=== PATIENT | male | born 1950 | race Caucasian/White ===

== ENCOUNTER 2019-10-16 12:30 | Emergency (ER) | payer MEDICARE, SELFPAY ==
[2019-10-16 12:39] VITALS: BP 222/68; PULSE 64; RESP 16; TEMP 37; O2SAT 100
--- NOTE | 2019-10-16 13:07 | ED.GENADULT ---
HPI - General Adult General Chief complaint: Recheck/Abnormal Lab/Rx Stated complaint: needlestick Time Seen by Provider: 10/16/19 12:37 Source: patient Mode of arrival: ambulatory Limitations: no limitations History of Present Illness HPI narrative: Patient is a 68-year-old male who presents with right index finger puncture wound after picking up a bag that he had a needle in it patient was collecting garbage when this happened and patient notes mild aching pain at the distal tip of the right index finger patient on arrival is in the room in no distress patient has not taken anything for his symptoms. Injury occurred just prior to arrival. Patient notes his tetanus is up-to-date Related Data Home Medications Medication Instructions Recorded Confirmed amlodipine 10/16/19 apixaban [Eliquis] mg 10/16/19 atorvastatin 10/16/19 glipizide mg 10/16/19 levothyroxine 10/16/19 losartan 10/16/19 losartan-hydrochlorothiazide tablet 10/16/19 metformin mg PO 10/16/19 simvastatin mg 10/16/19 testosterone cypionate mg 10/16/19 Allergies Allergy/AdvReac Type Severity Reaction Status Date / Time No Known Allergies Allergy Verified 10/16/19 12:44 Review of Systems Review of Systems: All systems reviewed & are unremarkable except as noted in HPI and below PMFSH Past Medical History Medical History Hypertension Social History Social History Gender identity (if verbalized by the patient): Male Exam Narrative: Exam Narrative: GENERAL: Well-appearing, well-nourished, and in no acute distress. HEAD: Normocephalic, atraumatic. EYES: PERRLA and EOMI. ENT: Nares clear, no rhinorrhea or epistaxis. Mucous membranes moist. EXTREMITIES: Normal range of motion. No edema. No wound of the right index finger noted SKIN: Warm, dry, no rash. NEURO: No focal deficits. Alert and oriented x3. Neurovascularly intact PSYCH: Normal mood and affect. Course Course Emergency Course: Patient in the room in no distress resting comfortably Vital Signs Vital signs: Vital Signs Temperature 98.6 F 10/16/19 12:39 Pulse Rate 64 10/16/19 12:39 Respiratory Rate 16 10/16/19 12:39 Blood Pressure 222/68 H 10/16/19 12:39 Pulse Oximetry 100 10/16/19 12:39 Temperature 98.6 F 10/16/19 12:39 Pulse Rate 64 10/16/19 12:39 Respiratory Rate 16 10/16/19 12:39 Blood Pressure 222/68 H 10/16/19 12:39 Pulse Oximetry 100 10/16/19 12:39 Medical Decision Making MDM Narrative Medical decision making narrative: Patient aware of case findings treatment plan and diagnosis agreeing to follow-up as directed or to return if symptoms worsen or concerns Vital Signs Vital Signs: Vital Signs Temperature 98.6 F 10/16/19 12:39 Pulse Rate 64 10/16/19 12:39 Respiratory Rate 16 10/16/19 12:39 Blood Pressure 222/68 H 10/16/19 12:39 Pulse Oximetry 100 10/16/19 12:39 Temperature 98.6 F 10/16/19 12:39 Pulse Rate 64 10/16/19 12:39 Respiratory Rate 16 10/16/19 12:39 Blood Pressure 222/68 H 10/16/19 12:39 Pulse Oximetry 100 10/16/19 12:39 Lab Data Labs: Lab Results 10/16/19 Range/Units 13:00 Hep Bs Antigen Pending Hepatitis C Ab Screen Pending HIV 1&2 Ab/P24 Ag 4thGn Pending Discharge Plan Discharge Clinical Impression: Puncture wound, Accidental hypodermic needlestick injury Patient Disposition: Home, Self-Care Condition: Stable Instructions: Antibiotic Form, Body Substance Exposure (ED) Additional Instructions: Follow-up with primary care tomorrow to set up for reevaluation and retesting in the next 7 days Return if symptoms worsen or concerns or any increase in redness swelling pain or fever over 100.5 or any loss of feeling or function in the extremity Prescriptions: No Action atorvastatin 40 mg tablet RF: 0 amlodipine 2.5 m
[2019-10-16 13:37] VITALS: BP 173/65; PULSE 63; RESP 15; O2SAT 95
[2019-10-16 13:49] LABS: Hepatitis B Surface Antigen Negative (Negative)
[2019-10-16 14:06] LABS: HIV 1/2 Ab P24 Ag Result Negative (Negative); Hepatitis C Virus Antibody Negative (Negative)
== END 2019-10-16 13:39 | disposition home or self-care (01) ==
PROVIDERS: Emergency Medicine Emergency Medical Services; Emergency Provider Emergency Medicine; PCP Family Medicine
DX: S61.230A Puncture wound without foreign body of right index finger without damage to nail, initial encounter (principal); W46.1XXA Contact with contaminated hypodermic needle, initial encounter; I10 Essential (primary) hypertension
CPT/HCPCS: 36415; 86703; 86803; 87340; 99283; G0432

== ENCOUNTER 2020-06-12 12:38 | Observation (INO) | payer MEDICARE, SELFPAY ==
[2020-06-12] VITALS (10 sets, daily range): BP systolic 132–176; BP diastolic 54–81; PULSE 55–70; RESP 15–20; TEMP 36.3–37.1; O2SAT 94–100; BMI 29.4
--- NOTE | ~2020-06-12 | XR_ITS ---
EXAMINATION: XR chest 2V EXAM DATE: 06/12/2020 13:12 INDICATION: stroke symptoms ,HBP,DIABETES 2, FORMER SMOKER . TECHNIQUE: Frontal and lateral projections of the chest obtained and reviewed. Comparison is made to prior examination from 06/11/2018. FINDINGS: The lungs are clear. There are no pleural effusions. The cardiomediastinal silhouette is within normal limits. There is no pneumothorax suspected. The bones and soft tissues are unremarkab le. IMPRESSION: No acute cardiopulmonary findings. Reviewed, dictated and finalized at location B. ULTING PRACTICE DIRECTOR
--- NOTE | ~2020-06-12 | US_ITS ---
EXAMINATION: US carotid duplex BI DATE: 06/12/2020 16:05 INDICATION: Transient ischemic attack. TECHNIQUE: Grayscale, color Doppler, and pulsed Doppler images of the cervical carotid arteries were obtained. The degree of vessel stenosis is placed in one of the following categories: normal, <50%, 5 0-69%, >=70% but less than near-occlusion, near-occlusion, or total occlusion. Note that percent sten osis relative to normal distal artery lumen diameter is indirectly measured from velocity measurement s as described by Mayco, et al. Radiology 2003; 229:340-346. COMPARISON: Ultrasound 02/11/2019 FINDINGS: RIGHT: The right common carotid artery (CCA) peak systolic velocity (PSV) is 114 cm/s. The right internal ca rotid artery (ICA) PSV is 211 cm/s. The right ICA end-diastolic velocity (EDV) is 35 cm/s. The right ICA/CCA PSV ratio is 1.8. Grayscale and color Doppler images yield an estimate of >=50% diameter redu ction from plaque in the ICA. There is antegrade flow in the right vertebral artery. LEFT: The left CCA PSV is 149 cm/s. The left ICA PSV is 148 cm/s. The left ICA EDV is 34 cm/s. The left ICA /CCA PSV ratio is 1.0. Grayscale and color Doppler images yield an estimate of >=50% diameter reducti on from plaque in the ICA. There is antegrade flow in the left vertebral artery. IMPRESSION: 1. 50-69% stenosis in the right internal carotid artery. 2. 50-69% stenosis in the left internal carotid artery. Reviewed, dictated and finalized at location A. ICE CONTROL OPERATOR
--- NOTE | ~2020-06-12 | CT_ITS ---
EXAMINATION: CT brain wo con INDICATION: Expressive aphasia COMPARISON: None TECHNIQUE: Standard unenhanced head CT. The dose-length product (DLP) was 605.33 mGy-cm. The mA was a djusted according to patient size. Iterative reconstruction technique was employed. FINDINGS: There is no acute intraparenchymal hemorrhage. No evidence of mass lesion. No evidence of a cute infarction. There is an old lacunar infarct of the right caudate. There is mild periventricular and subcortical hypodensity probably related to small vessel ischemic disease. There is mild prominen ce of the sulci and ventricles related to cerebral atrophy. Intracranial calcified cerebral atheroscl erosis is noted. There are no extra-axial collections. There is no mass effect or midline shift. The orbits and soft tissues are unremarkable. There is mild mucosal thickening of the paranasal sinuses. IMPRESSION: 1. No acute intracranial abnormality. 2. Age related findings. Reviewed, dictated and finalized at location A. CAL ASSEMBLY
--- NOTE | ~2020-06-12 | MR_ITS ---
EXAMINATION: MR brain/brain stem wo/w con DATE: 06/13/2020 08:36 INDICATION: Transient ischemic attack TECHNIQUE: Magnetic resonance imaging (MRI) of the brain and brainstem was performed without and with 17 mL MultiHance intravenous contrast. Sequences included sagittal and axial T1-weighted FSE, axial diffusion-weighted FS EPI, axial T2*-weighted GRE, axial T2-weighted FLAIR Propeller, and axial T2-we ighted Propeller. Postcontrast sequences included axial and coronal T1-weighted FSE. Apparent diffusi on coefficient (ADC) maps were created. COMPARISON: Brain MRI 02/14/2019, head CT 06/12/2020 FINDINGS: There are scattered areas of nonspecific increased T2-weighted signal intensity in the cere bral white matter and [place]. There is an old lacunar infarct in the right caudate nucleus. There are e nhancing lesions in the bilateral basal ganglia, left worse than right. There is no intracranial hemo rrhage or acute infarct. The ventricles are normal in size. The paranasal sinuses are clear. There ar e likely changes of ocular lens replacement surgeries. The mastoid air cells are normal. IMPRESSION: 1. Enhancing lesions in the bilateral basal ganglia, left worse than right, most likely subacute infa rcts. Metastatic disease cannot be excluded. 2. Old lacunar infarct in the right caudate nucleus. 3. Moderate nonspecific cerebral white matter disease and pontine disease, which likely represents ch ronic small vessel ischemic disease, slightly worsened from 02/14/2019. Reviewed, dictated and finalized at location A. AL ARTS THERAPY TEACHER IMPRESSION: 1. Enhancing lesions in the bilateral basal ganglia, left worse than right, mos t likely subacute infarcts. Metastatic disease cannot be excluded. 2. Old lacunar infarct in the right caudate nucleus. 3. Moderate nonspecific cerebral white matter disease and pontine disease, whic h likely represents chronic small vessel ischemic disease, slightly worsened fr om 02/14/2019.
--- NOTE | ~2020-06-12 | MR_ITS ---
EXAMINATION: MRA neck wo/w con DATE: 06/13/2020 08:36 INDICATION: Right caudate nucleus infarct. TECHNIQUE: Magnetic resonance angiography (MRA) of the neck was performed without intravenous contras t. Sequences included axial 2D-time of flight T1-weighted FSPGR, axial Inhance, and coronal T1-weight ed FSPGR without and with 17 mL MultiHance intravenous contrast. COMPARISON: Ultrasound 06/12/2020 FINDINGS: There is an aberrant right subclavian artery. There is 56% stenosis of the proximal right internal ca rotid artery relative to normal distal artery lumen diameter (NASCET criteria). There is 27% stenosi s of the proximal left internal carotid artery relative to normal distal artery lumen diameter. There is no significant stenosis of the vertebral arteries. IMPRESSION: 1. 56% stenosis of the proximal right internal carotid artery relative to normal distal artery lumen diameter (NASCET criteria). 2. 27% stenosis of the proximal left internal carotid artery relative to normal distal artery lumen d iameter. Reviewed, dictated and finalized at location A. CTOR EDUCATION IMPRESSION: 1. 56% stenosis of the proximal right internal carotid artery relative to harper l distal artery lumen diameter (NASCET criteria). 2. 27% stenosis of the proximal left internal carotid artery relative to normal distal artery lumen diameter.
--- NOTE | 2020-06-12 12:42 | ECG_ITS ---
Measurements Intervals [place] Rate: 69 P: 49 LA: 173 QRS: 14 QRSD: 98 T: 57 QT: 376 QTc: 403 Interpretive Statements SINUS RHYTHM WITH MARKED SINUS ARRHYTHMIA BASELINE ARTIFACT- I, III, AVR, AVL, AVF, V1, V6 BORDERLINE ECG Electronically Signed On 06-12-2020 15:47:54 ACADEMIC GUIDANCE SPECIALIST by Nicko Trivedi D.O.
[2020-06-12 12:46] LABS: Glucose Point of Care 228 (65-105)
[2020-06-12 13:01] LABS: Basophils Absolute Auto 0.1 K/mm3 (0.0-0.1); Basophils Percent Auto 0.7 % (0.2-1.2); Eosinophils Absolute Auto 0.1 K/mm3 (0-0.3); Eosinophils Percent Auto 0.8 % (0-4.4); Hematocrit 47.5 % (42.0-52.0); Immature Granulocyte Absolute 0.05 K/mm3 (0.00-0.031); Immature Granulocyte Percent A 0.3 % (0-0.5); Lymphocytes Absolute Auto 2.66 K/mm3 (0.9-3.2); Lymphocytes Percent Auto 18.4 % (18.3-44.2); Mean Corpuscular HGB Conc 33.7 g/dl (32-36); Mean Corpuscular Volume 86.2 fl (80-100); Mean Platelet Volume 11.3 fl (7.4-10.4); Monocytes Percent Auto 6.9 % (2.6-8.5); Neutrophils Absolute Auto 10.5 K/mm3 (1.3-6.7); Neutrophils Percent Auto 72.9 % (45.5-73.1); Platelet Count Result 233 k/mm3 (150-375); Red Blood Count 5.51 M/mm3 (4.6-6.20); White Blood Count 14.5 K/mm3 (4.5-10.0)
[2020-06-12 13:09] LABS: INR 1.1; Prothrombin Time 14.4 Seconds (11.1-14.7)
[2020-06-12 13:10] LABS: Partial Thromboplastin Time 29.2 SECONDS (22.3-36.8)
[2020-06-12 13:14] LABS: Anion Gap 11 mmol/L (8-16); Blood Urea Nitrogen 21 mg/dL (9-20); Carbon Dioxide 29 mmol/L (22-30); Chloride 97 mmol/L (98-107); Estimated Glomerular Filt Rate > 60; Glucose 205 mg/dL (75-110); Potassium 4.1 mmol/L (3.4-5.0); Sodium 137 mmol/L (137-145)
[2020-06-12 13:29] LABS: Troponin I < 0.012 ng/mL (0.000-0.034)
[2020-06-12 14:04] LABS: Add Urine Microscopic? YES; Appearance Urine Clear (Clear); Bilirubin Urine Negative (Negative); Blood Urine 1+ (Negative); Color Urine Yellow (Yellow); Glucose Urine UA 3+ mg/dL (Negative); Ketones Urine Negative (Negative); Leukocyte Esterase Ur Negative LEU/UL (Negative); Mucus Urine Rare /lpf; Nitrate Urine Negative (Negative); Protein Urine 1+ mg/dL (Negative); RBC Urine 0-2 /hpf (0-2); Specific Grav Ur 1.021 (1.001-1.035); Urobilinogen Urine Negative mg/dL (<2.0); WBC Urine 0-3 /hpf
--- NOTE | 2020-06-12 14:04 | ED.NEUROSD ---
HPI - Neuro Symptoms/Deficit General Chief Complaint: Neuro Symptoms/Deficit Stated Complaint: Neuro symptoms Time Seen by Provider: 06/12/20 12:41 History of Present Illness HPI Narrative: Patient is a 69-year-old male who presents ER with stroke symptoms. Patient was at home when he developed sudden onset weakness of his entire body with inability to stand. He also had slurred unintelligible speech. Symptoms lasted approximately 15 minutes and began to improve on his way here. 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 Patient reports he has history of atrial fibrillation but has not been in for quite some time. He does not take any medication for rate control. He does take Eliquis. Related Data Home Medications Medication Instructions Recorded Confirmed amlodipine 2.5 mg DAILY 10/16/19 06/12/20 apixaban [Eliquis] 5 mg BID 10/16/19 06/12/20 atorvastatin 40 mg HS 10/16/19 06/12/20 glipizide 10 mg BID 10/16/19 06/12/20 levothyroxine 112 mcg DAILY 10/16/19 06/12/20 losartan-hydrochlorothiazide 1 tablet HS 10/16/19 06/12/20 metformin 500 mg PO BID 10/16/19 06/12/20 testosterone cypionate 1 mg DIRECTED 10/16/19 06/12/20 Allergies Allergy/AdvReac Type Severity Reaction Status Date / Time No Known Allergies Allergy Verified 06/12/20 17:06 Review of Systems Review of Systems: All systems reviewed & are unremarkable except as noted in HPI and below Constitutional: Constitutional: Denies chills, Denies fever(s) and Denies weakness Cardiovascular: Cardiovascular: Denies chest pain, Denies rapid heart rate and Denies radiating jaw, neck or arm pain Respiratory: Respiratory: Denies cough and Denies dyspnea Gastrointestinal: Gastrointestinal: Denies abdominal pain, Denies nausea and Denies vomiting Neurologic: Reports focal weakness and Reports numbness (chronic) Comments: dysarthria/dysphasia PMFSH Past Medical History Medical History (Updated 06/12/20 @ 19:06 by Sabas Mac MD) CAD (coronary artery disease) history having nonobstructive blockages he had a stress test in June 2014 but had no intervention performed. He had a EF of 55% at that time. Medically treated. DM2 (diabetes mellitus, type 2) Dyslipidemia History of skin cancer HTN (hypertension) with goal to be determined Hypertension Hyperthyroidism status post radioactive iodine ablation Hypothyroidism Paroxysmal atrial fibrillation Surgical History Surgical History (Updated 06/12/20 @ 17:20 by Jade Alberto NP) H/O arthroscopy of left knee partial medial meniscectomy H/O cardiac catheterization no intervention performed History of removal of pigmented skin lesion Family History Family History Sibling Lung cancer Diabetes mellitus Father Diabetes mellitus Mother Congestive heart failure Acute myocardial infarction Dementia Other Hypertension Social History Social History (Updated 06/12/20 @ 17:21 by Jade Alberto NP) Social History: the patient lives with his Marycarmen in [place]. They have 2 children. He was a pack-a-day smoker and quit in 2007. No alcohol or drug use. 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 His Marycarmen is a durable power senior policy analyst for healthcare. Smoking packs per day: 1 Smoking cigarettes per day: 20.0 Years smoked: 20 Smoking pack-years: 20.00 Smoking status: Former smoker Tobacco type: cigarettes Alcohol intake: never Substance use: never Substance use type: does not use Living arrangements: with family Gender identity (if verbalized by the patient): Male Spiritual care concerns: No Exam Narrative: Exam Narrative: GENERAL: Well-appearing, well-nourished, and in no acute distress. HEAD: Normocephalic, atraumatic. EYES: PERRL and EOMI. ENT: Mucous membranes moist. CH
--- NOTE | 2020-06-12 15:22 | PC.NURSE ---
Patient taken to ultrasound before going to third floor, ultrasound taking patient up to room after ultrasound
--- NOTE | 2020-06-12 15:50 | ADMGEN ---
This patient, Moise Lutz, was admitted to Medical Room 346-01. Patient/family oriented to hospital policies and general routines including ID bracelet, bed and alarms, visiting hours, pain management, procedures, bathroom and other care routines, personal items, smoking policy, room service/diet, and visiting hours. Information on how to activate the Rapid Response Team has been discussed. Patient/Family are encouraged to report perceived risks to care and to ask questions if they do not understand what they are told or what they should do.
--- NOTE | 2020-06-12 17:10 | PM.IMHP ---
H&P: HPI History of Present Illness Date/Time: 06/12/20 17:10 Chief complaint: Stroke like symptoms/TIA Narrative: Moise Lutz is a 69 year old male Who came to the hospital today because he had complaints of numbness and tingling. He had numbness and tingling to bilateral arms and his left side of his body from his had a way down to his toes. The patient is diabetic and he does admit that he has peripheral neuropathy to his lower extremities. He stated that he has been to 2 different neurologist in the cancer to figure out what is wrong with him. The patient did not have any nerve conduction test but had been worked up for CVA in the past. The patient has no focal weakness. His speech is clear is no visual problems he is able to ambulate without difficulty. He is swallowing without difficulty. The patient has not had any TIAs or stroke in the past. He has a history of paroxysmal atrial fibrillation and is on Eliquis which he states he takes faithfully. Patient is currently in sinus rhythm. The patient had carotid Dopplers performed and it is listed as 50-69% right internal and left internal carotid arteries. Patient stated his last time he Had his carotids checked there were noted to be occluded at 50%. head CT was read as no acute intracranial abnormality age-related findings. Chest x-ray was read as no acute cardiopulmonary findings. His white count was noted to be 14.5. Blood sugar was 205 and then 228. Troponin was negative. Patient has 3+ glucose in his urine. Patient was given [place] was ordered for discomfort in the emergency room. Patient is admitted observation date of service 20 Review of Systems Review of Systems: All systems reviewed & are unremarkable except as noted in HPI and below Constitutional: Constitutional: Reports as per HPI and Reports no additional constitutional complaints Eyes: Eyes: Reports as per HPI and Reports no additional eye complaints ENT: Reports system reviewed and no additional complaints, except as documented and Reports Normal hearing present Cardiovascular: Cardiovascular: Reports no additional cardiovascular complaints Respiratory: Respiratory: Reports no additional respiratory complaints and Reports no additional respiratory complaints Gastrointestinal: Gastrointestinal: Reports as per HPI and Reports no additional gastrointestinal complaints Musculoskeletal: Musculoskeletal: Reports no additional musculoskeletal complaints Integumentary/Breasts: Skin/Breast: Reports system reviewed and no additional complaints, except as docu and Reports as per HPI Neurologic: Reports system reviewed and no additional complaints, except as documented, Reports as per HPI and Reports Normal hearing present Psychiatric: Psychiatric: Reports no additional psychiatric complaints and Reports as per HPI Endocrine: Endocrine: Reports no additional endocrine complaints Hematologic/Lymphatic: Hematologic/Lymphatic: Reports no additional hematologic/lymphatic complaints Allergic/Immunologic: Allergic/Immunologic: Reports no additional allergic/immunologic complaints [facility] Past Medical History Medical History (Updated 06/12/20 @ 17:38 by Jade Alberto NP) CAD (coronary artery disease) history having nonobstructive blockages he had a stress test in June 2014 but had no intervention performed. He had a EF of 55% at that time. Medically treated. DM2 (diabetes mellitus, type 2) Dyslipidemia History of skin cancer HTN (hypertension) with goal to be determined Hypertension Hyperthyroidism status post radioactive iodine ablation Hypothyroidism Paroxysmal atrial fibrillation Surgical History Surgical History (Updated 06/12/20 @ 17:20 by Jade Alberto NP) H/O arthroscopy of left knee partial medial meniscectomy H/O cardiac catheterization no intervention performed History of removal of pigmented skin lesion Family History Family History (Reviewed 06/12/20 @ 17:20 by Jade Flores
[2020-06-12] MEDS: glipiZIDE 5 MG TABLET 10 MG BY MOUTH (18:03)
[2020-06-12] MEDS: APIXABAN 5 MG TABLET BY MOUTH (18:04)
[2020-06-12 19:16] LABS: Cortisol Random 3.85 ug/dL
[2020-06-12] MEDS: hydroCHLOROthiazide 12.5 MG CAPSULE PO (20:19)
[2020-06-12] MEDS: ATORVASTATIN 40 MG TABLET BY MOUTH (20:19)
[2020-06-12] MEDS: LOSARTAN POTASSIUM 50 MG TABLET BY MOUTH (20:19)
[2020-06-12 21:58] LABS: Glucose Point of Care 267 (65-105)
[2020-06-13] VITALS (7 sets, daily range): BP systolic 144–151; BP diastolic 55–73; PULSE 52–66; RESP 16; TEMP 36.1–36.3; O2SAT 97–98
--- NOTE | 2020-06-13 | ECHO_ITS ---
Patient Info Name: Moise Lutz Age: 69 years : 1950 Gender: Male Ht: 68 in Wt: 193 lbs BSA: 2.07 m2 HR: 55 bpm BP: 124 / 65 mmHg Heart Rhythm: Sinus Rhythm Technical Quality: Fair Exam Date: 06/13/2020 8:26 AM Exam Location: [facility] Pulmonary Exam Room: [facility] Patient Status: Inpatient Admit Date: 06/12/2020 Staff Ordering Physician: Jade Alberto NP Drafter Assistant: Eladia Sosa RDCS Attending Provider: Zaynab Ayala PA-C Referring Physician: Dolly SEBASTIAN; Exam Type: CA echo dop bubble study w con Study Info Indications - TIA Complete two-dimensional, color flow and Doppler transthoracic echocardiogram is performed with contrast to opacify the left ventricle and to improve the deliniation of the left ventricle endocardial borders. Complete two-dimensional, color flow and Doppler transthoracic echocardiogram is performed with agitated saline. Contrast/Agitated Saline Contrast/Ag. Saline: Agitated Saline Amount: 20.00 ml Existing IV Access: Yes Summary 1. Left ventricular systolic function is normal, estimated at 65-70%. 2. There is mildly increased left ventricular wall thickness. 3. The left ventricular diastolic function is grade II diastolic dysfunction. 4. Left atrial chamber dimension is mildly enlarged. 5. Right atrial chamber dimension is mildly enlarged. 6. No interatrial shunt with injection of agitated saline with or without Valsalva. 7. There is no aortic valve stenosis. 8. There is trace mitral valve regurgitation. 9. There is trace tricuspid valve regurgitation. 10. No pulmonary hypertension, estimated pulmonary arterial systolic pressure is 19 mmHg. Recommendations * Consider transesophageal echocardiogram if clinically indicated. Left Ventricle Left ventricular chamber dimension is normal. Left ventricular systolic function is normal, estimated at 65-70%. There is mildly increased left ventricular wall thickness. The left ventricular diastolic function is grade II diastolic dysfunction. Right Ventricle Right ventricular chamber dimension is normal. Right ventricular systolic function is normal. Left Atria Left atrial chamber dimension is mildly enlarged. Right Atria Right atrial chamber dimension is mildly enlarged. Atrial Septum No interatrial shunt with injection of agitated saline with or without Valsalva. Aortic Valve The aortic valve is probable trileaflet. There is mild aortic valve sclerosis. There is no aortic valve stenosis. There is trace aortic valve regurgitation. Pulmonic Valve The pulmonic valve is not well visualized. There is trace pulmonic regurgitation. Mitral Valve The mitral valve has thickened leaflets. There is trace mitral valve regurgitation. The mitral valve annulus is moderately calcified. Tricuspid Valve The tricuspid valve leaflets are normal. There is trace tricuspid valve regurgitation. No pulmonary hypertension, estimated pulmonary arterial systolic pressure is 19 mmHg. Pericardium/Pleural The pericardium appears normal. There is trivial pericardial effusion. Inferior Vena Cava Normal inferior vena cava with >50% collapse upon inspiration consistent with normal right atrial pressure, 5 mmHg. Aorta The aortic root size at the sinus of Valsalva is normal. There is mild aortic atherosclerosis. Left Ventricular Outflow Tract
[2020-06-13] MEDS: LEVOTHYROXINE SODIUM 112 MCG TABLET BY MOUTH (06:32)
[2020-06-13 07:15] LABS: Hemoglobin A1C 7.2 % (<5.7)
[2020-06-13 07:17] LABS: Magnesium 1.6 mg/dL (1.6-2.3); Phosphorus 3.5 mg/dL (2.5-4.5)
--- NOTE | 2020-06-13 07:52 | PC.NURSE ---
Patient off to MRI per wheelchair.
[2020-06-13 09:04] LABS: Basophils Absolute Auto 0.1 K/mm3 (0.0-0.1); Basophils Percent Auto 0.6 % (0.2-1.2); Eosinophils Absolute Auto 0.1 K/mm3 (0-0.3); Eosinophils Percent Auto 1.2 % (0-4.4); Hematocrit 48.2 % (42.0-52.0); Hemoglobin 16.1 g/dL (14.0-18.0); Immature Granulocyte Absolute 0.02 K/mm3 (0.00-0.031); Immature Granulocyte Percent A 0.2 % (0-0.5); Lymphocytes Absolute Auto 1.76 K/mm3 (0.9-3.2); Lymphocytes Percent Auto 17.3 % (18.3-44.2); Mean Corpuscular HGB Conc 33.4 g/dl (32-36); Mean Corpuscular Volume 86.7 fl (80-100); Mean Platelet Volume 12.2 fl (7.4-10.4); Monocytes Absolute Auto 0.6 K/mm3 (0.1-0.6); Monocytes Percent Auto 6.3 % (2.6-8.5); Neutrophils Absolute Auto 7.6 K/mm3 (1.3-6.7); Neutrophils Percent Auto 74.4 % (45.5-73.1); Platelet Count Result 215 k/mm3 (150-375); Red Blood Count 5.56 M/mm3 (4.6-6.20); Red Cell Distribution Width 14.1 % (11.5-14.5); White Blood Count 10.2 K/mm3 (4.5-10.0)
[2020-06-13 09:09] LABS: CRP < 0.5 mg/dL (<1.0)
[2020-06-13] MEDS: APIXABAN 5 MG TABLET BY MOUTH ×2 (09:20→16:34)
[2020-06-13] MEDS: amLODIPine BESYLATE 2.5 MG TABLET BY MOUTH (09:20)
[2020-06-13] MEDS: glipiZIDE 5 MG TABLET 10 MG BY MOUTH ×2 (09:20→16:34)
[2020-06-13 09:29] LABS: Glucose Point of Care 174 (65-105)
[2020-06-13 09:57] LABS: Free T4 Free Thyroxine Reflex 1.04 ng/dL (0.78-2.19)
[2020-06-13 10:02] LABS: Folic Acid 3.5 ng/mL (2.76->20)
--- NOTE | 2020-06-13 10:03 | PC.NURSE ---
Back to room from MRI at 0812.
[2020-06-13 10:38] LABS: Total Triiodothyronine (T3) 1.08 NG/ML (0.97-1.69)
[2020-06-13 11:56] LABS: Glucose Point of Care 208 (65-105)
--- NOTE | 2020-06-13 13:09 | WPDNEURCNPN ---
Assessment and Plan Assessment and plan (1) TIA (transient ischemic attack): Code(s): G45.9 - Transient cerebral ischemic attack, unspecified Status: Acute (2) Paroxysmal atrial fibrillation: Code(s): I48.0 - Paroxysmal atrial fibrillation Status: Chronic (3) DM2 (diabetes mellitus, type 2): Code(s): E11.9 - Type 2 diabetes mellitus without complications Status: Chronic Additional Plan TIA and small fiber neuropathy on the basis of Diabetes mellitus patient can have EMG nerve conduction study as an outpatient at present can't continue apixaban 5 mg twice a day Consult date: 06/13/20 Time Seen: 13:10 HPI: Moise Lutz is a 69 year old male 69 years old has been admitted to the hospital for the complaints of numbness and tingling to both upper extremities and the left side of the body down to his toes patient is a known diabetic and has ongoing history of peripheral neuropathy involving the lower extremities has not undergone any nerve conduction studies but has been worked up for the cerebrovascular accident in the past on initial evaluation by the initial physician he had no focal weakness and had a normal speech but he does have a history of paroxysmal atrial fibrillation for which he is on Eliquis which she takes faithfully Yue was noted Mirta in sinus rhythm his previous cardiac carotid studies were compatible with 50 to 69% on the right side on initial evaluation this time chest x-ray was with acute cardiopulmonary findings negative CBC was 14.5 WBCs blood sugar 205 and 220 troponins negative 3+ glucose in the urine echocardiogram on this admission slightly enlarged left atrial chamber and right atrial chamber no shunt no aortic valvular disease and no pulmonary hypertension brain MRI is pending Review of Systems Review of Systems: All systems reviewed & are unremarkable except as noted in HPI and below [facility] Past Medical History Medical History CAD (coronary artery disease) history having nonobstructive blockages he had a stress test in June 2014 but had no intervention performed. He had a EF of 55% at that time. Medically treated. DM2 (diabetes mellitus, type 2) Dyslipidemia History of skin cancer HTN (hypertension) with goal to be determined Hypertension Hyperthyroidism status post radioactive iodine ablation Hypothyroidism Paroxysmal atrial fibrillation Surgical History Surgical History H/O arthroscopy of left knee partial medial meniscectomy H/O cardiac catheterization no intervention performed History of removal of pigmented skin lesion Family History Family History Sibling Lung cancer Diabetes mellitus Father Diabetes mellitus Mother Congestive heart failure Acute myocardial infarction Dementia Other Hypertension Social History Social History Social History: the patient lives with his Marycarmen in [place]. They have 2 children. He was a pack-a-day smoker and quit in 2007. No alcohol or drug use. 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 His Marycarmen is a durable power hardwood floor refinisher for healthcare. Smoking packs per day: 1 Smoking cigarettes per day: 20.0 Years smoked: 20 Smoking pack-years: 20.00 Smoking status: Former smoker Tobacco type: cigarettes Alcohol intake: never Substance use: never Substance use type: does not use Living arrangements: with family Gender identity (if verbalized by the patient): Male Spiritual care concerns: No Meds Home Medications and Allergies Home Medications Medication Instructions Recorded Confirmed Type amlodipine 2.5 mg DAILY 10/16/19 06/12/20 History apixaban [Eliquis] 5 mg BID 10/16/19 06/12/20 History
[2020-06-13] MEDS: ASPIRIN 81 MG ENTERIC TABLET PO (16:27)
[2020-06-13 16:53] LABS: Glucose Point of Care 155 (65-105)
--- NOTE | 2020-06-13 17:02 | PM.DS ---
DS: Admitting Diagnosis Admitting Diagnosis Admitting Diagnosis: Stroke like symptoms/TIA DS: Discharge Diagnosis Discharge Diagnosis (1) CVA (cerebral vascular accident): Code(s): I63.9 - Cerebral infarction, unspecified Status: Acute Assessment and Plan: Patient presented with complaints of numbness and tingling of left side of his face all the way down to his toes and endorsed bilateral numbness and tingling in arms. CT at presentation showed no evidence of acute infarction. Doppler showed 50-69% stenosis in the bilateral ICA. Brain MRI showed enhancing lesions in the bilateral basal ganglia most likely representing subacute infarcts, although metastatic disease cannot be excluded. There was also evidence of old lacunar infarcts in the right caudate nucleus. MRA of the head and neck showed 56% stenosis and proximal right ICA and 27% stenosis of proximal left ICA. Echo was negative for valvular disease or interatrial shunt. He was seen in consultation by Neurology and will need to follow-up in 1 week. He was started on daily aspirin therapy. He had some residual numbness and tingling in his left lip and bilateral hands, but otherwise did not appear to have any deficits. He will need to follow-up with neurology regarding enhancing lesions of the basal ganglia and follow-up imaging may be needed to rule out metastatic disease, although this is unlikely and better explained by subacute infarct. (2) Paresthesias: Code(s): R20.2 - Paresthesia of skin Status: Acute Assessment and Plan: Of left side of face, bilateral upper extremities, and left lower extremity. Patient reports that upper extremity paresthesias have been persistent for several years and he has been evaluated by neurology in the past for these findings. Suspect new onset facial paresthesias are related to subacute infarct as above but BUE and LE paresthesia may be related to residual effects from old lacunar infarct or additional etiologies including cervical pathology or peripheral neuropathy secondary to diabetes mellitus. He will follow-up with neurology in 1 week for nerve conduction studies. (3) DM2 (diabetes mellitus, type 2): Code(s): E11.9 - Type 2 diabetes mellitus without complications Status: Chronic Assessment and Plan: A1c was 7.2. Blood sugars were slightly elevated during his hospital stay in the 200s, however patient refused sliding scale insulin during his stay. Continue his glipizide and metformin as an outpatient. (4) Hypothyroidism: Code(s): E03.9 - Hypothyroidism, unspecified Status: Chronic Assessment and Plan: TSH was very mildly elevated and T3 and T4 were within normal limits. Continue his levothyroxine. (5) Dyslipidemia: Code(s): E78.5 - Hyperlipidemia, unspecified Status: Acute Assessment and Plan: Continue with atorvastatin. (6) HTN (hypertension) with goal to be determined: Code(s): I10 - Essential (primary) hypertension Status: Acute Assessment and Plan: Blood pressures were evaluated daily and remained generally well controlled. Continue home regimen of losartan-hydrochlorothiazide and amlodipine. (7) Paroxysmal atrial fibrillation: Code(s): I48.0 - Paroxysmal atrial fibrillation Status: Chronic Assessment and Plan: Rate controlled. He is on Eliquis, which he will continue. We discussed risk of bleeding with this medication in addition to aspirin and patient understands. DS: Summary Hospital Course Reason for hospitalization: Paraesthesias Hospital Course: Date of admission: 06/12/2020 Date of discharge: 06/13/2020 Moise Lutz is a 69-year-old male with a history of CAD, type 2 diabetes mellitus, hypertension, and paroxysmal atrial fibrillation who presented to the emergency department on 06/12/2020 with complaints of sudden onset weakness in which he was unable to stand
== END 2020-06-13 17:40 | disposition home or self-care (01) ==
LOC: ANHED 14:21 → ANH3MED 15:29
PROVIDERS: Nurse Practitioner; Admitting Provider Hospitalist; Emergency Provider Emergency Medicine; PCP Family Medicine; Visit Provider Physician Assistant
DX: I63.9 Cerebral infarction, unspecified (principal); R20.2 Paresthesia of skin; R47.81 Slurred speech; I65.23 Occlusion and stenosis of bilateral carotid arteries; E11.65 Type 2 diabetes mellitus with hyperglycemia; I48.0 Paroxysmal atrial fibrillation; I25.10 Atherosclerotic heart disease of native coronary artery without angina pectoris; I10 Essential (primary) hypertension; E89.0 Postprocedural hypothyroidism; E78.5 Hyperlipidemia, unspecified; Z79.01 Long term (current) use of anticoagulants; Z79.84 Long term (current) use of oral hypoglycemic drugs; Z87.891 Personal history of nicotine dependence
CPT/HCPCS: 36415; 70450; 70549; 70553; 71046; 80048; 81001; 82533; 82607; 82746; 82948; 83036; 83735; 84100; 84439; 84443; 84480; 84484; 85025; 85610; 85730; 86140; 93005; 93880; 96375; 99285; A9270; A9577; C8929; G0378; Q9957

== ENCOUNTER 2020-08-20 08:16 | Outpatient (CLI) | payer MEDICARE, SELFPAY ==
--- NOTE | 2020-08-20 11:30 | NEURO_ITS ---
Impression: # Complains of numbness of hands. # Bilateral Carpal Tunnel Syndrome, left more than right. # No ulnar neuropathy. # Normal nerve conduction study. # Clinical correlation recommended. Nerve Conduction Studies Anti Sensory Summary Table Stim Site NR Peak (ms) P-T Amp (?V) Site1 Site2 Delta-P (ms) Dist (cm) Hector (m/s) Left Median Anti Sensory (2-3nd Digit) Wrist 4.3 26.6 Wrist 2-3nd Digit 4.3 14.0 33 Wrist 4.3 19.3 Wrist 2-3nd Digit 4.3 14.0 33 Right Median Anti Sensory (2-3nd Digit) Wrist 4.1 22.9 Wrist 2-3nd Digit 4.1 14.0 34 Wrist 4.1 29.1 Wrist 2-3nd Digit 4.1 14.0 34 Left Radial Anti Sensory (Base 1st Digit) Wrist 2.4 10.8 Wrist Base 1st Digit 2.4 0.0 Right Radial Anti Sensory (Base 1st Digit) Wrist 2.3 27.1 Wrist Base 1st Digit 2.3 0.0 Left Ulnar Anti Sensory (5th Digit) Wrist 2.8 14.3 Wrist 5th Digit 2.8 14.0 50 Right Ulnar Anti Sensory (5th Digit) Wrist 3.3 33.9 Wrist 5th Digit 3.3 14.0 42 Motor Summary Table Stim Site NR Onset (ms) O-P Amp (mV) Site1 Site2 Delta-0 (ms) Dist (cm) Hector (m/s) Left Median Motor (Abd Poll Brev) Wrist 4.8 3.4 Elbow Wrist 5.3 28.0 53 Elbow 10.1 4.0 Right Median Motor (Abd Poll Brev) Wrist 4.1 2.5 Elbow Wrist 5.6 26.0 46 Elbow 9.7 1.9 Left Ulnar Motor (Abd Dig Minimi) Wrist 3.1 7.5 A Elbow Wrist 5.8 29.0 50 A Elbow 8.9 5.5 Right Ulnar Motor (Abd Dig Minimi) Wrist 3.1 7.8 A Elbow Wrist 5.6 29.0 52 A Elbow 8.7 4.1 F Wave Studies NR F-Lat (ms) L-R F-Lat (ms) Left Median (Mrkrs) (Abd Poll Brev) 30.71 0.70 Right Median (Mrkrs) (Abd Poll Brev) 30.01 0.70 Left Ulnar (Mrkrs) (Abd Dig Min) 30.32 0.95 Right Ulnar (Mrkrs) (Abd Dig Min) 31.27 0.95 EMG Side Muscle Nerve Root Ins Act Fibs Amp Dur Recrt Comment Right 1stDorInt Ulnar C8-T1 Nml Nml Nml Nml Nml Right Ext Indicis Radial (Post Int) C7-8 Nml Nml Nml Nml Nml Right Ext Digitorum Radial (Post Int) C7-8 Nml Nml Nml Nml Nml Right BrachioRad Radial C5-6 Nml Nml Nml Nml Nml Right PronatorTeres Median C6-7 Nml Nml Nml Nml Nml Right Abd Poll Brev Median C8-T1 Nml Nml Nml Nml Nml Left 1stDorInt Ulnar C8-T1 Nml Nml Nml Nml Nml Left Ext Indicis Radial (Post Int) C7-8 Nml Nml Nml Nml Nml Left Ext Digitorum Radial (Post Int) C7-8 Nml Nml Nml Nml Nml Left BrachioRad Radial C5-6 Nml Nml Nml Nml Nml Left PronatorTeres Median C6-7 Nml Nml Nml Nml Nml Left Abd Poll Brev Median C8-T1 Nml Nml Nml Nml Nml MTDD
== END 2020-08-20 08:17 | disposition home or self-care (01) ==
PROVIDERS: Visit Provider Psychiatry & Neurology Neurology
DX: R20.2 Paresthesia of skin (principal); G56.03 Carpal tunnel syndrome, bilateral upper limbs
CPT/HCPCS: 95886; 95911

== ENCOUNTER 2020-12-02 16:06 | Emergency (ER) | payer MEDICARE, SELFPAY ==
[2020-12-02 16:19] VITALS: BP 156/66; PULSE 65; RESP 18; TEMP 36.9; O2SAT 97
--- NOTE | 2020-12-02 16:21 | ED.WOUNDLAC ---
HPI - Wound/Laceration General Stated Complaint: bump on head/right eye swelling Source: patient Mode of arrival: ambulatory Limitations: no limitations History of Present Illness HPI narrative: Patient is a 69 year old male who presents with laceration to right eye. He reports missing step, tripping and falling into door. Laceration to right eye. Dressing in place. Patient is on Eliquis and ASA daily. He denies LOC, denies other injuries. Patient denies all other complaints at this time. Related Data Home Medications Medication Instructions Recorded Confirmed Eliquis 5 mg BID 10/16/19 09/11/20 amlodipine 5 mg PO DAILY 12/02/20 12/02/20 losartan-hydrochlorothiazide 1 tablet PO DAILY 12/02/20 12/02/20 metformin 1,000 mg PO BID 12/02/20 12/02/20 Allergies Allergy/AdvReac Type Severity Reaction Status Date / Time No Known Allergies Allergy Verified 12/02/20 16:22 Review of Systems Review of Systems: Narrative: CONSTITUTIONAL: Denies fever, chills, or sweats. EYES: Denies visual changes, redness, or discharge. ENT: Denies rhinorrhea, congestion, sore throat, or otalgia. CARDIOVASCULAR: Denies chest pain, palpitations, or edema. RESPIRATORY: Denies cough or dyspnea. GASTROINTESTINAL: Denies abdominal pain, nausea, vomiting, or diarrhea. GENITOURINARY: Denies dysuria or hematuria. SKIN: Laceration to right eye MUSCULOSKELETAL: Denies back pain, joint pain, or myalgia. NEUROLOGIC: Denies headache, numbness, dizziness, or weakness. PSYCHIATRIC: Denies anxiety or depression. [facility] Past Medical History Medical History (Updated 12/02/20 @ 16:31 by KELLY Khan) Adhesive capsulitis of right shoulder BMI 28.0-28.9,adult CAD (coronary artery disease) history having nonobstructive blockages he had a stress test in June 2014 but had no intervention performed. He had a EF of 55% at that time. Medically treated. Cardiac arrhythmia DM2 (diabetes mellitus, type 2) Dyslipidemia Hemoglobin A1C between 7% and 9% indicating borderline diabetic control A1c was 7.2 on 06/13/20 History of skin cancer HTN (hypertension) with goal to be determined Hypertension Hyperthyroidism status post radioactive iodine ablation Hypothyroidism Paroxysmal atrial fibrillation Surgical History Surgical History (Updated 09/03/20 @ 06:21 by Hossein Borrego MD) H/O arthroscopy of left knee partial medial meniscectomy, Dr. Mosquera about 2017 H/O cardiac catheterization no intervention performed History of removal of pigmented skin lesion Family History Family History Sibling Lung cancer Diabetes mellitus Father Diabetes mellitus Mother Congestive heart failure Acute myocardial infarction Dementia Other Hypertension Social History Social History Social History: the patient lives with his Marycarmen in [place]. They have 2 children. He was a pack-a-day smoker and quit in 2007. No alcohol or drug use. 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 His Marycarmen is a durable power commercial attorney for healthcare. Smoking packs per day: 1 Smoking cigarettes per day: 20.0 Years smoked: 20 Smoking pack-years: 20.00 Tobacco type: cigarettes Alcohol intake: never Substance use: never Substance use type: does not use Gender identity (if verbalized by the patient): Male Spiritual care concerns: No Comments At the time of signature, I have reviewed and agree with nursing past medical, surgical, social, and family history unless otherwise noted. Please see nursing chart for further information. There is no relevant family history pertinent to the presenting complaint. Exam Narrative: Exam Narrative: GENERAL: Well-appearing, well-nourished, and in no acute distress. HEAD: Normocephalic, atraumatic. EYES: EOMI. No rednes
[2020-12-02 16:22] VITALS: BP 156/66; PULSE 65; RESP 18; TEMP 36.9; O2SAT 97
== END 2020-12-02 16:35 | disposition short-term general hospital (02) ==
PROVIDERS: Emergency Provider Nurse Practitioner; PCP Internal Medicine
DX: S01.81XA Laceration without foreign body of other part of head, initial encounter (principal); W01.198A Fall on same level from slipping, tripping and stumbling with subsequent striking against other object, initial encounter; Z87.891 Personal history of nicotine dependence; I25.10 Atherosclerotic heart disease of native coronary artery without angina pectoris; E11.9 Type 2 diabetes mellitus without complications; E78.5 Hyperlipidemia, unspecified; I10 Essential (primary) hypertension; I48.0 Paroxysmal atrial fibrillation; Z85.828 Personal history of other malignant neoplasm of skin
CPT/HCPCS: 99212; G0463

== ENCOUNTER 2020-12-02 16:46 | Emergency (ER) | payer MEDICARE, SELFPAY ==
--- NOTE | ~2020-12-02 | CT_ITS ---
EXAMINATION: CT brain wo con DATE: 12/02/2020 17:53 INDICATION: Head injury on blood thinners. TECHNIQUE: Computed tomography (CT) of the head was performed without intravenous contrast. Sagittal and coronal reconstructions were performed. The mA was adjusted according to patient size. Iterative reconstruction technique was employed. The dose-length product was 605.33 mGy-cm. COMPARISON: head CT dated 06/12/2020 and brain MR dated 06/23/2020 FINDINGS: No fracture. No acute intracranial hemorrhage, acute infarction or abnormal extra axial fluid collect ion. A small old lacunar infarcts at the heads of the bilateral caudate nuclei. There is mild scatter ed white matter hypoattenuation consistent with chronic small vessel ischemic disease. Symmetric prom inence of the sulci consistent with mild age-appropriate diffuse cerebral volume loss. Ventricles are normal and symmetric. No mass/mass effect. Changes of bilateral intraocular lens replacement. The or bitsand paranasal sinuses are clear. Mastoid air cells are clear with no hypopneumatized left mastoid . IMPRESSION: 1. No fracture or acute intracranial process. 2. Small old lacunar infarcts at the bilateral caudate nuclei. 3. Age-related changes and diffuse on loss and mild scattered white matter hypoattenuation consistent with chronic small vessel ischemic disease. Reviewed, dictated and finalized at location A. IMPRESSION: 1. No fracture or acute intracranial process. 2. Small old lacunar infarcts at the bilateral caudate nuclei. 3. Age-related changes and diffuse on loss and mild scattered white matter hypo attenuation consistent with chronic small vessel ischemic disease.
[2020-12-02 17:26] VITALS: BP 155/72; PULSE 59; RESP 20; TEMP 36.5; O2SAT 97
[2020-12-02] MEDS: TETANUS,DIPHTHERIA,AC PERTUSSIS ADULT (0.5 ML) BOOSTRIX IM (19:15)
--- NOTE | 2020-12-02 20:10 | ED.HEATRA ---
HPI - Head Injury General Chief complaint: Head Injury Stated complaint: Fell off step, hit face on door Time Seen by Provider: 12/02/20 17:59 Source: patient Mode of arrival: ambulatory Limitations: no limitations History of Present Illness HPI Narrative: 69-year-old male This morning around 10:00 patient stumbled and fell into a door frame striking the right side of his head He did not lose consciousness He does not have any neck pain or any new neuro symptoms He does have a stellate laceration above the right in the right eyebrow And he is taking Eliquis and aspirin for stroke prophylaxis due to A. fib He was not thinking of coming to the ED until his checked his wound and was concerned and also made it bleed more Related Data Home Medications Medication Instructions Recorded Confirmed Eliquis 5 mg BID 10/16/19 12/02/20 amlodipine 5 mg PO DAILY 12/02/20 12/02/20 losartan-hydrochlorothiazide 1 tablet PO DAILY 12/02/20 12/02/20 metformin 1,000 mg PO BID 12/02/20 12/02/20 Allergies Allergy/AdvReac Type Severity Reaction Status Date / Time No Known Allergies Allergy Verified 12/02/20 18:27 Review of Systems Review of Systems: All systems reviewed & are unremarkable except as noted in HPI and below Constitutional: Constitutional: Reports no additional constitutional complaints, Denies chills, Denies fever(s) and Denies headache(s) Eyes: Eyes: Reports no additional eye complaints and Denies change in vision ENT: Denies headache(s) and Denies sore throat Cardiovascular: Cardiovascular: Denies chest pain and Denies dyspnea Respiratory: Respiratory: Denies cough and Denies dyspnea Gastrointestinal: Gastrointestinal: Denies nausea and Denies vomiting Musculoskeletal: Musculoskeletal: Denies back pain, Denies deformity and Denies numbness Integumentary/Breasts: Skin/Breast: Denies wounds Neurologic: Denies headache(s), Denies focal weakness and Denies numbness Psychiatric: Psychiatric: Reports no additional psychiatric complaints Endocrine: Endocrine: Reports no additional endocrine complaints Hematologic/Lymphatic: Hematologic/Lymphatic: Reports easy bleeding and Reports easy bruising Allergic/Immunologic: Allergic/Immunologic: Reports no additional allergic/immunologic complaints PMFSH Past Medical History Medical History (Updated 12/02/20 @ 20:10 by Robbin oCbb MD) Adhesive capsulitis of right shoulder BMI 28.0-28.9,adult CAD (coronary artery disease) history having nonobstructive blockages he had a stress test in June 2014 but had no intervention performed. He had a EF of 55% at that time. Medically treated. Cardiac arrhythmia DM2 (diabetes mellitus, type 2) Dyslipidemia Hemoglobin A1C between 7% and 9% indicating borderline diabetic control A1c was 7.2 on 06/13/20 History of skin cancer HTN (hypertension) with goal to be determined Hypertension Hyperthyroidism status post radioactive iodine ablation Hypothyroidism Paroxysmal atrial fibrillation Surgical History Surgical History (Updated 09/03/20 @ 06:21 by Hossein Borrego MD) H/O arthroscopy of left knee partial medial meniscectomy, Dr. Mosquera about 2016 H/O cardiac catheterization no intervention performed History of removal of pigmented skin lesion Family History Family History Sibling Lung cancer Diabetes mellitus Father Diabetes mellitus Mother Congestive heart failure Acute myocardial infarction Dementia Other Hypertension Social History Social History Social History: the patient lives with his Marycarmen in [place]. They have 2 children. He was a pack-a-day smoker and quit in 2007. No alcohol or drug use. 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 His Marycarmen is a durable power criminal attorney for health
[2020-12-02 20:42] VITALS: BP 141/86; PULSE 78; RESP 16; TEMP 36.4; O2SAT 98
== END 2020-12-02 20:43 | disposition home or self-care (01) ==
PROVIDERS: Emergency Provider Emergency Medicine; PCP Internal Medicine
DX: S01.111A Laceration without foreign body of right eyelid and periocular area, initial encounter (principal); I48.91 Unspecified atrial fibrillation; Z23 Encounter for immunization; I25.10 Atherosclerotic heart disease of native coronary artery without angina pectoris; E11.9 Type 2 diabetes mellitus without complications; E78.5 Hyperlipidemia, unspecified; I10 Essential (primary) hypertension; E05.90 Thyrotoxicosis, unspecified without thyrotoxic crisis or storm; F17.210 Nicotine dependence, cigarettes, uncomplicated; Z85.828 Personal history of other malignant neoplasm of skin; Z79.82 Long term (current) use of aspirin; Z79.01 Long term (current) use of anticoagulants; Z79.84 Long term (current) use of oral hypoglycemic drugs
CPT/HCPCS: 12013; 70450; 90471; 90715; 99284

== ENCOUNTER 2021-05-27 00:42 | Day surgery (SDC) | payer MEDICARE, SELFPAY ==
[2021-05-18 12:12] VITALS: BMI 26.8
[2021-05-27 06:42] VITALS: BP 161/66; PULSE 62; RESP 18; TEMP 36.8; O2SAT 100
[2021-05-27] MEDS: LACTATED RINGERS 1,000 ML 150 ML IV CONT (06:46)
[2021-05-27 06:56] LABS: Glucose Point of Care 159 mg/dl (65-105)
--- NOTE | 2021-05-27 07:19 | WPDANESEPPF ---
Anes - Initial Pre Proc Eval Procedure: Operation Date: 05/27/21 08:00 Proposed Procedures p Screening Colonoscopy - Robbin De Leon MD Date/Time: 05/27/21 07:19 Surgeon: Robbin De Leon MD Pre Op Diagnosis: neoplasm screening Patient Data Age: 70 Gender: M Height: 1.73 m Weight: 80.1 kg Last Vital Signs Temp 36.8 C 05/27/21 06:42 Pulse 62 05/27/21 06:42 Resp 18 05/27/21 06:42 BP 161/66 H 05/27/21 06:42 Pulse Ox 100 05/27/21 06:42 Allergies Allergy/AdvReac Type Severity Reaction Status Date / Time No Known Allergies Allergy Verified 05/27/21 06:41 Home Medications Medication Instructions Recorded Confirmed Type Eliquis 5 mg BID 10/16/19 05/27/21 History aspirin 81 mg PO QAM #30 tablet 06/13/20 05/27/21 Rx atorvastatin 40 mg tablet 40 mg PO DAILY #90 tablet 10/30/20 05/27/21 Rx blood sugar diagnostic #100 12/17/20 05/27/21 Rx blood-glucose meter #1 12/17/20 05/27/21 Rx lancets 28 gauge #100 ea 12/17/20 05/27/21 Rx losartan 100 mg tablet 100 mg PO DAILY #90 tablet 12/17/20 05/27/21 Rx semaglutide 7 mg tablet 7 mg PO DAILY 30 Days #30 tablet 03/17/21 05/27/21 Rx amlodipine 5 mg tablet 5 mg PO DAILY #90 tablet 04/05/21 05/27/21 Rx levothyroxine 112 mcg tablet 112 mcg PO DAILY #90 tablet 04/05/21 05/27/21 Rx safety needles 22 gauge x 1 #100 ea 04/23/21 05/27/21 Rx syringe with needle 3 mL 23 x 1 #100 ea 04/23/21 05/27/21 Rx cholecalciferol (vitamin D3) 50 mcg PO DAILY 05/18/21 05/27/21 History [Vitamin D3] ferrous sulfate 325 mg PO DAILY 05/18/21 05/27/21 History metformin 1,000 mg PO BID 05/18/21 05/27/21 History testosterone cypionate 200 mg/mL 200 mg SUBCUT WEEKLY #10 ml 05/21/21 05/27/21 Rx intramuscular oil Laboratory Tests 05/27/21 06:46 POC Capillary Glucose 159 mg/dl H mg/dl (65-105) Patient hx anesthesia problems: none Family hx anesthesia problems: none Results Review: All pre-operative results and documents have been reviewed as part of the pre-operative evaluation. [facility] Past Medical History Medical History Adhesive capsulitis of right shoulder BMI 28.0-28.9,adult CAD (coronary artery disease) history having nonobstructive blockages he had a stress test in June 2014 but had no intervention performed. He had a EF of 55% at that time. Medically treated. Cardiac arrhythmia Carotid artery occlusion DM2 (diabetes mellitus, type 2) Dyslipidemia Hemoglobin A1C between 7% and 9% indicating borderline diabetic control A1c was 7.2 on 06/13/20 History of skin cancer HTN (hypertension) with goal to be determined Hypertension Hyperthyroidism status post radioactive iodine ablation Hypothyroidism Paroxysmal atrial fibrillation Surgical History Surgical History H/O arthroscopy of left knee partial medial meniscectomy, Dr. Mosquera about 2016 H/O cardiac catheterization no intervention performed History of removal of pigmented skin lesion Family History Family History Sibling Lung cancer Diabetes mellitus Father Diabetes mellitus Mother Congestive heart failure Acute myocardial infarction Dementia Other Hypertension Social History Social History Social History: the patient lives with his Marycarmen in [place]. They have 2 children. He was a pack-a-day smoker and quit in 2007. No alcohol or drug use. 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 His Marycarmen is a durable power deputy attorney general for healthcare. Smoking packs per day: 1 Smoking cigarettes per day: 20.0 Years smoked: 20 Smoking pack-years: 20.00 Smoking status: Never smoker Tobacco type: cigarettes Second hand tobacco smoke exposure: Yes Smoking end date:
--- NOTE | 2021-05-27 07:23 | WPDGICN ---
Assessment and Plan Assessment and plan (1) Encounter for screening colonoscopy: Code(s): Z12.11 - Encounter for screening for malignant neoplasm of colon Status: Acute Assessment and Plan: Patient presents for screening colonoscopy. He appears to be at average risk for colon polyps. Further recommendations will be given after colonoscopy. GI Consult Note Consult date/time: 05/27/21 07:23 HPI: Moise Lutz is a 70 year old male presents for neoplasia screening colonoscopy. Patient has never had a prior colonoscopy. He reports his current weight appetite bowel movements are normal. Family history is noncontributory. Patient reports no blood in his stools his bowel habits tend to be regular. Family history noncontributory. Review of Systems Review of Systems: All systems reviewed & are unremarkable except as noted in HPI and below PMFSH Past Medical History Medical History Adhesive capsulitis of right shoulder BMI 28.0-28.9,adult CAD (coronary artery disease) history having nonobstructive blockages he had a stress test in June 2014 but had no intervention performed. He had a EF of 55% at that time. Medically treated. Cardiac arrhythmia Carotid artery occlusion DM2 (diabetes mellitus, type 2) Dyslipidemia Hemoglobin A1C between 7% and 9% indicating borderline diabetic control A1c was 7.2 on 06/13/20 History of skin cancer HTN (hypertension) with goal to be determined Hypertension Hyperthyroidism status post radioactive iodine ablation Hypothyroidism Paroxysmal atrial fibrillation Surgical History Surgical History H/O arthroscopy of left knee partial medial meniscectomy, Dr. Mosquera about 2016 H/O cardiac catheterization no intervention performed History of removal of pigmented skin lesion Family History Family History Sibling Lung cancer Diabetes mellitus Father Diabetes mellitus Mother Congestive heart failure Acute myocardial infarction Dementia Other Hypertension Social History Social History Social History: the patient lives with his Marycarmen in [place]. They have 2 children. He was a pack-a-day smoker and quit in 2007. No alcohol or drug use. 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 His Marycarmen is a durable power program coordinator executive education for healthcare. Smoking packs per day: 1 Smoking cigarettes per day: 20.0 Years smoked: 20 Smoking pack-years: 20.00 Smoking status: Never smoker Tobacco type: cigarettes Second hand tobacco smoke exposure: Yes Smoking end date: 08/07/14 Alcohol intake: never Substance use: never Substance use type: does not use Living arrangements: with family Gender identity (if verbalized by the patient): Male Spiritual care concerns: No Meds Home Medications and Allergies Home Medications Medication Instructions Recorded Confirmed Type Eliquis 5 mg BID 10/16/19 05/27/21 History aspirin 81 mg PO QAM #30 tablet 06/13/20 05/27/21 Rx atorvastatin 40 mg tablet 40 mg PO DAILY #90 tablet 10/30/20 05/27/21 Rx blood sugar diagnostic #100 12/17/20 05/27/21 Rx blood-glucose meter #1 12/17/20 05/27/21 Rx lancets 28 gauge #100 12/17/20 05/27/21 Rx losartan 100 mg tablet 100 mg PO DAILY #90 tablet 12/17/20 05/27/21 Rx semaglutide 7 mg tablet 7 mg PO DAILY 30 Days #30 tablet 03/17/21 05/27/21 Rx amlodipine 5 mg tablet 5 mg PO DAILY #90 tablet 04/05/21 05/27/21 Rx levothyroxine 112 mcg tablet 112 mcg PO DAILY #90 tablet 04/05/21 05/27/21 Rx safety needles 22 gauge x 1 #100 04/23/21 05/27/21 Rx syringe with needle 3 mL 23 x 1 #100 04/23/21 05/27/21 Rx cholecalciferol (vitamin D3) 50 mcg PO DAILY 05/18/21 05/27/21 Hist
[2021-05-27 08:19] VITALS: BP 128/62; PULSE 74; RESP 18; O2SAT 100
[2021-05-27 08:29] VITALS: BP 131/69; PULSE 77; RESP 20; O2SAT 99
--- NOTE | 2021-05-27 08:30 | SUR.PHASEII ---
PER DR CONNOLLY PT IS TO RESUME ELIQUIS TODAY, PT STATES UNDERSTANDING
[2021-05-27 08:39] VITALS: BP 164/65; PULSE 56; RESP 20; O2SAT 99
== END 2021-05-27 08:48 | disposition home or self-care (01) ==
PROVIDERS: PCP Internal Medicine; Visit Provider Internal Medicine Gastroenterology
PROC: 0DJD8ZZ Inspection of Lower Intestinal Tract, Via Natural or Artificial Opening Endoscopic (ICD-10-PCS; CPT 45378; principal; 2021-05-27 08:00)
DX: Z12.11 Encounter for screening for malignant neoplasm of colon (principal); K57.30 Diverticulosis of large intestine without perforation or abscess without bleeding; K62.1 Rectal polyp; I25.10 Atherosclerotic heart disease of native coronary artery without angina pectoris; I48.0 Paroxysmal atrial fibrillation; E11.9 Type 2 diabetes mellitus without complications; E89.0 Postprocedural hypothyroidism; E78.5 Hyperlipidemia, unspecified; I10 Essential (primary) hypertension; Z79.01 Long term (current) use of anticoagulants; Z79.82 Long term (current) use of aspirin; Z79.84 Long term (current) use of oral hypoglycemic drugs; Z79.890 Hormone replacement therapy; Z87.891 Personal history of nicotine dependence
CPT/HCPCS: 45380; 82948; 88305; J2704; J7120

== ENCOUNTER 2021-12-19 07:50 | Inpatient (IN) | payer MEDICARE, SELFPAY ==
[2021-12-19] VITALS (21 sets, daily range): BP systolic 102–163; BP diastolic 63–150; PULSE 60–181; RESP 20–36; TEMP 36.2–37.3; O2SAT 84–99; BMI 27.2
--- NOTE | ~2021-12-19 | XR_ITS ---
EXAMINATION: XR chest 1V portable INDICATION: Acute respiratory failure TECHNIQUE: Portable AP chest at 0520 hours COMPARISON: 12/23/2021 FINDINGS: The endotracheal tube ends approximately 3.1 cm above the wil. The nasogastric tube is f ollowed as far as the stomach. Its tip is beyond the inferior margin of the radiograph. A right inter nal jugular central venous catheter ends with its tip in the proximal right atrium. Diffuse interstit ial and airspace opacities persist without significant change. Cardiomegaly is noted. There is no pne umothorax. There are small pleural effusions. IMPRESSION: 1. Stable diffuse lung disease, consistent with pneumonia and/or pulmonary edema. 2. Cardiomegaly. 3. Small pleural effusions. Reviewed, dictated and finalized at location A. IMPRESSION: 1. Stable diffuse lung disease, consistent with pneumonia and/or pulmonary neva a. 2. Cardiomegaly. 3. Small pleural effusions.
--- NOTE | ~2021-12-19 | XR_ITS ---
EXAMINATION: XR chest 1V portable DATE: 12/23/2021 05:55 INDICATION: Acute respiratory failure. Pulmonary edema. TECHNIQUE: frontal view of the chest was obtained. COMPARISON: Chest radiograph and CT dated 12/22/2021 FINDINGS: Endotracheal tube tip 2.9 cm above the wil. Right internal jugular central venous catheter with di stal tip near the superior cavoatrial junction. Nasogastric tube extends below the left hemidiaphrag m with distal tip collimated off the study. Diffuse interstitial and airspace opacities throughout both lungs. Interval increase in now more dens e retrocardiac consolidation at the left lower lung zone. No pneumothorax or definitive pleural effus ion. Cardiomegaly. IMPRESSION: 1. Diffuse bilateral lung disease with increase in the left lower lung zone. Differential includes pu lmonary edema and pneumonia. 2. Cardiomegaly. Reviewed, dictated and finalized at location A. IMPRESSION: 1. Diffuse bilateral lung disease with increase in the left lower lung zone. Di fferential includes pulmonary edema and pneumonia. 2. Cardiomegaly.
--- NOTE | ~2021-12-19 | XR_ITS ---
EXAMINATION: XR chest 1V portable DATE: 12/20/2021 05:14 INDICATION: Increased oxygen demands TECHNIQUE: frontal view of the chest was obtained. COMPARISON: Chest radiograph dated 12/19/2021 FINDINGS: Interval increase in patchy airspace opacities throughout both lungs relatively sparing the left uppe r lung zone. No pneumothorax. Likely small bilateral pleural effusions with blunting at the costophre sanjeev angles. Cardiomegaly. IMPRESSION: 1. Worsening patchy bilateral airspace opacities which could represent pneumonia or pulmonary edema. 2. Small bilateral pleural effusions. 3. Cardiomegaly. Reviewed, dictated and finalized at location A. IMPRESSION: 1. Worsening patchy bilateral airspace opacities which could represent pneumoni a or pulmonary edema. 2. Small bilateral pleural effusions. 3. Cardiomegaly.
--- NOTE | ~2021-12-19 | XR_ITS ---
EXAMINATION: XR chest 1V portable DATE: 12/26/2021 06:38 INDICATION: Acute respiratory failure. Pulmonary edema. TECHNIQUE: frontal view of the chest was obtained. COMPARISON: Chest radiograph dated 12/25/2021 FINDINGS: Endotracheal tube tip 3.3 cm above the wil. Right internal jugular central venous catheter with di stal tip near the superior cavoatrial junction. Nasogastric tube extends below the left hemidiaphrag m with distal tip collimated off the study. Persistent diffuse bilateral airspace opacities relatively sparing the apices of the lungs. No pneumo thorax or definitive pleural effusion. Cardiomegaly. IMPRESSION: 1. Persistent diffuse bilateral lung disease representing pulmonary edema, pneumonia or combination t hereof. 2. Cardiomegaly. Reviewed, dictated and finalized at location A. IMPRESSION: 1. Persistent diffuse bilateral lung disease representing pulmonary edema, pneu monia or combination thereof. 2. Cardiomegaly.
--- NOTE | ~2021-12-19 | US_ITS ---
EXAMINATION: US renal BI DATE: 12/26/2021 10:11 INDICATION: Acute renal injury TECHNIQUE: Multiple ultrasound grayscale images of the kidneys were obtained. COMPARISON: None. FINDINGS: The right kidney measures 11.0 x 5.6 x 4.8 cm. The left kidney measures 11.1 x 5.0 x 6.1 cm. The kidn eys demonstrate normal echogenicity. There is no hydronephrosis in either kidney. No stones identifi ed. The bladder is decompressed around a Armas catheter which limits evaluation. Instantly noted are a few shadowing gallstones along some hypoechoic sludge within the dependent aspect of the otherwise normal-appearing gallbladder. Small amount of perihepatic ascites. IMPRESSION: 1. Normal kidneys without hydronephrosis. 2. Cholelithiasis. 3. Small amount of perihepatic ascites. Reviewed, dictated and finalized at location A.
--- NOTE | ~2021-12-19 | XR_ITS ---
EXAMINATION: XR chest 1V portable DATE: 12/27/2021 05:50 INDICATION: Acute respiratory failure. Pulmonary edema. TECHNIQUE: A single frontal view of the chest was obtained. COMPARISON: Chest single view 12/26/2021, chest CT 12/22/2021 FINDINGS: There are airspace and interstitial opacities throughout the lungs bilaterally. A calcified right lung nodule is consistent with old granulomatous disease. No pleural effusion or pneumothorax. Cardiomegaly is noted. The endotracheal tube tip is 2.4 cm above the wil. The nasogastric tube ti p is beyond the inferior margin of the radiograph, but at least to the stomach. A right internal jugu lar central venous catheter is seen with tip at the superior cavoatrial junction. IMPRESSION: 1. Stable diffuse lung disease, consistent with pulmonary edema versus pneumonia versus acute respira tory distress syndrome (ARDS). 2. Cardiomegaly. Reviewed, dictated and finalized at location A. IMPRESSION: 1. Stable diffuse lung disease, consistent with pulmonary edema versus pneumoni a versus acute respiratory distress syndrome (ARDS). 2. Cardiomegaly.
--- NOTE | ~2021-12-19 | XR_ITS ---
EXAMINATION: XR abdomen obstructive series DATE: 12/25/2021 10:36 INDICATION: Distended abdomen TECHNIQUE: Frontal supine and upright views of the abdomen were obtained. COMPARISON: Abdomen radiograph dated 12/22/2021 and chest radiograph dated 12/25/2021 5:22 AM FINDINGS: Nasogastric tube tip at the gastric antrum with proximal side-port in the body of the stomach. Endotr acheal tube tip 2.0 cm above the wil. Tip of a right internal jugular central venous catheter at t he superior cavoatrial junction. Moderate amount of stool scattered throughout the proximal colon. No dilated loops of gas-filled charley l to suggest obstruction. No free intraperitoneal gas. Diffuse bilateral lung disease. Cardiomegaly . Old healed fractures of the bilateral superior and inferior pubic rami. IMPRESSION: 1. No free intraperitoneal gas or dilated gas-filled loops of bowel to suggest obstruction.. 2. Diffuse bilateral lung disease which could represent pulmonary edema, pneumonia or combination the reof. Reviewed, dictated and finalized at location A. IMPRESSION: 1. No free intraperitoneal gas or dilated gas-filled loops of bowel to suggest obstruction.. 2. Diffuse bilateral lung disease which could represent pulmonary edema, pneumo joseph or combination thereof.
--- NOTE | ~2021-12-19 | CT_ITS ---
EXAMINATION: CT diagnostic chest wo con DATE: 12/22/2021 19:22 INDICATION: ? Pneumonia, has CHF TECHNIQUE: Computed tomography (CT) of the chest was performed without intravenous contrast. Automate d exposure control and iterative reconstruction technique were employed. The dose-length product was 493.08 mGy-cm. COMPARISON: Multiple chest x-rays performed on the same date. FINDINGS: CHEST: Lines and tubes: Right IJ central venous line, endotracheal tube, and nasogastric tube all in good po sition. Thoracic aorta: No significant dilation. Atherosclerotic calcifications. Lung parenchyma and airways: Bilateral peribronchovascular groundglass and consolidative opacities wi th bibasilar dependent consolidation and volume loss, greater in the left lower lung. Mild interlobul ar septal thickening and fissure fluid. Peripheral reticulations are likely related to chronic senesc ent change. Thoracic inlet, axillae and chest wall: No thyroid or sofft tissue mass. No axillary lymphadenopathy. Mediastinum: Enlarged prevascular and paratracheal lymph nodes. Heart and pericardium: Cardiomegaly. Mitral and aortic valve calcifications. Coronary artery calcifications: Heavy. Pleura: Moderate bilateral pleural effusions. Thoracic bones: No acute osseous finding in the chest. IMPRESSION: Pulmonary findings are possibly most consistent with pulmonary edema, however pneumonia can appear si milar and is not excluded by this examination. Moderate bilateral effusions. Mediastinal lymphadenopa thy. Reviewed, dictated and finalized at location K. IMPRESSION: Pulmonary findings are possibly most consistent with pulmonary edema, however p neumonia can appear similar and is not excluded by this examination. Moderate b ilateral effusions. Mediastinal lymphadenopathy.
--- NOTE | ~2021-12-19 | XR_ITS ---
EXAM: XR abdomen NG/feed tube insert HISTORY: OG Verification . COMPARISON: None available. FINDINGS: NG tube, tip and side port terminating in the distal stomach. Diffuse bilateral airspace di sease. Normal partially visualized bowel gas pattern. No organomegaly. No abnormal abdominal calcific ation. Regional bones and soft tissues normal for age. IMPRESSION: NG tube tip terminates in the distal stomach. Reviewed, dictated and finalized at location K.
--- NOTE | ~2021-12-19 | CT_ITS ---
EXAMINATION: CT chest abdomen pelvis wo con DATE: 12/29/2021 12:42 INDICATION: Sepsis, respiratory failure and constipation. TECHNIQUE: Computed tomography (CT) of the chest, abdomen, and pelvis was performed without intraveno us contrast. Automated exposure control and iterative reconstruction technique were employed. The dos e-length product was 1619.72 mGy-cm. COMPARISON: Chest CT dated 12/22/2021 FINDINGS: CHEST CT: Endotracheal tube tip 2.8 cm above the wil. Right internal jugular central venous catheter with di stal tip at the caudal-most superior vena cava. Small bilateral posterior layering pleural effusions. Diffuse bilateral lung disease with extensive consolidation and surrounding groundglass opacities th roughout the majority of both lungs relatively sparing a portion of the right middle lobe and anterio r basilar right lower lobe. No pneumothorax. Cardiomegaly. Atherosclerotic coronary artery calcificat ions. Aortic valve and mitral annular calcifications. Thoracic aorta is normal in caliber. Calcified right hilar lymph nodes consistent with old granulomatous disease. Mild likely reactive mediastinal l ymphadenopathy. Mild thoracic spondylosis. ABDOMEN/PELVIS CT: Nasogastric tube tip at the pylorus of the stomach. Couple small calcified gallstones and some interm ediate attenuation sludge within the otherwise normal-appearing gallbladder with no pericholecystic i nflammatory stranding to suggest acute cholecystitis. Couple tiny splenic calcifications consistent w ith old granulomatous disease. Liver, pancreas and bilateral adrenal glands are normal. Small amount of atherosclerotic calcific location at the right renal hilum. Kidneys are otherwise unremarkable wit h no urolithiasis or hydronephrosis. Mild scattered colonic diverticulosis without adjacent from 3 ch licha to suggest diverticulitis. Small bowel and appendix are normal. No obstruction. Armas catheter w ithin the partially decompressed bladder. Prostatomegaly. There is moderate diffuse body wall edema a long with mild retroperitoneal edema in the abdomen and pelvis. No free intraperitoneal gas or fluid. Bilateral old healed superior and inferior pubic rami fractures. IMPRESSION: 1. Persistent extensive diffuse bilateral lung disease which could represent pneumonia, severe pulmon christi edema or some combination thereof. 2. Small bilateral pleural effusions. 3. Cardiomegaly. 4. Cholelithiasis. 5. Diverticulosis. 6. Body wall and retroperitoneal edema which could be related either congestive heart failure or seps is. Reviewed, dictated and finalized at location B. IMPRESSION: 1. Persistent extensive diffuse bilateral lung disease which could represent pn eumonia, severe pulmonary edema or some combination thereof. 2. Small bilateral pleural effusions. 3. Cardiomegaly. 4. Cholelithiasis. 5. Diverticulosis. 6. Body wall and retroperitoneal edema which could be related either congestive heart failure or sepsis.
--- NOTE | ~2021-12-19 | XR_ITS ---
XR chest 2V DATE: 12/19/2021 08:38 INDICATION: Cough, shortness of breath. Hypoxia. TECHNIQUE: AP and lateral views COMPARISON: 06/12/2020 PA and lateral chest FINDINGS: There is prominent patchy consolidating infiltrate in the right upper and lower lung zones. There is patchy infiltrate in the left mid and lower lung zones. Mild pleural effusions. Cardiomegaly. Aortic calcification. IMPRESSION: Bilateral infiltrates, right greater than left; diffusion diagnosis includes pneumonia, p ulmonary edema Reviewed, dictated and finalized at location A. IMPRESSION: Bilateral infiltrates, right greater than left; diffusion diagnosis includes pneumonia, pulmonary edema
--- NOTE | ~2021-12-19 | XR_ITS ---
EXAMINATION: XR chest port-a-cath/central DATE: 12/22/2021 16:24 INDICATION: Central line placement. TECHNIQUE: A single frontal view of the chest was obtained. COMPARISON: Chest single view at 3:39 PM FINDINGS: There are airspace and interstitial opacities throughout the lungs bilaterally. No pleural effusion or pneumothorax. Cardiomegaly is noted. The endotracheal tube tip is 2.5 cm above the wil . The nasogastric tube tip is beyond the inferior margin of the radiograph, but at least to the stoma ch. A right internal jugular central venous catheter is seen with tip at the superior cavoatrial junc tion. IMPRESSION: 1. Central line tip at the superior cavoatrial junction. 2. Stable diffuse lung disease, likely moderate pulmonary edema without or with superimposed pneumoni a. 3. Cardiomegaly. Reviewed, dictated and finalized at location B. IMPRESSION: 1. Central line tip at the superior cavoatrial junction. 2. Stable diffuse lung disease, likely moderate pulmonary edema without or with superimposed pneumonia. 3. Cardiomegaly.
--- NOTE | ~2021-12-19 | XR_ITS ---
EXAMINATION: XR chest 1V portable DATE: 12/26/2021 14:04 INDICATION: Increasing oxygen requirements TECHNIQUE: frontal view of the chest was obtained. COMPARISON: Chest radiograph dated 12/26/2021 at 5:52 AM FINDINGS: Endotracheal tube tip 2.6 cm above the wil. Right internal jugular central venous catheter tip at the superior cavoatrial junction. Nasogastric tube extends below the left hemidiaphragm with distal tip collimated off the study. Again seen is bilateral diffuse groundglass opacity and increased indistinct interstitial pattern thr oughout both lungs which appears slightly increased since the prior study. No pneumothorax or definit jael pleural effusion. Cardiomegaly. IMPRESSION: 1. Slight interval increase in diffuse bilateral interstitial and airspace opacities most likely repr esenting moderate pulmonary edema, pneumonia or combination thereof. 2. Cardiomegaly. Reviewed, dictated and finalized at location A. IMPRESSION: 1. Slight interval increase in diffuse bilateral interstitial and airspace opac ities most likely representing moderate pulmonary edema, pneumonia or combinati on thereof. 2. Cardiomegaly.
--- NOTE | ~2021-12-19 | XR_ITS ---
EXAMINATION: XR chest 1V portable DATE: 12/22/2021 05:56 INDICATION: Respiratory failure TECHNIQUE: frontal view of the chest was obtained. COMPARISON: Chest radiograph dated 12/21/2021 FINDINGS: Diffuse airspace opacities throughout both lungs with some interval increase in the left lung. No pne umothorax or definitive pleural effusion. Cardiomegaly. IMPRESSION: 1. Diffuse bilateral lung disease with some increase on the left which could represent pulmonary neva a or pneumonia. 2. Cardiomegaly. Reviewed, dictated and finalized at location A. IMPRESSION: 1. Diffuse bilateral lung disease with some increase on the left which could re present pulmonary edema or pneumonia. 2. Cardiomegaly.
--- NOTE | ~2021-12-19 | XR_ITS ---
EXAMINATION: XR chest 1V portable DATE: 12/21/2021 05:44 INDICATION: Respiratory failure TECHNIQUE: frontal view of the chest was obtained. COMPARISON: Chest radiograph dated 12/20/2021 FINDINGS: There is been some improvement in the diffuse bilateral interstitial and airspace opacities. Decrease d now tiny bilateral pleural effusions. No pneumothorax. Cardiomegaly. Visualized bones and soft tiss ues are unremarkable. IMPRESSION: 1. Slight improvement in diffuse bilateral lung disease which could represent pulmonary edema or pneu monia. 2. Decreasing tiny bilateral pleural effusions. 3. Cardiomegaly. Reviewed, dictated and finalized at location A. IMPRESSION: 1. Slight improvement in diffuse bilateral lung disease which could represent p ulmonary edema or pneumonia. 2. Decreasing tiny bilateral pleural effusions. 3. Cardiomegaly.
--- NOTE | ~2021-12-19 | XR_ITS ---
EXAMINATION: XR chest 1V portable DATE: 12/28/2021 06:14 INDICATION: Pneumonia. TECHNIQUE: A single frontal view of the chest was obtained. COMPARISON: Chest single view 12/27/2021, chest CT 12/22/2021 FINDINGS: There are airspace and interstitial opacities throughout the lungs. No pleural effusion or pneumothorax. Cardiomegaly is noted. The endotracheal tube tip is 2.9 cm above the wil. The nasoga stric tube tip is beyond the inferior margin of the radiograph, but at least to the stomach. A right internal jugular central venous catheter is seen with tip at the superior cavoatrial junction. IMPRESSION: 1. Diffuse lung disease with mild improvement on the left, consistent with pulmonary edema versus pne umonia versus acute respiratory distress syndrome (ARDS). 2. Cardiomegaly. Reviewed, dictated and finalized at location A. IMPRESSION: 1. Diffuse lung disease with mild improvement on the left, consistent with pulm onary edema versus pneumonia versus acute respiratory distress syndrome (ARDS). 2. Cardiomegaly.
--- NOTE | ~2021-12-19 | XR_ITS ---
EXAMINATION: XR chest ET placement Exam Date/Time: 12/22/2021 15:40 CDT CLINICAL HISTORY: ET Tube Verification Comparison: Chest x-ray same date at 5:48 AM. RESULT: Lines, tubes, and devices: Endotracheal tube terminates in the distal trachea 2.2 cm above the rodney a. NG tube terminating in the distal stomach. Lungs and pleura: Slight improvement in the diffuse bilateral airspace disease. Cardiomediastinal silhouette: Stable cardiomediastinal silhouette. Other: No acute osseous or upper abdominal finding. IMPRESSION: Endotracheal tube, 2.2 cm above the wil. Slightly improved pulmonary opacities. Reviewed, dictated and finalized at location K. IMPRESSION: Endotracheal tube, 2.2 cm above the wil. Slightly improved pulmonary opaciti es.
--- NOTE | ~2021-12-19 | XR_ITS ---
EXAMINATION: XR chest 1V portable DATE: 12/25/2021 05:51 INDICATION: Acute respiratory failure. Pulmonary edema. TECHNIQUE: frontal view of the chest was obtained. COMPARISON: Chest radiograph dated FINDINGS: Endotracheal tube tip 1.6 cm above the wil. Nasogastric tube extends below the left hemidiaphrag m with distal tip collimated off the study. Right internal jugular central venous catheter with dista l tip at the superior cavoatrial junction. Persistent diffuse bilateral airspace opacities relatively sparing the apices. No pneumothorax or def initive pleural effusion. Cardiomegaly. IMPRESSION: 1. Persistent diffuse bilateral lung disease which could represent pulmonary edema, pneumonia or comb ination thereof. 2. Cardiomegaly. Reviewed, dictated and finalized at location A. IMPRESSION: 1. Persistent diffuse bilateral lung disease which could represent pulmonary ed becca, pneumonia or combination thereof. 2. Cardiomegaly.
--- NOTE | ~2021-12-19 | US_ITS ---
EXAMINATION:US venous doppler LE BI INDICATION:Leg swelling. Shortness of breath. TECHNIQUE: Multiple grayscale, color flow and Doppler images of the right and left lower extremity de ep venous systems were obtained and reviewed. COMPARISON:No prior studies for comparison. FINDINGS: The common femoral, superficial femoral and popliteal veins demonstrate normal respiratory variation, augmentation and compressibility. Color flow is also seen within the posterior tibial, pe roneal, greater saphenous and profunda veins. IMPRESSION: 1: No lower extremity deep venous thrombosis. Reviewed, dictated and finalized at location A.
--- NOTE | 2021-12-19 07:53 | ECG_ITS ---
Measurements Intervals [place] Rate: 145 P: [place]: 0 QRS: 44 QRSD: 108 T: 212 QT: 276 QTc: 430 Interpretive Statements ATRIAL FIBRILLATION WITH RAPID VENTRICULAR RESPONSE BORDERLINE R WAVE PROGRESSION, ANTERIOR LEADS NONSPECIFIC ST & T-WAVE ABNORMALITY- INF/LAT LEADS BASELINE ARTIFACT- I, II AVL, V1 ABNORMAL ECG Electronically Signed On 12-19-2021 13:30:16 CDT by Nicko Trivedi D.O.
[2021-12-19] MEDS: dilTIAZem HCl INJ 25 MG/5 ML VIAL 10 MG IV PUSH (08:11)
[2021-12-19 08:16] LABS: Basophils Absolute Auto 0.1 K/mm3 (0.0-0.1); Basophils Percent Auto 0.5 % (0.2-1.2); Eosinophils Absolute Auto 0.1 K/mm3 (0-0.3); Eosinophils Percent Auto 0.4 % (0-4.4); Hematocrit 50.7 % (42.0-52.0); Hemoglobin 15.9 g/dL (14.0-18.0); Immature Granulocyte Absolute 0.11 K/mm3 (0.00-0.031); Immature Granulocyte Percent A 0.7 % (0-0.5); Lymphocytes Absolute Auto 1.44 K/mm3 (0.9-3.2); Lymphocytes Percent Auto 9.4 % (18.3-44.2); Mean Corpuscular HGB Conc 31.4 g/dl (32-36); Mean Corpuscular Hemoglobin 27.5 pg (26-34); Mean Corpuscular Volume 87.7 fl (80-100); Mean Platelet Volume 12.2 fl (7.4-10.4); Monocytes Absolute Auto 1.3 K/mm3 (0.1-0.6); Monocytes Percent Auto 8.7 % (2.6-8.5); Neutrophils Absolute Auto 12.4 K/mm3 (1.3-6.7); Neutrophils Percent Auto 80.3 % (45.5-73.1); Platelet Count Result 220 k/mm3 (150-375); Red Blood Count 5.78 M/mm3 (4.6-6.20); Red Cell Distribution Width 16.7 % (11.5-14.5); White Blood Count 15.4 K/mm3 (4.5-10.0)
[2021-12-19 08:26] LABS: INR 1.4; Prothrombin Time 16.3 Seconds (11.1-14.7)
[2021-12-19 08:36] LABS: Alanine Aminotransferase 18 U/L (6-50); Albumin Level 4.5 g/dL (3.5-5.1); Alkaline Phosphatase 72 U/L (38-126); Anion Gap 8 mmol/L (8-16); Aspartate Amino Transferase 30 U/L (17-59); Bilirubin,Total 1.1 mg/dL (0.2-1.3); Blood Urea Nitrogen 19 mg/dL (9-20); Calcium 9.2 mg/dL (8.4-10.2); Carbon Dioxide 27 mmol/L (22-30); Chloride 97 mmol/L (98-107); Estimated CRCL calculation 63 ml/min; Estimated Glomerular Filt Rate > 60; Glucose 250 mg/dL (65-110); Lipase 71 U/L (23-300); Potassium 4.6 mmol/L (3.4-5.0); Sodium 132 mmol/L (137-145)
[2021-12-19 08:39] LABS: NT Pro B Type Natriuretic Pept 2230 pg/mL (5-100)
[2021-12-19 08:40] LABS: Troponin I 0.079 ng/mL (0.000-0.034)
[2021-12-19] MEDS: FUROSEMIDE INJ 40 MG/4 ML VIAL IV PUSH ×2 (09:41→20:26)
[2021-12-19] MEDS: dilTIAZem 100 MG/100 ML 100 MG/100 ML BAG IV CONT (09:42)
--- NOTE | 2021-12-19 09:52 | ED.SOB ---
HPI - SOB/Dyspnea General Chief Complaint: Shortness of Breath/Dyspnea Stated Complaint: trouble breathing Time Seen by Provider: 12/19/21 08:08 History of Present Illness HPI Narrative: Patient is a 71-year-old male who presents ER with shortness of breath. Worsening over the last 2 days. Associated with palpitations. No chest pain or chest pressure. Denies fevers or chills or sweats. No productive cough. Mild orthopnea. No alleviating factors. Related Data Home Medications Medication Instructions Recorded Confirmed Eliquis 5 mg BID 10/16/19 12/19/21 cholecalciferol (vitamin D3) 50 mcg PO DAILY 05/18/21 12/19/21 [Vitamin D3] Allergies Allergy/AdvReac Type Severity Reaction Status Date / Time No Known Allergies Allergy Verified 10/28/21 08:20 Review of Systems Review of Systems: All systems reviewed & are unremarkable except as noted in HPI and below Constitutional: Constitutional: Denies chills, Denies fever(s) and Denies weakness ENT: Denies nasal congestion and Denies sore throat Cardiovascular: Cardiovascular: Denies chest pain and Denies radiating jaw, neck or arm pain Respiratory: Respiratory: Denies cough, Reports dyspnea and Denies wheezing Comments: Orthopnea Gastrointestinal: Gastrointestinal: Denies abdominal pain, Denies nausea and Denies vomiting Musculoskeletal: Musculoskeletal: Denies back pain and Denies muscle cramps PMFSH Past Medical History Medical History Adhesive capsulitis of right shoulder BMI 28.0-28.9,adult CAD (coronary artery disease) history having nonobstructive blockages he had a stress test in June 2014 but had no intervention performed. He had a EF of 55% at that time. Medically treated. Cardiac arrhythmia Carotid artery occlusion COVID-19 vaccine series completed DM2 (diabetes mellitus, type 2) Dyslipidemia Hemoglobin A1C between 7% and 9% indicating borderline diabetic control A1c was 7.2 on 06/13/20 History of skin cancer HTN (hypertension) with goal to be determined Hypertension Hyperthyroidism status post radioactive iodine ablation Hypothyroidism Paroxysmal atrial fibrillation Surgical History Surgical History H/O arthroscopy of left knee partial medial meniscectomy, Dr. Mosquera about 2017 H/O cardiac catheterization no intervention performed History of removal of pigmented skin lesion Family History Family History Sibling Lung cancer Diabetes mellitus Father Diabetes mellitus Mother Congestive heart failure Acute myocardial infarction Dementia Other Hypertension Social History Social History (Updated 12/19/21 @ 14:46 by Mario Henson MD) Social History: He lives with his Marycarmen in [place]. They have 2 children. He was a pack-a-day smoker and quit in 2007. No alcohol or drug use. Code status: full. His Marycarmen is a durable power poke in for healthcare. Smoking packs per day: 1 Smoking cigarettes per day: 20.0 Years smoked: 20 Smoking pack-years: 20.00 Smoking status: Former smoker Tobacco type: cigarettes Second hand tobacco smoke exposure: No Alcohol intake: former Substance use: never Substance use type: does not use Living arrangements: with family Occupation/Education: retired Gender identity (if verbalized by the patient): Male Spiritual care concerns: No Exam Narrative: GENERAL: Uncomfortable-appearing, well-nourished, and in no acute distress. HEAD: Normocephalic, atraumatic. EYES: PERRL and EOMI. ENT: Mucous membranes moist. CHEST: Clear to auscultation. No respiratory distress. HEART: Irregular regular rate and rhythm that is tachycardic. Normal peripheral pulses. ABDOMEN: Soft, nontender, nondistended. EXTREMITIES: Normal range of motion. No edema. SKIN: Warm, dry, no rash. NEURO: Alert and tyesha
[2021-12-19 10:48] LABS: SARS-CoV-2 RNA PCR Negative
[2021-12-19 12:23] LABS: Troponin I 0.088 ng/mL (0.000-0.034)
--- NOTE | 2021-12-19 14:12 | PM.IMHP ---
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 That evening he felt fatigued and short of breath. It was difficult to ambulate across the room without panting. He thought he was overly tired and overheated. He awakened several times short of breath that night. The next day he was even more short of breath with exertion. On the evening of December 18 he slept poorly awakening often having to sit up to breathe. When he awakened on the morning of December 19 he decided that he needed to come to the emergency department. He denied any chest pain or palpitations. He denied syncope or presyncope. He denied any recent edema or weight gain. Blood sugar control has not changed significantly. He denied medication noncompliance. He has been taking his Eliquis regularly. He takes amlodipine and losartan for hypertension control but takes no rate control medication. On December 19 he took only his levothyroxine in the early childhood education coordinator but no other medication. He denied GI or issues and abnormal bleeding. No weakness or numbness other than the chronic left hemianesthesia. Has a mild right lower facial droop due to complications of her prior surgery. Review of Systems Review of Systems: All systems reviewed & are unremarkable except as noted in HPI and below PMFSH Past Medical History Medical History Adhesive capsulitis of right shoulder BMI 28.0-28.9,adult CAD (coronary artery disease) history having nonobstructive blockages he had a stress test in June 2014 but had no intervention performed. He had a EF of 55% at that time. Medically treated. Cardiac arrhythmia Carotid artery occlusion COVID-19 vaccine series completed DM2 (diabetes mellitus, type 2) Dyslipidemia Hemoglobin A1C between 7% and 9% indicating borderline diabetic control A1c was 7.2 on 06/13/20 History of skin cancer HTN (hypertension) with goal to be determined Hypertension Hyperthyroidism status post radioactive iodine ablation Hypothyroidism Paroxysmal atrial fibrillation Surgical History Surgical History H/O arthroscopy of left knee partial medial meniscectomy, Dr. Mosquera about 2017 H/O cardiac catheterization no intervention performed History of removal of pigmented skin lesion Family History Family History Sibling Lung cancer Diabetes mellitus Father Diabetes mellitus Mother Congestive heart failure Acute myocardial infarction Dementia Other Hypertension Social History Social History (Updated 12/19/21 @ 14:46 by Mario Henson MD) Social History: He lives with his Marycarmen in [place]. They have 2 children. He was a pack-a-day smoker and quit in 2007. No alcohol or drug use. Code status: full. His Marycarmen is a durable power health care attorney for healthcare. Smoking packs per day: 1 Smoking cigarettes per day: 20.0 Years smoked: 20 Smoking pack-years: 20.00 Smoking status: Former smoker Tobacco type: cigarettes Second hand tobacco smoke exposure: No Alcohol intake: former Substance use: never Substance use type: does not use Living arrangements: with family Occupation/Education: retired Gender identity (if verbalized by the patient): Male Spiritual care concerns: No Meds Home Medications and Allergies Home Medications Medication Instructions Recorded Confirmed Type Eliquis 5 mg BID 10/16/19 12/19/21 History aspirin 81 mg PO QAM #30 tablet 06/13/20 12/19/21 Rx atorvastatin 40 mg tablet 40 mg PO DAILY #90 tablet 10/30/20 12/19/21 Rx cholecalciferol (vitamin
--- NOTE | 2021-12-19 14:38 | ADMGEN ---
This patient, Moise Lutz, was admitted to IMU Room 210-72 [id number]. Patient/family oriented to hospital policies and general routines including ID bracelet, bed and alarms, visiting hours, pain management, procedures, bathroom and other care routines, personal items, smoking policy, room service/diet, and visiting hours. Information on how to activate the Rapid Response Team has been discussed. Patient/Family are encouraged to report perceived risks to care and to ask questions if they do not understand what they are told or what they should do.
[2021-12-19 14:45] LABS: Troponin I 0.091 ng/mL (0.000-0.034)
[2021-12-19 15:16] LABS: Glucose Point of Care 250 mg/dl (65-105)
--- NOTE | 2021-12-19 16:42 | ADMIMU ---
This patient, Moise Lutz, was admitted to IMU status, and placed in IMU Room 210-01. Patient/family oriented to hospital policies and general routines including ID bracelet, bed and alarms, visiting hours, pain management, procedures, bathroom and other care routines, personal items, smoking policy, room service/diet, and visiting hours. Valuables list has been completed. Information on how to activate the Rapid Response Team has been discussed. Patient/Family are encouraged to report perceived risks to care and to ask questions if they do not understand what they are told or what they should do.
[2021-12-19] MEDS: INSULIN ASPART (*BKC) 100 UNITS/ML SUB-Q (17:02)
[2021-12-19] MEDS: APIXABAN 5 MG TABLET BY MOUTH (17:02)
[2021-12-19] MEDS: metFORMIN HCL 500 MG TABLET 1000 MG PO (17:02)
[2021-12-19] MEDS: METOPROLOL TARTRATE 25 MG TABLET PO ×2 (17:02→23:45)
--- NOTE | 2021-12-19 20:44 | PC.NURSE ---
Patient complaining of shortness of breath. Patient RR 30 and O2 sat of 92%. Patient to get lasix tonight. On cardizem drip. Linda MARSHALL notified, she will put in order for breathing treatments.
[2021-12-19] MEDS: IPRATROPIUM BR 0.02% INH SOLN 0.5 MG/2.5 ML VIAL INHALATION (20:58)
[2021-12-20] VITALS (38 sets, daily range): BP systolic 94–131; BP diastolic 60–83; PULSE 74–127; RESP 16–37; TEMP 36.1–37.4; O2SAT 88–101
--- NOTE | 2021-12-20 | ECHO_ITS ---
Patient Info Name: Moise Lutz Age: 71 years : 1950 Gender: Male Ht: 68 in Wt: 183 lbs BSA: 2.01 m2 HR: 93 bpm BP: 103 / 56 mmHg Heart Rhythm: Atrial Fibrillation Exam Date: 12/20/2021 10:01 AM Exam Location: [facility] Patient Status: Outpatient Admit Date: 12/19/2021 Staff Ordering Physician: Kalpana Ann DO [employer] Program Coordinator: Miky King RDCS, RT Attending Provider: Karen Calderón DO Referring Physician: Marissa RAMIREZ; Exam Type: CA echo doppler color flow Study Info Indications J96.90 - Respiratory failure, unspecified, unspecified whether with hypoxia or hypercapnia Complete two-dimensional, color flow and Doppler transthoracic echocardiogram is performed. Strain analysis performed. Summary 1. Complete two-dimensional, color flow and Doppler transthoracic echocardiogram is performed. 2. Left ventricular chamber dimension is mildly enlarged. 3. Left ventricular systolic function is moderately reduced, estimated at 30-35%. 4. Left atrial chamber dimension is moderately enlarged. 5. There is mild aortic valve sclerosis. 6. The mitral valve annulus is mildly calcified. 7. Compared with June 2020 ejection fraction was normal at that time. Left Ventricle Left ventricular chamber dimension is mildly enlarged. Left ventricular systolic function is moderately reduced, estimated at 30-35%. The left ventricular diastolic function is indeterminate. Right Ventricle Right ventricular chamber dimension is normal. Left Atria Left atrial chamber dimension is moderately enlarged. Right Atria Right atrial chamber dimension is normal. Aortic Valve The aortic valve is trileaflet. There is mild aortic valve sclerosis. Pulmonic Valve The pulmonic valve is not well visualized. Mitral Valve The mitral valve has normal leaflets. The mitral valve annulus is mildly calcified. Tricuspid Valve The tricuspid valve leaflets are normal. Pericardium/Pleural The pericardium appears normal. Aorta The aortic root size at the sinus of Valsalva is normal. Left Ventricular Outflow Tract Name Value Normal LVOT 2D LVOT Diameter 2.1 cm LVOT Doppler LVOT Peak Gradient 2 mmHg LVOT Mean Gradient 1 mmHg LVOT VTI 17 cm LVOT VTI/AV VTI Ratio 0.5 LVOT Stroke Volume 56 ml LVOT CO 3.0 l/min LVOT CI 1.5 l/min/m2 Mitral Valve Name Value Normal MV Doppler MV Peak Gradient 1 mmHg MV Mean Gradient 0 mmHg MV Decel [place] 781 cm/s2 MV PHT 49 ms MV Area (PHT) 4.5 cm2 4.0
[2021-12-20] MEDS: LEVALBUTEROL NEB 1.25 MG/3 ML INHALATION ×5 (01:53→20:27)
[2021-12-20] MEDS: dilTIAZem 100 MG/100 ML 100 MG/100 ML BAG 7.5 MG IV CONT (03:44)
--- NOTE | 2021-12-20 04:12 | PC.NURSE ---
Patient placed on continuous pulse ox monitoring as patient was found 84-85% on 4LNC. Patient placed on 10L HFNC. HR currently 99 afib. Continue to monitor.
--- NOTE | 2021-12-20 04:43 | PC.NURSE ---
Updated Dr. Ann with increased O2 requirements. Get stat ABG and Stat chest xray.
[2021-12-20 04:52] LABS: Hematocrit 44.1 % (42.0-52.0); Hemoglobin 13.8 g/dL (14.0-18.0); Mean Corpuscular HGB Conc 31.3 g/dl (32-36); Mean Corpuscular Volume 86.1 fl (80-100); Mean Platelet Volume 12.1 fl (7.4-10.4); Platelet Count Result 215 k/mm3 (150-375); Red Blood Count 5.12 M/mm3 (4.6-6.20); Red Cell Distribution Width 15.8 % (11.5-14.5); White Blood Count 14.6 K/mm3 (4.5-10.0)
[2021-12-20 04:57] LABS: Base Excess ABG 1.6 mEq/l (+/-2.0); Carboxyhemoglobin 0.3 % THb (0-2.0); Fractional Inspired Oxygen 60 %; Methemoglobin ABG 0.2 %THb (0-1.5); Oxygen Content ABG 18.5 %vol (16.0-22.0); Oxygen Saturation ABG 92.7 % (95.0-100.0); Oxyhemoglobin 90.1 % THb (90.0-100.0); PO2 ABG 62.8 mmHg (80.0-100.0); PO2 FiO2 Ratio Arterial Blood 1.05 %; Reduced Hemoglobin 9.4 %THb (0-5.0); Total Hemoglobin 14.6 g/dL (12.0-18.0)
[2021-12-20 04:58] LABS: Site Drawn RIGHT RADIAL
[2021-12-20 04:59] LABS: Device HIGH FLOW NASAL CANN; Modified Allen's Test Pass
[2021-12-20 05:00] LABS: Hemoglobin A1C 7.4 % (<5.7)
[2021-12-20 05:03] LABS: Anion Gap 7 mmol/L (8-16); Blood Urea Nitrogen 22 mg/dL (9-20); Calcium 8.8 mg/dL (8.4-10.2); Carbon Dioxide 29 mmol/L (22-30); Chloride 95 mmol/L (98-107); Estimated CRCL calculation 47 ml/min; Estimated Glomerular Filt Rate 59; Glucose 188 mg/dL (65-110); Potassium 3.9 mmol/L (3.4-5.0); Sodium 131 mmol/L (137-145)
[2021-12-20 05:18] LABS: Troponin I 0.091 ng/mL (0.000-0.034)
--- NOTE | 2021-12-20 05:24 | PM.CCN ---
Critical Care Event Note Summary Code activated: No Narrative: Nursing staff called to notify me the patient had rapid increase in oxygen requirements from 4 L nasal cannula to 12 L high-flow nasal cannula in 30 minutes. Despite being on 12 L high-flow nasal cannula the patient's PO2 on ABG was in the low 60s. With oxygen saturations around 90%. Stat chest x-ray demonstrated markedly increased infiltrates bilaterally. The patient had only had 1 L of urine output after 40 Lasix given in the ER and another 500 mL of urine output after 40 of Lasix last evening. The patient's respiratory rate was 20-24 and he had wheezing bilaterally. His wheezing did improve with Xopenex nebs q.2 hours p.r.n. in q.6 hours scheduled. Despite nebs patient's oxygen saturations were not improving. Subsequently patient has been placed on CPAP of 10 with 65% FiO2. Patient is satting 92%. Stat blood cultures have been ordered and the patient has been started on empiric antibiotic therapy with Rocephin and azithromycin given his leukocytosis and elevated temperature of 99.1?. Patient's COVID PCR was negative. The patient's troponin profile has remained flat. The patient remains in AFib but rate is improved control. Blood pressures have remained in the low 100s with Cardizem and p.o. Lopressor q.6 hours. GENERAL: Acutely ill-appearing, well-developed well-nourished HEENT: Mucous membranes are tacky, BiPAP in place CARDIOVASCULAR: Tachycardic, irregular on 2+ bilateral radial pedal pulses, no JVD RESPIRATORY: End-expiratory wheezing bilaterally, crackles bilateral bases ABDOMEN: Soft, nontender INTEGUMENT: Warm to touch, slightly diaphoretic NEUROLOGIC: Alert and oriented, speech is clear, no facial asymmetry, no localizing neurologic deficits on limited exam PSYCHIATRIC: Mildly anxious, cooperative, pleasant EXTREMITIES: No lower extremity edema 1. acutely worsening hypoxic respiratory failure--the patient's fluid balance is negative with only oral intake and proximally 250 mL of fluid in the form of Cardizem drip. The patient has had 1.5 L of urine output. Patient's bladder was empty on bladder scan. I have ordered the nurses to give the patient 80 mg of IV Lasix x1. The patient's BUN had bumped minimally compared to yesterday and his creatinine had bumped minimally as well. Will monitor electrolytes closely given diuretic therapy. Given the rapidly progressing changes on x-ray and the leukocytosis will cover empirically for possible pneumonia. Blood cultures are ordered and will be drawn prior to initiation of antibiotic therapy. I will hold off on steroid therapy at this time given the appearance of the patient's x-ray and elevated temperature I would not want to precipitate any possible worsening bacterial process. The patient reports that his breathing feels much better on CPAP. 2. Type 2 insulin-dependent diabetes with hyperglycemia--will hold the patient's metformin and will increase the patient's sliding scale insulin moderate dose sliding scale insulin. 55 minute spent in critical care activities. This case had a high probability of a clinically significant, sudden, or life threatening deterioration of this patient's condition which required my full and direct attention, intervention and personal management. Critical care time: 30 - 74 mins
--- NOTE | 2021-12-20 05:35 | PC.NURSE ---
New orders put in per Dr. Ann. Give morning dose of Lasix now as well as an additional 40mg IV for a total of 80mg IV push x1 now. No 9am dose to be given.
[2021-12-20] MEDS: LEVOTHYROXINE SODIUM 112 MCG TABLET PO (05:52)
[2021-12-20] MEDS: FUROSEMIDE INJ 40 MG/4 ML VIAL IV PUSH ×3 (05:52→20:54)
[2021-12-20] MEDS: METOPROLOL TARTRATE 25 MG TABLET PO ×2 (05:52→12:54)
[2021-12-20 08:09] LABS: Glucose Point of Care 214 mg/dl (65-105)
[2021-12-20] MEDS: INSULIN ASPART (*BKC) 100 UNITS/ML SUB-Q ×3 (08:45→17:22)
[2021-12-20] MEDS: APIXABAN 5 MG TABLET BY MOUTH ×2 (08:51→17:24)
[2021-12-20] MEDS: ATORVASTATIN 40 MG TABLET PO (08:51)
[2021-12-20] MEDS: ASPIRIN 81 MG ENTERIC TABLET PO (08:51)
--- NOTE | 2021-12-20 09:36 | PM.IMPN ---
Progress Note: A&P Assessment and Plan (1) Acute hypoxemic respiratory failure: Code(s): J96.01 - Acute respiratory failure with hypoxia Status: Acute Assessment and Plan: Patient developed acute hypoxic respiratory failure overnight. ABG shows 7.43/40/63 on high-flow nasal cannula. Chest x-ray was reviewed personally and shows worsening patchy bilateral airspace disease. Currently on IV Lasix with negative fluid balance since admission. IV antibiotics started for concern for possible pneumonia. Able to be weaned off CPAP and currently back on high-flow nasal cannula. Wean oxygen as tolerated. Continue current treatment plan. Check sputum and urine antigens. COVID was negative. (2) Atrial fibrillation with RVR: Code(s): I48.91 - Unspecified atrial fibrillation Status: Acute Assessment and Plan: Patient states he has paroxysmal atrial fibrillation and can feel when he is heart rate is elevated. Suspect shortness of breath and chest heaviness related to the AFib with RVR. Heart rate better controlled. TSH normal. Echo has been completed but is pending. Cardiology consult. Start to decrease diltiazem drip as heart rate tolerates. May need to advance metoprolol as blood pressure allows. Continue Eliquis. (3) Congestive heart failure: Qualifiers: Heart failure chronicity: acute Heart failure type: unspecified Qualified Code(s): I50.9 - Heart failure, unspecified Code(s): I50.9 - Heart failure, unspecified Status: Acute Assessment and Plan: Echocardiogram in 2020 shows EF of 65-70% with grade 2 diastolic dysfunction and trace valvular disease and no pulmonary hypertension. Chest x-ray as mentioned above. BNP was 2230. Was felt his CHF is likely related AFib with RVR. Follow up on echo results. Continue Lasix. Monitor urine output and renal function. (4) Elevated troponin I level: Code(s): R77.8 - Other specified abnormalities of plasma proteins Status: Acute Assessment and Plan: Troponin elevated to 0.091 but flat. EKG showing AFib/RVR with poor R wave progression and nonspecific ST-T wave changes in inf/lat leads. Likely due to AF/RVR and CHF exacerbation. Not felt to have acute coronary syndrome (5) Diabetes: Qualifiers: Diabetes mellitus complication status: with hyperglycemia Diabetes mellitus watermelon inspector insulin use: without watermelon inspector use Diabetes mellitus type: type 2 Qualified Code(s): E11.65 - Type 2 diabetes mellitus with hyperglycemia Code(s): E11.9 - Type 2 diabetes mellitus without complications Status: Acute Assessment and Plan: A1c 7.4. The patient's blood glucose was reviewed on 12/20 Glucose remains well controlled. Continue AccuCheks covering with sliding scale. Hypoglycemia protocol available as needed. Continue to monitor. (6) Hypertension: Qualifiers: Hypertension type: primary hypertension Qualified Code(s): I10 - Essential (primary) hypertension Code(s): I10 - Essential (primary) hypertension Status: Acute Assessment and Plan: Patient's blood pressure was reviewed on 12/20 Blood pressure remains soft. Currently on metoprolol, diltiazem IV and Lasix IV. Will continue current medications and adjust as tolerated. (7) Testosterone deficiency: Code(s): E34.9 - Endocrine disorder, unspecified Status: Acute Assessment and Plan: Hold weekly injections until discharge (8) DVT prophylaxis: Code(s): Z29.9 - Encounter for prophylactic measures, unspecified Status: Acute Assessment and Plan: Angel Oviedo Date/time seen: 12/20/21 09:36 Interval history: 71yo male with hx of HTN, CAD, pAFib, DM, and CVA here for SOB. Assuming care. Chart reviewed. Events overnight noted. He was on CPAP but able to be weaned to high flow nasal cannula. Remains on Diltiazem IV. Was having SOB and
[2021-12-20 12:26] LABS: Glucose Point of Care 278 mg/dl (65-105)
--- NOTE | 2021-12-20 13:53 | PM.CNCAR ---
Assessment and Plan Additional Plan 71-year-old man with coronary artery disease and history of paroxysmal atrial fibrillation presenting for shortness of breath has significant pulmonary congestion on chest x-ray and some wheezing on physical exam. Sounds like symptomatic Flora he probably went back in atrial fibrillation last week. He has been compliant with his anticoagulation regimen. He was previously maintained in sinus rhythm with sotalol but became problematically bradycardic on that medication. I am going to start him on IV amiodarone at this time an attempt at restoring sinus rhythm. We will stop the IV diltiazem and hopefully he will medically convert if he does not we will perform a electrical cardioversion before the end of the week Edison Vila MD [facility] History of Present Illness History of Present Illness Consult date/time: 12/20/21 13:53 Consult reason: atrial fibrillation Reason For Visit: afib rvr, chf exacerbation Narrative: This is a 71-year-old man that I am seeing at the request of the hospitalist this afternoon for assistance with the evaluation and management of atrial fibrillation. He is known to our practice with a history of coronary disease and atrial fib he was in his usual state of relatively good health when last weekend or late last week he started to notice symptoms of shortness of breath and a sense of tachycardia and palpitations. He thinks this began on Monday of last week or possibly a day or 2 before that. Over the course of the weekend he began to have more problematic shortness of breath with orthopnea occurring and he finally decided yesterday morning on Monday to come into the hospital. He was found to be in AFib with RVR. He also had some congestion on his chest x-ray on on his exam. He was treated with intravenous diltiazem and furosemide. His heart rate control did improve he became much more short of breath last night and received a nebulizer breathing treatment and some CPAP. His chest x-ray shows relatively severe congestion of the lungs and in this setting I am seeing him in consultation. At this time he has a low IV diltiazem running at a low dose of 2.5 and he is still taking apixaban for heart rate control. This gentleman has a history of coronary artery disease in atrial fib I believe dating back to 2013. He underwent a cardiac catheterization at that time that demonstrated a distal occlusion of his circumflex but no other coronary disease. For his atrial fibrillation he was treated with sotalol. He did maintain sinus rhythm on that medication and had done relatively well. His follow-up in the office has generally been inconsistent. The last couple of years I believe he has seen our nurse practitioner a couple of times to reduced and ultimately stop the sotalol altogether because of symptomatic sinus bradycardia. I saw the patient last in the office in February of last summer in 2020 he was in sinus rhythm and had no complaints at that time. He was still taking of course the apixaban but was a no specific antiarrhythmic medication at that time. He is not having any symptoms of chest pain not having any accumulating lower extremity edema. Review of Systems Constitutional: Constitutional: Reports no additional constitutional complaints Eyes: Eyes: Reports no additional eye complaints ENT: Reports system reviewed and no additional complaints, except as documented Cardiovascular: Cardiovascular: Reports as per HPI and Reports palpitations Respiratory: Respiratory: Reports dyspnea Gastrointestinal: Gastrointestinal: Reports no additional gastrointestinal complaints Musculoskeletal: Musculoskeletal: Reports no additional musculoskeletal complaints Integumentary/Breasts: Skin/Breast: Reports system reviewed and no additional complaints, except as docu Neurologic: Reports system reviewed and no additional complaints, except as documented Endocrine: Endocrine: Reports no additional endocr
[2021-12-20] MEDS: AMIODARONE 360 MG/D5W 200 ML 360 MG/200 ML BAG 33.33 MG IV CONT (15:20)
[2021-12-20 16:08] LABS: Glucose Point of Care 223 mg/dl (65-105)
[2021-12-20] MEDS: METOPROLOL TARTRATE TAB 25 MG, METOPROLOL TARTRATE TAB 12.5 MG 37.5 MG PO (17:24)
--- NOTE | 2021-12-20 18:52 | PC.NURSE ---
Patient was 86% on High-Flow Nasal Canula. He was breathing at 36 bpm and using accessory muscles. Heart rate 106, still Afib. Patient was put back on C-pap and recovered to 91%. Dr. Diaz was notified and ordered 20 mg IV Lasix one time.
[2021-12-20] MEDS: FUROSEMIDE INJ 40 MG/4 ML VIAL 20 MG IV PUSH (19:25)
[2021-12-20 20:03] LABS: Glucose Point of Care 213 mg/dl (65-105)
[2021-12-20] MEDS: AMIODARONE 360 MG/D5W 200 ML 360 MG/200 ML BAG 16.67 MG IV CONT (20:42)
[2021-12-21] VITALS (34 sets, daily range): BP systolic 105–140; BP diastolic 77–93; PULSE 86–132; RESP 16–34; TEMP 36.5–37.2; O2SAT 89–98
[2021-12-21] MEDS: METOPROLOL TARTRATE TAB 25 MG, METOPROLOL TARTRATE TAB 12.5 MG 37.5 MG PO ×4 (00:59→17:46)
[2021-12-21] MEDS: LEVALBUTEROL NEB 1.25 MG/3 ML INHALATION ×4 (02:20→20:07)
[2021-12-21 04:40] LABS: Hematocrit 46.4 % (42.0-52.0); Hemoglobin 14.6 g/dL (14.0-18.0); Mean Corpuscular HGB Conc 31.5 g/dl (32-36); Mean Corpuscular Hemoglobin 27.1 pg (26-34); Mean Corpuscular Volume 86.2 fl (80-100); Mean Platelet Volume 12.1 fl (7.4-10.4); Platelet Count Result 226 k/mm3 (150-375); Red Blood Count 5.38 M/mm3 (4.6-6.20); Red Cell Distribution Width 15.8 % (11.5-14.5)
[2021-12-21 04:48] LABS: Anion Gap 9 mmol/L (8-16); Blood Urea Nitrogen 22 mg/dL (9-20); Calcium 8.3 mg/dL (8.4-10.2); Carbon Dioxide 30 mmol/L (22-30); Chloride 94 mmol/L (98-107); Estimated CRCL calculation 56 ml/min; Estimated Glomerular Filt Rate > 60; Glucose 187 mg/dL (65-110); Magnesium 1.3 mg/dL (1.6-2.3); Potassium 3.8 mmol/L (3.4-5.0); Sodium 133 mmol/L (137-145)
[2021-12-21] MEDS: LEVOTHYROXINE SODIUM 112 MCG TABLET PO (05:53)
--- NOTE | 2021-12-21 07:16 | PC.NURSE ---
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 that were ranging between 85% and 92%. Orders to try BIPAP settings 10/ R 16, place back on CPAP settings if tidal volume too high. RT changed settings, pt's tidal volume increased to 600-800's and did not increase O2 sats. Pt placed back on CPAP settings and FIO2 increased. FIO2 was increased throughout the night from 50% to 80%. Discussion of potential intubation with Dr Ann. CXR ordered for morning. Armas placed due to pt desating while sitting up to use urinal. Discussed potential of intubation with patient, patient in agreement if it comes to that. O2 sat stayed between 88-95% the rest of the morning.
[2021-12-21 08:02] LABS: Glucose Point of Care 217 mg/dl (65-105)
[2021-12-21] MEDS: AMIODARONE 360 MG/D5W 200 ML 360 MG/200 ML BAG 16.67 MG IV CONT ×2 (08:12→20:22)
[2021-12-21] MEDS: MAGNESIUM SULF 2 GM/WATER 50ML 2 GM/50 ML BAG IVPB (08:12)
[2021-12-21] MEDS: ATORVASTATIN 40 MG TABLET PO (08:14)
[2021-12-21] MEDS: ASPIRIN 81 MG ENTERIC TABLET PO (08:14)
[2021-12-21] MEDS: FUROSEMIDE INJ 100 MG/10 ML VIAL 60 MG IV PUSH ×2 (08:14→20:19)
[2021-12-21] MEDS: APIXABAN 5 MG TABLET BY MOUTH ×2 (08:14→17:45)
[2021-12-21] MEDS: INSULIN ASPART (*BKC) 100 UNITS/ML SUB-Q ×3 (08:15→17:45)
--- NOTE | 2021-12-21 09:38 | PM.CNPUL ---
Assessment and Plan Assessment and plan (1) Acute hypoxemic respiratory failure: Code(s): J96.01 - Acute respiratory failure with hypoxia Status: Acute Assessment and Plan: 71-year-old man with no previous history of lung disease presented with a progressively increasing shortness of breath orthopnea of several days duration. Diagnostic studies suggested pulmonary edema and patient has been on treatment for congestive heart failure and atrial fibrillation with rapid ventricular response. Initial blood gases showed no evidence of hypercapnic respiratory failure. Regarding hypoxemic respiratory failure I would continue with BiPAP support 07/14 with supplemental oxygen titration to maintain O2 saturation greater than 92%. Will repeat chest x-ray in couple of days to document clearing of bilateral infiltrates. The patient has been tested for possible COVID 19 infection. The 1st test was negative; repeat test for COVID 19 infection was ordered. (2) Atrial fibrillation with RVR: Code(s): I48.91 - Unspecified atrial fibrillation Status: Acute (3) Congestive heart failure: Qualifiers: Heart failure type: unspecified Heart failure chronicity: acute Qualified Code(s): I50.9 - Heart failure, unspecified Code(s): I50.9 - Heart failure, unspecified Status: Acute History of Present Illness History of Present Illness Consult date: 12/21/21 Chief complaint: afib rvr, chf exacerbation Narrative: This 71-year-old man presented with progressively increasing shortness of breath of several days duration. The patient has history of hypertension, diabetes type 2, history of coronary artery disease and atrial fibrillation. Patient was in his usual state of health until approximately 3 4 days prior to this admission when he started having shortness of breath and some palpitations. Patient was working out in his yd when he started having shortness of breath. Over the ensuing days, he had progressively increasing shortness of breath as well as orthopnea. He denied having hemoptysis chest pain cough fever or chills. When evaluated in the emergency room he was found to be in atrial fibrillation with a rapid ventricular response. His chest x-ray showed bilateral infiltrates consistent with pulmonary edema. The BNP was also elevated. echocardiogram done yesterday showed EF in the range of 30-35%. The patient has been treated by Cardiology Services and has received IV diltiazem as well as IV Lasix. I was asked to see the patient regarding management of hypoxemic respiratory failure. Patient was initially placed on BiPAP support and then was switched to just CPAP of 10 cm of water. Currently he is on high-flow nasal cannula while having breakfast. Upon questioning he admitted having less shortness of breath today than yesterday. He never had history of lung disease. He used to smoke but quit many years ago. He has had history of occupational exposure to dust. He is not on any medications for underlying respiratory disease. Patient has been tested for possible COVID 19 infection. Review of Systems Review of Systems: All systems reviewed & are unremarkable except as noted in HPI and below PMFSH Past Medical History Medical History Adhesive capsulitis of right shoulder BMI 28.0-28.9,adult CAD (coronary artery disease) history having nonobstructive blockages he had a stress test in June 2014 but had no intervention performed. He had a EF of 55% at that time. Medically treated. Cardiac arrhythmia Carotid artery occlusion COVID-19 vaccine series completed DM2 (diabetes mellitus, type 2) Dyslipidemia Hemoglobin A1C between 7% and 9% indicating borderline diabetic control A1c was 7.2 on 06/13/20 History of skin cancer HTN (hypertension) with goal to be determined Hypertension Hyperthyroidism status post radioactive iodine ablation Hypothyroidism P
--- NOTE | 2021-12-21 09:57 | PM.PNCARD ---
Progress Note: A&P Assessment and Plan (1) Atrial fibrillation with RVR: Code(s): I48.91 - Unspecified atrial fibrillation Status: Acute Assessment and Plan: Heart rate improved with IV amiodarone and the addition of p.o. metoprolol. Anticoagulated with Eliquis. Probable cardioversion prior to discharge if the patient does not convert. History of bradycardia when on sotalol. (2) Congestive heart failure: Qualifiers: Heart failure type: unspecified Heart failure chronicity: acute Qualified Code(s): I50.9 - Heart failure, unspecified Code(s): I50.9 - Heart failure, unspecified Status: Acute Assessment and Plan: Acute CHF, probably diastolic, diuresing. Will check an echo. (3) Acute hypoxemic respiratory failure: Code(s): J96.01 - Acute respiratory failure with hypoxia Status: Acute Assessment and Plan: Due to pneumonia and CHF, slight improvement overnight but still has high O2 needs. Subjective Date/time seen: 12/21/21 09:57 Interval history: FU for a fib RVR, acute CHF. H/O CAD. 12/20/2021: 71-year-old man with coronary artery disease and history of paroxysmal atrial fibrillation presenting for shortness of breath has significant pulmonary congestion on chest x-ray and some wheezing on physical exam. Sounds like symptomatic Flora he probably went back in atrial fibrillation last week. He has been compliant with his anticoagulation regimen. He was previously maintained in sinus rhythm with sotalol but became problematically bradycardic on that medication. I am going to start him on IV amiodarone at this time an attempt at restoring sinus rhythm. We will stop the IV diltiazem and hopefully he will medically convert if he does not we will perform a electrical cardioversion before the end of the week Date of Service 12/21/2021: STill very weak and dyspnec w/ minor activity. Scant hemoptysis. Droplet precautions. On CPAP, FI O2 70%. Diuresed some. Telemetry shows atrial fibrillation, heart rate 90-110. P.o. metoprolol added to IV amiodarone. Review of Systems Constitutional: Constitutional: Reports fatigue, Reports lethargy and Reports weakness Eyes: Eyes: Reports no additional eye complaints ENT: Denies nasal discharge Cardiovascular: Cardiovascular: Denies chest pain Respiratory: Respiratory: Reports cough, Reports hemoptysis, Reports dyspnea and Reports dyspnea on exertion Gastrointestinal: Gastrointestinal: Denies abdominal pain Genitourinary: Genitourinary: Denies dysuria Musculoskeletal: Musculoskeletal: Reports no additional musculoskeletal complaints Integumentary/Breasts: Skin/Breast: Denies rash Neurologic: Denies confusion Psychiatric: Psychiatric: Reports no additional psychiatric complaints Exam Const: General: no acute distress and uncomfortable (BIPAP etc) HENMT: General nose exam: no epistaxis Eyes: EOM: EOMs intact bilaterally Neck: Neck: supple Resp: Auscultation: clear to auscultation bilaterally Cardio: Rate: tachycardic Rhythm: abnormal rhythm irregularly irregular GI: GI Palp: Yes Soft to palpation and No Tenderness to palpation present (GI) Skin: General skin exam: normal color and no rashes or lesions noted Neuro: Cognition (Neuro): normal cognition Speech: normal speech Extrem: General: no edema and no pedal edema Psych: Mental Status: mental status grossly normal Affect: normal affect Objective Data Vital Signs Vital Signs: Vital Signs - 24 hr 12/20/21 10:00 12/20/21 12:00 12/20/21 12:54 Temperature 98.0 F Pulse Rate 89 82 95 Respiratory Rate 16 Blood Pressure 119/79 Pulse Oximetry 93 12/20/21 13:50 12/20/21 13:59 12/20/21 14:00 Temperature Pulse Rate 79 77 95 Respiratory Rate 20 20 Blood Pressure Pulse Oximetry 12/20/21 15:20 12/20/21 16:00 12/20/21 17:24 Temperature 98.2 F Pulse Rate 96 98 115 H Respiratory Rate 36 H Blood Pressure
[2021-12-21 10:19] LABS: SARS-CoV-2 RNA PCR Negative
[2021-12-21 11:04] LABS: Glucose Point of Care 302 mg/dl (65-105)
--- NOTE | 2021-12-21 11:40 | PM.IMPN ---
Progress Note: A&P Assessment and Plan (1) Acute hypoxemic respiratory failure: Code(s): J96.01 - Acute respiratory failure with hypoxia Status: Acute Assessment and Plan: Patient developed acute hypoxic respiratory failure. ABG shows 7.43/40/63 on high-flow nasal cannula. Chest x-ray on admission showed bilateral infiltrates R>L. Started on IV Lasix with cumulative I/O about even. IV antibiotics started for concern for possible pneumonia. CXR today showing diffuse airspace disease c/w pulmonary edema. BCx NGTD. Wean oxygen as tolerated. Advance Lasix IV. Repeat COVID swab. Follow up sputum and urine antigens. (2) Atrial fibrillation with RVR: Code(s): I48.91 - Unspecified atrial fibrillation Status: Acute Assessment and Plan: Patient states he has paroxysmal atrial fibrillation and can feel when he is heart rate is elevated. Suspect shortness of breath and chest heaviness related to the AFib with RVR and respiratory failure. Remains on Metoprolol. Diltiazem was able to be stopped. Cards consulted and Amio started. Heart rate better controlled. TSH normal. Echo showing EF 30-35% with indeterminate diastolic function. Continue Eliquis. Appreciate Cards input. (3) Congestive heart failure: Qualifiers: Heart failure chronicity: acute Heart failure type: unspecified Qualified Code(s): I50.9 - Heart failure, unspecified Code(s): I50.9 - Heart failure, unspecified Status: Acute Assessment and Plan: Echocardiogram in 2020 shows EF of 65-70% with grade 2 diastolic dysfunction and trace valvular disease and no pulmonary hypertension. Chest x-ray as mentioned above. BNP was 2230. Was felt his CHF is likely related AFib with RVR. Echo this admisison showing EF 30-35% with indeterminate diastolic function. Advance Lasix. Monitor urine output and renal function. (4) Elevated troponin I level: Code(s): R77.8 - Other specified abnormalities of plasma proteins Status: Acute Assessment and Plan: Troponin elevated to 0.091 but flat. EKG showing AFib/RVR with poor R wave progression and nonspecific ST-T wave changes in inf/lat leads. Likely due to AF/RVR and CHF exacerbation. Not felt to have acute coronary syndrome (5) Diabetes: Qualifiers: Diabetes mellitus complication status: with hyperglycemia Diabetes mellitus extermination inspector insulin use: without alf use Diabetes mellitus type: type 2 Qualified Code(s): E11.65 - Type 2 diabetes mellitus with hyperglycemia Code(s): E11.9 - Type 2 diabetes mellitus without complications Status: Acute Assessment and Plan: A1c 7.4. The patient's blood glucose was reviewed on 12/21 Glucose was 187this morning but as high as 302 now. Continue AccuCheks covering with sliding scale. Hypoglycemia protocol available as needed. Continue to monitor. Add Lantus (6) Hypertension: Qualifiers: Hypertension type: primary hypertension Qualified Code(s): I10 - Essential (primary) hypertension Code(s): I10 - Essential (primary) hypertension Status: Acute Assessment and Plan: Patient's blood pressure was reviewed on 12/21 Blood pressure remains well controlled. Currently on metoprolol and Lasix IV. Will continue current medications and adjust as tolerated. (7) Testosterone deficiency: Code(s): E34.9 - Endocrine disorder, unspecified Status: Acute Assessment and Plan: Hold weekly injections until discharge (8) DVT prophylaxis: Code(s): Z29.9 - Encounter for prophylactic measures, unspecified Status: Acute Assessment and Plan: Angel Oviedo Date/time seen: 12/21/21 11:40 Interval history: 71yo male with hx of HTN, CAD, pAFib, DM, and CVA here for SOB. Patient did well for most of the day yesterday on HFNC. Patient's condition worsened last night and CPAP resumed. Nuclear Medicine Medical Director tried him on BiPAP b
[2021-12-21] MEDS: INSULIN GLARGINE (*BKC) 100 UNITS/ML 7 UNITS SUB-Q (12:39)
[2021-12-21 16:48] LABS: Glucose Point of Care 203 mg/dl (65-105)
--- NOTE | 2021-12-21 18:29 | PC.NURSE ---
Pt off bipap today for meals only. Was placed on 15L HF NC. Pt desats to high 70%'s or low 80%'s during meals. PT HR also increased to 130's. Still on amiodarone drip and PO metoprolol. Dr. Diaz advised.
[2021-12-21] MEDS: DOCUSATE SODIUM 100 MG CAPSULE PO (20:20)
[2021-12-21 20:42] LABS: Glucose Point of Care 212 mg/dl (65-105)
[2021-12-22] VITALS (44 sets, daily range): BP systolic 59–147; BP diastolic 46–128; PULSE 64–155; RESP 18–30; TEMP 36.5–37.3; O2SAT 90–100
[2021-12-22] MEDS: METOPROLOL TARTRATE TAB 25 MG, METOPROLOL TARTRATE TAB 12.5 MG 37.5 MG PO ×3 (00:49→12:11)
[2021-12-22] MEDS: LEVALBUTEROL NEB 1.25 MG/3 ML INHALATION ×3 (02:03→14:12)
[2021-12-22 04:55] LABS: Basophils Absolute Auto 0.1 K/mm3 (0.0-0.1); Basophils Percent Auto 0.4 % (0.2-1.2); Eosinophils Absolute Auto 0.1 K/mm3 (0-0.3); Eosinophils Percent Auto 0.6 % (0-4.4); Hematocrit 45.1 % (42.0-52.0); Hemoglobin 14.4 g/dL (14.0-18.0); Immature Granulocyte Absolute 0.07 K/mm3 (0.00-0.031); Immature Granulocyte Percent A 0.4 % (0-0.5); Lymphocytes Absolute Auto 1.32 K/mm3 (0.9-3.2); Lymphocytes Percent Auto 8.3 % (18.3-44.2); Mean Corpuscular HGB Conc 31.9 g/dl (32-36); Mean Corpuscular Hemoglobin 27.2 pg (26-34); Mean Corpuscular Volume 85.1 fl (80-100); Mean Platelet Volume 12.1 fl (7.4-10.4); Monocytes Absolute Auto 1.4 K/mm3 (0.1-0.6); Monocytes Percent Auto 8.6 % (2.6-8.5); Neutrophils Absolute Auto 13.1 K/mm3 (1.3-6.7); Neutrophils Percent Auto 81.7 % (45.5-73.1); Platelet Count Result 229 k/mm3 (150-375); Red Cell Distribution Width 15.7 % (11.5-14.5)
[2021-12-22 05:08] LABS: Albumin Level 3.6 g/dL (3.5-5.1); Anion Gap 5 mmol/L (8-16); Blood Urea Nitrogen 25 mg/dL (9-20); Calcium 7.8 mg/dL (8.4-10.2); Carbon Dioxide 34 mmol/L (22-30); Chloride 92 mmol/L (98-107); Estimated CRCL calculation 47 ml/min; Estimated Glomerular Filt Rate 59; Glucose 175 mg/dL (65-110); Magnesium 1.6 mg/dL (1.6-2.3); Phosphorus 3.4 mg/dL (2.5-4.5); Potassium 3.4 mmol/L (3.4-5.0); Sodium 131 mmol/L (137-145)
[2021-12-22] MEDS: LEVOTHYROXINE SODIUM 112 MCG TABLET PO (05:45)
[2021-12-22 08:13] LABS: Glucose Point of Care 213 mg/dl (65-105)
[2021-12-22] MEDS: AMIODARONE 360 MG/D5W 200 ML 360 MG/200 ML BAG 16.67 MG IV CONT (08:47)
[2021-12-22] MEDS: INSULIN ASPART (*BKC) 100 UNITS/ML SUB-Q ×2 (08:48→12:16)
[2021-12-22] MEDS: FUROSEMIDE INJ 100 MG/10 ML VIAL 60 MG IV PUSH (08:51)
[2021-12-22] MEDS: ASPIRIN 81 MG ENTERIC TABLET PO (08:52)
[2021-12-22] MEDS: metOLazone 2.5 MG TABLET PO (08:52)
[2021-12-22] MEDS: DOCUSATE SODIUM 100 MG CAPSULE PO (08:52)
[2021-12-22] MEDS: APIXABAN 5 MG TABLET BY MOUTH ×2 (08:52→19:57)
[2021-12-22] MEDS: ATORVASTATIN 40 MG TABLET PO (08:52)
[2021-12-22] MEDS: INSULIN GLARGINE (*BKC) 100 UNITS/ML 7 UNITS SUB-Q (08:52)
--- NOTE | 2021-12-22 10:07 | PM.PNPUL ---
Progress Note: A&P Additional Plan 71-year-old man with no previous history of lung disease presented with progressively increasing shortness of breath orthopnea of several days duration. Diagnostic studies suggested pulmonary edema and patient has been on treatment for congestive heart failure and atrial fibrillation with rapid ventricular response. Initial blood gases showed no evidence of hypercapnic respiratory failure. there has been no significant improvement of respiratory status despite treatment for congestive heart failure and atrial fibrillation. Chest x-ray done earlier today showed possibly worsening infiltrates more on left compared to previous film. On physical exam he continues to have crackles at bases bilaterally, no wheezing. Will proceed with a chest CT. Continue with current BiPAP support. (2) Atrial fibrillation with RVR: Code(s): I48.91 - Unspecified atrial fibrillation Status: Acute (3) Congestive heart failure: Qualifiers: Heart failure type: unspecified Heart failure chronicity: acute Qualified Code(s): I50.9 - Heart failure, unspecified Code(s): I50.9 - Heart failure, unspecified Status: Acute Subjective Date/time seen: 12/22/21 10:07 no significant change in patient's respiratory status. He continues to be on BiPAP support with FiO2 at 80% this a.m.. He has no sputum production wheezing fever or chills. shortness of breath unchanged. He is receiving treatment for congestive heart failure and also on antibiotics for possible lower respiratory tract infection Review of Systems Review of Systems: All systems reviewed & are unremarkable except as noted in HPI and below Exam Narrative: GENERAL APPEARANCE: Well developed, well nourished, alert and cooperative, and appears to be in In mild respiratory distress while on supplemental oxygen via high-flow nasal cannula. SKIN: Inspection of the skin reveals no rashes, ulcerations or petechiae. HEENT: Sclerae anicteric and conjunctivae pink and moist. Extraocular movements were intact and pupils were equal. NECK: Supple. There was no thyroid enlargement, and no tenderness, or masses were felt. JVD present. CHEST: Normal AP diameter and normal contour without any kyphoscoliosis. LUNGS: Auscultation of the lungs revealed crackles at bases posteriorly more on right CARDIAC: There was a irregular rate and rhythm without any murmurs. ABDOMEN: Soft and nontender with normal bowel sounds. There was no organomegaly. LYMPH NODES: No lymphadenopathy was appreciated in the neck. EXTREMITIES: No cyanosis, clubbing or edema. NEUROLOGIC: Alert and oriented x 3. Normal affect. Objective Data Vital Signs Vital Signs: Vital Signs - 24 hr 12/21/21 10:12 12/21/21 11:13 12/21/21 12:00 Temperature 36.5 C Pulse Rate 115 H 88 115 H Respiratory Rate 26 H 20 20 Blood Pressure 105/83 Pulse Oximetry 98 96 96 12/21/21 12:46 12/21/21 14:00 12/21/21 15:25 Temperature Pulse Rate 132 H 113 H 112 H Respiratory Rate 30 H Blood Pressure Pulse Oximetry 12/21/21 15:30 12/21/21 15:35 12/21/21 15:57 Temperature 36.5 C Pulse Rate 116 H 118 H 99 Respiratory Rate 34 H 28 H 20 Blood Pressure 119/93 H Pulse Oximetry 95 96 12/21/21 16:00 12/21/21 17:46 12/21/21 18:00 Temperature Pulse Rate 99 128 H 130 H Respiratory Rate 20 Blood Pressure Pulse Oximetry 96 12/21/21 19:52 12/21/21 20:00 12/21/21 20:07 Temperature 36.6 C Pulse Rate 115 H 112 H 109 H Respiratory Rate 24 H 31 H Blood Pressure 140/77 Pulse Oximetry 91 95 12/21/21 20:12 12/21/21 20:17 12/21/21 20:22 Temperature Pulse Rate 116 H 111 H 116 H Respiratory Rate 28 H Blood Pressure Pulse Oximetry 12/21/21 22:00 12/21/21 22:59 12/22/21 00:00 Temperature 36.8 C Pulse Rate 118 H 110 H 110 H Respiratory Rate 26 H 26 H Blood Pressure 96/65 L Pulse Oximetry 95 96 12/22/21 02:00 12/22/21 02:06 12/22/21
--- NOTE | 2021-12-22 10:43 | PM.PNCARD ---
Progress Note: A&P Additional Plan This 71-year-old man with coronary disease previously known to have a distal occlusion of the circumflex and also paroxysmal AFib admitted with congestive heart failure and recurrent AFib. By echocardiogram left ventricular systolic function is worsened as detailed in the report. Likelihood this is related to the development of AF with RVR. I am going to give him 1 dose of oral digoxin this morning to try to provide some better rate control while we are continuing to load with IV amiodarone. I will keep him NPO tonight for the possibility of DC cardioversion tomorrow. Because of his tenuous respiratory status will arrange this to be done with the assistance of Anesthesia. Edison Vila MD [facility] Subjective Date/time seen: 12/22/21 10:43 Interval history: FU for a fib RVR, acute CHF. H/O CAD. 12/20/2021: 71-year-old man with coronary artery disease and history of paroxysmal atrial fibrillation presenting for shortness of breath has significant pulmonary congestion on chest x-ray and some wheezing on physical exam. Sounds like symptomatic Flora he probably went back in atrial fibrillation last week. He has been compliant with his anticoagulation regimen. He was previously maintained in sinus rhythm with sotalol but became problematically bradycardic on that medication. I am going to start him on IV amiodarone at this time an attempt at restoring sinus rhythm. We will stop the IV diltiazem and hopefully he will medically convert if he does not we will perform a electrical cardioversion before the end of the week Date of Service 12/21/2021: STill very weak and dyspnec w/ minor activity. Scant hemoptysis. Droplet precautions. On CPAP, FI O2 70%. Diuresed some. Telemetry shows atrial fibrillation, heart rate 90-110. P.o. metoprolol added to IV amiodarone. Date of service 12/22/2021: Patient's respiratory status remains unimproved despite attempts to treat CHF in control atrial fibrillation maintains on IV amiodarone for the last 48 hours. Heart rate at rest this morning 115-125. Exam Const: General: comfortable, no acute distress and uncomfortable (BIPAP etc); No confusion Orientation/consciousness: No confusion HENMT: General nose exam: no epistaxis Mouth: Yes moist mucous membranes Eyes: Sclera: sclerae normal Pupils: Equal, round and reactive pupils present EOM: EOMs intact bilaterally Neck: Neck: supple and no JVD Resp: Auscultation: clear to auscultation bilaterally Cardio: Rate: tachycardic Rhythm: abnormal rhythm irregularly irregular GI: Auscultation: normal bowel sounds Skin: General skin exam: normal color and no rashes or lesions noted Neuro: General: No confusion Cranial nerves: Yes Equal, round and reactive pupils present Cognition (Neuro): normal cognition Speech: normal speech Extrem: General: no edema and no pedal edema Psych: Mental Status: mental status grossly normal Affect: normal affect Objective Data Vital Signs Vital Signs: Vital Signs - 24 hr 12/21/21 11:13 12/21/21 12:00 12/21/21 12:46 Temperature 36.5 C Pulse Rate 88 115 H 132 H Respiratory Rate 20 20 Blood Pressure 105/83 Pulse Oximetry 96 96 12/21/21 14:00 12/21/21 15:25 12/21/21 15:30 Temperature Pulse Rate 113 H 112 H 116 H Respiratory Rate 30 H 34 H Blood Pressure Pulse Oximetry 95 12/21/21 15:35 12/21/21 15:57 12/21/21 16:00 Temperature 36.5 C Pulse Rate 118 H 99 99 Respiratory Rate 28 H 20 20 Blood Pressure 119/93 H Pulse Oximetry 96 96 12/21/21 17:46 12/21/21 18:00 12/21/21 19:52 Temperature 36.6 C Pulse Rate 128 H 130 H 115 H Respiratory Rate 24 H Blood Pressure 140/77 Pulse Oximetry 91 12/21/21 20:00 12/21/21 20:07 12/21/21 20:12 Temperature Pulse Rate 112 H 109 H 116 H Respiratory Rate 31 H Blood Pressure Pulse Oximetry 95 12/21/21 20:17 12/21/21 20:22 12/21/21 22:00 Temperature Pulse Rate 111 H 11
--- NOTE | 2021-12-22 11:09 | PM.IMPN ---
Progress Note: A&P Assessment and Plan (1) Acute hypoxemic respiratory failure: Code(s): J96.01 - Acute respiratory failure with hypoxia Status: Acute Assessment and Plan: Patient developed acute hypoxic respiratory failure. ABG shows 7.43/40/63 on high-flow nasal cannula. Chest x-ray on admission showed bilateral infiltrates R>L. COVID swab negative. Started on IV Lasix with cumulative I/O -1.6L. IV antibiotics started for concern for possible pneumonia. Repeat COVID negative. CXR today reviewed showing diffuse bilateral lung disease with some increase on the left. BCx NGTD. Wean oxygen as tolerated. Advance Lasix IV again. Metolazone once. Check for influenza. Follow up on CT chest and LE doppler results. (2) Atrial fibrillation with RVR: Code(s): I48.91 - Unspecified atrial fibrillation Status: Acute Assessment and Plan: Patient states he has paroxysmal atrial fibrillation and can feel when he is heart rate is elevated. Suspect shortness of breath and chest heaviness related to the AFib with RVR and respiratory failure. Diltiazem was able to be stopped. Remains on Metoprolol. Cards consulted and Amio started. Heart rate better controlled but still elevated. TSH normal. Echo showing EF 30-35% with indeterminate diastolic function. Continue Eliquis. Appreciate Cards input. Cardioversion being considered. (3) Congestive heart failure: Qualifiers: Heart failure type: unspecified Heart failure chronicity: acute Qualified Code(s): I50.9 - Heart failure, unspecified Code(s): I50.9 - Heart failure, unspecified Status: Acute Assessment and Plan: Echo in 2020 shows EF of 65-70% with grade 2 diastolic dysfunction and trace valvular disease and no pulmonary hypertension. Chest x-ray as mentioned above. BNP 2230. Echo this admission showing EF 30-35% with indeterminate diastolic function. Patient with acute systolic and diastolic CHF is likely related AFib with RVR. Advance Lasix again. Monitor urine output, blood pressure and renal function. (4) Elevated troponin I level: Code(s): R77.8 - Other specified abnormalities of plasma proteins Status: Acute Assessment and Plan: Troponin elevated to 0.091 but flat. EKG showing AFib/RVR with poor R wave progression and nonspecific ST-T wave changes in inf/lat leads. Likely due to AF/RVR and CHF exacerbation. Not felt to have acute coronary syndrome. (5) Diabetes: Qualifiers: Diabetes mellitus type: type 2 Diabetes mellitus ferry terminal agent insulin use: without ferry terminal agent use Diabetes mellitus complication status: with hyperglycemia Qualified Code(s): E11.65 - Type 2 diabetes mellitus with hyperglycemia Code(s): E11.9 - Type 2 diabetes mellitus without complications Status: Acute Assessment and Plan: A1c 7.4. The patient's blood glucose was reviewed on 12/22 Glucose was 175 this morning. Continue AccuCheks covering with sliding scale. Hypoglycemia protocol available as needed. Continue to monitor. Continue Lantus (6) Hypertension: Qualifiers: Hypertension type: primary hypertension Qualified Code(s): I10 - Essential (primary) hypertension Code(s): I10 - Essential (primary) hypertension Status: Acute Assessment and Plan: Patient's blood pressure was reviewed on 12/22 Blood pressure soft at times. Currently on metoprolol and Lasix IV. Will continue current medications and adjust as tolerated. (7) Testosterone deficiency: Code(s): E34.9 - Endocrine disorder, unspecified Status: Acute Assessment and Plan: Hold weekly injections until discharge (8) DVT prophylaxis: Code(s): Z29.9 - Encounter for prophylactic measures, unspecified Status: Acute Assessment and Plan: Angel O[place] Date/time seen: 12/22/21 11:09 Interval history: 71yo male with hx of HTN, CAD, pAFib, DM, and CVA he
[2021-12-22] MEDS: MAGNESIUM SULF 2 GM/WATER 50ML 2 GM/50 ML BAG IVPB (12:10)
[2021-12-22] MEDS: POTASSIUM CHLORIDE 20 MEQ TABLET 40 MEQ PO (12:10)
[2021-12-22] MEDS: DIGOXIN 250 MCG TABLET 500 MCG PO (12:10)
[2021-12-22 12:21] LABS: Glucose Point of Care 243 mg/dl (65-105)
[2021-12-22 15:32] LABS: Influenza Control Positive
--- NOTE | 2021-12-22 15:32 | PC.NURSE ---
This patient, Moise Lutz, was transferred to ICU 8 on 12/22/21 at 1532. Personal belongings sent with patient. Report given to Ayanna Tate RN. Appropriate documentation sent with patient.
[2021-12-22] MEDS: FENTANYL 2,500MCG/NS250ML(*CRX 2,500 MCG/250 ML BAG 12.5 MCG IV CONT (15:40)
[2021-12-22] MEDS: MIDAZOLAM 100MG/NS 100ML(*CRX) 100 MG/100 ML BAG IV CONT (15:41)
[2021-12-22] MEDS: METOPROLOL TARTRATE INJ 5 MG/5 ML VIAL 2.5 MG IV PUSH (15:43)
[2021-12-22] MEDS: AMIODARONE 150 MG/D5W 100 ML 150 MG/100 ML BAG 600 MG (15:45)
--- NOTE | 2021-12-22 16:08 | WPDPROCEDUR ---
Procedures Intubation Intubation Date: 12/22/21 Intubation Time: 15:08 A pre-procedural Time-Out was completed immediately before starting the procedure and confirmed: Patient Identification, Site, Procedure, Patient Position and the Availability of Requisite Equipment: Yes Sedative: etomidate Paralytic: rocuronium Laryngoscope: fiber optic video scope Assist device used: fiber optic device ET tube size: 8 Tube secured depth (cm): 24 Tube secured location: lips Tube placement confirmation: visualized tube passing through cords, equal breath sounds bilaterally, no breath sounds over epigastrium and confirmation by capnometry Patient tolerated procedure: well Intubation complications: none
--- NOTE | 2021-12-22 16:09 | WPDPROCEDUR ---
Procedures Central Line Placement Right IJ: Central Line Date: 12/22/21 Central Line Time: 16:04 Discussed w/ the patient/family/POA,the placement of a central venous catheter, including its clinical necessity/indication & associated potential risks, benifits and alternatives.: Yes The patient/family/POA understand(s) and acknowledge(s) the need to proceed with central venous catheter insertion as an important element of the patient's clinical management.: Yes Time Out Performed: Yes Patient Position: supine Patient placed on monitor/pulse ox: Yes Provider Prep: mask, sterile gown, sterile gloves, Max. sterile barrier precautions, cap and hand hygiene with conventional soap/water or alcohol based hand rub Local anesthesia used: lidocaine 2% Amount of anesthesia used (ml): 3 Sterile US Technique with sterile gel/sterile probe covers: Yes Central line lumen inserted: triple [place]: 12 Length (cm): 16 Depth of Insertion (cm): 16 Post Procedure: sutured in place, good blood return, all ports aspirated, flushed, capped, transparent dressing, hemostatic product, antimicrobial product, securement product and aseptic technique maintained throughout procedure Post procedure x-ray: tip of catheter in good position Patient tolerated procedure: well Complications: none
--- NOTE | 2021-12-22 16:15 | WPDCNINT ---
Assessment and Plan Assessment and plan (1) Acute hypoxemic respiratory failure: Code(s): J96.01 - Acute respiratory failure with hypoxia Status: Acute Assessment and Plan: Patient presented on 12/19 is shortness of breath, fatigue, was found to be in AFib RVR with CHF exacerbation and bilateral diffuse infiltrates on the chest x-ray. Do the course of his stay in the hospital chest x-ray has worsened, oxygen requirements have increased, patient was on BiPAP at 100% FiO2 with impending respiratory failure on 12/22/2021 -patient intubated on 12/22/2021 -ARDS physiology: Will maintain low tidal volume strategy, peep of 8, 100% FiO2, will obtain ABGs post intubation -patient currently on diuretics -CT scan of the chest has been ordered without contrast -will broaden antibiotic coverage to cefepime and vancomycin -sedated with fentanyl and Versed infusion, daily sedation vacation, maintain RASS of 0--2 -will place patient on bronchodilators -SARS-CoV-2 PCR has been negative x2 -obtain sputum culture -urine strep antigen and urine Legionella have been obtained and pending -influenza A & B have been ordered (2) Atrial fibrillation with RVR: Code(s): I48.91 - Unspecified atrial fibrillation Status: Acute Assessment and Plan: Patient has a history of paroxysmal atrial fibrillation, on Eliquis at home -currently in AFib RVR on admission requiring beta-blockers and amiodarone infusion -continue amiodarone infusion at 1 mg/min -appreciate cardiology evaluation recommendation -12/20/2021 echocardiogram: LV is systolic function is 30-35%, LV mildly enlarged, LA moderately enlarged, mild aortic valve sclerosis -continue Eliquis (3) Congestive heart failure: Qualifiers: Heart failure type: unspecified Heart failure chronicity: acute Qualified Code(s): I50.9 - Heart failure, unspecified Code(s): I50.9 - Heart failure, unspecified Status: Acute Assessment and Plan: Continue diuretics, chest x-ray shows worsening bilateral infiltrates/opacities -patient urine for CHF exacerbation, continue diuretics, monitor urine output and renal function -BNP was 2230 -CHF likely secondary to AFib RVR -recent echocardiogram as above Echocardiogram in 2020 shows EF of 65-70% with grade 2 diastolic dysfunction and trace valvular disease and no pulmonary hypertension. (4) Elevated troponin I level: Code(s): R77.8 - Other specified abnormalities of plasma proteins Status: Acute Assessment and Plan: Troponin elevated to 0.091 but flat. EKG showing AFib/RVR with poor R wave progression and nonspecific ST-T wave changes in inf/lat leads. Likely due to AF/RVR and CHF exacerbation. Not felt to have acute coronary syndrome (5) Diabetes: Qualifiers: Diabetes mellitus type: type 2 Diabetes mellitus snf insulin use: without computer terminal operator use Diabetes mellitus complication status: with hyperglycemia Qualified Code(s): E11.65 - Type 2 diabetes mellitus with hyperglycemia Code(s): E11.9 - Type 2 diabetes mellitus without complications Status: Acute Assessment and Plan: Hemoglobin A1c 7.4 this admission. -continue Accu-Cheks and sliding scale insulin -continue Lantus -hypoglycemia protocol in place (6) Hypertension: Qualifiers: Hypertension type: primary hypertension Qualified Code(s): I10 - Essential (primary) hypertension Code(s): I10 - Essential (primary) hypertension Status: Acute Assessment and Plan: Blood pressures have been stable Continue p.o. metoprolol and IV Lasix -monitor blood pressures closely (7) Testosterone deficiency: Code(s): E34.9 - Endocrine disorder, unspecified Status: Acute Assessment and Plan: Hold weekly injections until discharge (8) DVT prophylaxis: Code(s): Z29.9 - Encounter for prophylactic measures, unspecified Status: Ac
[2021-12-22] MEDS: MIDAZOLAM HCL (*CRX) 2 MG/2 ML VIAL IV PUSH (16:17)
[2021-12-22] MEDS: fentaNYL CITRATE INJ (*CRX) 100 MCG/2 ML VIAL 50 MCG IV PUSH (16:18)
[2021-12-22 16:37] LABS: Glucose Point of Care 193 mg/dl (65-105)
[2021-12-22 16:43] LABS: Alveolar/Arterial O2 Gradient 590.4 mmHg; Base Excess ABG 6.2 mEq/l (+/-2.0); Carboxyhemoglobin 0.1 % THb (0-2.0); Fractional Inspired Oxygen 100 %; HCO3 ABG 29.3 mEq/l (22.0-26.0); Methemoglobin ABG 0.2 %THb (0-1.5); Oxygen Content ABG 19.8 %vol (16.0-22.0); Oxygen Saturation ABG 97.3 % (95.0-100.0); Oxyhemoglobin 95.8 % THb (90.0-100.0); PCO2 ABG 37.2 mmHg (35.0-45.0); PO2 ABG 85.4 mmHg (80.0-100.0); PO2 FiO2 Ratio Arterial Blood 0.85 %; Reduced Hemoglobin 3.9 %THb (0-5.0); Total Hemoglobin 14.7 g/dL (12.0-18.0)
[2021-12-22 16:44] LABS: HIV 1/2 Ab P24 Ag Result Negative (Negative)
[2021-12-22 16:44] LABS: Device VENTILATOR; Site Drawn RIGHT BRACHIAL; pH ABG 7.514 (7.350-7.450)
[2021-12-22 16:45] LABS: Arterial Blood Gas PEEP 8 cmH2O; Arterial Blood Gas Tidal Volume 410 ml; Arterial Blood Gas Vent Mode CMV; Arterial Blood Gas Ventilator rate 24 /MIN
[2021-12-22] MEDS: AMIODARONE 360 MG/D5W 200 ML 360 MG/200 ML BAG 33.33 MG IV CONT (18:32)
[2021-12-22] MEDS: CENTRAL LINE FLUSH 10 ML IV PUSH ×2 (18:34→20:59)
[2021-12-22 18:42] LABS: Glucose Point of Care 240 mg/dl (65-105)
[2021-12-22] MEDS: NOREPINEPHRINE BITARTRATE 16 MG in DEXTROSE 5% IN WATER 234 ML IVPB (19:54)
[2021-12-22] MEDS: IPRATROPIUM BR 0.02% INH SOLN 0.5 MG/2.5 ML VIAL INHALATION (20:37)
[2021-12-22] MEDS: LEVALBUTEROL NEB 1.25 MG/3 ML 0.63 MG INHALATION (20:37)
[2021-12-22] MEDS: FUROSEMIDE INJ 100 MG/10 ML VIAL 80 MG IV PUSH (20:56)
[2021-12-22] MEDS: DOCUSATE SODIUM LIQ 100 MG/10 ML UDC PO (20:56)
[2021-12-22] MEDS: MINERAL OIL/WHITE PETROLATUM OINTMENT 1 APPLIC EACH EYE (20:58)
[2021-12-23] VITALS (60 sets, daily range): BP systolic 73–137; BP diastolic 50–113; PULSE 80–113; RESP 11–30; TEMP 36.3–37.7; O2SAT 90–99; BMI 28.0
[2021-12-23 00:41] LABS: Glucose Point of Care 248 mg/dl (65-105)
[2021-12-23] MEDS: INSULIN ASPART (*BKC) 100 UNITS/ML SUB-Q ×4 (00:41→23:05)
[2021-12-23] MEDS: METOPROLOL TARTRATE 25 MG TABLET PO ×2 (00:44→05:45)
[2021-12-23] MEDS: AMIODARONE 360 MG/D5W 200 ML 360 MG/200 ML BAG 33.33 MG IV CONT ×5 (00:53→23:09)
[2021-12-23] MEDS: IPRATROPIUM BR 0.02% INH SOLN 0.5 MG/2.5 ML VIAL INHALATION ×4 (02:04→19:57)
[2021-12-23] MEDS: LEVALBUTEROL NEB 1.25 MG/3 ML 0.63 MG INHALATION ×4 (02:04→19:57)
[2021-12-23 04:37] LABS: Alveolar/Arterial O2 Gradient 158.6 mmHg; Carboxyhemoglobin 0.7 % THb (0-2.0); Fractional Inspired Oxygen 40 %; Methemoglobin ABG 0.2 %THb (0-1.5); Oxygen Content ABG 19.3 %vol (16.0-22.0); Oxygen Saturation ABG 96.5 % (95.0-100.0); Oxyhemoglobin 94.1 % THb (90.0-100.0); PO2 ABG 78.3 mmHg (80.0-100.0); PO2 FiO2 Ratio Arterial Blood 1.96 %; Total Hemoglobin 14.6 g/dL (12.0-18.0)
[2021-12-23 04:38] LABS: Device VENTILATOR; Modified Allen's Test Pass; Site Drawn LEFT RADIAL
[2021-12-23 04:39] LABS: Arterial Blood Gas PEEP 8 cmH2O; Arterial Blood Gas Tidal Volume 410 ml; Arterial Blood Gas Vent Mode CMV; Arterial Blood Gas Ventilator rate 22 /MIN
[2021-12-23 05:33] LABS: Basophils Absolute Auto 0.1 K/mm3 (0.0-0.1); Basophils Percent Auto 0.4 % (0.2-1.2); Eosinophils Absolute Auto 0.2 K/mm3 (0-0.3); Eosinophils Percent Auto 1.2 % (0-4.4); Hematocrit 42.6 % (42.0-52.0); Hemoglobin 13.5 g/dL (14.0-18.0); Immature Granulocyte Absolute 0.06 K/mm3 (0.00-0.031); Immature Granulocyte Percent A 0.4 % (0-0.5); Lymphocytes Absolute Auto 1.21 K/mm3 (0.9-3.2); Lymphocytes Percent Auto 8.2 % (18.3-44.2); Mean Corpuscular HGB Conc 31.7 g/dl (32-36); Mean Corpuscular Hemoglobin 26.9 pg (26-34); Mean Corpuscular Volume 84.9 fl (80-100); Mean Platelet Volume 11.7 fl (7.4-10.4); Monocytes Absolute Auto 1.1 K/mm3 (0.1-0.6); Monocytes Percent Auto 7.8 % (2.6-8.5); Neutrophils Absolute Auto 12.1 K/mm3 (1.3-6.7); Platelet Count Result 265 k/mm3 (150-375); Red Blood Count 5.02 M/mm3 (4.6-6.20); Red Cell Distribution Width 15.9 % (11.5-14.5); White Blood Count 14.7 K/mm3 (4.5-10.0)
[2021-12-23] MEDS: CENTRAL LINE FLUSH 10 ML IV PUSH ×3 (05:45→20:42)
[2021-12-23] MEDS: LEVOTHYROXINE SODIUM 112 MCG TABLET PO (05:46)
[2021-12-23 05:50] LABS: Glucose Point of Care 213 mg/dl (65-105)
[2021-12-23 05:56] LABS: Alanine Aminotransferase 20 U/L (6-50); Albumin Level 3.3 g/dL (3.5-5.1); Alkaline Phosphatase 60 U/L (38-126); Anion Gap 8 mmol/L (8-16); Aspartate Amino Transferase 28 U/L (17-59); Bilirubin,Total 0.9 mg/dL (0.2-1.3); Blood Urea Nitrogen 33 mg/dL (9-20); Calcium 7.5 mg/dL (8.4-10.2); Carbon Dioxide 34 mmol/L (22-30); Chloride 87 mmol/L (98-107); Estimated CRCL calculation 44 ml/min; Estimated Glomerular Filt Rate 54; Glucose 191 mg/dL (65-110); Phosphorus 3.2 mg/dL (2.5-4.5); Potassium 2.9 mmol/L (3.4-5.0); Sodium 129 mmol/L (137-145)
[2021-12-23 06:12] LABS: CRP 31.2 mg/dL (<1.0)
[2021-12-23] MEDS: FENTANYL 2,500MCG/NS250ML(*CRX 2,500 MCG/250 ML BAG 17.5 MCG IV CONT (06:23)
[2021-12-23 09:04] LABS: Lactic Acid Reflex 1.1 mmol/L (0.7-2.0)
[2021-12-23] MEDS: KCL 40 MEQ/WATER 100 ML 100 ML 25 ML IVPB (09:12)
[2021-12-23] MEDS: DOCUSATE SODIUM LIQ 100 MG/10 ML UDC PO ×2 (09:12→20:42)
[2021-12-23] MEDS: ATORVASTATIN 40 MG TABLET PO (09:12)
[2021-12-23] MEDS: APIXABAN 5 MG TABLET BY MOUTH ×2 (09:12→17:09)
[2021-12-23] MEDS: ASPIRIN 81 MG ENTERIC TABLET PO (09:12)
[2021-12-23] MEDS: PANTOPRAZOLE SODIUM IV 40 MG VIAL IV PUSH (09:13)
[2021-12-23] MEDS: MINERAL OIL/WHITE PETROLATUM OINTMENT 1 APPLIC EACH EYE ×2 (09:13→20:42)
[2021-12-23] MEDS: POTASSIUM CHLORIDE 20 MEQ PACKET (FOR LIQUID) 40 MEQ FEED TUBE (09:13)
[2021-12-23] MEDS: INSULIN GLARGINE (*BKC) 100 UNITS/ML 7 UNITS SUB-Q (09:13)
--- NOTE | 2021-12-23 09:29 | PM.PNPUL ---
Progress Note: A&P Assessment and Plan (1) Acute hypoxemic respiratory failure: Code(s): J96.01 - Acute respiratory failure with hypoxia Status: Acute Assessment and Plan: this 71-year-old man presented with progressively increasing shortness of breath of few days duration. Initial workup showed atrial fibrillation with rapid ventricular response, bilateral pulmonary infiltrate with acute hypoxemic respiratory failure, diminished EF in the range of 30-35% on echocardiogram compared to a normal EF approximately 2 years ago, elevated BNP, and bilateral alveolar infiltrates along with small symmetrical pleural effusions on chest radiographic studies. Overnight there has been evidence of partial clearing of bilateral infiltrates, especially in left lung. Patient is also receiving treatment with broad-spectrum antibiotics for community-acquired pneumonia. The patient's clinical history and diagnostic studies fit with congestive heart failure more than with anything else. patient has been screened for COVID 19 pneumonia. Doubt this is a viral infection or hypersensitivity pneumonitis. I would continue with current treatment for now and reassess the patient over the next 24 hours. sputum culture pending. We may consider bronchoscopy with lavage if there is no further improvement. (2) Acute exacerbation of CHF (congestive heart failure): Code(s): I50.9 - Heart failure, unspecified Status: Acute (3) Atrial fibrillation with RVR: Code(s): I48.91 - Unspecified atrial fibrillation Status: Acute (4) Pleural effusion, bilateral: Code(s): J90 - Pleural effusion, not elsewhere classified Status: Acute Subjective Date/time seen: 12/23/21 09:29 Patient's respiratory status worsened and was transferred to the intensive care unit where he was intubated last p.m. He remains sedated on mechanical ventilation while receiving treatment for congestive heart failure and also for possible community-acquired pneumonia. His FiO2 has improved overnight. Current FiO2 40%. Remains hemodynamically stable. Review of Systems Review of Systems: All systems reviewed & are unremarkable except as noted in HPI and below Exam Narrative: GENERAL APPEARANCE: Well developed, well nourished, sedated on mechanical ventilation in ICU SKIN: Inspection of the skin reveals no rashes, ulcerations or petechiae. HEENT: Sclerae anicteric and conjunctivae pink and moist. NECK: Supple. There was no thyroid enlargement CHEST: Normal AP diameter and normal contour without any kyphoscoliosis. LUNGS: Auscultation of the lungs revealed normal breath sounds anteriorly no wheezing CARDIAC: There was a irregular rate and rhythm without any murmurs ABDOMEN: Soft with normal bowel sounds. There was no organomegaly. LYMPH NODES: No lymphadenopathy was appreciated in the neck EXTREMITIES: No cyanosis, clubbing or edema. NEUROLOGIC: sedated on mechanical ventilation Objective Data Vital Signs Vital Signs: Vital Signs - 24 hr 12/22/21 10:00 12/22/21 12:00 12/22/21 12:10 Temperature 37.3 C Pulse Rate 118 H 115 H 119 H Respiratory Rate 18 Blood Pressure 147/128 H Pulse Oximetry 92 12/22/21 12:11 12/22/21 14:12 12/22/21 14:22 Temperature Pulse Rate 112 H 99 112 H Respiratory Rate 27 H 30 H Blood Pressure Pulse Oximetry 93 12/22/21 15:18 12/22/21 15:30 12/22/21 15:40 Temperature Pulse Rate 125 H 155 H 147 H Respiratory Rate 24 H Blood Pressure Pulse Oximetry 96 12/22/21 15:41 12/22/21 15:43 12/22/21 15:45 Temperature Pulse Rate 147 H 147 H 147 H Respiratory Rate 24 H Blood Pressure 112/86 Pulse Oximetry 12/22/21 15:56 12/22/21 16:00 12/22/21 16:28 Temperature 36.8 C Pulse Rate 116 H 129 H 131 H Respiratory Rate 19 28 H Blood Pressure 100/74 100/74 Pulse Oximetry 100 12/22/21 17:00 12/22/21 17:41 12/22/21 18:00 Temperature Pulse Rate 107 H
--- NOTE | 2021-12-23 11:33 | PM.IMPN ---
Progress Note: A&P Assessment and Plan (1) Septic shock: Code(s): A41.9 - Sepsis, unspecified organism; R65.21 - Severe sepsis with septic shock Status: Acute Assessment and Plan: [place] at this time patient has septic shock most likely present on admission. Now on levophed. Consider also from over-diuresis. Abx now broadened. blood cultures no growth to date. Sputum culture growing normal oropharyngeal judy. Repeat sputum has been ordered. Wean Levophed as blood pressure tolerates. Continue IV antibiotics. Appreciate rag baler input. (2) Acute hypoxemic respiratory failure: Code(s): J96.01 - Acute respiratory failure with hypoxia Status: Acute Assessment and Plan: Patient developed acute hypoxic respiratory failure. ABG shows 7.43/40/63 on high-flow nasal cannula. Chest x-ray on admission showed bilateral infiltrates R>L. COVID swab negative. Started on IV Lasix with cumulative I/O -1.6L. IV antibiotics started for concern for possible pneumonia. Repeat COVID negative. Patient's condition worsened and he required intubation on 12/22/21. CT Chest also showing pulmonary edema vs pneumonia. CXR today reviewed showing diffuse bilateral lung disease with increase on the left lower lobe. BCx NGTD. Influenza negative. HIV negative (checked due to needle stick 2 years ago). Wean vent as tolerated. (3) Atrial fibrillation with RVR: Code(s): I48.91 - Unspecified atrial fibrillation Status: Acute Assessment and Plan: Patient states he has paroxysmal atrial fibrillation and can feel when he is heart rate is elevated. Suspect shortness of breath and chest heaviness related to the AFib with RVR and respiratory failure. Diltiazem was able to be changed to oral Metoprolol but this has been stopped as well due to the HoTN. Cards consulted and Amio started. Heart rate better controlledoverall. TSH normal. Echo showing EF 30-35% with indeterminate diastolic function. Continue Eliquis. Appreciate Cards input. Cardioversion being considered. (4) Congestive heart failure: Qualifiers: Heart failure type: unspecified Heart failure chronicity: acute Qualified Code(s): I50.9 - Heart failure, unspecified Code(s): I50.9 - Heart failure, unspecified Status: Acute Assessment and Plan: Echo in 2020 shows EF of 65-70% with grade 2 diastolic dysfunction and trace valvular disease and no pulmonary hypertension. Chest x-ray as mentioned above. BNP 2230. Echo this admission showing EF 30-35% with indeterminate diastolic function. Patient with acute systolic and diastolic CHF is likely related AFib with RVR. Lasix stopped due to HoTN. Continue to monitor (5) Elevated troponin I level: Code(s): R77.8 - Other specified abnormalities of plasma proteins Status: Acute Assessment and Plan: Troponin elevated to 0.091 but flat. EKG showing AFib/RVR with poor R wave progression and nonspecific ST-T wave changes in inf/lat leads. Likely due to AF/RVR and CHF exacerbation. Not felt to have acute coronary syndrome. (6) Diabetes: Qualifiers: Diabetes mellitus type: type 2 Diabetes mellitus care home insulin use: without care home use Diabetes mellitus complication status: with hyperglycemia Qualified Code(s): E11.65 - Type 2 diabetes mellitus with hyperglycemia Code(s): E11.9 - Type 2 diabetes mellitus without complications Status: Acute Assessment and Plan: A1c 7.4. The patient's blood glucose was reviewed on 12/23 Glucose was 191 this morning. Continue AccuCheks covering with sliding scale. Hypoglycemia protocol available as needed. Continue to monitor. Continue Lantus (7) Hypertension: Qualifiers: Hypertension type: primary hypertension Qualified Code(s): I10 - Essential (primary) hypertension Code(s): I10 - Essential (primary) hypertension Status: Acute Assessment and Plan: [place]
[2021-12-23] MEDS: MIDAZOLAM 100MG/NS 100ML(*CRX) 100 MG/100 ML BAG IV CONT (11:55)
[2021-12-23 12:09] LABS: Glucose Point of Care 181 mg/dl (65-105)
--- NOTE | 2021-12-23 13:09 | WPDINTPN ---
Progress Note: A&P Assessment and Plan (1) Septic shock: Code(s): A41.9 - Sepsis, unspecified organism; R65.21 - Severe sepsis with septic shock Status: Acute Assessment and Plan: Patient was hypotensive post intubation which could be related to positive pressure ventilation, decreased adrenergic surge, sedation medications, infection/sepsis -patient placed on Levophed, will maintain mean arterial pressures greater than 65 mmHg -continue cefepime and vancomycin which to started on 12/22 -12/20 blood cultures negative x2 -12/22: Sputum cultures pending -to IV fluid since patient's chest x-ray and chest CT reflective of pulmonary edema and/or pneumonia (2) Acute hypoxemic respiratory failure: Code(s): J96.01 - Acute respiratory failure with hypoxia Status: Acute Assessment and Plan: Patient presented on 12/19 is shortness of breath, fatigue, was found to be in AFib RVR with CHF exacerbation and bilateral diffuse infiltrates on the chest x-ray. During the course of his stay in the hospital chest x-ray has worsened, oxygen requirements have increased, patient was on BiPAP at 100% FiO2 with impending respiratory failure on 12/22/2021 -patient intubated on 12/22/2021 -ARDS physiology: Continue low tidal volume strategy, peep of 8, now 140% FiO2, -chest x-ray and ABGs reviewed, ventilator adjusted -continue cefepime and vancomycin (12/22) -sedated with fentanyl and Versed infusion, daily sedation vacation, maintain RASS of 0--2 Continue bronchodilators -SARS-CoV-2 PCR has been negative x2, influenza A and B are negative -urine strep antigen and urine Legionella have been obtained and pending - 12/22: sputum cultures pending 12/22: CT scan of the chest Pulmonary findings are possibly most consistent with pulmonary edema, however pneumonia can appear similar and is not excluded by this examination. Moderate bilateral effusions. Mediastinal lymphadenopathy (3) Atrial fibrillation with RVR: Code(s): I48.91 - Unspecified atrial fibrillation Status: Acute Assessment and Plan: Patient has a history of paroxysmal atrial fibrillation, on Eliquis at home -currently in AFib RVR on admission requiring beta-blockers and amiodarone infusion -continue amiodarone infusion at 1 mg/min -appreciate cardiology evaluation recommendation -12/20/2021 echocardiogram: LV is systolic function is 30-35%, LV mildly enlarged, LA moderately enlarged, mild aortic valve sclerosis -continue Eliquis (4) Congestive heart failure: Qualifiers: Heart failure type: unspecified Heart failure chronicity: acute Qualified Code(s): I50.9 - Heart failure, unspecified Code(s): I50.9 - Heart failure, unspecified Status: Acute Assessment and Plan: Continue diuretics, chest x-ray shows worsening bilateral infiltrates/opacities -patient urine for CHF exacerbation, continue diuretics, monitor urine output and renal function -patient remains in negative fluid balance -BNP was 2230 -CHF likely secondary to AFib RVR -recent echocardiogram as above Echocardiogram in 2020 shows EF of 65-70% with grade 2 diastolic dysfunction and trace valvular disease and no pulmonary hypertension. (5) Elevated troponin I level: Code(s): R77.8 - Other specified abnormalities of plasma proteins Status: Acute Assessment and Plan: Troponin elevated to 0.091 but flat. EKG showing AFib/RVR with poor R wave progression and nonspecific ST-T wave changes in inf/lat leads. Likely due to AF/RVR and CHF exacerbation. Not felt to have acute coronary syndrome (6) Diabetes: Qualifiers: Diabetes mellitus type: type 2 Diabetes mellitus prison insulin use: without prison use Diabetes mellitus complication status: with hyperglycemia Qualified Code(s): E11.65 - Type 2 diabetes mellitus with hyperglycemia Code(s): E11.9 - Type [address]
[2021-12-23 17:24] LABS: Glucose Point of Care 260 mg/dl (65-105)
[2021-12-23] MEDS: NOREPINEPHRINE BITARTRATE 16 MG in DEXTROSE 5% IN WATER 234 ML 8.44 ML IVPB (20:56)
[2021-12-23 22:18] LABS: Legionella pneumophila Ag Ur Not Detected (Not Detected)
[2021-12-23] MEDS: FENTANYL 2,500MCG/NS250ML(*CRX 2,500 MCG/250 ML BAG 15 MCG IV CONT (23:04)
[2021-12-23 23:20] LABS: Glucose Point of Care 256 mg/dl (65-105)
[2021-12-24] VITALS (69 sets, daily range): BP systolic 82–147; BP diastolic 48–131; PULSE 70–122; RESP 14–25; TEMP 36.3–37.2; O2SAT 84–99
[2021-12-24 00:25] LABS: Pneumococcal Antigen Urine Not Detected (Not Detected)
[2021-12-24] MEDS: LEVALBUTEROL NEB 1.25 MG/3 ML 0.63 MG INHALATION ×4 (01:54→20:04)
[2021-12-24] MEDS: IPRATROPIUM BR 0.02% INH SOLN 0.5 MG/2.5 ML VIAL INHALATION ×4 (01:54→20:04)
[2021-12-24 05:02] LABS: Basophils Absolute Auto 0.1 K/mm3 (0.0-0.1); Basophils Percent Auto 0.4 % (0.2-1.2); Eosinophils Absolute Auto 0.2 K/mm3 (0-0.3); Eosinophils Percent Auto 1.3 % (0-4.4); Hemoglobin 12.8 g/dL (14.0-18.0); Immature Granulocyte Absolute 0.07 K/mm3 (0.00-0.031); Immature Granulocyte Percent A 0.6 % (0-0.5); Lymphocytes Percent Auto 7.1 % (18.3-44.2); Mean Corpuscular HGB Conc 31.2 g/dl (32-36); Mean Corpuscular Hemoglobin 26.6 pg (26-34); Mean Corpuscular Volume 85.1 fl (80-100); Mean Platelet Volume 11.4 fl (7.4-10.4); Monocytes Absolute Auto 0.8 K/mm3 (0.1-0.6); Monocytes Percent Auto 6.5 % (2.6-8.5); Neutrophils Absolute Auto 10.6 K/mm3 (1.3-6.7); Neutrophils Percent Auto 84.1 % (45.5-73.1); Platelet Count Result 243 k/mm3 (150-375); Red Blood Count 4.82 M/mm3 (4.6-6.20); White Blood Count 12.6 K/mm3 (4.5-10.0)
[2021-12-24] MEDS: AMIODARONE 360 MG/D5W 200 ML 360 MG/200 ML BAG 33.33 MG IV CONT ×4 (05:09→22:52)
[2021-12-24] MEDS: INSULIN ASPART (*BKC) 100 UNITS/ML SUB-Q (05:12)
[2021-12-24] MEDS: CENTRAL LINE FLUSH 10 ML IV PUSH ×3 (05:14→20:12)
[2021-12-24] MEDS: LEVOTHYROXINE SODIUM 112 MCG TABLET PO (05:14)
[2021-12-24 05:16] LABS: Glucose Point of Care 244 mg/dl (65-105)
[2021-12-24 05:20] LABS: Alanine Aminotransferase 27 U/L (6-50); Alkaline Phosphatase 70 U/L (38-126); Anion Gap 7 mmol/L (8-16); Aspartate Amino Transferase 56 U/L (17-59); Bilirubin,Total 0.6 mg/dL (0.2-1.3); Blood Urea Nitrogen 43 mg/dL (9-20); Calcium 7.3 mg/dL (8.4-10.2); Carbon Dioxide 33 mmol/L (22-30); Chloride 90 mmol/L (98-107); Estimated CRCL calculation 38 ml/min; Estimated Glomerular Filt Rate 46; Glucose 233 mg/dL (65-110); Magnesium 2.1 mg/dL (1.6-2.3); Phosphorus 3.8 mg/dL (2.5-4.5); Potassium 3.6 mmol/L (3.4-5.0); Sodium 130 mmol/L (137-145)
[2021-12-24 05:25] LABS: Base Excess ABG 6.8 mEq/l (+/-2.0); Carboxyhemoglobin 0.7 % THb (0-2.0); Fractional Inspired Oxygen 45 %; HCO3 ABG 33.4 mEq/l (22.0-26.0); Methemoglobin ABG 0.2 %THb (0-1.5); Oxygen Content ABG 17.1 %vol (16.0-22.0); Oxyhemoglobin 88.4 % THb (90.0-100.0); PO2 ABG 59.2 mmHg (80.0-100.0); PO2 FiO2 Ratio Arterial Blood 1.32 %; Reduced Hemoglobin 10.7 %THb (0-5.0); Total Hemoglobin 13.8 g/dL (12.0-18.0); pH ABG 7.393 (7.350-7.450)
[2021-12-24 05:28] LABS: Arterial Blood Gas PEEP 8 cmH2O; Arterial Blood Gas Tidal Volume 410 ml; Arterial Blood Gas Vent Mode CMV; Arterial Blood Gas Ventilator rate 22 /MIN; Device VENTILATOR; Site Drawn LEFT BRACHIAL
[2021-12-24 05:52] LABS: CRP 32.8 mg/dL (<1.0)
[2021-12-24] MEDS: APIXABAN 5 MG TABLET BY MOUTH ×2 (08:24→20:11)
[2021-12-24] MEDS: MINERAL OIL/WHITE PETROLATUM OINTMENT 1 APPLIC EACH EYE ×2 (08:24→20:12)
[2021-12-24] MEDS: ATORVASTATIN 40 MG TABLET PO (08:24)
[2021-12-24] MEDS: ASPIRIN 81 MG ENTERIC TABLET PO (08:24)
[2021-12-24] MEDS: PANTOPRAZOLE SODIUM IV 40 MG VIAL IV PUSH (08:24)
[2021-12-24] MEDS: hetaSTARCH 6%/NACL 500 ML 250 ML IV CONT (08:25)
[2021-12-24] MEDS: DOCUSATE SODIUM LIQ 100 MG/10 ML UDC PO ×2 (08:25→20:11)
[2021-12-24] MEDS: INSULIN GLARGINE (*BKC) 100 UNITS/ML 7 UNITS SUB-Q (08:32)
[2021-12-24] MEDS: MIDAZOLAM 100MG/NS 100ML(*CRX) 100 MG/100 ML BAG IV CONT (08:42)
--- NOTE | 2021-12-24 09:41 | WPDINTPN ---
Progress Note: A&P Assessment and Plan (1) Septic shock: Code(s): A41.9 - Sepsis, unspecified organism; R65.21 - Severe sepsis with septic shock Status: Acute Assessment and Plan: Patient was hypotensive post intubation which could be related to positive pressure ventilation, decreased adrenergic surge, sedation medications, infection/sepsis -Levophed being weaned, will maintain mean arterial pressures greater than 65 mmHg -continue cefepime and vancomycin which to started on 12/22 -12/20 blood cultures negative x2 -12/22: Sputum cultures pending -hold IV fluids since patient's chest x-ray and chest CT reflective of pulmonary edema and/or pneumonia (2) Acute hypoxemic respiratory failure: Code(s): J96.01 - Acute respiratory failure with hypoxia Status: Acute Assessment and Plan: Patient presented on 12/19 is shortness of breath, fatigue, was found to be in AFib RVR with CHF exacerbation and bilateral diffuse infiltrates on the chest x-ray. During the course of his stay in the hospital chest x-ray has worsened, oxygen requirements have increased, patient was on BiPAP at 100% FiO2 with impending respiratory failure on 12/22/2021 -patient intubated on 12/22/2021 -ARDS physiology: Continue low tidal volume strategy, peep of 8, now 45% FiO2, -chest x-ray and ABGs reviewed, ventilator adjusted -continue cefepime and vancomycin (12/22) -sedated with fentanyl and Versed infusion, daily sedation vacation, maintain RASS of 0--2 Continue bronchodilators -SARS-CoV-2 PCR has been negative x2, influenza A and B are negative -urine strep antigen and urine Legionella have been obtained and pending - 12/22: sputum cultures pending Discussed with pulmonology, have requested for bronchoscopy and BAL which will be done this afternoon 12/24. 12/22: CT scan of the chest Pulmonary findings are possibly most consistent with pulmonary edema, however pneumonia can appear similar and is not excluded by this examination. Moderate bilateral effusions. Mediastinal lymphadenopathy (3) Atrial fibrillation with RVR: Code(s): I48.91 - Unspecified atrial fibrillation Status: Acute Assessment and Plan: Patient has a history of paroxysmal atrial fibrillation, on Eliquis at home -currently in AFib RVR on admission requiring beta-blockers and amiodarone infusion -continue amiodarone infusion at 1 mg/min -appreciate cardiology evaluation recommendation -12/20/2021 echocardiogram: LV is systolic function is 30-35%, LV mildly enlarged, LA moderately enlarged, mild aortic valve sclerosis -continue Eliquis (4) Congestive heart failure: Qualifiers: Heart failure type: unspecified Heart failure chronicity: acute Qualified Code(s): I50.9 - Heart failure, unspecified Code(s): I50.9 - Heart failure, unspecified Status: Acute Assessment and Plan: Continue diuretics, chest x-ray shows worsening bilateral infiltrates/opacities -patient urine for CHF exacerbation, continue diuretics, monitor urine output and renal function -patient not in positive fluid balance -BNP was 2230 -CHF likely secondary to AFib RVR -recent echocardiogram as above Echocardiogram in 2020 shows EF of 65-70% with grade 2 diastolic dysfunction and trace valvular disease and no pulmonary hypertension. (5) Elevated troponin I level: Code(s): R77.8 - Other specified abnormalities of plasma proteins Status: Acute Assessment and Plan: Troponin elevated to 0.091 but flat. EKG showing AFib/RVR with poor R wave progression and nonspecific ST-T wave changes in inf/lat leads. Likely due to AF/RVR and CHF exacerbation. Not felt to have acute coronary syndrome (6) Diabetes: Qualifiers: Diabetes mellitus type: type 2 Diabetes mellitus fci insulin use: without fci use Diabetes mellitus complication status: with hyperglycemia Qualified Code(s): E11.65 - Type 2 diabetes chan
--- NOTE | 2021-12-24 09:53 | PM.PNPUL ---
Progress Note: A&P Assessment and Plan (1) Acute hypoxemic respiratory failure: Code(s): J96.01 - Acute respiratory failure with hypoxia Status: Acute Assessment and Plan: this 71-year-old man presented with progressively increasing shortness of breath of few days duration. Initial workup showed atrial fibrillation with rapid ventricular response, bilateral pulmonary infiltrate with acute hypoxemic respiratory failure, diminished EF in the range of 30-35% on echocardiogram compared to a normal EF approximately 2 years ago, elevated BNP, and bilateral alveolar infiltrates along with small symmetrical pleural effusions on chest radiographic studies. There was improvement of FiO2 and also partial clearing for chest x-ray during the 1st day in the ICU. Since yesterday there has been no significant improvement of his gas exchange. Chest x-ray also unchanged, CRP remains elevated, negative workup for infections so far, remained hemodynamically stable on lower dose Levophed on antibiotics with no sputum production. Plan will proceed with a bronchoscopy and BAL today. In view of luck of further improvement of gas exchange despite treatment with diuretics and other medications for heart failure the differential diagnosis may include in addition to lung infections other inflammatory conditions like cryptogenic organized pneumonia. The chest CT pattern is not compatible with acute hypersensitivity pneumonitis. In addition the patient has no known exposure to organic agents at home. Will screen patient for underlying connective tissue disease. Case was discussed with glue wheel operator. (2) Acute exacerbation of CHF (congestive heart failure): Code(s): I50.9 - Heart failure, unspecified Status: Acute (3) Atrial fibrillation with RVR: Code(s): I48.91 - Unspecified atrial fibrillation Status: Acute (4) Pleural effusion, bilateral: Code(s): J90 - Pleural effusion, not elsewhere classified Status: Acute Subjective Date/time seen: 12/24/21 09:53 Patient remaining sedated on mechanical ventilation in the ICU. Respiratory status essentially unchanged over the last 24 hours. Hemodynamically stable now on lower dose IV Levophed. Diagnostic workup for possible respiratory infection negative so far. Review of Systems Review of Systems: All systems reviewed & are unremarkable except as noted in HPI and below Exam Narrative: GENERAL APPEARANCE: Well developed, well nourished, sedated on mechanical ventilation in ICU SKIN: Inspection of the skin reveals no rashes, ulcerations or petechiae. HEENT: Sclerae anicteric and conjunctivae pink and moist. NECK: Supple. There was no thyroid enlargement CHEST: Normal AP diameter and normal contour without any kyphoscoliosis. LUNGS: Auscultation of the lungs revealed normal breath sounds anteriorly no wheezing CARDIAC: There was a irregular rate and rhythm without any murmurs ABDOMEN: Soft with normal bowel sounds. There was no organomegaly. LYMPH NODES: No lymphadenopathy was appreciated in the neck EXTREMITIES: No cyanosis, clubbing or edema. NEUROLOGIC: sedated on mechanical ventilation Objective Data Vital Signs Vital Signs: Vital Signs - 24 hr 12/23/21 10:00 12/23/21 10:01 12/23/21 10:50 Temperature 37.7 C H 37.7 C H Pulse Rate 80 88 103 H Respiratory Rate 20 22 H 30 H Blood Pressure 109/69 73/50 L Pulse Oximetry 93 99 12/23/21 11:53 12/23/21 11:55 12/23/21 12:00 Temperature 36.3 C L Pulse Rate 103 H 105 H 105 H Respiratory Rate 20 20 Blood Pressure 90/73 L 95/65 L Pulse Oximetry 99 12/23/21 13:00 12/23/21 13:51 12/23/21 13:54 Temperature Pulse Rate 104 H 102 H 104 H Respiratory Rate 20 20 Blood Pressure 93/65 L Pulse Oximetry 98 12/23/21 13:57 12/23/21 14:00 12/23/21 14:04 Temperature Pulse Rate 99 96 111 H Respiratory Rate 20 21 H 20 Blood Pressure 85/68 L Pulse Oximetry 98
[2021-12-24 11:14] LABS: Rheumatoid Factor 18.6 IU/ML (<12)
--- NOTE | 2021-12-24 11:47 | PM.IMPN ---
Progress Note: A&P Assessment and Plan (1) Septic shock: Code(s): A41.9 - Sepsis, unspecified organism; R65.21 - Severe sepsis with septic shock Status: Acute Assessment and Plan: [place] at this time patient has septic shock most likely present on admission. Now on levophed. Consider also from over-diuresis. Abx now broadened. blood cultures no growth to date. Sputum culture growing normal oropharyngeal judy. Repeat sputum has been ordered. Wean Levophed as blood pressure tolerates. Continue IV antibiotics. Appreciate sheeter waxer operator input. (2) Acute hypoxemic respiratory failure: Code(s): J96.01 - Acute respiratory failure with hypoxia Status: Acute Assessment and Plan: Patient developed acute hypoxic respiratory failure. ABG shows 7.43/40/63 on high-flow nasal cannula. Chest x-ray on admission showed bilateral infiltrates R>L. COVID swab negative. Started on IV Lasix. IV antibiotics started for concern for possible pneumonia. Repeat COVID negative. Patient's condition worsened and he required intubation on 12/22/21. CT Chest also showing pulmonary edema vs pneumonia. CXR today reviewed showing no change. BCx NGTD. Influenza negative. HIV negative (checked due to needle stick 2 years ago). Wean vent as tolerated. Appreciate sheeter waxer operator input. (3) Atrial fibrillation with RVR: Code(s): I48.91 - Unspecified atrial fibrillation Status: Acute Assessment and Plan: Patient states he has paroxysmal atrial fibrillation and can feel when he is heart rate is elevated. Suspect shortness of breath and chest heaviness on admission related to the AFib with RVR and respiratory failure. Diltiazem was able to be changed to oral Metoprolol but this has been stopped as well due to the HoTN. Cards consulted and Amio started. Heart rate better controlled overall. TSH normal. Echo showing EF 30-35% with indeterminate diastolic function. Continue Eliquis. Appreciate Cards input. Cardioversion being considered. (4) Congestive heart failure: Qualifiers: Heart failure type: unspecified Heart failure chronicity: acute Qualified Code(s): I50.9 - Heart failure, unspecified Code(s): I50.9 - Heart failure, unspecified Status: Acute Assessment and Plan: Echo in 2020 shows EF of 65-70% with grade 2 diastolic dysfunction and trace valvular disease and no pulmonary hypertension. Chest x-ray as mentioned above. BNP 2230. Echo this admission showing EF 30-35% with indeterminate diastolic function. Patient with acute systolic and diastolic CHF is likely related to AFib with RVR. Lasix stopped due to HoTN. Continue to monitor (5) Elevated troponin I level: Code(s): R77.8 - Other specified abnormalities of plasma proteins Status: Acute Assessment and Plan: Troponin elevated to 0.091 but flat. EKG showing AFib/RVR with poor R wave progression and nonspecific ST-T wave changes in inf/lat leads. Likely due to AF/RVR and CHF exacerbation. Not felt to have acute coronary syndrome. (6) Diabetes: Qualifiers: Diabetes mellitus type: type 2 Diabetes mellitus intermediate accountant insulin use: without intermediate accountant use Diabetes mellitus complication status: with hyperglycemia Qualified Code(s): E11.65 - Type 2 diabetes mellitus with hyperglycemia Code(s): E11.9 - Type 2 diabetes mellitus without complications Status: Acute Assessment and Plan: A1c 7.4. The patient's blood glucose was reviewed on 12/24 Glucose was 233 this morning. Tube feeding held now. Continue AccuCheks covering with sliding scale. Hypoglycemia protocol available as needed. Continue to monitor. Continue Lantus at current dose (7) Hypertension: Qualifiers: Hypertension type: primary hypertension Qualified Code(s): I10 - Essential (primary) hypertension Code(s): I10 - Essential (primary) hypertension Status: Acute Assessment and Plan: Patient
--- NOTE | 2021-12-24 11:56 | PCNFU ---
Nutrition Follow-Up Complete: Inadequate Oral Intake as related mechanical ventilation as evidenced by tube feedings. Goal: Meet estimated nutritional needs Patient is progressing towards goal. We will continue current goal. Pt current nutrition is Vital AF 1.2 at 70 ml/hr over 22 hours. Last recorded weight is 83.9 kg, up from 83.6 kg on admit. Bowel Motility:No BM reported Labs Reviewed:Glu 233, BUN 43, GFR 46, Alb 3.0,Hgb 12.8,Hct 41.1 Meds Noted: Maxipime, Lipitor, Fentanyl, Versed, Atrovent, Synthroid, NovoLog, Colace, Eliquis Skin: WNL Additional Notes: Patient remains on mechanical vent and tube feedings of Vital AF 1.2 at 70 ml/hr and tolerating per nursing. Current tube feeding is providing 1848 kcals/116 gm protein/1249 ml water. Free water flush 30 ml q 4 hours. Tube feedings are currently on hold for Bronchoscopy today. Agree with diet orders. Monitoring: Will monitor in ICU rounds and reassess every Monday and Monday.
[2021-12-24 12:19] LABS: Glucose Point of Care 193 mg/dl (65-105)
[2021-12-24] MEDS: FENTANYL 2,500MCG/NS250ML(*CRX 2,500 MCG/250 ML BAG 20 MCG IV CONT ×2 (14:33→19:39)
[2021-12-24] MEDS: MIDAZOLAM HCL (*CRX) 2 MG/2 ML VIAL IV PUSH ×2 (14:56→15:07)
--- NOTE | 2021-12-24 15:27 | SUR.OPER ---
BAL 80 ML IN 25 ML OUT, 4 ML OF 1% LIDO
--- NOTE | 2021-12-24 15:57 | P.OP_ITS ---
Procedure Note - Detailed Date of Procedure 12/24/21 Pre-op Diagnosis bilateral lung infiltrates Post-op Diagnosis Other Procedure Performed diffuse tracheobronchitis Surgeon Vishnu Collazo MD POSTOPERATIVE DIAGNOSIS: Diffuse tracheobronchitis. PROCEDURE PERFORMED: Flexible fiberoptic bronchoscopy diagnostic with BAL COMPLICATIONS: None. PROCEDURE: the procedure was done in the ICU where the patient was intubated sedated on mechanical ventilation. Prior to procedure and informed consent was obtained from the patient's next of kin The patient had appropriate oxygen bl ood pressure heart rate respiratory rate all of which were monitor throughout the procedure. The patient was already sedated and intubated with a sized 8 endotracheal tube. Aliquots of 4 mL of 2% xylocaine instilled through the ET for local anesthesia of the bronchial tree were given once. The bronchoscope was then advanced through the ET into the lower trachea. Findings: Trachea: Lower trachea appeared very erythematous with small amount of clear thick secretions. There was no evidence of intraluminal masses. R Bronchial Tree: The right bronchial tree was inspected to the subsegmental level with the following order: right upper lobe, then right middle lobe and then right lower lobe. All segments appear patent. The right lung bronchi appear very erythematous with small amount of clear thick secretions especially in the right upper lobe and right middle lobe. L Bronchial Tree: Left bronchial tree was inspected to the subsegmental bronchi with the following order: Lingula, remainder of the left upper lobe, superior segment of the right the left lower lobe and then remainder of the left lower lobe. All segments appear patent; Bronchi appeared very erythematous with small amount of clear thick secretions in the left upper lobe. BAL: The bronchoscope was then wedged in the right middle lobe and bronchoalveolar samples were obtained X2, using 40 mL of normal saline each time. The bronchoscope was then withdrawn. The patient tolerated the procedure well without evidence of desaturation or complications. Description of Procedure Bronchoscopy with BAL
[2021-12-24 16:13] LABS: NT Pro B Type Natriuretic Pept 2030 pg/mL (5-100)
[2021-12-24 16:25] LABS: Add Urine Microscopic? YES; Appearance Urine Clear (Clear); Bilirubin Urine Negative (Negative); Blood Urine 2+ (Negative); Color Urine Yellow (Yellow); Glucose Urine UA Trace mg/dL (Negative); Ketones Urine Negative (Negative); Leukocyte Esterase Ur Negative LEU/UL (NEGATIVE); Nitrate Urine Negative (Negative); Protein Urine 1+ mg/dL (Negative); Specific Grav Ur >= 1.030 (1.001-1.035); Urobilinogen Urine 0.2 mg/dL (<2.0); pH Urine 5.5 (5.0-9.0)
[2021-12-24] MEDS: ALBUMIN HUMAN 25% 25 GM/100 ML 100 ML IVPB (16:44)
[2021-12-24 16:47] LABS: Mucus Urine Rare /lpf; RBC Urine 21-50 /hpf (0-2); Squamous Epithelial Cell Urine Occasional /hpf (Few); WBC Urine 16-20 /hpf (0-3)
[2021-12-24 16:54] LABS: Vancomycin Trough 7.5 ug/mL (10.0-20.0)
[2021-12-24 17:07] LABS: Procalcitonin 0.7 ng/mL
[2021-12-24 17:17] LABS: Glucose Point of Care 200 mg/dl (65-105)
--- NOTE | 2021-12-24 17:46 | PC.NURSE ---
Patient's , Isa, updated on patient's status and tolerance of bronchoscopy. informed to call at any time with questions or for further updates.
--- NOTE | 2021-12-24 18:31 | PC.NURSE ---
This RN received phone call from patient's , Isa, that-several days prior to admission-patient was cutting weeds with his son. One of the weeds they were cutting was identified as [place]. Dr. Oscar made aware of findings and orders received. Will continue to monitor.
[2021-12-24] MEDS: methylPREDNISolone SOD SUCC 125 MG VIAL 60 MG IV PUSH (18:46)
[2021-12-24 21:48] LABS: Appearance Bronchial Fluid Hazy; Color Bronchial Fluid Colorless; Neutrophils Bronchial Fluid 75 %; Source Bronchial Fluid Bronchial Lavage
[2021-12-24 21:49] LABS: Eosinophils Bronchial Fluid 5 %; Lymphocytes Bronchial Fluid 4 %; Macrophages Bronchial Fluid 9; Monocytes Bronchial Fluid 4 %
[2021-12-24 21:50] LABS: Other Cells Bronchial Fluid 3 %
[2021-12-25] VITALS (58 sets, daily range): BP systolic 86–120; BP diastolic 51–81; PULSE 49–103; RESP 0–23; TEMP 36.2–37.2; O2SAT 86–97
[2021-12-25 00:16] LABS: Glucose Point of Care 335 mg/dl (65-105)
[2021-12-25] MEDS: INSULIN ASPART (*BKC) 100 UNITS/ML SUB-Q ×7 (00:17→23:50)
[2021-12-25] MEDS: ALBUMIN HUMAN 25% 25 GM/100 ML 100 ML IVPB ×3 (00:19→12:13)
[2021-12-25] MEDS: IPRATROPIUM BR 0.02% INH SOLN 0.5 MG/2.5 ML VIAL INHALATION ×4 (02:32→20:00)
[2021-12-25] MEDS: LEVALBUTEROL NEB 1.25 MG/3 ML 0.63 MG INHALATION ×4 (02:32→20:00)
[2021-12-25] MEDS: MIDAZOLAM 100MG/NS 100ML(*CRX) 100 MG/100 ML BAG IV CONT (03:10)
[2021-12-25] MEDS: FENTANYL 2,500MCG/NS250ML(*CRX 2,500 MCG/250 ML BAG 17.5 MCG IV CONT (04:24)
[2021-12-25] MEDS: AMIODARONE 360 MG/D5W 200 ML 360 MG/200 ML BAG 33.33 MG IV CONT ×2 (04:26→10:29)
[2021-12-25 05:12] LABS: Alveolar/Arterial O2 Gradient 389.8 mmHg; Base Excess ABG 3.2 mEq/l (+/-2.0); Fractional Inspired Oxygen 70 %; HCO3 ABG 28.6 mEq/l (22.0-26.0); Methemoglobin ABG 0.1 %THb (0-1.5); Oxygen Content ABG 15.7 %vol (16.0-22.0); Oxygen Saturation ABG 90.5 % (95.0-100.0); Oxyhemoglobin 90.3 % THb (90.0-100.0); PCO2 ABG 46.8 mmHg (35.0-45.0); PO2 FiO2 Ratio Arterial Blood 0.84 %; Reduced Hemoglobin 9.6 %THb (0-5.0); Total Hemoglobin 12.4 g/dL (12.0-18.0); pH ABG 7.404 (7.350-7.450)
[2021-12-25 05:20] LABS: Arterial Blood Gas Vent Mode CMV; Arterial Blood Gas Ventilator rate 22 /MIN; Device VENTILATOR; Site Drawn RIGHT BRACHIAL
[2021-12-25 05:21] LABS: Arterial Blood Gas PEEP 8 cmH2O; Arterial Blood Gas Tidal Volume 410 ml
[2021-12-25 05:27] LABS: Alanine Aminotransferase 26 U/L (6-50); Albumin Level 3.2 g/dL (3.5-5.1); Alkaline Phosphatase 68 U/L (38-126); Anion Gap 8 mmol/L (8-16); Aspartate Amino Transferase 48 U/L (17-59); Bilirubin,Total 0.5 mg/dL (0.2-1.3); Blood Urea Nitrogen 53 mg/dL (9-20); Calcium 7.2 mg/dL (8.4-10.2); Carbon Dioxide 32 mmol/L (22-30); Chloride 89 mmol/L (98-107); Estimated CRCL calculation 43 ml/min; Estimated Glomerular Filt Rate 46; Glucose 340 mg/dL (65-110); Magnesium 2.4 mg/dL (1.6-2.3); Phosphorus 3.4 mg/dL (2.5-4.5); Potassium 3.8 mmol/L (3.4-5.0); Sodium 129 mmol/L (137-145)
[2021-12-25] MEDS: LEVOTHYROXINE SODIUM 112 MCG TABLET PO (05:30)
[2021-12-25] MEDS: CENTRAL LINE FLUSH 10 ML IV PUSH ×4 (05:30→20:12)
[2021-12-25 05:47] LABS: Glucose Point of Care 329 mg/dl (65-105)
[2021-12-25 05:49] LABS: Basophils Percent Auto 0.1 % (0.2-1.2); Eosinophils Percent Auto 0.1 % (0-4.4); Hematocrit 36.4 % (42.0-52.0); Hemoglobin 11.4 g/dL (14.0-18.0); Immature Granulocyte Absolute 0.06 K/mm3 (0.00-0.031); Immature Granulocyte Percent A 0.6 % (0-0.5); Lymphocytes Absolute Auto 0.15 K/mm3 (0.9-3.2); Lymphocytes Percent Auto 1.6 % (18.3-44.2); Mean Corpuscular HGB Conc 31.3 g/dl (32-36); Mean Corpuscular Hemoglobin 26.8 pg (26-34); Mean Corpuscular Volume 85.6 fl (80-100); Mean Platelet Volume 12.1 fl (7.4-10.4); Monocytes Absolute Auto 0.2 K/mm3 (0.1-0.6); Monocytes Percent Auto 2.4 % (2.6-8.5); Neutrophils Absolute Auto 9.1 K/mm3 (1.3-6.7); Neutrophils Percent Auto 95.2 % (45.5-73.1); Platelet Count Result 216 k/mm3 (150-375); Red Blood Count 4.25 M/mm3 (4.6-6.20); Red Cell Distribution Width 16.1 % (11.5-14.5); White Blood Count 9.5 K/mm3 (4.5-10.0)
[2021-12-25 05:55] LABS: CRP 22.9 mg/dL (<1.0)
[2021-12-25 06:59] LABS: Platelet Estimate Adequate (Adequate)
[2021-12-25 07:00] LABS: Acanthocytes 1+ (NORMAL)
--- NOTE | 2021-12-25 09:01 | PM.PNCARD ---
Progress Note: A&P Additional Plan 71-year-old man with: Respiratory failure and left ventricular systolic dysfunction as well as persistent atrial fibrillation. Clinical picture is complex since there is now evidence of an infectious etiology as well as likelihood of congestive heart failure contributing to this respiratory difficulty. Heart rate is now well controlled with atrial fibrillation he would probably hemodynamically benefit from bahai of sinus rhythm. While he is intubated on the ventilator in the ICU it might be reasonable to attempt DC cardioversion. I do not see any reason not to attempt this. he remains on amiodarone and is anticoagulated with apixaban. Edison Vila MD [facility] Subjective Date/time seen: date of service:12/25/21 09:01 Interval history: FU for a fib RVR, acute CHF. H/O CAD. 12/20/2021: 71-year-old man with coronary artery disease and history of paroxysmal atrial fibrillation presenting for shortness of breath has significant pulmonary congestion on chest x-ray and some wheezing on physical exam. Sounds like symptomatic Flora he probably went back in atrial fibrillation last week. He has been compliant with his anticoagulation regimen. He was previously maintained in sinus rhythm with sotalol but became problematically bradycardic on that medication. I am going to start him on IV amiodarone at this time an attempt at restoring sinus rhythm. We will stop the IV diltiazem and hopefully he will medically convert if he does not we will perform a electrical cardioversion before the end of the week Date of Service 12/21/2021: STill very weak and dyspnec w/ minor activity. Scant hemoptysis. Droplet precautions. On CPAP, FI O2 70%. Diuresed some. Telemetry shows atrial fibrillation, heart rate 90-110. P.o. metoprolol added to IV amiodarone. Date of service 12/22/2021: Patient's respiratory status remains unimproved despite attempts to treat CHF in control atrial fibrillation maintains on IV amiodarone for the last 48 hours. Heart rate at rest this morning 115-125. Date of service 12/25/2021: Patient decompensated with respiratory failure had to be transferred to the ICU intubated placed on mechanical ventilator support. Bronchoscopy lupe day suggest C has an infection with tracheobronchitis. he remains in atrial fibrillation IV amiodarone is running heart rate is well controlled in the 80-90 range. Exam Const: General: comfortable, no acute distress and uncomfortable (BIPAP etc); No confusion Orientation/consciousness: No confusion Other: Intubated sedated elderly man HENMT: General nose exam: no epistaxis Mouth: Yes moist mucous membranes Eyes: Sclera: sclerae normal Pupils: Equal, round and reactive pupils present EOM: EOMs intact bilaterally Neck: Neck: supple and no JVD Resp: Auscultation: clear to auscultation bilaterally Cardio: Rate: tachycardic Rhythm: abnormal rhythm irregularly irregular GI: Auscultation: normal bowel sounds Skin: General skin exam: normal color and no rashes or lesions noted Neuro: General: No confusion Cranial nerves: Yes Equal, round and reactive pupils present Cognition (Neuro): normal cognition Speech: normal speech Extrem: General: no edema and no pedal edema Psych: Mental Status: mental status grossly normal Affect: normal affect Objective Data Vital Signs Vital Signs: Vital Signs - 24 hr 12/24/21 10:00 12/24/21 10:45 12/24/21 10:56 Temperature Pulse Rate 91 122 H 114 H Respiratory Rate 22 H 20 Blood Pressure 91/64 L Pulse Oximetry 95 95 12/24/21 11:05 12/24/21 11:08 12/24/21 11:10 Temperature Pulse Rate 115 H 104 H 109 H Respiratory Rate 20 20 Blood Pressure 100/48 L Pulse Oximetry 12/24/21 11:16 12/24/21 12:00 12/24/21 12:14 Temperature 36.6 C Pulse Rate 109 H 102 H 100 Respiratory Rate 18 Blood Pressure 100/48 L 98/79 L 98/79 L Pulse Oximetry 96 12/24/21 12:15 12/24/21 13:
[2021-12-25 09:31] LABS: Glucose Point of Care 350 mg/dl (65-105)
[2021-12-25] MEDS: PANTOPRAZOLE SODIUM IV 40 MG VIAL IV PUSH (09:33)
[2021-12-25] MEDS: MINERAL OIL/WHITE PETROLATUM OINTMENT 1 APPLIC EACH EYE ×2 (09:33→20:10)
[2021-12-25] MEDS: INSULIN GLARGINE (*BKC) 100 UNITS/ML 20 UNITS SUB-Q (09:33)
[2021-12-25] MEDS: APIXABAN 5 MG TABLET BY MOUTH ×2 (09:34→17:37)
[2021-12-25] MEDS: ATORVASTATIN 40 MG TABLET PO (09:34)
[2021-12-25] MEDS: DOCUSATE SODIUM LIQ 100 MG/10 ML UDC PO ×2 (09:34→20:10)
[2021-12-25] MEDS: ASPIRIN 81 MG ENTERIC TABLET PO (09:34)
[2021-12-25] MEDS: methylPREDNISolone SOD SUCC 125 MG VIAL IV PUSH (09:41)
--- NOTE | 2021-12-25 11:26 | WPDINTPN ---
Progress Note: A&P Assessment and Plan (1) Septic shock: Code(s): A41.9 - Sepsis, unspecified organism; R65.21 - Severe sepsis with septic shock Status: Acute Assessment and Plan: Patient was hypotensive post intubation which could be related to positive pressure ventilation, decreased adrenergic surge, sedation medications, infection/sepsis -OFF LEVOPHED, will maintain mean arterial pressures greater than 65 mmHg -continue cefepime and vancomycin which to started on 12/22 -12/20 blood cultures negative x2 -12/22: Sputum cultures: PRELIMINARY RESULTS ARE NEGATIVE -hold IV fluids since patient's chest x-ray and chest CT reflective of pulmonary edema and/or pneumonia (2) Acute hypoxemic respiratory failure: Code(s): J96.01 - Acute respiratory failure with hypoxia Status: Acute Assessment and Plan: Patient presented on 12/19 is shortness of breath, fatigue, was found to be in AFib RVR with CHF exacerbation and bilateral diffuse infiltrates on the chest x-ray. During the course of his stay in the hospital chest x-ray has worsened, oxygen requirements have increased, patient was on BiPAP at 100% FiO2 with impending respiratory failure on 12/22/2021 -patient intubated on 12/22/2021 -ARDS physiology: Continue low tidal volume strategy, peep of 8, now 45% FiO2, -chest x-ray and ABGs reviewed, ventilator adjusted -continue cefepime and vancomycin (12/22) -sedated with fentanyl and Versed infusion, daily sedation vacation, maintain RASS of 0--2 Continue bronchodilators -SARS-CoV-2 PCR has been negative x2, influenza A and B are negative -urine strep antigen and urine Legionella have been obtained and pending -12/22 Sputum cultures - preliminary results are negative -12/24/2021 BRONCHOSCOPY WITH BAL, cultures pending 12/22: CT scan of the chest Pulmonary findings are possibly most consistent with pulmonary edema, however pneumonia can appear similar and is not excluded by this examination. Moderate bilateral effusions. Mediastinal lymphadenopathy -patient stated that a few days ago the patient and his son were removing weeds and were exposed to star of [place] which is a kind of weed. -bronchoscopy showed significant erythema and small amounts of thick secretion -discussed with pulmonology, will start patient on steroids for 24-48 hours (3) Atrial fibrillation with RVR: Code(s): I48.91 - Unspecified atrial fibrillation Status: Acute Assessment and Plan: Patient has a history of paroxysmal atrial fibrillation, on Eliquis at home -currently in AFib RVR on admission requiring beta-blockers and amiodarone infusion -continue amiodarone infusion at 1 mg/min -appreciate cardiology evaluation recommendation -12/20/2021 echocardiogram: LV is systolic function is 30-35%, LV mildly enlarged, LA moderately enlarged, mild aortic valve sclerosis -continue Eliquis -discussed with Cardiology, plan to cardiovert today (4) Congestive heart failure: Qualifiers: Heart failure type: unspecified Heart failure chronicity: acute Qualified Code(s): I50.9 - Heart failure, unspecified Code(s): I50.9 - Heart failure, unspecified Status: Acute Assessment and Plan: Continue diuretics, chest x-ray shows worsening bilateral infiltrates/opacities -patient urine for CHF exacerbation, continue diuretics, monitor urine output and renal function -patient not in positive fluid balance -BNP was 2230 -CHF likely secondary to AFib RVR -recent echocardiogram as above 2019 Echocardiogram shows EF of 65-70% with grade 2 diastolic dysfunction and trace valvular disease and no pulmonary hypertension. (5) Elevated troponin I level: Code(s): R77.8 - Other specified abnormalities of plasma proteins Status: Acute Assessment and Plan: Troponin elevated to 0.091 but flat. EKG showing AFib/RVR with poor R wave progression and nonspecific ST-T wave changes in i
--- NOTE | 2021-12-25 11:50 | PC.NURSE ---
At 1150 on 12-25-21. Patient was cardioverted at 200J with Dr. Vila, Charge Nurse, and metal patternmaker at bedside. After cardioversion patient is in normal sinus rhythm. Print out of procedure in patient chart. Will continue to monitor patient per ICU protocol.
--- NOTE | 2021-12-25 11:53 | P.PCNCC_ITS ---
Cardiac Cath Procedure Note Date of procedure:: 12/25/21 Performing physician:: Edison Vila MD Indication:: Persistent atrial fibrillation with congestive heart failure Brief clinical history:: this is a 71-year-old man with a history of coronary disease also history of recent onset of atrial fibrillation he is developed significant congestive heart failure also has tracheobronchitis requiring intubation and mechanical ventilation. He has been systemically anticoagulated and is receiving intravenous amiodarone. An attempt at restoring sinus level electrically has been recommended. He is in the ICU on a ventilator and is sedated. Procedure Procedure performed:: DC cardioversion Sedation/Medication given:: sedation already administered as above Estimated blood loss:: none Procedure note:: as stated above patient is already on a ventilator sedated in the ICU defibrillator patches were placed in the AP position defibrillator was connected to the patches with good telemetry signal and placed in synchronized mode at 200 joules. One shock was delivered restoring sinus rhythm. Findings:: As above Conclusion:: successful uncomplicated DC cardioversion terminating atrial fibrillation restoring normal sinus rhythm using 200 joules x1 shock. Edison Vila MD [facility]
[2021-12-25 12:11] LABS: Glucose Point of Care 349 mg/dl (65-105)
[2021-12-25] MEDS: methylPREDNISolone SOD SUCC 40 MG VIAL IV PUSH ×3 (12:13→23:52)
--- NOTE | 2021-12-25 12:24 | PM.PNPUL ---
Progress Note: A&P Assessment and Plan (1) Acute hypoxemic respiratory failure: Code(s): J96.01 - Acute respiratory failure with hypoxia Status: Acute Assessment and Plan: this 71-year-old man presented with progressively increasing shortness of breath of few days duration following gardening at his son's house. Initial workup showed atrial fibrillation with rapid ventricular response, bilateral pulmonary infiltrate with acute hypoxemic respiratory failure, diminished EF in the range of 30-35% on echocardiogram compared to a normal EF approximately 2 years ago, elevated BNP, and bilateral alveolar infiltrates along with small symmetrical pleural effusions on chest radiographic studies. There was improvement of FiO2 and also partial clearing for chest x-ray during the 1st day in the ICU. over the last 48 hours there has been no significant improvement of his gas exchange. Chest x-ray also unchanged. patient underwent bronchoscopy with lavage yesterday. Bronchoscopy showed severe diffuse tracheobronchitis bilaterally especially in upper lobes with small amount of clear thick secretions. BAL analysis showed neutrophilic cell count, with no evidence of eosinophilia or lymphocytosis. In summary this patient present with history with acute onset of respiratory failure, bilateral lung infiltrates, with concurrent congestive heart failure with EF in the range of 30-35% elevated BNP, acute onset of atrial fibrillation, and bilateral symmetrical pleural effusions all following gardening work on a hot day. The patient has been treated for congestive heart failure atrial fibrillation and broad-spectrum antibiotics with no significant improvement. Following intubation and mechanical ventilation there was a transient improvement of the right upper lobe infiltrates on chest x-ray which probably represents partial clearing of infiltrates related to congestive heart failure. Over the last 24 H, the chest x-ray and gas exchange have been essentially unchanged. The patient's acute illness in conjunction with the radiological findings and most importantly the findings of diffuse tracheobronchitis with a neutrophilic cell analysis on BAL suggests fulminant pneumonia of unclear etiology. On chest CT, the infiltrates are mostly located in the upper lobes sparing lung bases. The neutrophilic lavage favors fulminant lung infection. Hypersensitivity pneumonitis is highly unlikely given the non lymphocytic BAL. Acute eosinophilic pneumonia is also unlikely in the absence of increased eosinophils in the BAL. The diffuse tracheobronchitis is also against other inflammatory states like LYMPHEDEMA THERAPIST, acute interstitial pneumonia. Atypical pneumonias related to Legionella species and, extremely rarely, invasive aspergillosis have been described in immunocompetent patients post-gardening work. The case was discussed extensively with Dr. Oscar, the auger supervisor and also with Dr. Vila, the dry box tender. Plan: pending remaining BAL results, we will proceed with Zosyn and levofloxacin and discontinue vancomycin. 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 He will remain on current IV steroid dose for the next 24 hours. Have called patient's and notified her of critical clinical condition of this patient. (2) Acute exacerbation of CHF (congestive heart failure): Code(s): I50.9 - Heart failure, unspecified Status: Acute (3) Atrial fibrillation with RVR: Code(s): I48.91 - Unspecified atrial fibrillation Status: Acute (4) Pleural effusion, bilateral: Code(s): J90 - Pleural effusion, not elsewhere classified Status: Acute Subjective Date/time seen: 12/25/21 12:24 clinical condition essentially unchanged. Patient is hemodynamically stable on IV sedation low-dose Levophed. back in normal sinus rhythm following cardioversion earlier today. He is afebrile with no bronchial secreti
[2021-12-25 17:23] LABS: Glucose Point of Care 335 mg/dl (65-105)
[2021-12-25] MEDS: BISACODYL 10 MG SUPPOSITORY RECTAL (17:34)
[2021-12-25] MEDS: polyethylene glycoL 3350 17 GM POWD.PACK PO (17:38)
[2021-12-25] MEDS: FENTANYL 2,500MCG/NS250ML(*CRX 2,500 MCG/250 ML BAG 20 MCG IV CONT (17:38)
--- NOTE | 2021-12-25 18:08 | PM.IMPN ---
Progress Note: A&P Assessment and Plan (1) Septic shock: Code(s): A41.9 - Sepsis, unspecified organism; R65.21 - Severe sepsis with septic shock Status: Acute Assessment and Plan: Patient was hypotensive post intubation which could be related to positive pressure ventilation, decreased adrenergic surge, sedation medications, infection/sepsis -OFF LEVOPHED, will maintain mean arterial pressures greater than 65 mmHg -continue cefepime and vancomycin which to started on 12/22 -12/20 blood cultures negative x2 -12/22: Sputum cultures: PRELIMINARY RESULTS ARE NEGATIVE -hold IV fluids since patient's chest x-ray and chest CT reflective of pulmonary edema and/or pneumonia 12/25/2021 interval history: patient is 71-year-old male was brought to the emergency depart with with generalized weakness and shortness of breath upon arrival to emergency depart patient was in atrial fibrillation with RVR and diltiazem drip was started, and anticoagulated with Eliquis, patient symptom worsen he was hypoxic and was placed on CPAP, his symptoms continue to worsen and on 12/22 patient was hypoxic and was seen by electric bath attendant and intubated, currently patient on vent secondary to multifactorial exacerbation of acute on chronic systolic congestive Heart failure with ejection fraction of 30%, there is also concern the patient may have had an inhalation while working in garden on a hot summer day prior to coming to emergency depart however patient had a bronchoscopy in does not suggest any inhalation injury rather professor of business suspect fulminant pneumonia as well as congestive heart failure due to moderately severe systolic function with ejection fraction 30%, patient is being treated Cefepime and Levaquin vancomycin was stopped however so far blood culture, sputum culture and bronchoscopy BAL no growth, patient had a cardioversion on 12/25 he is hemodynamically stable and sinus rhythm, patient remains on ventilator, is off Levophed and on norepinephrine maintaining MAP of 65, seen by electric bath attendant and appreciate. (2) Acute hypoxemic respiratory failure: Code(s): J96.01 - Acute respiratory failure with hypoxia Status: Acute Assessment and Plan: Patient presented on 12/19 is shortness of breath, fatigue, was found to be in AFib RVR with CHF exacerbation and bilateral diffuse infiltrates on the chest x-ray. During the course of his stay in the hospital chest x-ray has worsened, oxygen requirements have increased, patient was on BiPAP at 100% FiO2 with impending respiratory failure on 12/22/2021 -patient intubated on 12/22/2021 -ARDS physiology: Continue low tidal volume strategy, peep of 8, now 45% FiO2, -chest x-ray and ABGs reviewed, ventilator adjusted -continue cefepime and vancomycin (12/22) -sedated with fentanyl and Versed infusion, daily sedation vacation, maintain RASS of 0--2 Continue bronchodilators -SARS-CoV-2 PCR has been negative x2, influenza A and B are negative -urine strep antigen and urine Legionella have been obtained and pending -12/22 Sputum cultures - preliminary results are negative -12/24/2021 BRONCHOSCOPY WITH BAL, cultures pending 12/22: CT scan of the chest Pulmonary findings are possibly most consistent with pulmonary edema, however pneumonia can appear similar and is not excluded by this examination. Moderate bilateral effusions. Mediastinal lymphadenopathy -patient stated that a few days ago the patient and his son were removing weeds and were exposed to star of [place] which is a kind of weed. -bronchoscopy showed significant erythema and small amounts of thick secretion -discussed with pulmonology, will start patient on steroids for 24-48 hours (3) Atrial fibrillation with RVR: Code(s): I48.91 - Unspecified atrial fibrillation Status: Acute Assessment and Plan: Patient has a history of paroxysmal atrial fibrillation, on Eliquis at home -currently in AFib RVR on admission requiring b
[2021-12-25] MEDS: MIDAZOLAM 100MG/NS 100ML(*CRX) 100 MG/100 ML BAG 6 MG IV CONT (19:40)
[2021-12-25 20:16] LABS: Glucose Point of Care 363 mg/dl (65-105)
[2021-12-26] VITALS (38 sets, daily range): BP systolic 91–143; BP diastolic 48–74; PULSE 46–84; RESP 20–97; TEMP 36.4–36.6; O2SAT 90–99
[2021-12-26 00:24] LABS: Glucose Point of Care 324 mg/dl (65-105)
[2021-12-26] MEDS: LEVALBUTEROL NEB 1.25 MG/3 ML 0.63 MG INHALATION ×4 (02:32→20:49)
[2021-12-26] MEDS: IPRATROPIUM BR 0.02% INH SOLN 0.5 MG/2.5 ML VIAL INHALATION ×4 (02:32→20:49)
[2021-12-26 04:05] LABS: Glucose Point of Care 305 mg/dl (65-105)
[2021-12-26] MEDS: INSULIN ASPART (*BKC) 100 UNITS/ML SUB-Q ×5 (04:08→20:56)
[2021-12-26 04:39] LABS: Basophils Percent Auto 0.2 % (0.2-1.2); Hematocrit 35.8 % (42.0-52.0); Hemoglobin 11.3 g/dL (14.0-18.0); Immature Granulocyte Absolute 0.05 K/mm3 (0.00-0.031); Immature Granulocyte Percent A 0.4 % (0-0.5); Lymphocytes Absolute Auto 0.31 K/mm3 (0.9-3.2); Lymphocytes Percent Auto 2.6 % (18.3-44.2); Mean Corpuscular HGB Conc 31.6 g/dl (32-36); Mean Corpuscular Hemoglobin 26.7 pg (26-34); Mean Corpuscular Volume 84.4 fl (80-100); Mean Platelet Volume 12.5 fl (7.4-10.4); Monocytes Absolute Auto 0.4 K/mm3 (0.1-0.6); Monocytes Percent Auto 3.1 % (2.6-8.5); Neutrophils Percent Auto 93.7 % (45.5-73.1); Platelet Count Result 209 k/mm3 (150-375); Red Blood Count 4.24 M/mm3 (4.6-6.20); White Blood Count 11.8 K/mm3 (4.5-10.0)
[2021-12-26 04:49] LABS: Alanine Aminotransferase 22 U/L (6-50); Albumin Level 3.5 g/dL (3.5-5.1); Alkaline Phosphatase 65 U/L (38-126); Anion Gap 8 mmol/L (8-16); Aspartate Amino Transferase 33 U/L (17-59); Bilirubin,Total 0.6 mg/dL (0.2-1.3); Blood Urea Nitrogen 67 mg/dL (9-20); Calcium 7.4 mg/dL (8.4-10.2); Carbon Dioxide 30 mmol/L (22-30); Chloride 90 mmol/L (98-107); Estimated CRCL calculation 36 ml/min; Estimated Glomerular Filt Rate 37; Glucose 317 mg/dL (65-110); Potassium 3.7 mmol/L (3.4-5.0); Sodium 128 mmol/L (137-145)
[2021-12-26 04:51] LABS: Magnesium 2.8 mg/dL (1.6-2.3); Phosphorus 3.6 mg/dL (2.5-4.5)
[2021-12-26 04:57] LABS: Alveolar/Arterial O2 Gradient 420.9 mmHg; Base Excess ABG 2.1 mEq/l (+/-2.0); Carboxyhemoglobin 0.3 % THb (0-2.0); Fractional Inspired Oxygen 75 %; HCO3 ABG 26.9 mEq/l (22.0-26.0); Oxygen Saturation ABG 94.1 % (95.0-100.0); Oxyhemoglobin 92.1 % THb (90.0-100.0); PCO2 ABG 42.4 mmHg (35.0-45.0); PO2 ABG 68.8 mmHg (80.0-100.0); PO2 FiO2 Ratio Arterial Blood 0.92 %; Reduced Hemoglobin 7.6 %THb (0-5.0); Total Hemoglobin 12.3 g/dL (12.0-18.0)
[2021-12-26 05:06] LABS: Site Drawn LEFT BRACHIAL
[2021-12-26 05:07] LABS: Arterial Blood Gas PEEP 8 cmH2O; Arterial Blood Gas Tidal Volume 410 ml; Arterial Blood Gas Vent Mode CMV; Arterial Blood Gas Ventilator rate 22 /MIN; Device VENTILATOR
[2021-12-26] MEDS: methylPREDNISolone SOD SUCC 40 MG VIAL IV PUSH ×3 (05:21→17:17)
[2021-12-26] MEDS: CENTRAL LINE FLUSH 10 ML IV PUSH ×4 (05:21→20:57)
[2021-12-26] MEDS: LEVOTHYROXINE SODIUM 112 MCG TABLET PO (05:24)
[2021-12-26] MEDS: FENTANYL 2,500MCG/NS250ML(*CRX 2,500 MCG/250 ML BAG 20 MCG IV CONT ×2 (06:02→19:30)
[2021-12-26 07:35] LABS: Glucose Point of Care 351 mg/dl (65-105)
[2021-12-26] MEDS: ROCURONIUM BROMIDE 50 MG/5 ML VIAL IV PUSH ×2 (08:30→13:43)
[2021-12-26] MEDS: INSULIN GLARGINE (*BKC) 100 UNITS/ML 45 UNITS SUB-Q (08:33)
[2021-12-26] MEDS: polyethylene glycoL 3350 17 GM POWD.PACK PO (08:35)
[2021-12-26] MEDS: ASPIRIN 81 MG ENTERIC TABLET PO (08:36)
[2021-12-26] MEDS: PANTOPRAZOLE SODIUM IV 40 MG VIAL IV PUSH (08:36)
[2021-12-26] MEDS: MINERAL OIL/WHITE PETROLATUM OINTMENT 1 APPLIC EACH EYE ×2 (08:36→20:57)
[2021-12-26 08:37] LABS: Creatine Kinase 231 U/L (55-170)
[2021-12-26] MEDS: APIXABAN 5 MG TABLET BY MOUTH ×2 (08:37→17:17)
[2021-12-26] MEDS: ATORVASTATIN 40 MG TABLET PO (08:37)
[2021-12-26] MEDS: DOCUSATE SODIUM LIQ 100 MG/10 ML UDC PO ×2 (08:37→20:57)
--- NOTE | 2021-12-26 10:22 | PM.PNCARD ---
Progress Note: A&P Additional Plan continue aggressive supportive care at this time. Patient is hemodynamically stable and in sinus rhythm following cardioversion yesterday. Will of course defer to pulmonology consultants regarding the family's concept of the above-described inhalational injury. Told the family I have no direct expertise in this matter Edison Vila MD [facility] Subjective Date/time seen: Date of service:12/26/21 10:22 Interval history: FU for a fib RVR, acute CHF. H/O CAD. 12/20/2021: 71-year-old man with coronary artery disease and history of paroxysmal atrial fibrillation presenting for shortness of breath has significant pulmonary congestion on chest x-ray and some wheezing on physical exam. Sounds like symptomatic Flora he probably went back in atrial fibrillation last week. He has been compliant with his anticoagulation regimen. He was previously maintained in sinus rhythm with sotalol but became problematically bradycardic on that medication. I am going to start him on IV amiodarone at this time an attempt at restoring sinus rhythm. We will stop the IV diltiazem and hopefully he will medically convert if he does not we will perform a electrical cardioversion before the end of the week Date of Service 12/21/2021: STill very weak and dyspnec w/ minor activity. Scant hemoptysis. Droplet precautions. On CPAP, FI O2 70%. Diuresed some. Telemetry shows atrial fibrillation, heart rate 90-110. P.o. metoprolol added to IV amiodarone. Date of service 12/22/2021: Patient's respiratory status remains unimproved despite attempts to treat CHF in control atrial fibrillation maintains on IV amiodarone for the last 48 hours. Heart rate at rest this morning 115-125. Date of service 12/25/2021: Patient decompensated with respiratory failure had to be transferred to the ICU intubated placed on mechanical ventilator support. Bronchoscopy lupe day suggest C has an infection with tracheobronchitis. he remains in atrial fibrillation IV amiodarone is running heart rate is well controlled in the 80-90 range. Date of service 12/26/2021: Clinically unchanged maintaining sinus rhythm/ sinus bradycardia following DC cardioversion yesterday. Amiodarone stopped at the request of the pulmonology and ICU staff. Patient appears to have a infectious and/or inhalational lung injury. 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 Exam Const: General: comfortable, no acute distress and uncomfortable (BIPAP etc); No confusion Orientation/consciousness: No confusion Other: Intubated sedated elderly man HENMT: General nose exam: no epistaxis Mouth: Yes moist mucous membranes Eyes: Sclera: sclerae normal Pupils: Equal, round and reactive pupils present EOM: EOMs intact bilaterally Neck: Neck: supple and no JVD Resp: Auscultation: clear to auscultation bilaterally Cardio: Rate: tachycardic Rhythm: abnormal rhythm irregularly irregular GI: Auscultation: normal bowel sounds Skin: General skin exam: normal color and no rashes or lesions noted Neuro: General: No confusion Cranial nerves: Yes Equal, round and reactive pupils present Cognition (Neuro): normal cognition Speech: normal speech Extrem: General: no edema and no pedal edema Psych: Mental Status: mental status grossly normal Affect: normal affect Objective Data Vital Signs Vital Signs: Vital Signs - 24 hr 12/25/21 10:29 12/25/21 11:15 12/25/21 11:17 Temperature Pulse Rate 84 88 83 Respiratory Rate 23 H Blood Pressure 105/67 Pulse Oximetry 92 12/25/21 12:00 12/25/21 12:19 12/25/21 13:01 Temperature 36.6 C Pulse Rate 51 L 53 L 53 L Respiratory Rate 22 H 0 L Blood Pressure 88/57 L 86/56 L 114/65 Pulse Oximetry 92 92 12/25/21 13:47 12/25/21 13:53 12/25/21
--- NOTE | 2021-12-26 10:24 | PM.PNPUL ---
Progress Note: A&P Assessment and Plan (1) Acute hypoxemic respiratory failure: Code(s): J96.01 - Acute respiratory failure with hypoxia Status: Acute Assessment and Plan: this 71-year-old man presented with progressively increasing shortness of breath of few days duration following gardening at his son's house. Initial workup showed atrial fibrillation with rapid ventricular response, bilateral pulmonary infiltrate with acute hypoxemic respiratory failure, diminished EF in the range of 30-35% on echocardiogram compared to a normal EF approximately 2 years ago, elevated BNP, and bilateral alveolar infiltrates along with small symmetrical pleural effusions on chest radiographic studies. There was improvement of FiO2 and also partial clearing for chest x-ray during the 1st day in the ICU. over the last 48 hours there has been no significant improvement of his gas exchange. Chest x-ray also unchanged. patient underwent bronchoscopy with lavage yesterday. Bronchoscopy showed severe diffuse tracheobronchitis bilaterally especially in upper lobes with small amount of clear thick secretions. BAL analysis showed neutrophilic cell count, with no evidence of eosinophilia or lymphocytosis. In summary this patient presented with acute onset of respiratory failure related to bilateral lung infiltrates, with concurrent congestive heart failure with EF in the range of 30-35% elevated BNP, acute onset of atrial fibrillation, and bilateral symmetrical pleural effusions all following gardening work on a hot day. The patient has been treated for congestive heart failure and atrial fibrillation and has been on broad-spectrum antibiotics with no significant improvement. Following intubation and mechanical ventilation there was a transient improvement of the right upper lobe infiltrates on chest x-ray which probably represents partial clearing of infiltrates related to congestive heart failure. Over the last 48 H, the chest x-ray and gas exchange have been essentially unchanged. The patient's acute illness in conjunction with the radiological findings and most importantly the findings of diffuse tracheobronchitis with a neutrophilic cell analysis on BAL suggests fulminant pneumonia of unclear etiology. On chest CT, the infiltrates are mostly located in the upper lobes sparing lung bases. The neutrophilic lavage favors fulminant lung infection. Hypersensitivity pneumonitis is highly unlikely given the non lymphocytic BAL. Acute eosinophilic pneumonia is also unlikely in the absence of increased eosinophils in the BAL. The diffuse tracheobronchitis is also against other inflammatory states like COMM[employer]ICATION [employer]LS INTELLIGENCE, acute interstitial pneumonia. Atypical pneumonias related to Legionella species and, extremely rarely, invasive aspergillosis have been described in immunocompetent patients post-gardening work. Alveolar hemorrhage with respiratory failure has been described after inhalation of [place] plants found in gardens. However, the lavage was not hemorrhagic which makes that possibility highly unlikely. The case was discussed extensively with Dr. Oscar, the die designer apprentice. Plan: Microbiological analysis of the BAL so far negative for infections. pending remaining test results, we will continue with Zosyn and levofloxacin, antifungal medication and steroids. Mycoplasma titers ordered. (2) Acute exacerbation of CHF (congestive heart failure): Code(s): I50.9 - Heart failure, unspecified Status: Acute (3) Atrial fibrillation with RVR: Code(s): I48.91 - Unspecified atrial fibrillation Status: Acute (4) Pleural effusion, bilateral: Code(s): J90 - Pleural effusion, not elsewhere classified Status: Acute Subjective Date/time seen: 12/26/21 10:24 There has been no change in patient's clinical condition. Remains fully sedated on mechanical ventilation. no increased bronchial secretions, afebrile. Creatinine increasin
--- NOTE | 2021-12-26 10:32 | PM.CNNEP ---
Assessment and Plan Additional Plan 1. The patient has acute kidney injury. This is on top of normal kidney function. He is non oliguric. His urine shows protein glucose and blood. He has got a few red cells and a few white cells. Will culture the urine. The red cells might be from his [place]. Most likely this is acute kidney injury due to his low blood pressure and toxic syndrome. I do not see that started [place] causes renal failure directly. His CK is normal so this is not rhabdomyolysis. Pre renal azotemia is a possibility as he could be 3rd spacing. Has no swelling his LV EF is only 30% and he did have AFib with rapid ventricular rate, both of which could also be contributing to a prerenal picture. Unfortunately his very high oxygen requirements make me reluctant to give more than just obligate IV fluids. He is getting significant amounts of that. Glomerulonephritis is possible in this clinical scenario as I suppose that if he has an immune reaction to the we would then there might be a secondary GN. He is already on steroids. Vascular an infiltrative diseases are less likely. Will check urine electrolytes. Will also check some immune studies. 2. Respiratory failure. The patient is on 90% oxygen. He is intubated. 3. He has a history of hypertension. Blood pressure meds are on hold. 4. AFib with rapid ventricular rate. He is back in sinus rhythm now. 5. Possible infection. He is getting broad-spectrum antibiotics and antifungals. Cultures are all pending 6. The patient has anemia. It is not low enough to need ROBIN. 7. Sodium level is a bit low. Probably due to the renal failure plus I will get fluids. Keep an eye on this. History of Present Illness Reason for Consult Consult date: 12/26/21 Chief Complaint Chief complaint: afib rvr, chf exacerbation History of Present Illness Narrative: Moise is a very pleasant 71-year-old gentleman who has multiple medical problems including hypertension, diabetes, paroxysmal atrial fibrillation, arthritis, coronary disease, hypothyroidism, hyperlipidemia, and skin cancer. The patient came into the hospital on 12/19 because of shortness of breath. This had been going on for about a day. All night long before he came to the ER he was short of breath and having to sit up to get relief. He had no chest pain. No palpitations. He went to the emergency room. There he was evaluated and found to have AFib with rapid ventricular rate. His chest x-ray in the ER showed bilateral infiltrates right greater than left. He was admitted to the floor. Echocardiogram was done which showed decreased ejection fraction compared to the 1 done in June of 2020. It did drop from about 55% to about 30%. The patient deteriorated respiratory samson and on the he was transferred to the ICU and had to be admitted. He is now on 90% oxygen. He was on pressors as well because of low blood pressure but his norepinephrine was able to be weaned. Yesterday he was cardioverted and has been in sinus rhythm since. Pulmonary seeing the patient and feels that this may be a reaction to some plant that was in his garden which he was weed eating. There is some suggestive of the possible presence of star of [place]. The patient's creatinine was normal on admission but in last couple of days since his respiratory arrest his creatinine has risen and today is up to 1.8 so renal consultation was made. There is no history in the chart about grossly bloody urine, foamy urine, kidney stones, or bladder infections. No history of kidney failure in the past. He has not received contrast or nephrotoxic medications. His blood pressure has been low at times and he was on norepinephrine for a while. Review of Systems Review of Systems: ROS unobtainable: Yes unobtainable due to endotracheal tube and unobtainable due to medical condition [facility] Past Medical History Medical History (Reviewed 12/26/21 @ 10:38 by
[2021-12-26 10:35] LABS: Creatinine Urine 88.2 mg/dL
[2021-12-26 10:36] LABS: Potassium Urine Random 31.5 meq/L
[2021-12-26 10:46] LABS: Sodium Urine Random < 5 meq/L
[2021-12-26 10:46] LABS: Eosinophil Urine None Seen % (None Seen)
--- NOTE | 2021-12-26 11:09 | WPDINTPN ---
Progress Note: A&P Assessment and Plan (1) Septic shock: Code(s): A41.9 - Sepsis, unspecified organism; R65.21 - Severe sepsis with septic shock Status: Acute Assessment and Plan: Patient was hypotensive post intubation which could be related to positive pressure ventilation, decreased adrenergic surge, sedation medications, infection/sepsis -OFF LEVOPHED, will maintain mean arterial pressures greater than 65 mmHg -12/20 blood cultures negative x2 -12/22: Sputum cultures: PRELIMINARY RESULTS ARE NEGATIVE 12/25/2021 BAL: Culture is Negative, fungal culture negative, AFB is pending --continue cefepime and Levaquin 12/22. -vancomycin discontinued on 12/25 (2) Acute hypoxemic respiratory failure: Code(s): J96.01 - Acute respiratory failure with hypoxia Status: Acute Assessment and Plan: Patient presented on 12/19 is shortness of breath, fatigue, was found to be in AFib RVR with CHF exacerbation and bilateral diffuse infiltrates on the chest x-ray. During the course of his stay in the hospital chest x-ray has worsened, oxygen requirements have increased, patient was on BiPAP at 100% FiO2 with impending respiratory failure on 12/22/2021 -patient intubated on 12/22/2021 -ARDS physiology: Continue low tidal volume strategy, peep of 8, now 80% FiO2,, will increase PEEP to 10 -chest x-ray and ABGs reviewed, ventilator adjusted -sedated with fentanyl and Versed infusion, daily sedation vacation, maintain RASS of 0--2 Continue bronchodilators -SARS-CoV-2 PCR has been negative x2, influenza A and B are negative -urine strep antigen and urine Legionella have been obtained and pending -12/22 Sputum cultures - preliminary results are negative -12/24/2021 BRONCHOSCOPY WITH BAL, cultures negative focal cultures negative, AFB cultures pending 12/22: CT scan of the chest Pulmonary findings are possibly most consistent with pulmonary edema, however pneumonia can appear similar and is not excluded by this examination. Moderate bilateral effusions. Mediastinal lymphadenopathy -patient stated that a few days ago the patient and his son were removing weeds and were exposed to star of [place] which is a kind of weed. -bronchoscopy showed significant erythema and small amounts of thick secretion -discussed with pulmonology,Continue antibiotics and antifungals as above, continue Solu-Medrol possible allergic pneumonitis (3) Atrial fibrillation with RVR: Code(s): I48.91 - Unspecified atrial fibrillation Status: Acute Assessment and Plan: Patient has a history of paroxysmal atrial fibrillation, on Eliquis at home -currently in AFib RVR on admission requiring beta-blockers and amiodarone infusion -continue amiodarone infusion at 1 mg/min -appreciate cardiology evaluation recommendation -12/20/2021 echocardiogram: LV is systolic function is 30-35%, LV mildly enlarged, LA moderately enlarged, mild aortic valve sclerosis -continue Eliquis -discussed with Cardiology, patient was cardioverted on 12/25: Successfully cardioverted to sinus rhythm, patient remains in sinus rhythm and bradycardic (4) Congestive heart failure: Qualifiers: Heart failure type: unspecified Heart failure chronicity: acute Qualified Code(s): I50.9 - Heart failure, unspecified Code(s): I50.9 - Heart failure, unspecified Status: Acute Assessment and Plan: Patient initially admitted with bilateral infiltrates thought to be pulmonary edema, received significant diuretics without improvement in chest x-ray -patient not in positive fluid balance -BNP was 2230 -CHF likely secondary to AFib RVR -recent echocardiogram as above -hold diuresis 2019 Echocardiogram shows EF of 65-70% with grade 2 diastolic dysfunction and trace valvular disease and no pulmonary hypertension. (5) Elevated troponin I level: Code(s): R77.8 - Other specified abnormalities of plasma proteins Status
[2021-12-26 12:35] LABS: Total Protein Urine Random 23 mg/dL
[2021-12-26 12:47] LABS: Glucose Point of Care 383 mg/dl (65-105)
[2021-12-26] MEDS: MIDAZOLAM 100MG/NS 100ML(*CRX) 100 MG/100 ML BAG 8 MG IV CONT (13:04)
[2021-12-26] MEDS: CISATRACURIUM BESYLATE 200 MG in DEXTROSE 5% 80 ML 8.03 ML IV CONT (14:01)
[2021-12-26 14:56] LABS: Appearance Urine Clear (Clear); Bilirubin Urine Negative (Negative); Blood Urine Negative (Negative); Color Urine Yellow (Yellow); Glucose Urine UA 2+ mg/dL (Negative); Ketones Urine Trace mg/dL (Negative); Leukocyte Esterase Ur Negative LEU/UL (NEGATIVE); Nitrate Urine Negative (Negative); Protein Urine Negative (Negative); Specific Grav Ur 1.025 (1.001-1.035); Urobilinogen Urine 0.2 mg/dL (<2.0); pH Urine 5.5 (5.0-9.0)
[2021-12-26 15:01] LABS: Add Urine Microscopic? YES; Amorphous Sediment Urine Few; Bacteria Urine Trace /hpf; Hyaline Casts Urine 20-29 /lpf; Mucus Urine Moderate /lpf; Squamous Epithelial Cell Urine Occasional /hpf (Few)
[2021-12-26 15:32] LABS: Sodium Urine Random < 5 meq/L
[2021-12-26 15:57] LABS: Glucose Point of Care 364 mg/dl (65-105)
--- NOTE | 2021-12-26 16:03 | PM.IMPN ---
Progress Note: A&P Assessment and Plan (1) Septic shock: Code(s): A41.9 - Sepsis, unspecified organism; R65.21 - Severe sepsis with septic shock Status: Acute Assessment and Plan: Patient was hypotensive post intubation which could be related to positive pressure ventilation, decreased adrenergic surge, sedation medications, infection/sepsis -OFF LEVOPHED, will maintain mean arterial pressures greater than 65 mmHg -continue cefepime and vancomycin which to started on 12/22 -12/20 blood cultures negative x2 -12/22: Sputum cultures: PRELIMINARY RESULTS ARE NEGATIVE -hold IV fluids since patient's chest x-ray and chest CT reflective of pulmonary edema and/or pneumonia 12/25/2021 interval history: patient is 71-year-old male was brought to the emergency depart with with generalized weakness and shortness of breath upon arrival to emergency depart patient was in atrial fibrillation with RVR and diltiazem drip was started, and anticoagulated with Eliquis, patient symptom worsen he was hypoxic and was placed on CPAP, his symptoms continue to worsen and on 12/22 patient was hypoxic and was seen by business services representative and intubated, currently patient on vent secondary to multifactorial exacerbation of acute on chronic systolic congestive Heart failure with ejection fraction of 30%, there is also concern the patient may have had an inhalation while working in garden on a hot summer day prior to coming to emergency depart however patient had a bronchoscopy in does not suggest any inhalation injury rather cisco unified communications engineer suspect fulminant pneumonia as well as congestive heart failure due to moderately severe systolic function with ejection fraction 30%, patient is being treated Cefepime and Levaquin vancomycin was stopped however so far blood culture, sputum culture and bronchoscopy BAL no growth, patient had a cardioversion on 12/25 he is hemodynamically stable and sinus rhythm, patient remains on ventilator, is off Levophed and on norepinephrine maintaining MAP of 65, seen by business services representative and appreciate. 12/26/2021 interval history: patient is 71-year-old male was brought to the emergency depart with with generalized weakness and shortness of breath upon arrival to emergency depart patient was in atrial fibrillation with RVR and diltiazem drip was started, and anticoagulated with Eliquis, patient symptom worsen he was hypoxic and was placed on CPAP, his symptoms continue to worsen and on 12/22 patient was hypoxic and was seen by business services representative and intubated, currently patient on vent secondary to multifactorial exacerbation of acute on chronic systolic congestive Heart failure with ejection fraction of 30%, there is also concern the patient may have had an inhalation while working in garden on a hot summer day prior to coming to emergency depart however patient had a bronchoscopy in does not suggest any inhalation injury rather cisco unified communications engineer suspect fulminant pneumonia as well as congestive heart failure due to moderately severe systolic function with ejection fraction 30%, patient is being treated Cefepime and Levaquin vancomycin was stopped however so far blood culture, sputum culture and bronchoscopy BAL no growth, patient had a cardioversion on 12/25 he is hemodynamically stable and sinus rhythm, patient remains on ventilator, is off Levophed and on norepinephrine maintaining MAP of 65, seen by business services representative and appreciate. there are no significant changes and patient remains clinically stable on ventilator patient is seen cardiology, router tender and business services representative and appreciate. (2) Acute hypoxemic respiratory failure: Code(s): J96.01 - Acute respiratory failure with hypoxia Status: Acute Assessment and Plan: Patient presented on 12/19 is shortness of breath, fatigue, was found to be in AFib RVR with CHF exacerbation and bilateral diffuse infiltrates on the chest x-ray. During the course of his stay in the hospital chest x-ray has worsened, oxygen
[2021-12-26 21:07] LABS: Glucose Point of Care 336 mg/dl (65-105)
[2021-12-27] VITALS (47 sets, daily range): BP systolic 110–134; BP diastolic 43–58; PULSE 45–64; RESP 20–22; TEMP 36.1–36.6; O2SAT 91–98
[2021-12-27] MEDS: INSULIN ASPART (*BKC) 100 UNITS/ML SUB-Q ×7 (00:41→23:55)
[2021-12-27] MEDS: methylPREDNISolone SOD SUCC 40 MG VIAL IV PUSH ×2 (00:42→05:59)
[2021-12-27] MEDS: MIDAZOLAM 100MG/NS 100ML(*CRX) 100 MG/100 ML BAG 8 MG IV CONT ×2 (00:55→14:03)
[2021-12-27] MEDS: CISATRACURIUM BESYLATE 200 MG in DEXTROSE 5% 80 ML 5.35 ML IV CONT (01:12)
[2021-12-27 01:13] LABS: Glucose Point of Care 398 mg/dl (65-105)
[2021-12-27] MEDS: IPRATROPIUM BR 0.02% INH SOLN 0.5 MG/2.5 ML VIAL INHALATION ×4 (02:43→20:26)
[2021-12-27] MEDS: LEVALBUTEROL NEB 1.25 MG/3 ML 0.63 MG INHALATION ×4 (02:44→20:26)
[2021-12-27 05:22] LABS: Glucose Point of Care 418 mg/dl (65-105)
[2021-12-27 05:25] LABS: Alveolar/Arterial O2 Gradient 302.7 mmHg; Base Excess ABG 3.2 mEq/l (+/-2.0); Carboxyhemoglobin 0.1 % THb (0-2.0); Fractional Inspired Oxygen 60 %; HCO3 ABG 28.4 mEq/l (22.0-26.0); Methemoglobin ABG 0.1 %THb (0-1.5); Oxygen Saturation ABG 95.2 % (95.0-100.0); PCO2 ABG 45.4 mmHg (35.0-45.0); PO2 ABG 75.2 mmHg (80.0-100.0); PO2 FiO2 Ratio Arterial Blood 1.25 %; Reduced Hemoglobin 5.8 %THb (0-5.0); Total Hemoglobin 12.8 g/dL (12.0-18.0); pH ABG 7.414 (7.350-7.450)
[2021-12-27 05:26] LABS: Device VENTILATOR; Modified Allen's Test Pass; Site Drawn RIGHT BRACHIAL
[2021-12-27 05:27] LABS: Arterial Blood Gas PEEP 8 cmH2O; Arterial Blood Gas Tidal Volume 410 ml; Arterial Blood Gas Vent Mode CMV; Arterial Blood Gas Ventilator rate 22 /MIN
[2021-12-27 05:47] LABS: Basophils Percent Auto 0.1 % (0.2-1.2); Hematocrit 37.5 % (42.0-52.0); Hemoglobin 11.9 g/dL (14.0-18.0); Immature Granulocyte Percent A 0.8 % (0-0.5); Lymphocytes Absolute Auto 0.26 K/mm3 (0.9-3.2); Lymphocytes Percent Auto 2.1 % (18.3-44.2); Mean Corpuscular HGB Conc 31.7 g/dl (32-36); Mean Corpuscular Hemoglobin 26.7 pg (26-34); Mean Corpuscular Volume 84.3 fl (80-100); Mean Platelet Volume 12.8 fl (7.4-10.4); Monocytes Absolute Auto 0.6 K/mm3 (0.1-0.6); Monocytes Percent Auto 4.8 % (2.6-8.5); Neutrophils Absolute Auto 11.7 K/mm3 (1.3-6.7); Neutrophils Percent Auto 92.2 % (45.5-73.1); Platelet Count Result 230 k/mm3 (150-375); Red Blood Count 4.45 M/mm3 (4.6-6.20); Red Cell Distribution Width 16.4 % (11.5-14.5); White Blood Count 12.6 K/mm3 (4.5-10.0)
[2021-12-27] MEDS: LEVOTHYROXINE SODIUM 112 MCG TABLET PO (05:55)
[2021-12-27] MEDS: CENTRAL LINE FLUSH 10 ML IV PUSH ×4 (05:55→22:55)
[2021-12-27 06:08] LABS: Alanine Aminotransferase 20 U/L (6-50); Alkaline Phosphatase 84 U/L (38-126); Anion Gap 10 mmol/L (8-16); Aspartate Amino Transferase 30 U/L (17-59); Bilirubin,Total 0.6 mg/dL (0.2-1.3); Blood Urea Nitrogen 87 mg/dL (9-20); Calcium 7.6 mg/dL (8.4-10.2); Carbon Dioxide 29 mmol/L (22-30); Chloride 92 mmol/L (98-107); Estimated CRCL calculation 35 ml/min; Estimated Glomerular Filt Rate 35; Glucose 414 mg/dL (65-110); Phosphorus 3.7 mg/dL (2.5-4.5); Potassium 4.1 mmol/L (3.4-5.0); Sodium 131 mmol/L (137-145)
[2021-12-27] MEDS: INSULIN ASPART (*BKC) 100 UNITS/ML 8 UNITS SUB-Q (06:34)
[2021-12-27] MEDS: FENTANYL 2,500MCG/NS250ML(*CRX 2,500 MCG/250 ML BAG 20 MCG IV CONT (07:38)
[2021-12-27 08:11] LABS: Glucose Point of Care 375 mg/dl (65-105)
--- NOTE | 2021-12-27 08:46 | PM.IMPN ---
Progress Note: A&P Assessment and Plan (1) Septic shock: Code(s): A41.9 - Sepsis, unspecified organism; R65.21 - Severe sepsis with septic shock Status: Acute Assessment and Plan: [place] at this time patient has septic shock most likely present on admission related to PNA. Was on levophed but able to be weaned off on 12/25/21. Was on Steroids without much benefit so these were stopped as well. Bronch concerning with airway erythema. Abx were broadened. Bronch Fungal Cx NGTD (Gram stain negative). Bronch Cx negative. BCx negative. Sputum culture negative. Serologies are either negative or pending. Continue IV antibiotics. Micafungin added. Appreciate parts chaser input. (2) Acute hypoxemic respiratory failure: Code(s): J96.01 - Acute respiratory failure with hypoxia Status: Acute Assessment and Plan: Patient developed acute hypoxic respiratory failure. ABG showed 7.43/40/63 on high-flow nasal cannula. Chest x-ray on admission showed bilateral infiltrates R>L. COVID swab was negative. Started on IV Lasix but no significant improvement. IV antibiotics started for concern for possible pneumonia. Repeat COVID negative. Patient's condition worsened and he required intubation on 12/22/21. CT Chest also showing pulmonary edema vs pneumonia. CXR reviewed today showing stable diffuse lung disease. Influenza negative. HIV negative (checked due to needle stick 2 years ago). Concern now that he may have ARDS. Wean vent as tolerated. Continue Xopenex/Atrovent. Appreciate Document Scanner and Pulmonary input. (3) Atrial fibrillation with RVR: Code(s): I48.91 - Unspecified atrial fibrillation Status: Acute Assessment and Plan: Patient states he has paroxysmal atrial fibrillation and can feel when he is heart rate is elevated. Suspect shortness of breath and chest heaviness on admission related to the AFib with RVR and respiratory failure. Diltiazem was able to be changed to oral Metoprolol but this has been stopped as well due to the HoTN. TSH normal. Echo showing EF 30-35% with indeterminate diastolic function. Cards consulted and Amio drip was started. Heart rate became better controlled. Cardioverted on 12/25 successfully. Amio had to be stopped due to bradycardia. Continue Eliquis. Appreciate Cards input. (4) Congestive heart failure: Qualifiers: Heart failure type: unspecified Heart failure chronicity: acute Qualified Code(s): I50.9 - Heart failure, unspecified Code(s): I50.9 - Heart failure, unspecified Status: Acute Assessment and Plan: Echo in 2020 shows EF of 65-70% with grade 2 diastolic dysfunction and trace valvular disease and no pulmonary hypertension. Chest x-ray as mentioned above. BNP 2230. Echo this admission showing EF 30-35% with indeterminate diastolic function. Patient had a component of acute systolic and diastolic CHF related to AFib with RVR felt contributing to the respiratory failure. Lasix stopped due to HoTN. Continue to monitor (5) Elevated troponin I level: Code(s): R77.8 - Other specified abnormalities of plasma proteins Status: Acute Assessment and Plan: Troponin elevated to 0.091 but flat. EKG showing AFib/RVR with poor R wave progression and nonspecific ST-T wave changes in inf/lat leads. Likely due to AF/RVR and CHF exacerbation. Not felt to have acute coronary syndrome. Repeat EKG since cardioverted. 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 The patient's blood glucose was reviewed on 12/27 Glucose was 414 this morning. Tolerating tube feeding. Higher glucose related t
[2021-12-27] MEDS: PANTOPRAZOLE SODIUM IV 40 MG VIAL IV PUSH (09:02)
[2021-12-27] MEDS: APIXABAN 5 MG TABLET BY MOUTH ×2 (09:03→17:04)
[2021-12-27] MEDS: ATORVASTATIN 40 MG TABLET PO (09:03)
[2021-12-27] MEDS: ASPIRIN 81 MG ENTERIC TABLET PO (09:03)
[2021-12-27] MEDS: polyethylene glycoL 3350 17 GM POWD.PACK PO (09:04)
[2021-12-27] MEDS: DOCUSATE SODIUM LIQ 100 MG/10 ML UDC PO ×2 (09:04→20:01)
[2021-12-27] MEDS: INSULIN GLARGINE (*BKC) 100 UNITS/ML 40 UNITS SUB-Q ×2 (09:12→20:01)
[2021-12-27] MEDS: MINERAL OIL/WHITE PETROLATUM OINTMENT 1 APPLIC EACH EYE ×2 (09:17→20:01)
--- NOTE | 2021-12-27 09:21 | ECG_ITS ---
Measurements Intervals [place] Rate: 48 P: 62 MT: 194 QRS: 50 QRSD: 136 T: 241 QT: 571 QTc: 510 Interpretive Statements SINUS BRADYCARDIA INTRAVENTRICULAR CONDUCTION DELAY DELAYED PRECORDIAL R/S TRANSITION T WAVE ABNORMALITY IN ANTEROLATERAL LEADS- CONSIDER ISCHEMIA ABNORMAL ECG Electronically Signed On 12-27-2021 11:57:06 CDT by Nicko Trivedi D.O.
--- NOTE | 2021-12-27 10:42 | PM.PNCARD ---
Progress Note: A&P Assessment and Plan (1) Atrial fibrillation with RVR: Code(s): I48.91 - Unspecified atrial fibrillation Status: Acute Assessment and Plan: S/p DC cardioversion on 12/25. Maintaining sinus rhythm. Continue anticoagulation with Eliquis. (2) Congestive heart failure: Qualifiers: Heart failure chronicity: acute Heart failure type: unspecified Qualified Code(s): I50.9 - Heart failure, unspecified Code(s): I50.9 - Heart failure, unspecified Status: Acute Assessment and Plan: Currently not in decompensated HF. (3) Acute hypoxemic respiratory failure: Code(s): J96.01 - Acute respiratory failure with hypoxia Status: Acute Assessment and Plan: Now requiring mechanical ventilatory support. ? inhalation injury from [place]. Pulmonology following. Subjective Date/time seen: 12/27/21 10:42 Interval history: FU for a fib RVR, acute CHF. H/O CAD. 12/20/2021: 71-year-old man with coronary artery disease and history of paroxysmal atrial fibrillation presenting for shortness of breath has significant pulmonary congestion on chest x-ray and some wheezing on physical exam. Sounds like symptomatic Flora he probably went back in atrial fibrillation last week. He has been compliant with his anticoagulation regimen. He was previously maintained in sinus rhythm with sotalol but became problematically bradycardic on that medication. I am going to start him on IV amiodarone at this time an attempt at restoring sinus rhythm. We will stop the IV diltiazem and hopefully he will medically convert if he does not we will perform a electrical cardioversion before the end of the week Date of Service 12/21/2021: STill very weak and dyspnec w/ minor activity. Scant hemoptysis. Droplet precautions. On CPAP, FI O2 70%. Diuresed some. Telemetry shows atrial fibrillation, heart rate 90-110. P.o. metoprolol added to IV amiodarone. Date of service 12/22/2021: Patient's respiratory status remains unimproved despite attempts to treat CHF in control atrial fibrillation maintains on IV amiodarone for the last 48 hours. Heart rate at rest this morning 115-125. Date of service 12/25/2021: Patient decompensated with respiratory failure had to be transferred to the ICU intubated placed on mechanical ventilator support. Bronchoscopy lupe day suggest C has an infection with tracheobronchitis. he remains in atrial fibrillation IV amiodarone is running heart rate is well controlled in the 80-90 range. Date of service 12/26/2021: Clinically unchanged maintaining sinus rhythm/ sinus bradycardia following DC cardioversion yesterday. Amiodarone stopped at the request of the pulmonology and ICU staff. Patient appears to have a infectious and/or inhalational lung injury. Family indicate that he was doing yd work / weed whacking without a mask on and are concerned that he was clearing a weed that is called star of [place] which apparently can cause an inhalational/toxic injury. Date of service 12/27/2021: No significant changes. Remains in sinus rhythm, slightly bradycardic but hemodynamically stable. Family at bedside. Answered their questions to their satisfaction. Review of Systems Constitutional: Constitutional: Reports no additional constitutional complaints, Reports fatigue, Reports lethargy and Reports weakness Eyes: Eyes: Reports no additional eye complaints ENT: Reports system reviewed and no additional complaints, except as documented and Denies nasal discharge Cardiovascular: Cardiovascular: Reports as per HPI, Denies chest pain, Reports palpitations, Reports dyspnea and Reports dyspnea on exertion Respiratory: Respiratory: Reports cough, Reports hemoptysis, Reports dyspnea and Reports dyspnea on exertion Gastrointestinal: Gastrointestinal: Reports no additional gastrointestinal complaints and Denies abdominal pain Genitourinary: Genito
--- NOTE | 2021-12-27 11:36 | PCFNICU ---
ICU Rounding Note: Pt current nutrition is Vital AF 1.2 at 70 ml/hr Last recorded weight is 92.8 kg, up from 83.6 kg on admit. Bowel Motility: No BM, Colace, Miralax, suppository and giving enema today. Labs Reviewed:BUN 87,Cr 1.9, Na 131, Hct 37.5,Hgb 11.9,Glu 414 Meds Noted:Nimbex, Versed, Fentanyl, Eliquis, Protonix,NovoLog,Lantus, Synthroid, Xopenex Skin: WNL Additional Notes: Patient remains on mechanical vent and tube feedings of Vital AF 1.2 at 70 ml/hr over 22 hours and tolerating per nursing. No BM-meds noted. Agree with diet orders. Following daily in ICU rounds. Will reassess every Monday and Monday.
--- NOTE | 2021-12-27 12:28 | PM.PNNEP ---
Progress Note: A&P Assessment and Plan (1) REGINALD (acute kidney injury): Code(s): N17.9 - Acute kidney failure, unspecified Status: Acute Assessment and Plan: non-oliguric at this time rate of rise in creatinine appears to be slowing down... likely secondary to ATN from hemodynamic instability and shock/infection CPK normal renal ultrasound okay prerenal factors likely playing a role as well - low EF + Afib with RVR and possibly 3rd spacing urine electrolytes prerenal serologies pending follow repeat labs and UOP (2) Septic shock: Code(s): A41.9 - Sepsis, unspecified organism; R65.21 - Severe sepsis with septic shock Status: Acute Assessment and Plan: source not clear follow culture data on IV antibiotics (3) Acute hypoxemic respiratory failure: Code(s): J96.01 - Acute respiratory failure with hypoxia Status: Acute Assessment and Plan: appears to be ARDS ventilator support Pulmonary following as well contine current therapy (4) Atrial fibrillation with RVR: Code(s): I48.91 - Unspecified atrial fibrillation Status: Acute Assessment and Plan: continue rate control strategy Will continue to follow. Subjective Date/time seen: 12/27/21 12:28 Chart reviewed - assuming care from Dr. Husain; remains on ventilator support at this time; however, stable hemodynamics off vasopressor therapy; still requiring paralytics at this time; better/reasonable urine output noted. Exam Narrative: General: Elderly male intubated/sedated/paralyzed Heart: normal S1 and S2; no rub Lungs: coarse breath sounds Abdomen: soft, nontender, nondistended, positive bowel sounds Extremities: no cyanosis or clubbing; no edema Skin: warm and dry Objective Data Vital Signs Vital Signs: Vital Signs Temp Pulse Resp BP Pulse Ox 12/27/21 11:01 46 L 95 12/27/21 10:00 46 L 22 H 118/52 L 93 12/27/21 09:20 47 L 22 H 117/49 L 12/27/21 08:44 49 L 20 12/27/21 08:43 48 L 94 12/27/21 08:37 46 L 22 H 12/27/21 08:00 36.4 C L 46 L 22 H 114/51 L 94 12/27/21 07:38 46 L 22 H 12/27/21 06:02 49 L 22 H 128/58 L 12/27/21 06:00 49 L 22 H 128/58 L 96 12/27/21 05:17 51 L 95 12/27/21 04:50 46 L 22 H 120/55 L 12/27/21 04:00 36.4 C 47 L 22 H 115/53 L 96 12/27/21 02:52 47 L 22 H 12/27/21 02:46 46 L 94 12/27/21 02:44 46 L 22 H 12/27/21 02:08 47 L 22 H 124/54 L 12/27/21 02:00 47 L 22 H 124/54 L 94 12/27/21 01:12 47 L 22 H 127/58 L 12/27/21 00:55 53 L 22 H 12/27/21 00:30 48 L 22 H 114/51 L 12/27/21 00:00 36.5 C 48 L 22 H 119/54 L 94 12/26/21 23:45 48 L 96 12/26/21 22:00 48 L 22 H 112/54 L 97 12/26/21 21:06 52 L 22 H 12/26/21 20:50 53 L 97 12/26/21 20:49 51 L 22 H 12/26/21 20:00 36.4 C 58 L 22 H 143/62 H 97 12/26/21 19:30 52 L 22 H 12/26/21 18:32 52 L 22 H 12/26/21 18:00 51 L 22 H 112/49 L 96 12/26/21 16:47 53 L 96 12/26/21 16:12 55 L 22 H 114/48 L 12/26/21 16:00 36.5 C 54 L 22 H 114/48 L 97 12/26/21 14:01 60 22 H 124/51 L 12/26/21 14:00 57 L 22 H 124/51 L 99 12/26/21 13:46 58 L 22 H 96 12/26/21 13:21 50 L 22 H 12/26/21 13:04 50 L 20 Intake/Output Intake/Output: Intake & Output 12/24/21 12/25/21 12/26/21 12/27/21 23:59 23:59 23:59 23:59 Intake Total 3262.6 3038.4 2181 1224 Output Total 850 1750 800 950 Balance 2412.6 1288.4 1381 274 Meds/Results Medications: Active Medications Generic Name Dose Route Start Last Admin Trade Name Freq PRN Reason Stop Dose Admin Acetaminophen 650 mg 12/19/21 09:48 Acetaminophen 325 Mg Tablet PO Q4H PRN Mild Pain (1-3) or Fever Apixaban 5 mg 12/19/21 17:00 12/27/21 09:03 Apixaban 5 Mg Tablet BY MOUTH 5 mg BID DEEPIKA Administration Aspirin 81 mg 05
[2021-12-27 12:40] LABS: Anti Cyclic Citrullinated Pept <16 Units (<20)
[2021-12-27 13:02] LABS: Glucose Point of Care 349 mg/dl (65-105)
--- NOTE | 2021-12-27 13:14 | PM.PNPUL ---
Progress Note: A&P Assessment and Plan (1) Acute hypoxemic respiratory failure: Code(s): J96.01 - Acute respiratory failure with hypoxia Status: Acute Assessment and Plan: Patient with progressive hypoxemic respiratory failure now requiring intubation, paralysis and is currently on 60% FiO2 with a peep of 8. CT scan with diffuse interstitial and alveolar infiltrates. Patient underwent a bronchoscopy on 12/24/2021 which showed diffuse tracheobronchitis BAL with neutrophils and no evidence of eosinophilia or lymphocytosis. Etiology unclear at this time. Includes infection (bacterial, fungal, viral), inhalational injury, acute idiopathic pneumonia, ARDS. Patient is currently on broad-spectrum antibiotics for presumed bacterial infection with cefepime started on 12/22 and levofloxacin started on 12/26. Patient was given micofungin on 12/25 but fungal smears have been negative and this will be discontinued today. He was given Solu-Medrol 40 mg IV Q 6 hours times 48 hours, last dose 12/27 at 06:00. I agree with discontinuation of steroids at this point. Patient is HIV negative, COVID RT PCR negative x2, urine Legionella antigen negative, urine pneumococcal antigen negative, influenza swab negative, rheumatoid factor elevated at 18.6, anti CCP antibody negative, ANCA, Chlamydia, urine Histoplasma, mycoplasma, PCP studies are all pending. I will order hypersensitivity pneumonitis, blastomycosis Ab, SAL cascade for 11 different auto antibodies and extended viral multiplex assay. Discussed with Dr. Oscar and at bedside. will follow with you. Subjective Date/time seen: 12/27/21 13:14 Interval history: Patient presented to the hospital on 12/19 after working in his son's Garden on 12/16. Per the he was using a weed whacker and pulling out Star of [employer]. Patient was normal the evening of 12/16. The patient was normal on 12/17 and worked in his garden shoveling his home compos pile. The evening of the patient developed sneezing and mild shortness of breath but went to slept sleep and slept normally that night. On 12/18 the patient had shortness of breath and heavy chest feeling. On 12/19 the patient presented to the emergency room. the patient has no exposures to pats such as chickens, pigeons or parakeets. The patient has no new hobbies such as spray painting or Nam all or any other aerosolized solvent work. The patient did start [facility] 2 weeks ago and received 1 dose at home and has received 1 dose in the hospital. Patient had shortness of breath, hypoxia and diffuse interstitial and alveolar infiltrates. Patient was treated for with antibiotics and diuretics but be got progressively worse requiring BiPAP and ultimately being intubated on 12/22/2021. patient underwent bronchoscopy on 12/24/2112/26: 12/26/21 10:24 There has been no change in patient's clinical condition. Remains fully sedated on mechanical ventilation. no increased bronchial secretions, afebrile. Creatinine increasing has good urinary output. Cardioverted yesterday currently in normal sinus rhythm hemodynamically stable. Patient was on 75% FiO2 and peep of 8 with a blood gas of 7.42/42/69. 12/27: patient had ventilator asynchrony requiring Nimbex drip last night. Currently patient is on 60% FiO2 and 8 of peep with a blood gas of 7.41/45/75. Patient remains intubated, paralyzed, sedated. DATA: EXAMINATION: CT diagnostic chest wo con DATE: 12/22/2021 19:22 INDICATION: ? Pneumonia, has CHF TECHNIQUE: Computed tomography (CT) of the chest was performed without intravenous contrast. Automated exposure control and iterative reconstruction technique were employed. The dose-length product was 493.08 mGy-cm. COMPARISON: Multiple chest x-rays performed on the same date. FINDINGS: CHEST: Lines and tubes: Right IJ central venous line, endotracheal tube, and nasogastric tube all
--- NOTE | 2021-12-27 14:02 | WPDINTPN ---
Progress Note: A&P Assessment and Plan (1) Septic shock: Code(s): A41.9 - Sepsis, unspecified organism; R65.21 - Severe sepsis with septic shock Status: Acute Assessment and Plan: Patient was hypotensive post intubation which could be related to positive pressure ventilation, decreased adrenergic surge, sedation medications, infection/sepsis -OFF LEVOPHED, will maintain mean arterial pressures greater than 65 mmHg -12/20 blood cultures negative x2 -12/22: Sputum cultures: PRELIMINARY RESULTS ARE NEGATIVE 12/25/2021 BAL: Culture is Negative, fungal culture negative, AFB is pending --continue cefepime and Levaquin 12/22. -vancomycin discontinued on 12/25 -discontinue micafungin 12/27 (2) Acute hypoxemic respiratory failure: Code(s): J96.01 - Acute respiratory failure with hypoxia Status: Acute Assessment and Plan: Patient presented on 12/19 is shortness of breath, fatigue, was found to be in AFib RVR with CHF exacerbation and bilateral diffuse infiltrates on the chest x-ray. During the course of his stay in the hospital chest x-ray has worsened, oxygen requirements have increased, patient was on BiPAP at 100% FiO2 with impending respiratory failure on 12/22/2021 -patient intubated on 12/22/2021 -ARDS physiology: Continue low tidal volume strategy, peep of 8, now 80% FiO2,, will increase PEEP to 10 -chest x-ray and ABGs reviewed, ventilator adjusted -sedated with fentanyl and Versed infusion, daily sedation vacation, maintain RASS of 0--2 Continue bronchodilators -SARS-CoV-2 PCR has been negative x2, influenza A and B are negative -urine strep antigen and urine Legionella have been obtained and pending -12/22 Sputum cultures - preliminary results are negative -12/24/2021 BRONCHOSCOPY WITH BAL, cultures negative focal cultures negative, AFB cultures pending 12/22: CT scan of the chest Pulmonary findings are possibly most consistent with pulmonary edema, however pneumonia can appear similar and is not excluded by this examination. Moderate bilateral effusions. Mediastinal lymphadenopathy -patient stated that a few days ago the patient and his son were removing weeds and were exposed to star of [place] which is a kind of weed. -bronchoscopy showed significant erythema and small amounts of thick secretion -discussed with pulmonology,Continue antibiotics -discontinue micafungin and steroids (3) Atrial fibrillation with RVR: Code(s): I48.91 - Unspecified atrial fibrillation Status: Acute Assessment and Plan: Patient has a history of paroxysmal atrial fibrillation, on Eliquis at home -currently in AFib RVR on admission requiring beta-blockers and amiodarone infusion -continue amiodarone infusion at 1 mg/min -appreciate cardiology evaluation recommendation -12/20/2021 echocardiogram: LV is systolic function is 30-35%, LV mildly enlarged, LA moderately enlarged, mild aortic valve sclerosis -continue Eliquis -discussed with Cardiology, patient was cardioverted on 12/25: Successfully cardioverted to sinus rhythm, patient remains in sinus rhythm and bradycardic (4) Congestive heart failure: Qualifiers: Heart failure type: unspecified Heart failure chronicity: acute Qualified Code(s): I50.9 - Heart failure, unspecified Code(s): I50.9 - Heart failure, unspecified Status: Acute Assessment and Plan: Patient initially admitted with bilateral infiltrates thought to be pulmonary edema, received significant diuretics without improvement in chest x-ray -patient not in positive fluid balance -BNP was 2230 -CHF likely secondary to AFib RVR -recent echocardiogram as above -hold diuresis -12/20/2021 echocardiogram: LV is systolic function is 30-35%, LV mildly enlarged, LA moderately enlarged, mild aortic valve sclerosis 06/13/2020 echocardiogram: shows EF of 65-70% with grade 2 diastolic dysfunction and trace valvular disease and no pulmonary hyper
[2021-12-27 15:23] LABS: Glucose Point of Care 291 mg/dl (65-105)
[2021-12-27] MEDS: CISATRACURIUM BESYLATE 200 MG in DEXTROSE 5% 80 ML IV CONT (18:08)
[2021-12-27] MEDS: FENTANYL 2,500MCG/NS250ML(*CRX 2,500 MCG/250 ML BAG 15 MCG IV CONT (19:59)
[2021-12-27 20:22] LABS: Glucose Point of Care 368 mg/dl (65-105)
[2021-12-27 23:51] LABS: Glucose Point of Care 341 mg/dl (65-105)
[2021-12-28] VITALS (28 sets, daily range): BP systolic 104–140; BP diastolic 44–50; PULSE 48–62; RESP 16–22; TEMP 36.3–36.8; O2SAT 89–97
[2021-12-28] MEDS: LEVALBUTEROL NEB 1.25 MG/3 ML 0.63 MG INHALATION (01:49)
[2021-12-28] MEDS: IPRATROPIUM BR 0.02% INH SOLN 0.5 MG/2.5 ML VIAL INHALATION (01:49)
[2021-12-28] MEDS: INSULIN ASPART (*BKC) 100 UNITS/ML SUB-Q ×3 (04:25→12:18)
[2021-12-28 05:03] LABS: Glucose Point of Care 335 mg/dl (65-105)
[2021-12-28] MEDS: CENTRAL LINE FLUSH 10 ML IV PUSH ×3 (06:05→22:42)
[2021-12-28] MEDS: LEVOTHYROXINE SODIUM 112 MCG TABLET PO (06:05)
[2021-12-28 06:27] LABS: Alanine Aminotransferase 17 U/L (6-50); Alkaline Phosphatase 93 U/L (38-126); Anion Gap 6 mmol/L (8-16); Aspartate Amino Transferase 23 U/L (17-59); Bilirubin,Total 0.6 mg/dL (0.2-1.3); Blood Urea Nitrogen 106 mg/dL (9-20); Calcium 7.8 mg/dL (8.4-10.2); Carbon Dioxide 32 mmol/L (22-30); Chloride 93 mmol/L (98-107); Estimated CRCL calculation 29 ml/min; Estimated Glomerular Filt Rate 33; Glucose 300 mg/dL (65-110); Magnesium 3.4 mg/dL (1.6-2.3); Potassium 4.1 mmol/L (3.4-5.0); Sodium 131 mmol/L (137-145)
[2021-12-28 06:37] LABS: Base Excess ABG 3.9 mEq/l (+/-2.0); HCO3 ABG 29.5 mEq/l (22.0-26.0); Oxygen Saturation ABG 97.1 % (95.0-100.0); PCO2 ABG 48.6 mmHg (35.0-45.0); PO2 ABG 93.7 mmHg (80.0-100.0); Total Hemoglobin 12.4 g/dL (12.0-18.0); pH ABG 7.401 (7.350-7.450)
[2021-12-28 06:38] LABS: Alveolar/Arterial O2 Gradient 171.9 mmHg; Device VENTILATOR; Fractional Inspired Oxygen 45 %; Methemoglobin ABG 0.2 %THb (0-1.5); Modified Allen's Test Unable to perform; Oxygen Content ABG 16.9 %vol (16.0-22.0); Oxyhemoglobin 96.1 % THb (90.0-100.0); PO2 FiO2 Ratio Arterial Blood 2.08 %; Reduced Hemoglobin 3.7 %THb (0-5.0); Site Drawn RIGHT RADIAL
[2021-12-28 06:39] LABS: Arterial Blood Gas PEEP 8 cmH2O; Arterial Blood Gas Tidal Volume 410 ml; Arterial Blood Gas Vent Mode CMV; Arterial Blood Gas Ventilator rate 22 /MIN
[2021-12-28 06:45] LABS: Basophils Percent Auto 0.2 % (0.2-1.2); Eosinophils Absolute Auto 0.1 K/mm3 (0-0.3); Eosinophils Percent Auto 0.5 % (0-4.4); Hematocrit 38.8 % (42.0-52.0); Hemoglobin 12.2 g/dL (14.0-18.0); Immature Granulocyte Absolute 0.14 K/mm3 (0.00-0.031); Immature Granulocyte Percent A 1.1 % (0-0.5); Immature Platelet Fraction Pct 13.4 % (0.9-11.2); Lymphocytes Absolute Auto 0.81 K/mm3 (0.9-3.2); Lymphocytes Percent Auto 6.1 % (18.3-44.2); Mean Corpuscular HGB Conc 31.4 g/dl (32-36); Mean Corpuscular Hemoglobin 26.8 pg (26-34); Mean Corpuscular Volume 85.1 fl (80-100); Monocytes Absolute Auto 0.9 K/mm3 (0.1-0.6); Monocytes Percent Auto 6.8 % (2.6-8.5); Neutrophils Absolute Auto 11.4 K/mm3 (1.3-6.7); Neutrophils Percent Auto 85.3 % (45.5-73.1); Platelet Count Result 241 k/mm3 (150-375); Red Blood Count 4.56 M/mm3 (4.6-6.20); Red Cell Distribution Width 16.6 % (11.5-14.5); White Blood Count 13.3 K/mm3 (4.5-10.0)
--- NOTE | 2021-12-28 08:12 | PM.PNPUL ---
Progress Note: A&P Assessment and Plan (1) Acute hypoxemic respiratory failure: Code(s): J96.01 - Acute respiratory failure with hypoxia Status: Acute Assessment and Plan: 12/27 Patient with progressive hypoxemic respiratory failure now requiring intubation, paralysis and is currently on 60% FiO2 with a peep of 8. CT scan with diffuse interstitial and alveolar infiltrates. Patient underwent a bronchoscopy on 12/24/2021 which showed diffuse tracheobronchitis BAL with neutrophils and no evidence of eosinophilia or lymphocytosis. Etiology unclear at this time. Includes infection (bacterial, fungal, viral) with ARDS, inhalational injury, acute idiopathic pneumonia. Doubt alveolar hemmorhage, eosiniphilc pneumonia, hypersensitivity pneumonitis, organizing pneumonia or vasculitits. Patient is currently on broad-spectrum antibiotics for presumed bacterial infection with cefepime started on 12/22 and levofloxacin started on 12/26. Patient was given micofungin on 12/25 but fungal smears have been negative and this will be discontinued today. He was given Solu-Medrol 40 mg IV Q 6 hours times 48 hours, last dose 12/27 at 06:00. I agree with discontinuation of steroids at this point. Patient is HIV negative, COVID RT PCR negative x2, urine Legionella antigen negative, urine pneumococcal antigen negative, influenza swab negative, rheumatoid factor elevated at 18.6, anti CCP antibody negative, ANCA, Chlamydia, urine Histoplasma, mycoplasma, PCP studies are all pending. I will order hypersensitivity pneumonitis, blastomycosis Ab, SAL cascade for 11 different auto antibodies and extended viral multiplex assay. BAL cytology negative. 12/28 Patient remains intubated, sedated and paralyzed. Currently is on 45% FiO2 with a peep of 8 and a blood gas of 7.40/49/94. afebrile with white blood cell count 13.3 on cefepime and Levaquin. Will DC his ipratropium and change his levalbuterol from q.6 standing to p.r.n.. Will try to discontinue paralytic today. Vent management per core maker team. Above-mentioned studies all pending. Discussed with Dr. Shirley at bedside. will follow with you. Subjective Date/time seen: 12/28/21 08:12 Interval history: Patient presented to the hospital on 12/19 after working in his son's Garden on 12/16.? ? Per the he was using a weed whacker and pulling out Star of [employer]? Patient was normal the evening of 12/16.? The patient was normal on 12/17 and worked in his garden shoveling his home compos pile.? The evening of the patient developed sneezing and mild shortness of breath but went to slept sleep and slept normally that night.? On 12/18 the patient had shortness of breath and heavy chest feeling.? On 12/19 the patient presented to the emergency room.? the patient has no exposures to pats such as chickens, pigeons or parakeets.? The patient has no new hobbies such as spray painting or [employer] or any other aerosolized solvent work.? The patient did start [employer] 2 weeks ago and received 1 dose at home and has received 1 dose in the hospital. Patient had shortness of breath, hypoxia and diffuse interstitial and alveolar infiltrates.? Patient was treated for with antibiotics and diuretics but be got progressively worse requiring BiPAP and ultimately being intubated on 12/22/2021.? patient underwent bronchoscopy on 12/24/2112/26: 12/26/21? 10:24 There has been no change in patient's clinical condition.? Remains fully sedated on mechanical ventilation. ? no increased bronchial secretions, afebrile.? Creatinine increasing has good urinary output.? Cardioverted yesterday currently in normal sinus rhythm hemodynamically stable. ? Patient was on 75% FiO2 and peep of 8 with a blood gas of 7.42/42/69. 12/27:? patient had ventilator asynchrony requiring Nimbex drip last night.? Currently patient is on 60% FiO2 and 8 of peep with a blood gas of 7.41/45/75. ? Patient remains intubated, paralyzed, se
--- NOTE | 2021-12-28 08:14 | PM.IMPN ---
Progress Note: A&P Assessment and Plan (1) Septic shock: Code(s): A41.9 - Sepsis, unspecified organism; R65.21 - Severe sepsis with septic shock Status: Acute Assessment and Plan: [place] at this time patient has septic shock most likely related to PNA present on admission. Was on Levophed but able to be weaned off on 12/25/21. Was on Steroids without much benefit so these were stopped as well. Bronch concerning with airway erythema. Abx were broadened. Bronch Fungal Cx NGTD (Gram stain negative). Bronch AFB pending (smear was negative). Bronch Cx negative. BCx negative. Sputum culture negative. Serologies are either negative or pending. Continue IV antibiotics. Micafungin now stopped. Appreciate pulp drier firer input. (2) Acute hypoxemic respiratory failure: Code(s): J96.01 - Acute respiratory failure with hypoxia Status: Acute Assessment and Plan: Patient developed acute hypoxic respiratory failure. ABG showed 7.43/40/63 on high-flow nasal cannula. Chest x-ray on admission showed bilateral infiltrates R>L. COVID swab was negative. Started on IV Lasix but no significant improvement. IV antibiotics started for concern for possible pneumonia. Repeat COVID negative. Patient's condition worsened and he required intubation on 12/22/21. CT Chest 12/22 showing pulmonary edema vs pneumonia. CXR reviewed today showing diffuse lung disease with improvement on the left. Influenza negative. HIV negative (checked due to needle stick 2 years ago). Concern now that he may have ARDS. Wean vent as tolerated. Continue Xopenex/Atrovent. Appreciate Correctional Probation Officer and Pulmonary input. (3) REGINALD (acute kidney injury): Code(s): N17.9 - Acute kidney failure, unspecified Status: Acute Assessment and Plan: Cr up over the weekend and now at 2.0. BUN 106. Dehydrated? ATN? Related to AIN since on abx? Discussed with pulp drier firer. Plan for IV fluids for 1Liter. Follow. Appreciate Nephrology input. (4) Atrial fibrillation with RVR: Code(s): I48.91 - Unspecified atrial fibrillation Status: Acute Assessment and Plan: Patient states he has paroxysmal atrial fibrillation and can feel when he is heart rate is elevated. Suspect shortness of breath and chest heaviness on admission related to the AFib with RVR and respiratory failure. Diltiazem was able to be changed to oral Metoprolol. TSH normal. Echo showing EF 30-35% with indeterminate diastolic function. Cards consulted and Amio drip was started. Heart rate became better controlled. Cardioverted on 12/25 successfully but became bradycardic. Amio and Metoprolol had to be stopped due to bradycardia. Continue Eliquis. Appreciate Cards input. (5) Congestive heart failure: Qualifiers: Heart failure chronicity: acute Heart failure type: unspecified Qualified Code(s): I50.9 - Heart failure, unspecified Code(s): I50.9 - Heart failure, unspecified Status: Acute Assessment and Plan: Echo in 2020 shows EF of 65-70% with grade 2 diastolic dysfunction and trace valvular disease and no pulmonary hypertension. Chest x-ray as mentioned above. BNP 2230. Echo this admission showing EF 30-35% with indeterminate diastolic function. Patient had a component of acute systolic and diastolic CHF related to AFib with RVR felt contributing to the respiratory failure. Lasix stopped due to HoTN. Continue to monitor (6) Elevated troponin I level: Code(s): R77.8 - Other specified abnormalities of plasma proteins Status: Acute Assessment and Plan: Troponin elevated to 0.091 but flat. EKG showing AFib/RVR with poor R wave progression and nonspecific ST-T wave changes in inf/lat leads. Likely due to AF/RVR and CHF exacerbation. Not felt to have acute coronary syndrome. Repeat EKG after cardioversion showing sinus bradycardia, IVCD, delayed transition and T wave abnormalities in anterolateral leads. Consider underlying ischemia. Cards fol
[2021-12-28 08:23] LABS: Creatine Kinase 31 U/L (55-170)
[2021-12-28] MEDS: polyethylene glycoL 3350 17 GM POWD.PACK PO (08:45)
[2021-12-28] MEDS: SODIUM CHLORIDE 0.9% IV 500 ML IV CONT (08:45)
[2021-12-28] MEDS: PANTOPRAZOLE SODIUM IV 40 MG VIAL IV PUSH (08:45)
[2021-12-28] MEDS: DOCUSATE SODIUM LIQ 100 MG/10 ML UDC PO ×2 (08:45→20:25)
[2021-12-28] MEDS: ASPIRIN 81 MG ENTERIC TABLET PO (08:46)
[2021-12-28] MEDS: MINERAL OIL/WHITE PETROLATUM OINTMENT 1 APPLIC EACH EYE ×2 (08:47→20:25)
[2021-12-28] MEDS: SODIUM CHLORIDE 0.9% IV 1,000 ML 100 ML IV CONT (08:47)
[2021-12-28] MEDS: APIXABAN 5 MG TABLET BY MOUTH (08:52)
[2021-12-28] MEDS: ATORVASTATIN 40 MG TABLET PO (08:52)
[2021-12-28] MEDS: INSULIN GLARGINE (*BKC) 100 UNITS/ML 50 UNITS SUB-Q ×2 (08:58→20:25)
[2021-12-28] MEDS: MIDAZOLAM 100MG/NS 100ML(*CRX) 100 MG/100 ML BAG IV CONT (09:00)
--- NOTE | 2021-12-28 09:22 | WPDINTPN ---
Progress Note: A&P Assessment and Plan (1) Septic shock: Code(s): A41.9 - Sepsis, unspecified organism; R65.21 - Severe sepsis with septic shock Status: Acute Assessment and Plan: Patient was hypotensive post intubation which could be related to positive pressure ventilation, decreased adrenergic surge, sedation medications, infection/sepsis -patient was OFF LEVOPHED but I will resume to maintain a map of 70 due to worsening renal function -12/20 blood cultures negative x2 -12/22: Sputum cultures: PRELIMINARY RESULTS ARE NEGATIVE 12/25/2021 BAL: Culture is Negative, fungal culture negative, AFB is pending --continue cefepime and Levaquin 12/22. -vancomycin discontinued on 12/25 -discontinue micafungin 12/27 (2) Acute hypoxemic respiratory failure: Code(s): J96.01 - Acute respiratory failure with hypoxia Status: Acute Assessment and Plan: Patient presented on 12/19 is shortness of breath, fatigue, was found to be in AFib RVR with CHF exacerbation and bilateral diffuse infiltrates on the chest x-ray. During the course of his stay in the hospital chest x-ray has worsened, oxygen requirements have increased, patient was on BiPAP at 100% FiO2 with impending respiratory failure on 12/22/2021 -patient intubated on 12/22/2021 -ARDS physiology: Continue low tidal volume strategy, peep of 8, now 45% FiO2 -chest x-ray and ABGs reviewed, ventilator adjusted -sedated with fentanyl and Versed infusion -chemically paralyzed with Nimbex infusion. I will from a holiday from neuromuscular ankit and see if patient tolerates - Continue bronchodilators will change to p.r.n. -SARS-CoV-2 PCR has been negative x2, influenza A and B are negative -urine strep antigen and urine Legionella have been obtained and pending -12/22 Sputum cultures - preliminary results are negative -12/24/2021 BRONCHOSCOPY WITH BAL, cultures negative focal cultures negative, AFB cultures pending 12/22: CT scan of the chest Pulmonary findings are possibly most consistent with pulmonary edema, however pneumonia can appear similar and is not excluded by this examination. Moderate bilateral effusions. Mediastinal lymphadenopathy -patient stated that a few days ago the patient and his son were removing weeds and were exposed to star of [place] which is a kind of weed. -bronchoscopy showed significant erythema and small amounts of thick secretion -discussed with pulmonology, - Continue antibiotics -Off micafungin and steroids (3) Atrial fibrillation with RVR: Code(s): I48.91 - Unspecified atrial fibrillation Status: Acute Assessment and Plan: Patient has a history of paroxysmal atrial fibrillation, on Eliquis at home He presented in AFib RVR and was treated with amiodarone infusion -12/20/2021 echocardiogram: LV is systolic function is 30-35%, LV mildly enlarged, LA moderately enlarged, mild aortic valve sclerosis -continue Eliquis -discussed with Cardiology, patient was cardioverted on 12/25: Successfully cardioverted to sinus rhythm, patient remains in sinus rhythm and bradycardic -continue Eliquis (4) Congestive heart failure: Qualifiers: Heart failure type: unspecified Heart failure chronicity: acute Qualified Code(s): I50.9 - Heart failure, unspecified Code(s): I50.9 - Heart failure, unspecified Status: Acute Assessment and Plan: Patient initially admitted with bilateral infiltrates thought to be pulmonary edema, received significant diuretics without improvement in chest x-ray -patient not in positive fluid balance -BNP was 2230 -CHF likely secondary to AFib RVR -recent echocardiogram as below -hold diuresis due to worsening renal function -12/20/2021 echocardiogram: LV is systolic function is 30-35%, LV mildly enlarged, LA moderately enlarged, mild aortic valve sclerosis - 06/13/2020 echocardiogram: shows EF of 65-70% with grade 2 diastolic dysfunction and trace valvular
[2021-12-28 09:47] LABS: Glucose Point of Care 324 mg/dl (65-105)
--- NOTE | 2021-12-28 11:44 | PCNFU ---
Nutrition Follow-Up Complete: Inadequate Oral Intake as related mechanical ventilation as evidenced by tube feedings. Goal: Meet estimated nutritional needs Patient is progressing towards goal. We will continue current goal. Pt current nutrition is Vital AF 1.2 at 70 ml/hr over 22 hours. Last recorded weight is 87.9 kg, up from 83.6 kg on admit. Bowel Motility: No BM reported. Labs Reviewed:Glu 300, BUN 106, Cr 2.0, GFR 33, Na 131, HCt 38.8, Hgb 12.2 Meds Noted:Nimbex, Versed, Fentanyl, Eliquis, Protonix,NovoLog,Lantus, Synthroid, Xopenex Skin: WNL Additional Notes: Patient remains on mechanical vent. Spoke with Contract Specialist today regarding elevated renal labs and blood sugars. Recommending tube feeding change to Nepro goal rate at 50 ml/hr over 22 hours. Tube feeding will providing 1980 kcals/89 gms protein/800 ml water. Free water flush 30 ml q 4 hours. Agree with diet orders. Will monitor daily in ICU rounds and reassess every Monday and Monday.
[2021-12-28] MEDS: ALBUMIN HUMAN 25% 25 GM/100 ML 100 ML IVPB ×2 (12:15→23:55)
[2021-12-28 12:18] LABS: Glucose Point of Care 225 mg/dl (65-105)
--- NOTE | 2021-12-28 13:22 | PM.PNNEP ---
Progress Note: A&P Assessment and Plan (1) REGINALD (acute kidney injury): Code(s): N17.9 - Acute kidney failure, unspecified Status: Acute Assessment and Plan: REGINALD urine electrolytes pre renal. CK is okay. Renal ultrasound okay.non-oliguric at this time Off pressors. This is most likely ATN from hypotension and shock syndrome, and prerenal factors likely playing a role as well - low EF + Afib with RVR and possibly 3rd spacing urine electrolytes prerenal serologies pending creatinine seems to be relatively stable but the BUN is climbing. The BUN is higher than the creatinine because of his catabolic state plus steroids. follow repeat labs and UOP (2) Septic shock: Code(s): A41.9 - Sepsis, unspecified organism; R65.21 - Severe sepsis with septic shock Status: Acute Assessment and Plan: source not clear Cultures negative so far on IV antibiotics (3) Acute hypoxemic respiratory failure: Code(s): J96.01 - Acute respiratory failure with hypoxia Status: Acute Assessment and Plan: appears to be ARDS ventilator support Pulmonary following as well contine current therapy (4) Atrial fibrillation with RVR: Code(s): I48.91 - Unspecified atrial fibrillation Status: Acute Assessment and Plan: continue rate control strategy Additional Plan Subjective Date/time seen: 12/28/21 13:22 Interval history: Patient is on the ventilator. FiO2 is down to 40%. Exam Narrative: General: Elderly male intubated/sedated/paralyzed Heart: normal S1 and S2; no rub or gallop Lungs: coarse breath sounds Abdomen: soft, nontender, nondistended, positive bowel sounds Extremities: no cyanosis or clubbing; no edema Skin: No rash Objective Data Vital Signs Vital Signs: Vital Signs - 24 hr 12/27/21 13:26 12/27/21 14:03 12/27/21 14:07 Temperature Pulse Rate 47 L 47 L 47 L Respiratory Rate 22 H 22 H Blood Pressure 118/48 L Pulse Oximetry Oxygen Delivery Fraction of Inspired Oxygen 12/27/21 14:00 12/27/21 14:00 12/27/21 14:31 Temperature 36.6 C Pulse Rate 47 L 47 L 47 L Respiratory Rate 22 H 22 H Blood Pressure 118/48 L Pulse Oximetry 98 Oxygen Delivery Fraction of Inspired Oxygen 12/27/21 14:33 12/27/21 14:38 12/27/21 15:17 Temperature Pulse Rate 49 L 49 L 46 L Respiratory Rate 22 H 22 H Blood Pressure Pulse Oximetry 98 Oxygen Delivery Mechanical Ventilation Fraction of Inspired Oxygen 60 12/27/21 15:18 12/27/21 15:24 12/27/21 16:00 Temperature Pulse Rate 46 L 45 L 45 L Respiratory Rate 22 H 22 H Blood Pressure Pulse Oximetry Oxygen Delivery Fraction of Inspired Oxygen 12/27/21 16:00 12/27/21 16:00 12/27/21 16:00 Temperature 36.1 C L Pulse Rate 45 L 45 L Respiratory Rate 22 H 22 H Blood Pressure 114/48 L Pulse Oximetry 97 97 Oxygen Delivery Mechanical Ventilation Fraction of Inspired Oxygen 60 60 12/27/21 17:09 12/27/21 17:37 12/27/21 18:08 Temperature Pulse Rate 49 L 46 L 48 L Respiratory Rate 22 H 22 H Blood Pressure 115/49 L 121/48 L Pulse Oximetry 97 Oxygen Delivery Mechanical Ventilation Fraction of Inspired Oxygen 60 12/27/21 18:00 12/27/21 18:00 12/27/21 18:00 Temperature 36.2 C L Pulse Rate 49 L 49 L 49 L Respiratory Rate 22 H 22 H Blood Pressure 121/48 L Pulse Oximetry 98 Oxygen Delivery Fraction of Inspired Oxygen 12/27/21 18:00 12/27/21 18:01 12/27/21 19:59 Temperature Pulse Rate 49 L 52 L 52 L Respiratory Rate 22 H 22 H 22 H Blood Pressure Pulse Oximetry Oxygen Delivery Fraction of Inspired Oxygen 12/27/21 20:16 12/27/21 20:16 12/27/21 20:16 Temperature Pulse Rate 64 64 64 Respiratory Rate 22 H 22 H 22 H Blood Pressure 134/46 L Pulse Oximetry Oxygen Delivery Fraction of Inspired Oxygen 12/27/21 20:27 05
[2021-12-28] MEDS: FENTANYL 2,500MCG/NS250ML(*CRX 2,500 MCG/250 ML BAG 15 MCG IV CONT (14:04)
[2021-12-28 16:24] LABS: Glucose Point of Care 154 mg/dl (65-105)
[2021-12-28] MEDS: BISACODYL 10 MG SUPPOSITORY RECTAL (17:03)
[2021-12-28 20:39] LABS: Glucose Point of Care 135 mg/dl (65-105)
[2021-12-29] VITALS (30 sets, daily range): BP systolic 114–146; BP diastolic 46–105; PULSE 53–73; RESP 10–22; TEMP 36.4–37.2; O2SAT 62–98
[2021-12-29 00:07] LABS: Glucose Point of Care 116 mg/dl (65-105)
[2021-12-29] MEDS: MIDAZOLAM 100MG/NS 100ML(*CRX) 100 MG/100 ML BAG 7 MG IV CONT (01:34)
[2021-12-29] MEDS: FENTANYL 2,500MCG/NS250ML(*CRX 2,500 MCG/250 ML BAG 20 MCG IV CONT ×2 (03:00→15:23)
[2021-12-29 04:01] LABS: Glucose Point of Care 72 mg/dl (65-105)
[2021-12-29 04:47] LABS: Basophils Absolute Auto 0.1 K/mm3 (0.0-0.1); Basophils Percent Auto 0.4 % (0.2-1.2); Eosinophils Absolute Auto 0.3 K/mm3 (0-0.3); Eosinophils Percent Auto 2.5 % (0-4.4); Hematocrit 36.3 % (42.0-52.0); Hemoglobin 11.3 g/dL (14.0-18.0); Immature Granulocyte Absolute 0.21 K/mm3 (0.00-0.031); Immature Granulocyte Percent A 1.5 % (0-0.5); Lymphocytes Absolute Auto 0.72 K/mm3 (0.9-3.2); Lymphocytes Percent Auto 5.3 % (18.3-44.2); Mean Corpuscular HGB Conc 31.1 g/dl (32-36); Mean Corpuscular Volume 86.8 fl (80-100); Mean Platelet Volume 12.1 fl (7.4-10.4); Monocytes Absolute Auto 0.9 K/mm3 (0.1-0.6); Monocytes Percent Auto 6.2 % (2.6-8.5); Neutrophils Absolute Auto 11.5 K/mm3 (1.3-6.7); Neutrophils Percent Auto 84.1 % (45.5-73.1); Platelet Count Result 248 k/mm3 (150-375); Red Blood Count 4.18 M/mm3 (4.6-6.20); White Blood Count 13.7 K/mm3 (4.5-10.0)
[2021-12-29 05:00] LABS: Alveolar/Arterial O2 Gradient 386.8 mmHg; Base Excess ABG 3.1 mEq/l (+/-2.0); Carboxyhemoglobin 0.3 % THb (0-2.0); Fractional Inspired Oxygen 70 %; HCO3 ABG 29.4 mEq/l (22.0-26.0); Methemoglobin ABG 0.3 %THb (0-1.5); Oxygen Content ABG 15.7 %vol (16.0-22.0); Oxyhemoglobin 88.1 % THb (90.0-100.0); PCO2 ABG 52.3 mmHg (35.0-45.0); PO2 ABG 56.1 mmHg (80.0-100.0); Reduced Hemoglobin 11.3 %THb (0-5.0); Total Hemoglobin 12.7 g/dL (12.0-18.0); pH ABG 7.368 (7.350-7.450)
[2021-12-29 05:01] LABS: Alanine Aminotransferase 13 U/L (6-50); Albumin Level 3.3 g/dL (3.5-5.1); Alkaline Phosphatase 55 U/L (38-126); Anion Gap 3 mmol/L (8-16); Aspartate Amino Transferase 22 U/L (17-59); Bilirubin,Total 0.8 mg/dL (0.2-1.3); Blood Urea Nitrogen 106 mg/dL (9-20); Calcium 8.2 mg/dL (8.4-10.2); Carbon Dioxide 35 mmol/L (22-30); Chloride 98 mmol/L (98-107); Estimated CRCL calculation 29 ml/min; Estimated Glomerular Filt Rate 33; Glucose 73 mg/dL (65-110); Magnesium 3.5 mg/dL (1.6-2.3); Phosphorus 3.8 mg/dL (2.5-4.5); Potassium 4.4 mmol/L (3.4-5.0); Sodium 136 mmol/L (137-145)
[2021-12-29 05:03] LABS: Device VENTILATOR; Site Drawn LEFT BRACHIAL
[2021-12-29 05:04] LABS: Arterial Blood Gas PEEP 8 cmH2O; Arterial Blood Gas Tidal Volume 410 ml; Arterial Blood Gas Vent Mode CMV; Arterial Blood Gas Ventilator rate 22 /MIN
[2021-12-29] MEDS: ALBUMIN HUMAN 25% 25 GM/100 ML 100 ML IVPB ×4 (05:17→23:45)
[2021-12-29] MEDS: CENTRAL LINE FLUSH 10 ML IV PUSH ×4 (05:17→20:08)
[2021-12-29] MEDS: LEVOTHYROXINE SODIUM 112 MCG TABLET PO (05:18)
--- NOTE | 2021-12-29 05:51 | PCRCNOTE ---
Pt's pO2 was low (56.1) on his morning ABG with an associated sat of 87.9 on the ABG and 87-89% on the monitor. After suctioning, the pt's sats on the monitor increased to 95% so the FiO2 on the ventilator was not increased.
[2021-12-29 07:29] LABS: Glucose Point of Care 61 mg/dl (65-105)
[2021-12-29] MEDS: DEXTROSE 50% 25 GM/50 ML SYRINGE IV PUSH ×2 (07:30→16:50)
[2021-12-29] MEDS: polyethylene glycoL 3350 17 GM POWD.PACK PO (08:08)
[2021-12-29] MEDS: MINERAL OIL/WHITE PETROLATUM OINTMENT 1 APPLIC EACH EYE ×2 (08:08→20:08)
[2021-12-29] MEDS: PANTOPRAZOLE SODIUM IV 40 MG VIAL IV PUSH (08:08)
[2021-12-29] MEDS: DOCUSATE SODIUM LIQ 100 MG/10 ML UDC PO ×2 (08:08→20:08)
[2021-12-29] MEDS: ATORVASTATIN 40 MG TABLET PO (08:09)
[2021-12-29] MEDS: ASPIRIN 81 MG ENTERIC TABLET PO (08:09)
[2021-12-29 08:20] LABS: Glucose Point of Care 136 mg/dl (65-105)
[2021-12-29 08:20] LABS: Glucose Point of Care 103 mg/dl (65-105)
[2021-12-29 08:20] LABS: Glucose Point of Care 97 mg/dl (65-105)
[2021-12-29 08:47] LABS: INR 1.7; Prothrombin Time 19.5 Seconds (11.1-14.7)
[2021-12-29 08:48] LABS: Partial Thromboplastin Time 33.8 SECONDS (22.3-36.8)
--- NOTE | 2021-12-29 08:52 | WPDINTPN ---
Progress Note: A&P Assessment and Plan (1) Septic shock: Code(s): A41.9 - Sepsis, unspecified organism; R65.21 - Severe sepsis with septic shock Status: Acute Assessment and Plan: Patient was hypotensive post intubation which could be related to positive pressure ventilation, decreased adrenergic surge, sedation medications, infection/sepsis -patient was OFF LEVOPHED but I resumed 12/28 to maintain a map of 70 due to worsening renal function. Continue -12/20 blood cultures negative x2 -12/22: Sputum cultures: PRELIMINARY RESULTS ARE NEGATIVE 12/25/2021 BAL: Culture is Negative, fungal culture negative, AFB is pending --continue cefepime and Levaquin 12/22. -vancomycin discontinued on 12/25 -discontinue micafungin 12/27 (2) Acute hypoxemic respiratory failure: Code(s): J96.01 - Acute respiratory failure with hypoxia Status: Acute Assessment and Plan: Patient presented on 12/19 is shortness of breath, fatigue, was found to be in AFib RVR with CHF exacerbation and bilateral diffuse infiltrates on the chest x-ray. During the course of his stay in the hospital chest x-ray has worsened, oxygen requirements have increased, patient was on BiPAP at 100% FiO2 with impending respiratory failure on 12/22/2021 -patient intubated on 12/22/2021 -ARDS physiology: Continue low tidal volume strategy, peep of 8, now 70% FiO2 -chest x-ray and ABGs reviewed -sedated with fentanyl and Versed infusion -chemically paralyzed with Nimbex infusion. Nimbex was discontinued 12/28 and FiO2 need has increased overnight to 70%. I will increase PEEP to 10. will try to avoid continuous Nimbex infusion in use Paralytic on p.r.n. basis. - Continue bronchodilators will change to p.r.n. -SARS-CoV-2 PCR has been negative x2, influenza A and B are negative -urine strep antigen and urine Legionella have been obtained and pending -12/22 Sputum cultures - preliminary results are negative -12/24/2021 BRONCHOSCOPY WITH BAL, cultures negative focal cultures negative, AFB cultures pending 12/22: CT scan of the chest Pulmonary findings are possibly most consistent with pulmonary edema, however pneumonia can appear similar and is not excluded by this examination. Moderate bilateral effusions. Mediastinal lymphadenopathy -patient stated that a few days ago the patient and his son were removing weeds and were exposed to star of [place] which is a kind of weed. -bronchoscopy showed significant erythema and small amounts of thick secretion -discussed with pulmonology, - Continue antibiotics -Off micafungin and steroids (3) Atrial fibrillation with RVR: Code(s): I48.91 - Unspecified atrial fibrillation Status: Acute Assessment and Plan: Patient has a history of paroxysmal atrial fibrillation, on Eliquis at home He presented in AFib RVR and was treated with amiodarone infusion -12/20/2021 echocardiogram: LV is systolic function is 30-35%, LV mildly enlarged, LA moderately enlarged, mild aortic valve sclerosis -discussed with Cardiology, patient was cardioverted on 12/25: Successfully cardioverted to sinus rhythm, patient remains in sinus rhythm and bradycardic -continue anticoagulation. Eliquis will be transition to heparin as patient may need hemodialysis catheter insertion (4) Congestive heart failure: Qualifiers: Heart failure type: unspecified Heart failure chronicity: acute Qualified Code(s): I50.9 - Heart failure, unspecified Code(s): I50.9 - Heart failure, unspecified Status: Acute Assessment and Plan: Patient initially admitted with bilateral infiltrates thought to be pulmonary edema, received significant diuretics without improvement in chest x-ray -patient not in positive fluid balance -BNP was 2230 -CHF likely secondary to AFib RVR -recent echocardiogram as below -hold diuresis due to worsening renal function -12/20/2021 echocardiogram: LV is systolic function is 30
--- NOTE | 2021-12-29 08:59 | PM.PNPUL ---
Progress Note: A&P Assessment and Plan (1) Acute hypoxemic respiratory failure: Code(s): J96.01 - Acute respiratory failure with hypoxia Status: Acute Assessment and Plan: 12/27 Patient with progressive hypoxemic respiratory failure now requiring intubation, paralysis and is currently on 60% FiO2 with a peep of 8. CT scan with diffuse interstitial and alveolar infiltrates. Patient underwent a bronchoscopy on 12/24/2021 which showed diffuse tracheobronchitis BAL with neutrophils and no evidence of eosinophilia or lymphocytosis. Etiology unclear at this time. Includes infection (bacterial, fungal, viral) with ARDS, inhalational injury, acute idiopathic pneumonia. Doubt alveolar hemorrhage, eosiniphilc pneumonia, hypersensitivity pneumonitis, organizing pneumonia or vasculitits. Patient is currently on broad-spectrum antibiotics for presumed bacterial infection with cefepime started on 12/22 and levofloxacin started on 12/26. Was on azithoro on 12/20 and ceftriaxone 12/20 through 12/22. Was on vanco 12/22 through 12/25. Patient was given micofungin on 12/25 but fungal smears have been negative and discontinued 12/27. He was given Solu-Medrol 40 mg IV Q 6 hours times 48 hours, started 12/25 and last dose 12/27 at 06:00. I agree with discontinuation of steroids at this point. Patient is HIV negative, COVID RT PCR negative x2, urine Legionella antigen negative, urine pneumococcal antigen negative, influenza swab negative, rheumatoid factor elevated at 18.6, anti CCP antibody negative, ANCA, Chlamydia, urine Histoplasma, mycoplasma, PCP studies are all pending. I will order hypersensitivity pneumonitis, blastomycosis Ab, SAL cascade for 11 different auto antibodies and extended viral multiplex assay. BAL cytology negative. 12/28 Patient remains intubated, sedated and paralyzed. Currently is on 45% FiO2 with a peep of 8 and a blood gas of 7.40/49/94. afebrile with white blood cell count 13.3 on cefepime (started 12/22) and Levaquin (started 12/24). Will DC his ipratropium and change his levalbuterol from q.6 standing to p.r.n.. Will try to discontinue paralytic today. Vent management per pacs administrator team. Above-mentioned studies all pending. Paralytics discontinued approximately 1500. FiO2 requirements began to increase at 2300. 5/25 patient remains intubated and sedated. On levophed. Paralysis remains off. Oxygenation requirements increased off of paralytics and were up to 70% and peep of 8 at 4:00 a.m. patient remains on 70% peep of 8. Cr 2.0. Treating patient for ARDS injury likely due to an infection. He may also have an inhalational injury. Cultures negative or pending. Etiology of ARDS remains unclear. Connective tissue disorder workup pending. he still remains on 70% and 8 of peep and appears to have stabilized. His chest x-ray infiltrates are stable or mildly improved. If clinically stable, I would repeat a CT scan of the chest today to reassess his infiltrates. For worsening infiltrates will consider transferring to higher level of care facility for thoracic surgery consultation for open lung biopsy Discussed with Dr. Shirley. Will follow with you. Subjective Date/time seen: 12/29/21 08:59 Interval history: Patient presented to the hospital on 12/19 after working in his son's Garden on 12/16.? ? Per the he was using a weed whacker and pulling out Star of [employer].? Patient was normal the evening of 12/16.? The patient was normal on 12/17 and worked in his garden shoveling his home compos pile.? The evening of 12/17 the patient developed sneezing and mild shortness of breath but went to slept sleep and slept normally that night.? On 12/18 the patient had shortness of breath and heavy chest feeling.? On 12/19 the patient presented to the emergency room.? the patient has no exposures to pats such as chickens, pigeons or parakeets.? The patient has no new hobbies such as spray painting or Nam all or any ot
[2021-12-29] MEDS: HEPARIN SOD/D5W 100 UNITS/ML 25,000 UNITS/250 ML BAG 14 UNITS IV CONT (09:07)
--- NOTE | 2021-12-29 09:14 | PM.IMPN ---
Progress Note: A&P Assessment and Plan (1) Septic shock: Code(s): A41.9 - Sepsis, unspecified organism; R65.21 - Severe sepsis with septic shock Status: Acute Assessment and Plan: Tofte at this time patient has septic shock most likely related to PNA present on admission. Levophed resumed this morning. Was on Steroids without much benefit so these were stopped. Bronch performed 12/24 concerning with airway erythema. Abx were broadened. All cultures thus far negative; Bronch Fungal Cx and AFB still preliminary. Serologies are either negative or pending. Continue IV antibiotics with Cefepime and Levaquin. Micafungin now stopped. Appreciate reporter input. (2) Acute hypoxemic respiratory failure: Code(s): J96.01 - Acute respiratory failure with hypoxia Status: Acute Assessment and Plan: Patient developed acute hypoxic respiratory failure. ABG showed 7.43/40/63 on high-flow nasal cannula. Chest x-ray on admission showed bilateral infiltrates R>L. COVID swab was negative. Started on IV Lasix but no significant improvement. IV antibiotics started for concern for possible pneumonia. Repeat COVID negative. Patient's condition worsened and he required intubation on 12/22/21. CT Chest 12/22 showing pulmonary edema vs pneumonia with moderate bilateral pleural effusions. CXR reviewed from yesterday showing diffuse lung disease with mild improvement on the left c/w edema v PNA v ARDS. No significant pleural effusions noted. Influenza negative. HIV negative (checked due to needle stick 2 years ago). Wean vent as tolerated. Continue Xopenex/Atrovent. Appreciate Paper Testing Supervisor and Pulmonary input. (3) REGINALD (acute kidney injury): Code(s): N17.9 - Acute kidney failure, unspecified Status: Acute Assessment and Plan: Cr up over the weekend to 2.0 and BUN 106. Dehydrated? ATN? Related to AIN since on abx? Urine eos negative. Renal US normal. Juancarlos<5. He received 1Liter NS. BUN/CR unchanged today with UOP 1300. Follow. Appreciate Nephrology input. (4) Atrial fibrillation with RVR: Code(s): I48.91 - Unspecified atrial fibrillation Status: Acute Assessment and Plan: Patient has pAFib and can feel when he is heart rate is elevated. Shortness of breath and chest heaviness on admission related to the AFib with RVR and respiratory failure. Started on Diltiazem which was changed to oral Metoprolol. TSH normal. Echo showing EF 30-35% with indeterminate diastolic function. Cards consulted and Amio drip was started. Heart rate became better controlled but persistent AFib so Cardioverted on 12/25 successfully. He did become bradycardic so Amio and Metoprolol stopped. Maintaining NSR. Continue anticoagulation. Appreciate Cards input. (5) Congestive heart failure: Qualifiers: Heart failure chronicity: acute Heart failure type: unspecified Qualified Code(s): I50.9 - Heart failure, unspecified Code(s): I50.9 - Heart failure, unspecified Status: Acute Assessment and Plan: Echo in 2020 shows EF of 65-70% with grade 2 diastolic dysfunction and trace valvular disease and no pulmonary hypertension. Chest x-ray as mentioned above. BNP 2230. Echo this admission showing EF 30-35% with indeterminate diastolic function. Patient had a component of acute on chronic systolic and diastolic CHF related to AFib with RVR felt contributing to the respiratory failure. Lasix stopped due to HoTN and now with REGINALD. Continue to monitor (6) Elevated troponin I level: Code(s): R77.8 - Other specified abnormalities of plasma proteins Status: Acute Assessment and Plan: Troponin elevated to 0.091 but flat. EKG showing AFib/RVR with poor R wave progression and nonspecific ST-T wave changes in inf/lat leads. Likely due to AF/RVR and CHF exacerbation. Not felt to have acute coronary syndrome. Repeat EKG after cardioversion showing sinus bradycardia, IVCD, delayed transition and T wav
--- NOTE | 2021-12-29 11:10 | PM.PNCARD ---
Progress Note: A&P Assessment and Plan (1) Atrial fibrillation with RVR: Code(s): I48.91 - Unspecified atrial fibrillation Status: Acute Assessment and Plan: S/p DC cardioversion on 12/25. Maintaining sinus rhythm. Continue anticoagulation (2) Congestive heart failure: Qualifiers: Heart failure type: unspecified Heart failure chronicity: acute Qualified Code(s): I50.9 - Heart failure, unspecified Code(s): I50.9 - Heart failure, unspecified Status: Acute Assessment and Plan: Currently not in decompensated HF. (3) Acute hypoxemic respiratory failure: Code(s): J96.01 - Acute respiratory failure with hypoxia Status: Acute Assessment and Plan: Now requiring mechanical ventilatory support. ? inhalation injury from [employer]. Pulmonology following. Subjective Date/time seen: 12/29/21 11:10 Interval history: FU for a fib RVR, acute CHF. H/O CAD. 12/20/2021: 71-year-old man with coronary artery disease and history of paroxysmal atrial fibrillation presenting for shortness of breath has significant pulmonary congestion on chest x-ray and some wheezing on physical exam. Sounds like symptomatic Flora he probably went back in atrial fibrillation last week. He has been compliant with his anticoagulation regimen. He was previously maintained in sinus rhythm with sotalol but became problematically bradycardic on that medication. I am going to start him on IV amiodarone at this time an attempt at restoring sinus rhythm. We will stop the IV diltiazem and hopefully he will medically convert if he does not we will perform a electrical cardioversion before the end of the week Date of Service 12/21/2021: STill very weak and dyspnec w/ minor activity. Scant hemoptysis. Droplet precautions. On CPAP, FI O2 70%. Diuresed some. Telemetry shows atrial fibrillation, heart rate 90-110. P.o. metoprolol added to IV amiodarone. Date of service 12/22/2021: Patient's respiratory status remains unimproved despite attempts to treat CHF in control atrial fibrillation maintains on IV amiodarone for the last 48 hours. Heart rate at rest this morning 115-125. Date of service 12/25/2021: Patient decompensated with respiratory failure had to be transferred to the ICU intubated placed on mechanical ventilator support. Bronchoscopy lupe day suggest C has an infection with tracheobronchitis. he remains in atrial fibrillation IV amiodarone is running heart rate is well controlled in the 80-90 range. Date of service 12/26/2021: Clinically unchanged maintaining sinus rhythm/ sinus bradycardia following DC cardioversion yesterday. Amiodarone stopped at the request of the pulmonology and ICU staff. Patient appears to have a infectious and/or inhalational lung injury. Family indicate that he was doing yd work / weed whacking without a mask on and are concerned that he was clearing a weed that is called star of [place] which apparently can cause an inhalational/toxic injury. Date of service 12/27/2021: No significant changes. Remains in sinus rhythm, slightly bradycardic but hemodynamically stable. Family at bedside. Answered their questions to their satisfaction. Date of service 12/29 22: Still intubated sedated. Still in sinus rhythm. Family at bedside Review of Systems Constitutional: Constitutional: Reports no additional constitutional complaints, Reports fatigue, Reports lethargy and Reports weakness Eyes: Eyes: Reports no additional eye complaints ENT: Reports system reviewed and no additional complaints, except as documented and Denies nasal discharge Cardiovascular: Cardiovascular: Reports as per HPI, Denies chest pain, Reports palpitations, Reports dyspnea and Reports dyspnea on exertion Respiratory: Respiratory: Reports cough, Reports hemoptysis, Reports dyspnea and Reports dyspnea on exertion Gastrointestinal: Gastrointestinal: Reports no add
[2021-12-29] MEDS: SODIUM CHLORIDE 0.9% IV 1,000 ML 100 ML IV CONT (11:49)
--- NOTE | 2021-12-29 11:53 | PCFNICU ---
ICU Rounding Note: Pt current nutrition is Nepro at 50 ml/hr over 22 hours. Last recorded weight is 89 kg, up from 83.6 kg on admit Bowel Motility: No BM reported-orders for enema today. Labs Reviewed:Mg 3.5, Alb 3.3,GFR 33, Cr 2.0, Hgb 11.3 Meds Noted:Versed, Fentanyl, Eliquis, Protonix,NovoLog,Lantus, Synthroid, Xopenex, Miralax, NS, Colace, Suppository, Heparin. Skin: WNL Additional Notes: Patient remains on mechanical vent and tube feedings of Nepro at 50 ml/hr over 22 hours. Patient is tolerating tube feedings. No BM yet. CT scan today. Agree with diet orders. Following daily in ICU rounds. Will reassess every Monday and Monday..
[2021-12-29 12:02] LABS: Glucose Point of Care 82 mg/dl (65-105)
[2021-12-29 13:46] LABS: Partial Thromboplastin Time 107.8 SECONDS (22.3-36.8)
[2021-12-29] MEDS: MIDAZOLAM 100MG/NS 100ML(*CRX) 100 MG/100 ML BAG 8 MG IV CONT (13:49)
--- NOTE | 2021-12-29 14:29 | PM.PNNEP ---
Progress Note: A&P Assessment and Plan (1) REGINALD (acute kidney injury): Code(s): N17.9 - Acute kidney failure, unspecified Status: Acute Assessment and Plan: due to multifactorial ATN: hypotension/hemodynamic instability shock prerenal factors depressed EF Afib with RVR third spacing evaluation to date: prerenal urine electrolytes CPK karla renal ultrasound without acute issues serologies pending creatinine relatively stable; BUN elevated due to catabolic state and steroids follow repeat labs and UOP (2) Septic shock: Code(s): A41.9 - Sepsis, unspecified organism; R65.21 - Severe sepsis with septic shock Status: Acute Assessment and Plan: source not clear cultures negative so far on IV antibiotics (3) Acute hypoxemic respiratory failure: Code(s): J96.01 - Acute respiratory failure with hypoxia Status: Acute Assessment and Plan: appears to be ARDS ventilator support Pulmonary following as well contine current therapy (4) Atrial fibrillation with RVR: Code(s): I48.91 - Unspecified atrial fibrillation Status: Acute Assessment and Plan: continue rate control strategy Will continue to follow. Subjective Date/time seen: 12/29/21 14:29 Chart reviewed - assuming care from Dr. Husain; remains intubated and on mechanical ventilation; he remains on low dose levophed to maintain his MAP/blood pressure; reasonable urine output noted at this time. Exam Narrative: General: Elderly male intubated/sedated/paralyzed Heart: normal S1 and S2; no rub or gallop Lungs: coarse breath sounds Abdomen: soft, nontender, nondistended, positive bowel sounds Extremities: no cyanosis or clubbing; no edema Skin: no rash Objective Data Vital Signs Vital Signs: Vital Signs Temp Pulse Resp BP Pulse Ox O2 Del Method FiO2 12/29/21 13:49 57 L 13 12/29/21 13:41 60 97 Mechanical Ventilation 70 12/29/21 12:00 62 17 93 Mechanical Ventilation 70 12/29/21 11:06 66 91 Mechanical Ventilation 70 12/29/21 10:00 62 13 136/50 L 91 12/29/21 10:00 62 12/29/21 08:00 62 12/29/21 08:00 37.2 C 62 17 123/50 L 62 L 12/29/21 08:00 70 12/29/21 08:00 62 17 93 Mechanical Ventilation 70 12/29/21 08:25 73 90 Mechanical Ventilation 70 12/29/21 07:48 37.2 C 12/29/21 06:00 60 15 116/47 L 95 12/29/21 06:00 60 12/29/21 04:00 36.8 C 59 L 16 114/48 L 92 12/29/21 04:00 70 12/29/21 04:00 59 L 16 92 Mechanical Ventilation 70 12/29/21 04:00 59 L 12/29/21 04:35 70 89 L Mechanical Ventilation 70 12/29/21 03:00 58 L 16 12/29/21 02:55 58 L 16 12/29/21 02:00 56 L 19 114/50 L 88 L 12/29/21 02:00 58 L 12/29/21 00:00 36.8 C 64 17 140/105 H 85 L 12/29/21 00:00 65 12/29/21 00:00 64 17 85 L Mechanical Ventilation 65 12/29/21 00:00 64 12/29/21 02:00 56 L 89 L Mechanical Ventilation 65 12/29/21 00:05 56 L 16 12/29/21 01:34 56 L 16 12/29/21 01:34 56 L 16 12/28/21 23:14 58 L 92 Mechanical Ventilation 55 12/28/21 22:00 56 L 16 112/48 L 89 L 12/28/21 22:00 56 L 12/28/21 20:00 36.3 C L 54 L 18 117/48 L 91 12/28/21 20:00 45 12/28/21 20:00 54 L 18 91 Mechanical Ventilation 45 12/28/21 20:00 54 L 12/28/21 20:30 57 L 90 Mechanical Ventilation 45 12/28/21 16:00 35 12/28/21 16:00 36.8 C 54 L 20 121/47 L 92 12/28/21 14:37 62 94 Mechanical Ventilation 35 Intake/Output Intake/Output: Intake & Output 12/26/21 12/27/21 12/28/21 12/29/21 23:59 23:59 23:59 23:59 Intake Total 2181 2597 1372 1462 Output Total 800 1800 1300 475 Balance 1381 797 72 987 Meds/Results Medications: Active Medications Generic Name Dose Route St
[2021-12-29] MEDS: NOREPINEPHRINE BITARTRATE 16 MG in DEXTROSE 5% IN WATER 234 ML IVPB (15:27)
[2021-12-29 16:40] LABS: Glucose Point of Care 69 mg/dl (65-105)
[2021-12-29 17:05] LABS: Glucose Point of Care 149 mg/dl (65-105)
[2021-12-29] MEDS: DEXTROSE 5%/0.9% SOD CHL 1,000 ML 100 ML IV CONT (17:53)
[2021-12-29 17:58] LABS: Glucose Point of Care 110 mg/dl (65-105)
[2021-12-29 20:17] LABS: Glucose Point of Care 105 mg/dl (65-105)
[2021-12-29 20:54] LABS: Partial Thromboplastin Time 115.2 SECONDS (22.3-36.8)
[2021-12-29] MEDS: ROCURONIUM BROMIDE 50 MG/5 ML VIAL IV PUSH (21:00)
--- NOTE | 2021-12-29 22:15 | PC.NURSE ---
2100 Dr. Shirley called because pt saturations were down to 84%. He ordered a one time dose of David, increase the peep and decrease the fluids. I notified RT and orders ere done. Dr. Shirley then called back and ordered pt to be put back on his nimbex drip and to give a one time dose of Lasix. Pharmacy made aware of new orders. WE will continue to closely monitor patient and inform MD of any changes.
[2021-12-29] MEDS: FUROSEMIDE INJ 40 MG/4 ML VIAL IV PUSH (22:33)
[2021-12-29] MEDS: CISATRACURIUM BESYLATE 200 MG in DEXTROSE 5% 80 ML 8.03 ML IV CONT (22:33)
[2021-12-29] MEDS: FUROSEMIDE INJ 40 MG/4 ML VIAL (22:41)
[2021-12-29 23:49] LABS: Glucose Point of Care 109 mg/dl (65-105)
[2021-12-30] VITALS (19 sets, daily range): BP systolic 121–132; BP diastolic 46–51; PULSE 52–59; RESP 20–27; TEMP 36.3–36.6; O2SAT 93–98
--- NOTE | 2021-12-30 | ECHOL_ITS ---
Patient Info Name: Moise Lutz Age: 71 years : 1950 Gender: Male Ht: 68 in Wt: 204 lbs BSA: 2.13 m2 HR: 55 bpm BP: 126 / 50 mmHg Heart Rhythm: Sinus Rhythm Technical Quality: Good Exam Date: 12/30/2021 9:29 AM Exam Location: [facility] Pulmonary Exam Room: ICU8 Patient Status: Inpatient Admit Date: 12/21/2021 Staff Ordering Physician: Kaiser Shirley MD Senior Premium Auditor: Eladia Sosa RDCS Attending Provider: Karen Calderón DO Exam Type: CA echo limited Study Info Indications - ASSESS LV RV IVC Limited two-dimensional transthoracic echocardiogram is performed. Summary 1. Left ventricular chamber dimension is normal. 2. Left ventricular systolic function is normal, estimated at 55-60%. 3. There is mildly increased left ventricular wall thickness. 4. Left atrial chamber dimension is mildly enlarged. 5. There is mild aortic valve calcification. 6. The mitral valve annulus is moderately calcified. 7. There is mild tricuspid valve regurgitation. 8. Mild pulmonary hypertension, estimated pulmonary arterial systolic pressure is 40 mmHg. Left Ventricle Left ventricular chamber dimension is normal. Left ventricular systolic function is normal, estimated at 55-60%. There is mildly increased left ventricular wall thickness. Right Ventricle Right ventricular chamber dimension is normal. Right ventricular systolic function is normal. Left Atria Left atrial chamber dimension is mildly enlarged. Right Atria Right atrial chamber dimension is normal. Aortic Valve There is mild aortic valve calcification. Pulmonic Valve The pulmonic valve is not well visualized. Mitral Valve The mitral valve annulus is moderately calcified. Tricuspid Valve The tricuspid valve leaflets are normal. There is mild tricuspid valve regurgitation. Mild pulmonary hypertension, estimated pulmonary arterial systolic pressure is 40 mmHg. Pericardium/Pleural The pericardium appears normal. There is no pericardial effusion. Inferior Vena Cava Dilated inferior vena cava with <50% collapse upon inspiration consistent with elevated right atrial pressure, 15 mmHg. Aorta The aortic root size at the sinus of Valsalva is normal. There is mild aortic atherosclerosis. Tricuspid Valve Name Value Normal TV Regurgitation Doppler TR Peak Velocity 249 cm/s TR Peak Gradient 25 mmHg Estimated PAP/RSVP RA Pressure 15 mmHg <=5 PA Systolic Pressure 40 mmHg <36 RV Systolic Pressure 40 mmHg <36 Ventricles Name Value Normal LV Dimensions 2D/MM IVS Diastolic Thickness (2D) 1.0 cm 0.6-1.0 LVID Diastole (2D) 5.3 cm 4.2-5.8 LVIW Diastolic Thickness (2D) 1.1 cm 0.6-1.0 LVID Systole (2D) 3
[2021-12-30] MEDS: FENTANYL 2,500MCG/NS250ML(*CRX 2,500 MCG/250 ML BAG 20 MCG IV CONT (03:53)
[2021-12-30 04:11] LABS: Basophils Percent Auto 0.2 % (0.2-1.2); Eosinophils Absolute Auto 0.4 K/mm3 (0-0.3); Eosinophils Percent Auto 2.5 % (0-4.4); Hematocrit 33.4 % (42.0-52.0); Hemoglobin 10.2 g/dL (14.0-18.0); Immature Granulocyte Percent A 2.1 % (0-0.5); Lymphocytes Absolute Auto 0.64 K/mm3 (0.9-3.2); Lymphocytes Percent Auto 4.4 % (18.3-44.2); Mean Corpuscular HGB Conc 30.5 g/dl (32-36); Mean Corpuscular Hemoglobin 26.7 pg (26-34); Mean Corpuscular Volume 87.4 fl (80-100); Mean Platelet Volume 12.8 fl (7.4-10.4); Monocytes Absolute Auto 0.4 K/mm3 (0.1-0.6); Monocytes Percent Auto 2.9 % (2.6-8.5); Neutrophils Absolute Auto 12.7 K/mm3 (1.3-6.7); Neutrophils Percent Auto 87.9 % (45.5-73.1); Platelet Count Result 212 k/mm3 (150-375); Red Blood Count 3.82 M/mm3 (4.6-6.20); Red Cell Distribution Width 17.2 % (11.5-14.5); White Blood Count 14.5 K/mm3 (4.5-10.0)
[2021-12-30 04:31] LABS: Alanine Aminotransferase 10 U/L (6-50); Albumin Level 3.5 g/dL (3.5-5.1); Alkaline Phosphatase 55 U/L (38-126); Anion Gap 4 mmol/L (8-16); Aspartate Amino Transferase 29 U/L (17-59); Bilirubin,Total 0.9 mg/dL (0.2-1.3); Blood Urea Nitrogen 103 mg/dL (9-20); Calcium 8.8 mg/dL (8.4-10.2); Carbon Dioxide 35 mmol/L (22-30); Chloride 102 mmol/L (98-107); Estimated CRCL calculation 38 ml/min; Estimated Glomerular Filt Rate 40; Glucose 135 mg/dL (65-110); Magnesium 3.2 mg/dL (1.6-2.3); Phosphorus 3.5 mg/dL (2.5-4.5); Potassium 3.9 mmol/L (3.4-5.0); Sodium 141 mmol/L (137-145)
[2021-12-30 04:32] LABS: Partial Thromboplastin Time 85.5 SECONDS (22.3-36.8)
[2021-12-30] MEDS: CENTRAL LINE FLUSH 10 ML IV PUSH (05:03)
[2021-12-30] MEDS: ALBUMIN HUMAN 25% 25 GM/100 ML 100 ML IVPB ×2 (05:03→11:27)
[2021-12-30] MEDS: HEPARIN SOD/D5W 100 UNITS/ML 25,000 UNITS/250 ML BAG 10 UNITS IV CONT (05:15)
[2021-12-30] MEDS: LEVOTHYROXINE SODIUM 112 MCG TABLET PO (05:30)
[2021-12-30 05:48] LABS: Alveolar/Arterial O2 Gradient 426.6 mmHg; Base Excess ABG 6.3 mEq/l (+/-2.0); Carboxyhemoglobin 0.1 % THb (0-2.0); Fractional Inspired Oxygen 80 %; HCO3 ABG 32.2 mEq/l (22.0-26.0); Methemoglobin ABG 0.3 %THb (0-1.5); Oxygen Content ABG 17.2 %vol (16.0-22.0); Oxygen Saturation ABG 96.8 % (95.0-100.0); Oxyhemoglobin 95.8 % THb (90.0-100.0); PCO2 ABG 51.9 mmHg (35.0-45.0); PO2 ABG 89.3 mmHg (80.0-100.0); PO2 FiO2 Ratio Arterial Blood 1.12 %; Reduced Hemoglobin 3.8 %THb (0-5.0); Total Hemoglobin 12.7 g/dL (12.0-18.0); pH ABG 7.411 (7.350-7.450)
[2021-12-30 05:51] LABS: Device VENTILATOR; Modified Allen's Test Pass; Site Drawn LEFT RADIAL
[2021-12-30 05:52] LABS: Arterial Blood Gas PEEP 14 cmH2O; Arterial Blood Gas Tidal Volume 410 ml; Arterial Blood Gas Vent Mode CMV; Arterial Blood Gas Ventilator rate 22 /MIN
[2021-12-30] MEDS: CISATRACURIUM BESYLATE 200 MG in DEXTROSE 5% 80 ML 12.04 ML IV CONT (06:39)
[2021-12-30 07:24] LABS: Glucose Point of Care 172 mg/dl (65-105)
--- NOTE | 2021-12-30 07:53 | PM.PNPUL ---
Progress Note: A&P Assessment and Plan (1) Acute hypoxemic respiratory failure: Code(s): J96.01 - Acute respiratory failure with hypoxia Status: Acute Assessment and Plan: 12/27 Patient with progressive hypoxemic respiratory failure now requiring intubation, paralysis and is currently on 60% FiO2 with a peep of 8. CT scan with diffuse interstitial and alveolar infiltrates. Patient underwent a bronchoscopy on 12/24/2021 which showed diffuse tracheobronchitis BAL with neutrophils and no evidence of eosinophilia or lymphocytosis. Etiology unclear at this time. Includes infection (bacterial, fungal, viral) with ARDS, inhalational injury, acute idiopathic pneumonia. Doubt alveolar hemorrhage, eosiniphilc pneumonia, hypersensitivity pneumonitis, organizing pneumonia or vasculitits. Patient is currently on broad-spectrum antibiotics for presumed bacterial infection with cefepime started on 12/22 and levofloxacin started on 12/26. Was on azithoro on 12/20 and ceftriaxone 12/20 through 12/22. Was on vanco 12/22 through 12/25. Patient was given micofungin on 12/25 but fungal smears have been negative and discontinued 12/27. He was given Solu-Medrol 40 mg IV Q 6 hours times 48 hours, started 12/25 and last dose 12/27 at 06:00. I agree with discontinuation of steroids at this point. Patient is HIV negative, COVID RT PCR negative x2, urine Legionella antigen negative, urine pneumococcal antigen negative, influenza swab negative, rheumatoid factor elevated at 18.6, anti CCP antibody negative, ANCA, Chlamydia, urine Histoplasma, mycoplasma, PCP studies are all pending. I will order hypersensitivity pneumonitis, blastomycosis Ab, SAL cascade for 11 different auto antibodies and extended viral multiplex assay. BAL cytology negative. 12/28 Patient remains intubated, sedated and paralyzed. Currently is on 45% FiO2 with a peep of 8 and a blood gas of 7.40/49/94. afebrile with white blood cell count 13.3 on cefepime (started 12/22) and Levaquin (started 12/24). Will DC his ipratropium and change his levalbuterol from q.6 standing to p.r.n.. Will try to discontinue paralytic today. Vent management per road sign installer team. Above-mentioned studies all pending. Paralytics discontinued approximately 1500. FiO2 requirements began to increase at 2300. 5/25 patient remains intubated and sedated. On levophed. Paralysis remains off. Oxygenation requirements increased off of paralytics and were up to 70% and peep of 8 at 4:00 a.m. patient remains on 70% peep of 8. Cr 2.0. Treating patient for ARDS injury likely due to an infection. He may also have an inhalational injury. Cultures negative or pending. Etiology of ARDS remains unclear. Connective tissue disorder workup pending. he still remains on 70% and 8 of peep and appears to have stabilized. His chest x-ray infiltrates are stable or mildly improved. If clinically stable, I would repeat a CT scan of the chest today to reassess his infiltrates. For worsening infiltrates will consider transferring to higher level of care facility for thoracic surgery consultation for open lung biopsy. CT scan of the chest demonstrated diffuse interstitial and alveolar infiltrates with consolidation in the more dependent pattern. Small bilateral pleural effusions. No abscess. Deteriorated throughout the day requiring 100% FiO2, paralytics and increasing peep. 12/30 Patient remains intubated, sedated, paralyzed and on Levophed 2 mics. patient is currently on 80% and peep of 14 with saturations 96 and a peak airway pressure of 37. ABG is 7.41/52/89. Given clinical deterioration, no improvement in her CT scan will re-initiate vancomycin, antifungals with micafungin, Solu-Medrol 1 milligram/kilos per da, and recommend transfer to higher level of care facility for Infectious Disease consultation and evaluation for open lung biopsy. Discussed with Dr. Shirley. Will follow with you. Subjective Date/time seen:
[2021-12-30] MEDS: polyethylene glycoL 3350 17 GM POWD.PACK PO (08:04)
[2021-12-30] MEDS: DOCUSATE SODIUM LIQ 100 MG/10 ML UDC PO (08:04)
[2021-12-30] MEDS: BISACODYL 10 MG SUPPOSITORY RECTAL (08:04)
[2021-12-30] MEDS: ASPIRIN 81 MG ENTERIC TABLET PO (08:04)
[2021-12-30] MEDS: PANTOPRAZOLE SODIUM IV 40 MG VIAL IV PUSH (08:04)
[2021-12-30] MEDS: ATORVASTATIN 40 MG TABLET PO (08:04)
[2021-12-30 08:11] LABS: Chlamydia pneumoniae by PCR Not Detected
[2021-12-30] MEDS: MICAFUNGIN SODIUM 100 MG in SODIUM CHLORIDE 0.9% IV 100 ML IVPB (08:30)
[2021-12-30] MEDS: methylPREDNISolone SOD SUCC 125 MG VIAL 25 MG IV PUSH ×2 (08:31→11:33)
[2021-12-30] MEDS: MINERAL OIL/WHITE PETROLATUM OINTMENT 1 APPLIC EACH EYE (08:31)
--- NOTE | 2021-12-30 09:07 | WPDINTPN ---
Progress Note: A&P Assessment and Plan (1) Septic shock: Code(s): A41.9 - Sepsis, unspecified organism; R65.21 - Severe sepsis with septic shock Status: Acute Assessment and Plan: Patient was hypotensive post intubation which could be related to positive pressure ventilation, decreased adrenergic surge, sedation medications, infection/sepsis -patient was OFF LEVOPHED but I resumed 12/28 to maintain a map of 70 due to worsening renal function. Continue low-dose Levophed to maintain map -12/20 blood cultures negative x2 -12/22: Sputum cultures: PRELIMINARY RESULTS ARE NEGATIVE 12/25/2021 BAL: Culture is Negative, fungal culture negative, AFB is pending --continue cefepime and Levaquin 12/22. -vancomycin discontinued on 12/25, resumed 12/30 -discontinue micafungin 12/27, resumed 12/30 (2) Acute hypoxemic respiratory failure: Code(s): J96.01 - Acute respiratory failure with hypoxia Status: Acute Assessment and Plan: Patient presented on 12/19 is shortness of breath, fatigue, was found to be in AFib RVR with CHF exacerbation and bilateral diffuse infiltrates on the chest x-ray. During the course of his stay in the hospital chest x-ray has worsened, oxygen requirements have increased, patient was on BiPAP at 100% FiO2 with impending respiratory failure on 12/22/2021 -patient intubated on 12/22/2021 -ARDS physiology: Continue low tidal volume strategy, peep of 8, now 70% FiO2 -chest x-ray and ABGs reviewed -sedated with fentanyl and Versed infusion - patient was initially chemically paralyzed with Nimbex infusion and his FiO2 requirement went down.. Nimbex was discontinued 12/28 and FiO2 need has increased Since then- - 12/30 Nimbex resume. peep is at 14 and FiO2 has been weaned down to 80% now - Continue bronchodilators p.r.n. -SARS-CoV-2 PCR has been negative x2, influenza A and B are negative -urine strep antigen and urine Legionella have been obtained and pending -12/22 Sputum cultures - preliminary results are negative -12/24/2021 BRONCHOSCOPY WITH BAL, cultures negative focal cultures negative, AFB cultures pending -patient stated that a few days ago the patient and his son were removing weeds and were exposed to star of [place] which is a kind of weed. -bronchoscopy showed significant erythema and small amounts of thick secretion 12/22: CT scan of the chest Pulmonary findings are possibly most consistent with pulmonary edema, however pneumonia can appear similar and is not excluded by this examination. Moderate bilateral effusions. Mediastinal lymphadenopathy Repeat Chest/Abdomen/Pelvis CT 12/29/21 12:59 IMPRESSION: 1. Persistent extensive diffuse bilateral lung disease which could represent pneumonia, severe pulmonary edema or some combination thereof. 2. Small bilateral pleural effusions. 3. Cardiomegaly. -discussed with pulmonology. Dr. Olmos recommend resuming vancomycin micafungin and steroids. We also discussed transfer to a tertiary facility for infectious disease consultation and possible lung biopsy. I will discuss with patient's family and will try to initiate transfer if family is agreeable (3) Atrial fibrillation with RVR: Code(s): I48.91 - Unspecified atrial fibrillation Status: Acute Assessment and Plan: Patient has a history of paroxysmal atrial fibrillation, on Eliquis at home He presented in AFib RVR and was treated with amiodarone infusion -12/20/2021 echocardiogram: LV is systolic function is 30-35%, LV mildly enlarged, LA moderately enlarged, mild aortic valve sclerosis -discussed with Cardiology, patient was cardioverted on 12/25: Successfully cardioverted to sinus rhythm, patient remains in sinus rhythm and bradycardic -continue anticoagulation. Eliquis will be transition to heparin as patient may need hemodialysis catheter insertion (4) Congestive heart failure: Qualifiers: Heart failure chronicity: acute Heart failure t
[2021-12-30 09:32] LABS: ANA Cascade Screen Negative (Negative)
[2021-12-30 10:08] LABS: Partial Thromboplastin Time 97.3 SECONDS (22.3-36.8)
--- NOTE | 2021-12-30 10:35 | PM.PNCARD ---
Progress Note: A&P Assessment and Plan (1) Atrial fibrillation with RVR: Code(s): I48.91 - Unspecified atrial fibrillation Status: Acute Assessment and Plan: S/p DC cardioversion on 12/25. Maintaining sinus rhythm. Continue anticoagulation (2) Congestive heart failure: Qualifiers: Heart failure type: unspecified Heart failure chronicity: acute Qualified Code(s): I50.9 - Heart failure, unspecified Code(s): I50.9 - Heart failure, unspecified Status: Acute Assessment and Plan: Currently not in decompensated HF. (3) Acute hypoxemic respiratory failure: Code(s): J96.01 - Acute respiratory failure with hypoxia Status: Acute Assessment and Plan: Now requiring mechanical ventilatory support. ? inhalation injury from [place]. Pulmonology following. Started on steroids by pulmonology Subjective Date/time seen: 12/30/21 10:35 Interval history: FU for a fib RVR, acute CHF. H/O CAD. 12/20/2021: 71-year-old man with coronary artery disease and history of paroxysmal atrial fibrillation presenting for shortness of breath has significant pulmonary congestion on chest x-ray and some wheezing on physical exam. Sounds like symptomatic Flora he probably went back in atrial fibrillation last week. He has been compliant with his anticoagulation regimen. He was previously maintained in sinus rhythm with sotalol but became problematically bradycardic on that medication. I am going to start him on IV amiodarone at this time an attempt at restoring sinus rhythm. We will stop the IV diltiazem and hopefully he will medically convert if he does not we will perform a electrical cardioversion before the end of the week Date of Service 12/21/2021: STill very weak and dyspnec w/ minor activity. Scant hemoptysis. Droplet precautions. On CPAP, FI O2 70%. Diuresed some. Telemetry shows atrial fibrillation, heart rate 90-110. P.o. metoprolol added to IV amiodarone. Date of service 12/22/2021: Patient's respiratory status remains unimproved despite attempts to treat CHF in control atrial fibrillation maintains on IV amiodarone for the last 48 hours. Heart rate at rest this morning 115-125. Date of service 12/25/2021: Patient decompensated with respiratory failure had to be transferred to the ICU intubated placed on mechanical ventilator support. Bronchoscopy lupe day suggest C has an infection with tracheobronchitis. he remains in atrial fibrillation IV amiodarone is running heart rate is well controlled in the 80-90 range. Date of service 12/26/2021: Clinically unchanged maintaining sinus rhythm/ sinus bradycardia following DC cardioversion yesterday. Amiodarone stopped at the request of the pulmonology and ICU staff. Patient appears to have a infectious and/or inhalational lung injury. Family indicate that he was doing yd work / weed whacking without a mask on and are concerned that he was clearing a weed that is called star of [place] which apparently can cause an inhalational/toxic injury. Date of service 12/27/2021: No significant changes. Remains in sinus rhythm, slightly bradycardic but hemodynamically stable. Family at bedside. Answered their questions to their satisfaction. Date of service 12/29 21: Still intubated sedated. Still in sinus rhythm. Family at bedside Date of service 12/30/2021: Worsening oxygenation. Still in sinus rhythm. Review of Systems Constitutional: Constitutional: Reports no additional constitutional complaints, Reports fatigue, Reports lethargy and Reports weakness Eyes: Eyes: Reports no additional eye complaints ENT: Reports system reviewed and no additional complaints, except as documented and Denies nasal discharge Cardiovascular: Cardiovascular: Reports as per HPI, Denies chest pain, Reports palpitations, Reports dyspnea and Reports dyspnea on exertion Respiratory: Respiratory: Reports cough, Reports h
--- NOTE | 2021-12-30 10:49 | P.PNCROSS_ITS ---
Event Note Event Note Event Note: Spoke to transfer line at [facility] and medical ICU ROLANDO Witt. I discussed t he case in detail and patient has been accepted by [facility] and admitting physician is Dr. Prabhakar. they will call once they have a bed available. In case patient does not get transferred today I will place patient in prone position overnight
--- NOTE | 2021-12-30 10:49 | PM.EVENT ---
Event Note Event Note Event Note: Spoke to transfer line at [facility] and medical ICU ROLANDO Witt. I discussed the case in detail and patient has been accepted by [facility] and admitting physician is Dr. Prabhakar. they will call once they have a bed available. In case patient does not get transferred today I will place patient in prone position overnight
--- NOTE | 2021-12-30 10:57 | PM.IMPN ---
Progress Note: A&P Assessment and Plan (1) Septic shock: Code(s): A41.9 - Sepsis, unspecified organism; R65.21 - Severe sepsis with septic shock Status: Acute Assessment and Plan: [place] patient has septic shock most likely related to PNA; PNA was present on admission. Remains on low-dose Levophed. Was on Steroids without much benefit so were stopped; plan to resume steroids today. Bronch performed 12/24 concerning with airway erythema. Abx were broadened. All cultures thus far negative; Bronch Fungal Cx and AFB still preliminary but negative smears. Serologies are either negative or pending except for elevated mycoplasma IgG (probably related to prior infection). Continue IV antibiotics with Cefepime and Levaquin. Vancomycin and Micafungin added back. Appreciate assistant counsel and Taper And Floater input. (2) Acute hypoxemic respiratory failure: Code(s): J96.01 - Acute respiratory failure with hypoxia Status: Acute Assessment and Plan: Patient developed acute hypoxic respiratory failure. ABG showed 7.43/40/63 on high-flow nasal cannula. Chest x-ray on admission showed bilateral infiltrates R>L. COVID swab was negative. Started on IV Lasix but no significant improvement. IV antibiotics started for concern for possible pneumonia. Repeat COVID negative. Patient's condition worsened and he required intubation on 12/22/21. CT Chest 12/22 showing pulmonary edema vs pneumonia with moderate bilateral pleural effusions. Repeat CT Chest 12/29 showing persistent extensive diffuse bilateral lung disease c/w edema v PNA v ARDS. Small bilateral pleural effusions noted. Influenza negative. HIV negative (checked due to needle stick 2 years ago). Now paralyzed again. Continue Xopenex/Atrovent. Appreciate Radiology Orderly and Pulmonary input. (3) REGINALD (acute kidney injury): Code(s): N17.9 - Acute kidney failure, unspecified Status: Acute Assessment and Plan: Cr peaked at 2.0 and BUN 106. Urine eos negative. Renal US normal. Juancarlos<5. He received 1Liter NS but increased respiratory failure overnight requiring Lasix x1. BUN 103 but Cr better at 1.7. UOP 2350 yesterday. Follow. Appreciate Nephrology input. (4) Atrial fibrillation with RVR: Code(s): I48.91 - Unspecified atrial fibrillation Status: Acute Assessment and Plan: Patient has pAFib and can feel when he is heart rate is elevated. Shortness of breath and chest heaviness on admission related to the AFib with RVR and respiratory failure. Started on Diltiazem which was changed to oral Metoprolol. TSH normal. Echo showing EF 30-35% with indeterminate diastolic function. Cards consulted and Amio drip was started. Heart rate became better controlled but persistent AFib so Cardioverted on 12/25 successfully. He did become bradycardic so Amio and Metoprolol stopped. Maintaining NSR but with one episode of slow NSVT; mag and potassium okay. Continue anticoagulation. Appreciate Cards input. Continue to monitor on tele. (5) Congestive heart failure: Qualifiers: Heart failure chronicity: acute Heart failure type: unspecified Qualified Code(s): I50.9 - Heart failure, unspecified Code(s): I50.9 - Heart failure, unspecified Status: Acute Assessment and Plan: Echo in 2020 shows EF of 65-70% with grade 2 diastolic dysfunction and trace valvular disease and no pulmonary hypertension. Chest x-ray as mentioned above. BNP 2230. Echo this admission showing EF 30-35% with indeterminate diastolic function. Patient has a component of acute on chronic systolic and diastolic CHF related to AFib with RVR felt contributing to the respiratory failure. Lasix stopped due to HoTN and now with REGINALD but did receive one dose last night with good results and improvement of his REGINALD. Continue to monitor (6) Elevated troponin I level: Code(s): R77.8 - Other specified abnormalities of plasma proteins Status: Acute Assessment and Plan:
[2021-12-30 10:58] LABS: Procalcitonin 0.4 ng/mL
[2021-12-30 11:18] LABS: Glucose Point of Care 290 mg/dl (65-105)
[2021-12-30] MEDS: MIDAZOLAM 100MG/NS 100ML(*CRX) 100 MG/100 ML BAG 10 MG IV CONT ×2 (11:22→12:36)
[2021-12-30] MEDS: INSULIN ASPART (*BKC) 100 UNITS/ML SUB-Q (11:28)
--- NOTE | 2021-12-30 11:57 | PM.TDS ---
Transfer Discharge Sum: Prov Provider Date of admission: 12/21/21 10:16 Primary care physician: Hossein Borrego MD Admitting clinician: Karen Calderón DO Consults: 12/20/21 10:08 Consult to Physician Routine Comment: spoke to Emmy Banda @[phone](,) Consulting Provider: Emmy Banda train caller/MD group to consult: cards Reason for consultation: AFib/CHF Has provider been notified: Yes 12/21/21 07:13 Consult to Physician Routine Comment: Notifed Dr of consult Consulting Provider: Vishnu Collazo train caller/MD group to consult: pulmonary Reason for consultation: resp failure Has provider been notified: Yes 12/26/21 07:47 Consult to Physician Routine Comment: called exchange with consult information Consulting Provider: Floyd Husain train caller/MD group to consult: Nephrology Reason for consultation: Acute kidney injury Has provider been notified: Yes 12/28/21 Consult to Physician Routine Comment: Dr notified of consult Consulting Provider: Floyd Husain train caller/MD group to consult: Nephrology Reason for consultation: REGINALD Has provider been notified: Yes Attending physician on discharge: Jesus Diaz Discharging clinician: Jesus Diaz Anticipated date of transfer: 12/30/21 Receiving physician/facility: [place] DS: Admitting Diagnosis Discharge Date 12/30/21 Admitting Diagnosis Shortness of breath DS: Discharge Diagnosis Discharge Diagnosis (1) Septic shock: Code(s): A41.9 - Sepsis, unspecified organism; R65.21 - Severe sepsis with septic shock Status: Acute Assessment and Plan: [place] patient has septic shock most likely related to PNA; PNA was present on admission. Required Levophed to maintain prssure. Was on Steroids without much benefit so were stopped but resumed later in hospital course. Bronch performed 12/24 showing airway erythema. Abx were broadened. All cultures thus far negative; Bronch Fungal Cx and AFB still preliminary but negative smears. Serologies are either negative or pending except for elevated mycoplasma IgG (probably related to prior infection). Treated with IV antibiotics with Cefepime and Levaquin. Vancomycin and Micafungin on initially but then held, these were added back. Supervisor Metal Furniture Assembly and Oyster Farmer involved in his care. (2) Acute hypoxemic respiratory failure: Code(s): J96.01 - Acute respiratory failure with hypoxia Status: Acute Assessment and Plan: Patient developed acute hypoxic respiratory failure. ABG showed 7.43/40/63 on high-flow nasal cannula. Chest x-ray on admission showed bilateral infiltrates R>L. COVID swab was negative. Started on IV Lasix but no significant improvement. IV antibiotics started for concern for possible pneumonia. Repeat COVID negative. Patient's condition worsened and he required intubation on 12/22/21. CT Chest 12/22 showing pulmonary edema vs pneumonia with moderate bilateral pleural effusions. Repeat CT Chest 12/29 showing persistent extensive diffuse bilateral lung disease c/w edema v PNA v ARDS. Small bilateral pleural effusions noted. Influenza negative. HIV negative (checked due to needle stick 2 years ago). Required paralytics due to worsening hypoxia. (3) REGINALD (acute kidney injury): Code(s): N17.9 - Acute kidney failure, unspecified Status: Acute Assessment and Plan: Cr peaked at 2.0 and BUN 106. Urine eos negative. Renal US normal. Juancarlos<5. He received 1Liter NS but had increased respiratory failure overnight requiring Lasix x1. BUN 103 but Cr better at 1.7. UOP 2350 the day before transfer from the [facility]. Nephrology involved in his care. (4) Atrial fibrillation with RVR: Code(s): I48.91 - Unspecified atrial fibrillation Status: Acute Assessment and Plan: Patient has pAFib and can feel when his heart rate is elevated. Shortness of breath and chest heaviness on admission related to the AFib with RVR and respiratory
--- NOTE | 2021-12-30 12:07 | PCFNICU ---
ICU Rounding Note: Pt current nutrition is Nepro at 50 ml/hr over 22 hours. Last recorded weight is 92.9 kg, up from 83.6 kg on admit. Bowel Motility:No BM reported. Labs Reviewed:Glu 135, Cr 1.7, BUN 107, GFR 40, Mg 3.2, Hgb 33.4,Hgb 10.2 Meds Noted: Nimbex,Versed, Fentanyl, Eliquis, Protonix,NovoLog,Lantus, Synthroid, Xopenex, Miralax, NS, Colace, Suppository, Heparin. Skin: WNL Additional Notes: Patient remains on mechanical vent and tube feeding of Nepro at 50 ml/hr over 22 hours. Per nursing patient had residual of 375 ml overnight, tube feedings are resumed. Plans for transfer to [place] today. Following daily in ICU rounds. Will reassess every Monday and Monday.
--- NOTE | 2021-12-30 13:54 | PC.NURSE ---
1212-Report called to Meseret COATES at [facility]. Patient going to room [address] Lena Prabhakar as accepting physician. Patient transported via [facility] , Isa called and updated on room number and phone number.
[2021-12-30 14:37] LABS: Chloride Rand Ur <20 mmol/L (32-290); Creatinine Random Urine 78 mg/dL (20-320)
[2021-12-30 22:03] LABS: Mycoplasma IgM Antibody Titer 16 U/mL (<770)
[2022-01-01 12:45] LABS: Blastomyces Antibody Negative (Negative)
[2022-01-05 14:14] LABS: ANCA Screen Negative (Negative)
--- NOTE | 2022-01-07 08:41 | PC.NURSE ---
Echo report faxed to Dr. Borrego.Viral resp cx shows no growth. Dr. Joe franz.
--- NOTE | 2022-01-10 09:18 | PC.NURSE ---
hypersensitivity pneumonitis- negative.
--- NOTE | 2022-01-21 09:38 | PC.NURSE ---
fungal cx is negaive. Dr. Diaz aware.
== END 2021-12-30 13:00 | disposition short-term general hospital (02) | DRG 870 ==
LOC: ANHED 09:58 → ANHIMU 10:39 → ANHICU 12-23 09:08 → ANHIMU 12-31 10:17
PROVIDERS: Internal Medicine; Internal Medicine Nephrology; Internal Medicine Pulmonary Disease; Physician Assistant; Admitting Provider Student in an Organized Health Care Education/Training Program; Emergency Provider Emergency Medicine; PCP Internal Medicine; Visit Provider Internal Medicine
PROC: 0BJ08ZZ Inspection of Tracheobronchial Tree, Via Natural or Artificial Opening Endoscopic (ICD-10-PCS; CPT 31622; principal; 2021-12-24 14:00)
DX: A41.9 Sepsis, unspecified organism (principal); J18.9 Pneumonia, unspecified organism; R65.21 Severe sepsis with septic shock; J80 Acute respiratory distress syndrome; N17.0 Acute kidney failure with tubular necrosis; I50.43 Acute on chronic combined systolic (congestive) and diastolic (congestive) heart failure; R04.2 Hemoptysis; I48.0 Paroxysmal atrial fibrillation; Z20.822 Contact with and (suspected) exposure to COVID-19; I25.10 Atherosclerotic heart disease of native coronary artery without angina pectoris; E78.5 Hyperlipidemia, unspecified; E05.90 Thyrotoxicosis, unspecified without thyrotoxic crisis or storm; E03.9 Hypothyroidism, unspecified; I11.0 Hypertensive heart disease with heart failure; E11.65 Type 2 diabetes mellitus with hyperglycemia; Z80.1 Family history of malignant neoplasm of trachea, bronchus and lung; Z83.3 Family history of diabetes mellitus; R77.8 Other specified abnormalities of plasma proteins; Z82.49 Family history of ischemic heart disease and other diseases of the circulatory system; Z87.891 Personal history of nicotine dependence; Z79.01 Long term (current) use of anticoagulants; Z86.73 Personal history of transient ischemic attack (TIA), and cerebral infarction without residual deficits; Z79.899 Other long term (current) drug therapy; Z79.84 Long term (current) use of oral hypoglycemic drugs; Z79.4 Long term (current) use of insulin; I65.29 Occlusion and stenosis of unspecified carotid artery; R00.1 Bradycardia, unspecified
CPT/HCPCS: 36415; 36600; 71045; 71046; 71250; 74019; 74176; 76775; 80048; 80053; 80069; 80202; 81001; 81050; 82375; 82436; 82550; 82570; 82805; 82948; 83036; 83050; 83605; 83690; 83735; 83880; 84100; 84133; 84145; 84156; 84300; 84443; 84484; 85025; 85027; 85055; 85610; 85730; 85999; 86036; 86038; 86140; 86200; 86331; 86430; 86606; 86609; 86612; 86703; 86738; 87015; 87040; 87045; 87070; 87102; 87116; 87205; 87206; 87281; 87385; 87427; 87449; 87486; 87581; 87633; 87804; 87899; 93005; 93306; 93308; 93970; 94002; 94003; 94640; 96365; 96366; 96367; 96368; 96375; 96376; 99285; A9270; C1751; C9113; C9803; G0378; G0432; J0282; J0456; J0692; J0696; J1644; J1815; J1940; J1956; J2248; J2250; J2920; J2930; J3010; J3370; J3475; J3480; J7030; J7040; J7042; J7060; P9047; U0003; U0005

== ENCOUNTER 2022-03-30 13:42 | Inpatient (IN) | payer MEDICARE, SELFPAY ==
[2022-03-30] VITALS (15 sets, daily range): BP systolic 145–179; BP diastolic 60–77; PULSE 98–113; RESP 16–39; TEMP 36.6–37.3; O2SAT 83–97; BMI 23.8
--- NOTE | ~2022-03-30 | XR_ITS ---
EXAMINATION: XR chest 1V portable DATE: 04/01/2022 05:34 INDICATION: Shortness of breath. TECHNIQUE: A single frontal view of the chest was obtained. COMPARISON: Chest 2 views 03/30/2022 FINDINGS: The patient is rotated to his left. There are airspace and interstitial opacities throughou t the lungs bilaterally. The lung volumes are normal. No pleural effusion or pneumothorax. Cardiomega ly is noted. IMPRESSION: 1. Worsened diffuse lung disease, consistent with pulmonary edema versus pneumonia. 2. Cardiomegaly. Reviewed, dictated and finalized at location A. IMPRESSION: 1. Worsened diffuse lung disease, consistent with pulmonary edema versus pneumo joseph. 2. Cardiomegaly.
--- NOTE | ~2022-03-30 | XR_ITS ---
EXAMINATION: XR chest 1V portable INDICATION: Shortness of breath TECHNIQUE: Portable AP chest at 0531 hours COMPARISON: 04/01/2022 FINDINGS: Cardiomegaly is noted. There are diffuse interstitial and airspace opacities with slight im provement. No pleural effusion or pneumothorax. IMPRESSION: 1. Diffuse lung disease with interval improvement, consistent with pneumonia and/or pulmonary edema. 2. Cardiomegaly. Reviewed, dictated and finalized at location A. IMPRESSION: 1. Diffuse lung disease with interval improvement, consistent with pneumonia an d/or pulmonary edema. 2. Cardiomegaly.
--- NOTE | ~2022-03-30 | XR_ITS ---
EXAMINATION: XR chest 2V DATE: 03/30/2022 15:16 INDICATION: Shortness of breath TECHNIQUE: PA and lateral views of the chest are obtained. COMPARISON: 12/28/2021 FINDINGS: Cardiomegaly is noted. There are diffuse interstitial and airspace opacities throughout the lungs, left greater than right. No pleural effusion or pneumothorax. There is moderate thoracic spon dylosis. IMPRESSION: 1. Diffuse lung disease, consistent with pulmonary edema versus pneumonia. 2. Cardiomegaly. Reviewed, dictated and finalized at location B.
--- NOTE | ~2022-03-30 | XR_ITS ---
EXAMINATION: XR chest 1V portable Exam Date/Time: 04/03/2022 12:35 CDT HISTORY: sob Comparison: 04/02/2022 at 5:31 AM. RESULT: Lines, tubes, and devices: None. Lungs and pleura: Decreased hazy and patchy bilateral opacities, improving bibasilar aeration. Cardiomediastinal silhouette: Stable. Other: No acute osseous or upper abdominal finding. IMPRESSION: Improving pulmonary edema and bibasilar atelectasis. Infection is not excluded. Reviewed, dictated and finalized at location K.
--- NOTE | ~2022-03-30 | US_ITS ---
EXAMINATION: US venous doppler [facility] DATE: 03/31/2022 14:30 INDICATION: Lower limb edema. TECHNIQUE: Grayscale ultrasound images without and with compression and Doppler ultrasound images of the bilateral lower extremity veins were obtained. COMPARISON: Ultrasound 12/22/2021 FINDINGS: The visualized portions of right common femoral vein, profunda (deep) femoral vein, femoral vein, pop liteal vein, peroneal veins, posterior tibial veins, and greater saphenous vein outflow are patent. The visualized portions of left common femoral vein, profunda femoral vein, femoral vein, popliteal v ein, peroneal veins, posterior tibial veins, and greater saphenous vein outflow are patent. IMPRESSION: 1. No deep venous thrombosis. Reviewed, dictated and finalized at location A.
--- NOTE | 2022-03-30 14:00 | ED.SOB ---
HPI - SOB/Dyspnea General Chief Complaint: Shortness of Breath/Dyspnea Stated Complaint: requesting xray for his chest Time Seen by Provider: 03/30/22 13:59 Source: patient, RN notes reviewed and old records reviewed Mode of arrival: ambulatory Limitations: no limitations History of Present Illness HPI Narrative: 71 years old white female she came to the emergency room from home by private car complaining of hypoxia. Patient normally on oxygen by nasal cannula 2 L at rest and 4 L with exertion, today home visiting nurse noticed that his oxygenation is running in the 70s and 80s on 4 L. Patient placed on 6 L at that time. Patient denies any fever, chills, nausea, vomiting, shortness of breath or chest pain. Patient was hospitalized in our hospital for 1 week and then transferred to [facility] 4 weeks, he does not remember what was the diagnosis. Related Data Home Medications Medication Instructions Recorded Confirmed apixaban 5 mg tablet (Eliquis) 5 mg BID 10/16/19 03/11/22 aspirin 81 mg tablet,delayed 81 mg PO DAILY 03/04/22 03/11/22 release Allergies Allergy/AdvReac Type Severity Reaction Status Date / Time No Known Allergies Allergy Verified 03/11/22 14:45 [facility] Past Medical History Medical History Adhesive capsulitis of right shoulder ARDS (adult respiratory distress syndrome) BMI 28.0-28.9,adult CAD (coronary artery disease) history having nonobstructive blockages he had a stress test in June 2014 but had no intervention performed. He had a EF of 55% at that time. Medically treated. Cardiac arrhythmia Carotid artery occlusion COVID-19 vaccine series completed DM2 (diabetes mellitus, type 2) Dyslipidemia Hemoglobin A1C between 7% and 9% indicating borderline diabetic control A1c was 7.2 on 06/13/20 History of skin cancer HTN (hypertension) with goal to be determined Hypertension Hyperthyroidism status post radioactive iodine ablation Hypothyroidism Paroxysmal atrial fibrillation Surgical History Surgical History H/O arthroscopy of left knee partial medial meniscectomy, Dr. Mosquera about 2016 H/O cardiac catheterization no intervention performed History of removal of pigmented skin lesion Family History Family History Sibling Diabetes mellitus Lung cancer Father Diabetes mellitus Mother Acute myocardial infarction Congestive heart failure Dementia Other Hypertension Hypothyroidism Social History Social History Social History: He lives with his Marycarmen in [place]. They have 2 children. He was a pack-a-day smoker and quit in 2007. No alcohol or drug use. Code status: full. His Marycarmen is a durable power assistant attorney general for healthcare. Smoking packs per day: 1 Smoking cigarettes per day: 20.0 Years smoked: 20 Smoking pack-years: 20.00 Smoking status: Former smoker Tobacco type: cigarettes Second hand tobacco smoke exposure: No Alcohol intake: former Substance use: never Substance use type: does not use Gender identity (if verbalized by the patient): Male Spiritual care concerns: No Course Vital Signs Vital signs: Vital Signs Temperature 37.3 C 03/30/22 14:01 Pulse Rate 113 H 03/30/22 14:01 Respiratory Rate 32 H 03/30/22 14:01 Blood Pressure 145/60 H 03/30/22 14:01 Pulse Oximetry 92 03/30/22 14:01 Oxygen Delivery High Flow Nasal Cannula 03/30/22 14:01 Oxygen Flow Rate 6 03/30/22 14:01 Temperature 37.3 C 03/30/22 14:01 Pulse Rate 113 H 03/30/22 14:01 Respiratory Rate 32 H 03/30/22 14:01 Blood Pressure 145/60 H 03/30/22 14:01 Pulse Oximetry 94 03/30/22 14:20 Oxygen Delivery High Flow Nasal Cannula 03/30/22 14:20 Oxygen Flow Rate 6 03/30/22 14:20 MDM - SOB/Dyspnea Lab Da
--- NOTE | 2022-03-30 14:09 | ECG_ITS ---
Measurements Intervals [place] Rate: 75 P: 19 [place]: 158 QRS: -6 QRSD: 106 T: 32 QT: 358 QTc: 402 Interpretive Statements SINUS RHYTHM NONSPECIFIC INTRAVENTRICULAR CONDUCTION DELAY BORDERLINE ECG COMPARED TO ECG 12/27/2021 09:50:22 HEART RATE HAS INCREASED T-WAVE ABNORMALITY NO LONGER APPRECIATED Electronically Signed On 03-30-2022 16:15:30 CDT by Nickolas Miranda M.D.
[2022-03-30 14:27] LABS: Alveolar/Arterial O2 Gradient 204.9 mmHg; Base Excess ABG 3.8 mEq/l (+/-2.0); Fractional Inspired Oxygen 44 %; HCO3 ABG 28.7 mEq/l (22.0-26.0); Modified Allen's Test Pass; Oxygen Saturation ABG 90.3 % (95.0-100.0); Oxyhemoglobin 88.3 % THb (90.0-100.0); PO2 ABG 57.5 mmHg (80.0-100.0); PO2 FiO2 Ratio Arterial Blood 1.31 %; Site Drawn RIGHT RADIAL; Total Hemoglobin 9.6 g/dL (12.0-18.0); pH ABG 7.423 (7.350-7.450)
[2022-03-30 14:28] LABS: Device HIGH FLOW NASAL CANN
[2022-03-30 14:35] LABS: Alanine Aminotransferase 15 U/L (6-50); Albumin Level 3.8 g/dL (3.5-5.1); Alkaline Phosphatase 70 U/L (38-126); Anion Gap 9 mmol/L (8-16); Aspartate Amino Transferase 22 U/L (17-59); Bilirubin,Total 0.2 mg/dL (0.2-1.3); Blood Urea Nitrogen 23 mg/dL (9-20); Calcium 8.8 mg/dL (8.4-10.2); Carbon Dioxide 29 mmol/L (22-30); Chloride 101 mmol/L (98-107); Estimated CRCL calculation 54 ml/min; Estimated Glomerular Filt Rate > 60; Glucose 179 mg/dL (65-110); Sodium 139 mmol/L (137-145)
[2022-03-30 14:43] LABS: Basophils Absolute Auto 0.1 K/mm3 (0.0-0.1); Basophils Percent Auto 0.6 % (0.2-1.2); Eosinophils Absolute Auto 0.1 K/mm3 (0-0.3); Eosinophils Percent Auto 0.8 % (0-4.4); Hematocrit 30.7 % (42.0-52.0); Hemoglobin 9.3 g/dL (14.0-18.0); Immature Granulocyte Absolute 0.06 K/mm3 (0.00-0.031); Immature Granulocyte Percent A 0.5 % (0-0.5); Lymphocytes Absolute Auto 1.07 K/mm3 (0.9-3.2); Lymphocytes Percent Auto 9.1 % (18.3-44.2); Mean Corpuscular HGB Conc 30.3 g/dl (32-36); Mean Corpuscular Hemoglobin 27.8 pg (26-34); Mean Corpuscular Volume 91.9 fl (80-100); Mean Platelet Volume 11.6 fl (7.4-10.4); Monocytes Percent Auto 8.5 % (2.6-8.5); Neutrophils Absolute Auto 9.5 K/mm3 (1.3-6.7); Neutrophils Percent Auto 80.5 % (45.5-73.1); Platelet Count Result 244 k/mm3 (150-375); Red Blood Count 3.34 M/mm3 (4.6-6.20); Red Cell Distribution Width 15.6 % (11.5-14.5); White Blood Count 11.8 K/mm3 (4.5-10.0)
[2022-03-30 15:22] LABS: Lactic Acid Reflex 2.6 mmol/L (0.7-2.0)
[2022-03-30 15:23] LABS: INR 1.5; Prothrombin Time 17.5 Seconds (11.1-14.7)
[2022-03-30 15:25] LABS: Partial Thromboplastin Time 51.3 SECONDS (22.3-36.8)
[2022-03-30 15:38] LABS: Troponin I 0.115 ng/mL (0.000-0.034)
[2022-03-30 15:43] LABS: CRP 1.3 mg/dL (<1.0)
[2022-03-30 15:44] LABS: SARS-CoV-2 RNA PCR Negative
[2022-03-30 17:23] LABS: NT Pro B Type Natriuretic Pept 3070 pg/mL (5-100)
--- NOTE | 2022-03-30 17:35 | PM.IMHP ---
H&P: HPI History of Present Illness Date/Time: 03/30/22 17:35 Chief Complaint: Shortness of breath. Narrative: This is a very pleasant 71-year-old male with history of stroke, paroxysmal atrial fibrillation on chronic anticoagulation, heart failure with reduced ejection fraction, diabetes, hypothyroidism, and hypertension who presented to the emergency department from home for evaluation of shortness of breath. He was hospitalized for little over 2 months this spring both at this facility and [place], with ARDS requiring intubation and mechanical ventilation with subsequent trach placement which was eventually weaned. He did well at rehab and was discharged home within a week's time and he has been home for approximately 3 weeks. According to the patient and his , he has been doing well at home on 2 to 3 L nasal cannula as needed though he does wear the oxygen throughout the night. At about 0330 this morning he was wakened from sleep with mid chest heaviness and shortness of breath. He got up and made his way to the kitchen at which time his SpO2 was reportedly 42% on 3 L. Do to continued shortness of breath, he came in for evaluation. He has been afebrile since arrival and aside from mild tachypnea his vital signs have been stable. Pertinent labs include a white blood cell count of 11.8, troponin 0.115, BNP 3070, CRP 1.3. Chest x-ray showed diffuse lung disease consistent with pulmonary edema versus pneumonia and cardiomegaly. He received cefepime, levofloxacin, and vancomycin in the ED for presumed healthcare associated pneumonia and he is being admitted in this setting. He has not necessarily had any signs or symptoms to suggest infection likely denies fever, chills, sweats, chest pain, pleuritic pain, palpitations, sensations of racing heart, cough, sore throat, sinus congestion, nausea, vomiting, diarrhea, and dysuria. He also denies dysphagia and concerns for aspiration. He has however noticed some increase in lower extremity edema, mainly of the feet and ankles. Review of Systems Review of Systems: Twelve systems were reviewed. No syncope or presyncope. No history of venous thromboembolism. No sick contacts. Except as documented, all other systems were reviewed and are negative. [facility] Past Medical History Medical History (Updated 03/30/22 @ 21:42 by Linda Singh PA-C) Adult respiratory distress syndrome (12/2021) Carotid artery occlusion Chronic anticoagulation Coronary artery disease According to prior documentation, the patient has nonobstructing coronary disease which was treated medically. Dyslipidemia Heart failure with reduced ejection fraction EF as low as 30 to 35%, improved to 55 to 60% on repeat echocardiogram on 12/30/2021. History of skin cancer Hypertension Hyperthyroidism Status post radioactive iodine ablation. Hypothyroidism Paroxysmal atrial fibrillation Type 2 diabetes mellitus Surgical History Surgical History (Updated 03/30/22 @ 21:22 by Linda Singh PA-C) History of arthroscopy of left knee Partial medial meniscectomy. History of cardiac catheterization Nonobstructing disease. History of tracheostomy Family History Family History Sibling Diabetes mellitus Lung cancer Father Diabetes mellitus Mother Acute myocardial infarction Congestive heart failure Dementia Other Hypertension Hypothyroidism Social History Social History (Updated 03/30/22 @ 21:22 by Linda Singh PA-C) Social History: The patient lives with his in [place]. They have 2 children. He smoked a pack of cigarettes a day and quit in 2007. No alcohol or illicit substance abuse. He designates his , Marycarmen Lutz, as his surrogate decision maker and he wishes to be a full code. Spiritual care concerns: No Meds Home Medications and Allergies Home Medications Medication Instructions Recorded Confirmed Type atorvastati
--- NOTE | 2022-03-30 18:02 | ADMGEN ---
This patient, Moise Lutz, was admitted to IMU Room 202-. Patient/family oriented to hospital policies and general routines including ID bracelet, bed and alarms, visiting hours, pain management, procedures, bathroom and other care routines, personal items, smoking policy, room service/diet, and visiting hours. Information on how to activate the Rapid Response Team has been discussed. Patient/Family are encouraged to report perceived risks to care and to ask questions if they do not understand what they are told or what they should do.
--- NOTE | 2022-03-30 18:06 | PC.NURSE ---
patient transferred to IMU with IV abx infusing
[2022-03-30 18:09] LABS: Reflex Lactic Acid Yes or No Add Lactic
[2022-03-30 18:58] LABS: Magnesium 1.3 mg/dL (1.6-2.3)
[2022-03-30 18:59] LABS: Lactic Acid Reflex 1.9 mmol/L (0.7-2.0)
[2022-03-30 19:17] LABS: D Dimer 0.54 ug/mL (<0.48)
[2022-03-30 19:22] LABS: Iron 32 ug/dL (49-181)
[2022-03-30 19:34] LABS: Percent Iron Saturation 11 % (20-50)
[2022-03-30 19:38] LABS: Procalcitonin 0.1 ng/mL; Troponin I 0.126 ng/mL (0.000-0.034)
[2022-03-30] MEDS: ALBUTEROL SULFATE NEB 2.5 MG/3 ML INH 5 MG INHALATION (19:49)
[2022-03-30] MEDS: FUROSEMIDE INJ 40 MG/4 ML VIAL IV PUSH (19:50)
[2022-03-30] MEDS: MAGNESIUM SULF 4 GM/WATER100ML 4 GM/100 ML BAG IVPB (21:05)
[2022-03-30 21:11] LABS: Alveolar/Arterial O2 Gradient 616.5 mmHg; Base Excess ABG 3.6 mEq/l (+/-2.0); Carboxyhemoglobin 0.3 % THb (0-2.0); Fractional Inspired Oxygen 100 %; HCO3 ABG 27.9 mEq/l (22.0-26.0); Methemoglobin ABG 0.2 %THb (0-1.5); Oxygen Content ABG 14.8 %vol (16.0-22.0); Oxygen Saturation ABG 90.1 % (95.0-100.0); Oxyhemoglobin 88.5 % THb (90.0-100.0); PCO2 ABG 41.1 mmHg (35.0-45.0); PO2 ABG 55.4 mmHg (80.0-100.0); PO2 FiO2 Ratio Arterial Blood 0.55 %; Total Hemoglobin 11.9 g/dL (12.0-18.0)
[2022-03-30 21:12] LABS: Device NON-REBREATHER MASK; Modified Allen's Test Pass; Site Drawn LEFT RADIAL
[2022-03-30 21:33] LABS: Troponin I 0.128 ng/mL (0.000-0.034)
[2022-03-30 22:28] LABS: Hemoglobin A1C 5.7 % (<5.7)
[2022-03-31] VITALS (32 sets, daily range): BP systolic 109–153; BP diastolic 43–68; PULSE 68–148; RESP 18–31; TEMP 36.2–37.7; O2SAT 90–100
[2022-03-31] MEDS: SODIUM CHLORIDE 0.9% IV 250 ML BAG IVPB (00:05)
[2022-03-31] MEDS: FUROSEMIDE INJ 40 MG/4 ML VIAL IV PUSH ×3 (00:27→16:14)
[2022-03-31] MEDS: ALBUTEROL SULFATE NEB 2.5 MG/3 ML INH INHALATION ×3 (02:19→20:36)
[2022-03-31 04:49] LABS: Basophils Absolute Auto 0.1 K/mm3 (0.0-0.1); Basophils Percent Auto 0.4 % (0.2-1.2); Eosinophils Absolute Auto 0.1 K/mm3 (0-0.3); Eosinophils Percent Auto 0.5 % (0-4.4); Hematocrit 28.7 % (42.0-52.0); Hemoglobin 8.8 g/dL (14.0-18.0); Immature Granulocyte Absolute 0.06 K/mm3 (0.00-0.031); Immature Granulocyte Percent A 0.4 % (0-0.5); Lymphocytes Absolute Auto 0.67 K/mm3 (0.9-3.2); Lymphocytes Percent Auto 4.5 % (18.3-44.2); Mean Corpuscular HGB Conc 30.7 g/dl (32-36); Mean Corpuscular Hemoglobin 27.4 pg (26-34); Mean Corpuscular Volume 89.4 fl (80-100); Monocytes Absolute Auto 1.2 K/mm3 (0.1-0.6); Monocytes Percent Auto 8.2 % (2.6-8.5); Neutrophils Absolute Auto 12.9 K/mm3 (1.3-6.7); Platelet Count Result 212 k/mm3 (150-375); Red Blood Count 3.21 M/mm3 (4.6-6.20); Red Cell Distribution Width 15.4 % (11.5-14.5)
[2022-03-31 05:01] LABS: Alanine Aminotransferase 12 U/L (6-50); Albumin Level 3.4 g/dL (3.5-5.1); Alkaline Phosphatase 55 U/L (38-126); Anion Gap 6 mmol/L (8-16); Aspartate Amino Transferase 20 U/L (17-59); Bilirubin,Total 0.3 mg/dL (0.2-1.3); Blood Urea Nitrogen 22 mg/dL (9-20); Calcium 8.3 mg/dL (8.4-10.2); Carbon Dioxide 38 mmol/L (22-30); Chloride 91 mmol/L (98-107); Estimated CRCL calculation 47 ml/min; Estimated Glomerular Filt Rate 59; Glucose 164 mg/dL (65-110); Magnesium 1.8 mg/dL (1.6-2.3); Potassium 3.1 mmol/L (3.4-5.0); Sodium 135 mmol/L (137-145)
--- NOTE | 2022-03-31 06:00 | ECG_ITS ---
Measurements Intervals [place] Rate: 141 P: [place]: 0 QRS: -1 QRSD: 105 T: 60 QT: 228 QTc: 350 Interpretive Statements ATRIAL FIBRILLATION WITH RAPID VENTRICULAR RESPONSE NONSPECIFIC ST & T-WAVE ABNORMALITY ABNORMAL ECG COMPARED TO ECG 03/30/2022 14:50:11 ATRIAL FIBRILLATION NOW PRESENT T-WAVE ABNORMALITY NOW PRESENT Electronically Signed On 03-31-2022 15:19:43 CDT by Nickolas Miranda M.D.
[2022-03-31] MEDS: LEVOTHYROXINE SODIUM 25 MCG TABLET PO (06:26)
[2022-03-31] MEDS: LEVOTHYROXINE SODIUM 112 MCG TABLET PO (06:26)
[2022-03-31] MEDS: MAGNESIUM OXIDE 400 MG TABLET PO (08:05)
[2022-03-31] MEDS: DABIGATRAN ETEXILATE 150 MG CAPSULE PO ×2 (08:06→20:27)
[2022-03-31] MEDS: ASPIRIN 81 MG ENTERIC TABLET PO (08:06)
[2022-03-31] MEDS: PANTOPRAZOLE 40 MG TABLET PO ×2 (08:06→20:27)
[2022-03-31] MEDS: ATORVASTATIN 40 MG TABLET PO (08:06)
[2022-03-31] MEDS: LOSARTAN POTASSIUM 25 MG TABLET PO (08:06)
[2022-03-31 08:15] LABS: Glucose Point of Care 184 mg/dl (65-105)
[2022-03-31] MEDS: METOPROLOL TARTRATE INJ 5 MG/5 ML VIAL IV PUSH (09:07)
--- NOTE | 2022-03-31 09:43 | PM.IMPN ---
Progress Note: A&P Assessment and Plan (1) Acute and chronic respiratory failure with hypoxia: Code(s): J96.21 - Acute and chronic respiratory failure with hypoxia Status: Acute Assessment and Plan: His symptoms started pretty suddenly early this morning. Chest x-ray shows diffuse pulmonary infiltrates and with his pedal edema and elevated proBNP this may very well reflect pulmonary edema however pneumonia is not excluded. He is currently on 4 L nasal cannula with a stable SpO2. Was placed on BiPAP on admission. Now tapered off. Continue to treat for possible pneumonia with ceftriaxone and azithromycin. COVID swab is negative. No indication for steroids. He has recent history of ARDS requiring tracheostomy. Pulmonary embolism is unlikely as he is been on dabigatran 150 mg b.i.d.. Started on IV diuresis with 40 mg of Lasix IV b.i.d.. Will recheck it chest x-ray in the morning. (2) Pulmonary infiltrates: Code(s): R91.8 - Other nonspecific abnormal finding of lung field Status: Acute Assessment and Plan: Differential diagnosis includes pulmonary edema versus pneumonia. He is currently being treated for both as detailed above. (3) Heart failure with reduced ejection fraction: Code(s): I50.20 - Unspecified systolic (congestive) heart failure Status: Acute Assessment and Plan: EF was as low as 30% but had improved to 55 to 60% on repeat echocardiogram at the end of December 2021. He is a bit edematous in the lower limbs and given elevated BNP and pulmonary infiltrates, he is being cautiously diuresed. Recheck chest x-ray in a.m. and BNP (4) Elevated troponin: Code(s): R77.8 - Other specified abnormalities of plasma proteins Status: Acute Assessment and Plan: Troponin is modestly elevated but has remained flat thus far. He is not currently having any chest pain however did have some chest tightness this morning (possibly related to onset of shortness of breath) thus will continue to trend to peak and consult Cardiology. EKG was reviewed and shows no acute ST segment changes. Again, pulmonary embolism is felt to be less likely. (5) Hypomagnesemia: Code(s): E83.42 - Hypomagnesemia Status: Acute Assessment and Plan: Magnesium will be replaced and monitored. (6) Paroxysmal atrial fibrillation: Code(s): I48.0 - Paroxysmal atrial fibrillation Status: Chronic Assessment and Plan: If was in sinus tachycardia on arrival now the to atrial fibrillation Already on anticoagulation with dabigatran 150 mg p.o. b.i.d.. Will start beta-ankit (7) Chronic anticoagulation: Code(s): Z79.01 - buttermaker continuous churn (current) use of anticoagulants Status: Acute Assessment and Plan: Continue dabigatran. (8) Hypertension: Qualifiers: Hypertension type: primary hypertension Qualified Code(s): I10 - Essential (primary) hypertension Code(s): I10 - Essential (primary) hypertension Status: Acute Assessment and Plan: Blood pressures have been running in the 140-150s systolic. Continue antihypertensives and monitor closely. (9) Type 2 diabetes mellitus: Code(s): E11.9 - Type 2 diabetes mellitus without complications Status: Acute Assessment and Plan: Initiate sliding scale insulin, Accu-Cheks, and hypoglycemic protocol. Check hemoglobin A1c. (10) Normocytic anemia: Code(s): D64.9 - Anemia, unspecified Status: Acute Assessment and Plan: Check iron studies as well as B12 and folates. Subjective Date/time seen: 03/31/22 09:43 Interval history: HPI:This is a very pleasant 71-year-old male with history of stroke, paroxysmal atrial fibrillation on chronic anticoagulation, heart failure with reduced ejection fraction, diabetes, hypothyroidism, and hypertension who presented to the emergency department from home for evaluation of shortness of
[2022-03-31] MEDS: POTASSIUM CHLORIDE 20 MEQ TABLET 40 MEQ PO (10:09)
[2022-03-31] MEDS: METOPROLOL SUCCINATE EXT REL 25 MG TABCR PO (10:09)
[2022-03-31] MEDS: MAGNESIUM SULF 2 GM/WATER 50ML 2 GM/50 ML BAG IVPB (10:10)
--- NOTE | 2022-03-31 10:35 | PM.CNCAR ---
Assessment and Plan Assessment and plan (1) Atrial fibrillation with RVR: Code(s): I48.91 - Unspecified atrial fibrillation Status: Acute Assessment and Plan: Acute onset AFib with RVR minimally symptomatic. No improvement with IV and oral metoprolol thus far. Patient has been anticoagulated without interruption per his description for least 4 weeks. Will initiate transient amiodarone in attempt to restore sinus rhythm and or heart rate control. Recommendations to follow. Monitor on telemetry. Caution to avoid symptomatic bradycardia. Recommendation to follow. Continue systemic anticoagulation without interruption. Monitor for bleeding. Follow H&H. Most likely exacerbated secondary to acute hypoxic respiratory failure, pneumonia and concomitant decompensated heart failure. Further recommendations to follow based on patient's response to therapy. If converses sinus rhythm plan to continue short-term as tolerated until he has further recovered from his acute hypoxic respiratory failure in order to stabilize in the short term. Anticipate may be able to discontinue amiodarone prior to discharge. He had not previously been on AV fabian blocking agents so utilization of therapy will certainly reduce risk for recurrence. Patient verbalized understanding and agreed with plan of care as outlined. All questions answered to his satisfaction. (2) Acute heart failure with preserved ejection fraction (HFpEF): Code(s): I50.31 - Acute diastolic (congestive) heart failure Status: Acute Assessment and Plan: EF preserved by echo 12/2021 55-60%. IV diuresis. Monitor electrolytes and renal function. Accurate input and output, daily weight. Replete electrolytes keep potassium around 4.0 magnesium 2.0. (3) Acute hypoxemic respiratory failure: Code(s): J96.01 - Acute respiratory failure with hypoxia Status: Acute Assessment and Plan: Secondary to probable healthcare associated pneumonia and concomitant decompensated heart failure with preserved ejection fraction. Atrial fibrillation was not present initially so cannot directly attribute as explanation for acute decompensation. (4) Elevated troponin: Code(s): R77.8 - Other specified abnormalities of plasma proteins Status: Acute Assessment and Plan: Mild flat troponin elevation most likely type 2 infarct secondary to acute severe hypoxic respiratory failure, decompensated heart failure with underlying anemia and renal insufficiency. Not secondary to acute coronary syndrome and/or plaque rupture. (5) Normocytic anemia: Code(s): D64.9 - Anemia, unspecified Status: Acute Assessment and Plan: Monitor H&H. (6) Type 2 diabetes mellitus: Code(s): E11.9 - Type 2 diabetes mellitus without complications Status: Acute Assessment and Plan: Management per primary service. (7) Chronic anticoagulation: Code(s): Z79.01 - jail (current) use of anticoagulants Status: Acute Assessment and Plan: Continue Pradaxa 150 mg twice daily. Monitor renal function. Monitor for bleeding. History of Present Illness History of Present Illness Consult date/time: Date of service: 03/31/22 10:35 Requesting physician: Linda Singh PA-C Consult reason: atrial fibrillation and congestive heart failure Reason For Visit: acyte hypoxic respiratory failure,pneumonia,elevat Narrative: Patient is a very pleasant 71-year-old male with a complicated past medical history including paroxysmal atrial fibrillation status post cardioversion chronic anticoagulation, prior history of heart failure with reduced ejection fraction with nonischemic cardiomyopathy with normalization of EF 55-60% by echo 12/30/2021, nonobstructive CAD, hypertension, chronic hypoxic respiratory failure on home O2, carotid arterial disease, type 2 diabetes mellitus, history of stroke who presented to the emergency departme
[2022-03-31] MEDS: AMIODARONE 150 MG/D5W 100 ML 150 MG/100 ML BAG 600 MG IV CONT (11:16)
[2022-03-31] MEDS: AMIODARONE 360 MG/D5W 200 ML 360 MG/200 ML BAG 33.33 MG IV CONT (11:30)
[2022-03-31 11:33] LABS: Glucose Point of Care 265 mg/dl (65-105)
[2022-03-31] MEDS: INSULIN ASPART (*BKC) 100 UNITS/ML SUB-Q (13:29)
[2022-03-31] MEDS: AMIODARONE HCL 200 MG TABLET 400 MG PO ×2 (13:52→20:27)
[2022-03-31 16:04] LABS: Glucose Point of Care 145 mg/dl (65-105)
[2022-03-31 20:38] LABS: Glucose Point of Care 304 mg/dl (65-105)
[2022-03-31] MEDS: ARTIFICIAL TEARS OPHTH SOLN 15 ML BOTTLE 1 DROP EACH EYE (21:23)
[2022-04-01] VITALS (27 sets, daily range): BP systolic 104–132; BP diastolic 41–54; PULSE 59–81; RESP 17–28; TEMP 36.3–36.9; O2SAT 93–100
[2022-04-01] MEDS: ALBUTEROL SULFATE NEB 2.5 MG/3 ML INH INHALATION ×3 (02:26→13:36)
[2022-04-01 04:19] LABS: Basophils Absolute Auto 0.1 K/mm3 (0.0-0.1); Basophils Percent Auto 0.5 % (0.2-1.2); Eosinophils Absolute Auto 0.5 K/mm3 (0-0.3); Eosinophils Percent Auto 3.6 % (0-4.4); Hematocrit 25.8 % (42.0-52.0); Immature Granulocyte Absolute 0.05 K/mm3 (0.00-0.031); Immature Granulocyte Percent A 0.4 % (0-0.5); Lymphocytes Absolute Auto 0.94 K/mm3 (0.9-3.2); Lymphocytes Percent Auto 7.6 % (18.3-44.2); Mean Corpuscular Hemoglobin 27.7 pg (26-34); Mean Corpuscular Volume 89.3 fl (80-100); Mean Platelet Volume 11.2 fl (7.4-10.4); Monocytes Absolute Auto 1.3 K/mm3 (0.1-0.6); Monocytes Percent Auto 10.6 % (2.6-8.5); Neutrophils Absolute Auto 9.6 K/mm3 (1.3-6.7); Neutrophils Percent Auto 77.3 % (45.5-73.1); Platelet Count Result 214 k/mm3 (150-375); Red Blood Count 2.89 M/mm3 (4.6-6.20); Red Cell Distribution Width 15.6 % (11.5-14.5); White Blood Count 12.4 K/mm3 (4.5-10.0)
[2022-04-01 04:40] LABS: Alanine Aminotransferase 10 U/L (6-50); Albumin Level 3.2 g/dL (3.5-5.1); Alkaline Phosphatase 51 U/L (38-126); Anion Gap 5 mmol/L (8-16); Aspartate Amino Transferase 19 U/L (17-59); Bilirubin,Total 0.4 mg/dL (0.2-1.3); Blood Urea Nitrogen 26 mg/dL (9-20); Calcium 7.9 mg/dL (8.4-10.2); Carbon Dioxide 37 mmol/L (22-30); Chloride 89 mmol/L (98-107); Estimated CRCL calculation 51 ml/min; Estimated Glomerular Filt Rate > 60; Glucose 133 mg/dL (65-110); Magnesium 1.8 mg/dL (1.6-2.3); Potassium 3.2 mmol/L (3.4-5.0); Sodium 131 mmol/L (137-145)
[2022-04-01 04:45] LABS: NT Pro B Type Natriuretic Pept 1910 pg/mL (5-100)
[2022-04-01] MEDS: LEVOTHYROXINE SODIUM 25 MCG TABLET PO (05:43)
[2022-04-01] MEDS: LEVOTHYROXINE SODIUM 112 MCG TABLET PO (05:43)
[2022-04-01 08:07] LABS: Glucose Point of Care 165 mg/dl (65-105)
--- NOTE | 2022-04-01 09:36 | PM.IMPN ---
Progress Note: A&P Assessment and Plan (1) Acute and chronic respiratory failure with hypoxia: Code(s): J96.21 - Acute and chronic respiratory failure with hypoxia Status: Acute Assessment and Plan: His symptoms started pretty suddenly early this morning. Chest x-ray shows diffuse pulmonary infiltrates and with his pedal edema and elevated proBNP this may very well reflect pulmonary edema however pneumonia is not excluded. He is currently on 4 L nasal cannula with a stable SpO2. Was placed on BiPAP on admission. Now tapered off. Continue to treat for possible pneumonia with ceftriaxone and azithromycin. COVID swab is negative. No indication for steroids. He has recent history of ARDS requiring tracheostomy. Pulmonary embolism is unlikely as he is been on dabigatran 150 mg b.i.d.. Started on IV diuresis with 40 mg of Lasix IV b.i.d.. Recheck chest x-ray 04/01/2022 with worsening diffuse disease consistent with pulmonary edema versus pneumonia. Along with cardiomegaly. Add Pulmozyme nebs.-5 L 03/31. Venous Doppler negative for DVT. BNP improving Continue to monitor (2) Pulmonary infiltrates: Code(s): R91.8 - Other nonspecific abnormal finding of lung field Status: Acute Assessment and Plan: Differential diagnosis includes pulmonary edema versus pneumonia. He is currently being treated for both as detailed above. (3) Heart failure with reduced ejection fraction: Code(s): I50.20 - Unspecified systolic (congestive) heart failure Status: Acute Assessment and Plan: EF was as low as 30% but had improved to 55 to 60% on repeat echocardiogram at the end of December 2021. He is a bit edematous in the lower limbs and given elevated BNP and pulmonary infiltrates, he is being cautiously diuresed. Recheck chest x-ray reviewed with BNP improving Continue diuresis (4) Elevated troponin: Code(s): R77.8 - Other specified abnormalities of plasma proteins Status: Acute Assessment and Plan: Troponin is modestly elevated but has remained flat thus far. He is not currently having any chest pain however did have some chest tightness this morning (possibly related to onset of shortness of breath) thus will continue to trend to peak and consult Cardiology. EKG was reviewed and shows no acute ST segment changes. Again, pulmonary embolism is felt to be less likely. (5) Hypomagnesemia: Code(s): E83.42 - Hypomagnesemia Status: Acute Assessment and Plan: Magnesium will be replaced and monitored. (6) Paroxysmal atrial fibrillation: Code(s): I48.0 - Paroxysmal atrial fibrillation Status: Chronic Assessment and Plan: If was in sinus tachycardia on arrival now the to atrial fibrillation Already on anticoagulation with dabigatran 150 mg p.o. b.i.d.. Started on beta-ankit. Eventually cardiology started him on amiodarone drip. Back to sinus rhythm now (7) Chronic anticoagulation: Code(s): Z79.01 - ramp boss (current) use of anticoagulants Status: Acute Assessment and Plan: Continue dabigatran. (8) Hypertension: Qualifiers: Hypertension type: primary hypertension Qualified Code(s): I10 - Essential (primary) hypertension Code(s): I10 - Essential (primary) hypertension Status: Acute Assessment and Plan: Blood pressures have been running in the 140-150s systolic. Continue antihypertensives and monitor closely. (9) Type 2 diabetes mellitus: Code(s): E11.9 - Type 2 diabetes mellitus without complications Status: Acute Assessment and Plan: Initiate sliding scale insulin, Accu-Cheks, and hypoglycemic protocol. A1c at 5.7 (10) Normocytic anemia: Code(s): D64.9 - Anemia, unspecified Status: Acute Assessment and Plan: Ferritin 64 No active signs of bleeding Continue to monitor H&H Subjective Date/time seen: 04/01/22 09:36 In
[2022-04-01] MEDS: PANTOPRAZOLE 40 MG TABLET PO ×2 (09:41→20:57)
[2022-04-01] MEDS: FUROSEMIDE INJ 40 MG/4 ML VIAL IV PUSH ×2 (09:42→16:40)
[2022-04-01] MEDS: LOSARTAN POTASSIUM 25 MG TABLET PO (09:42)
[2022-04-01] MEDS: METOPROLOL SUCCINATE EXT REL 25 MG TABCR PO (09:42)
[2022-04-01] MEDS: MAGNESIUM OXIDE 400 MG TABLET PO (09:42)
[2022-04-01] MEDS: ATORVASTATIN 40 MG TABLET PO (09:43)
[2022-04-01] MEDS: ASPIRIN 81 MG ENTERIC TABLET PO (09:43)
[2022-04-01] MEDS: AMIODARONE HCL 200 MG TABLET 400 MG PO ×2 (09:43→20:57)
[2022-04-01] MEDS: POTASSIUM CHLORIDE 20 MEQ TABLET 40 MEQ PO (09:43)
[2022-04-01] MEDS: DORNASE ALFA INH SOLN 1 MG/ML 2.5 ML AMP 2.5 MG INHALATION ×2 (10:01→20:32)
[2022-04-01 11:34] LABS: Glucose Point of Care 166 mg/dl (65-105)
[2022-04-01] MEDS: DABIGATRAN ETEXILATE 150 MG CAPSULE PO ×2 (11:51→20:57)
--- NOTE | 2022-04-01 12:16 | PM.PNCARD ---
Progress Note: A&P Assessment and Plan (1) Atrial fibrillation with RVR: Code(s): I48.91 - Unspecified atrial fibrillation Status: Acute Plan 71-year-old man with paroxysmal atrial fibrillation probably in the setting of respiratory insufficiency. He had AFib and required cardioversion amiodarone treatment back in December of this year when this entire sequence of hospitalizations began here at this hospital prior to transferring him over to [place]. He was no longer taking amiodarone and in the setting of hypoxemia/respiratory distress had recurrence of his arrhythmia again yesterday. Once again with amiodarone treatment he is back in sinus rhythm. For now we will continue oral amiodarone for the short term. Hope to not expose him to this agent for the long-term. Edison Vila MD [facility] Subjective Date/time seen: Date of service: 04/01/22 12:16 Interval history: 71-year-old man with: Paroxysmal atrial fibrillation primarily in this setting of respiratory difficulty with history of severe pneumonia recently and a very long hospitalization for most of the summer at [place]. Patient had recurrence of atrial fibrillation yesterday in the setting of respiratory failure and hypoxemia once again. He was placed on intravenous amiodarone and did convert to sinus rhythm. Now on oral amiodarone. He appears to be remarkably comfortable this afternoon seated in bed wondering how long he has to stay in the hospital. Exam Const: General: comfortable and no acute distress Other: Elderly gentleman seated in the bedside chair no distress of any kind HENMT: Mouth: Yes moist mucous membranes Eyes: Sclera: sclerae normal Neck: Neck: supple and no JVD Resp: Effort & Inspection: normal respiratory effort Other: Scattered rhonchi throughout all lung ram no pulmonary rales no wheezing Cardio: Rate: regular rate Rhythm: regular rhythm GI: GI Palp: Yes Soft to palpation Auscultation: normal bowel sounds Skin: General skin exam: normal color Neuro: Other: Alert and oriented x3 Extrem: General: normal to inspection Objective Data Vital Signs Vital Signs: Vital Signs - 24 hr 03/31/22 13:52 03/31/22 14:00 03/31/22 16:00 Temperature Pulse Rate 74 70 Respiratory Rate Blood Pressure Pulse Oximetry 93 Oxygen Delivery High Flow Nasal Cannula Oxygen Flow Rate 5 Fraction of Inspired Oxygen 03/31/22 16:00 03/31/22 16:38 03/31/22 15:39 Temperature Pulse Rate 68 98 Respiratory Rate 23 H Blood Pressure Pulse Oximetry 95 Oxygen Delivery High Flow Nasal Cannula Oxygen Flow Rate 5 Fraction of Inspired Oxygen 03/31/22 15:50 03/31/22 16:00 03/31/22 18:00 Temperature 37.7 C H Pulse Rate 102 H 70 89 Respiratory Rate 22 H 28 H Blood Pressure 122/50 L Pulse Oximetry 90 Oxygen Delivery Oxygen Flow Rate Fraction of Inspired Oxygen 03/31/22 20:00 03/31/22 20:27 03/31/22 20:39 Temperature 37.4 C Pulse Rate 84 85 78 Respiratory Rate 20 20 Blood Pressure 113/50 L Pulse Oximetry 92 Oxygen Delivery Oxygen Flow Rate Fraction of Inspired Oxygen 03/31/22 20:40 03/31/22 20:48 03/31/22 20:00 Temperature Pulse Rate 81 89 Respiratory Rate 20 Blood Pressure Pulse Oximetry 93 Oxygen Delivery High Flow Nasal Cannula Oxygen Flow Rate 6 Fraction of Inspired Oxygen 03/31/22 20:00 03/31/22 21:51 03/31/22 22:45 Temperature Pulse Rate 89 75 77 Respiratory Rate 20 24 H Blood Pressure Pulse Oximetry 93 93 Oxygen Delivery High Flow Nasal Cannula CPAP Oxygen Flow Rate 6 Fraction of Inspired Oxygen 45 03/31/22 23:14 04/01/22 00:00 04/01/22 00:00 Temperature 37.4 C Pulse Rate 71 67 67 Respiratory Rate 18 18 Blood Pressure 109/43 L Pulse Oximetry 96 96 Oxygen Delivery CPAP Oxygen Flow Rate Fraction of Inspired Oxygen 45 04/01/22 02:00 04/01/22 02:18 04/01/22 02:18 [place]
[2022-04-01 16:21] LABS: Glucose Point of Care 254 mg/dl (65-105)
[2022-04-01] MEDS: INSULIN ASPART (*BKC) 100 UNITS/ML SUB-Q (16:40)
--- NOTE | 2022-04-01 18:10 | PC.NURSE ---
This patient, Moise Lutz, was transferred to [facility] on 04/01/22 at 1750. Personal belongings sent with patient. Report given to Taco COATES. Appropriate documentation sent with patient.
[2022-04-01 20:20] LABS: Glucose Point of Care 179 mg/dl (65-105)
[2022-04-01] MEDS: ALBUTEROL SULFATE NEB 2.5 MG/0.5 ML INH (20:32)
[2022-04-02] VITALS (22 sets, daily range): BP systolic 116–132; BP diastolic 49–64; PULSE 58–75; RESP 16–20; TEMP 36.5–36.8; O2SAT 93–100
[2022-04-02 00:28] LABS: Vancomycin Trough < 5.0 ug/mL (10.0-20.0)
[2022-04-02] MEDS: ALBUTEROL SULFATE NEB 2.5 MG/0.5 ML INH (02:46)
[2022-04-02] MEDS: LEVOTHYROXINE SODIUM 25 MCG TABLET PO (05:44)
[2022-04-02] MEDS: LEVOTHYROXINE SODIUM 112 MCG TABLET PO (05:45)
[2022-04-02 06:06] LABS: Basophils Percent Auto 0.3 % (0.2-1.2); Eosinophils Absolute Auto 0.5 K/mm3 (0-0.3); Eosinophils Percent Auto 4.1 % (0-4.4); Hematocrit 27.1 % (42.0-52.0); Hemoglobin 8.5 g/dL (14.0-18.0); Immature Granulocyte Absolute 0.05 K/mm3 (0.00-0.031); Immature Granulocyte Percent A 0.4 % (0-0.5); Lymphocytes Absolute Auto 1.03 K/mm3 (0.9-3.2); Lymphocytes Percent Auto 8.7 % (18.3-44.2); Mean Corpuscular HGB Conc 31.4 g/dl (32-36); Mean Corpuscular Hemoglobin 27.8 pg (26-34); Mean Corpuscular Volume 88.6 fl (80-100); Mean Platelet Volume 11.3 fl (7.4-10.4); Monocytes Percent Auto 8.4 % (2.6-8.5); Neutrophils Absolute Auto 9.3 K/mm3 (1.3-6.7); Neutrophils Percent Auto 78.1 % (45.5-73.1); Platelet Count Result 256 k/mm3 (150-375); Red Blood Count 3.06 M/mm3 (4.6-6.20); Red Cell Distribution Width 15.3 % (11.5-14.5); White Blood Count 11.9 K/mm3 (4.5-10.0)
[2022-04-02 06:20] LABS: Alanine Aminotransferase 13 U/L (6-50); Albumin Level 3.1 g/dL (3.5-5.1); Alkaline Phosphatase 53 U/L (38-126); Anion Gap 4 mmol/L (8-16); Aspartate Amino Transferase 25 U/L (17-59); Bilirubin,Total 0.3 mg/dL (0.2-1.3); Blood Urea Nitrogen 30 mg/dL (9-20); Calcium 8.6 mg/dL (8.4-10.2); Carbon Dioxide 38 mmol/L (22-30); Chloride 89 mmol/L (98-107); Estimated CRCL calculation 51 ml/min; Estimated Glomerular Filt Rate > 60; Glucose 142 mg/dL (65-110); Magnesium 1.9 mg/dL (1.6-2.3); Potassium 3.7 mmol/L (3.4-5.0); Sodium 131 mmol/L (137-145)
[2022-04-02 08:15] LABS: Glucose Point of Care 163 mg/dl (65-105)
[2022-04-02] MEDS: ASPIRIN 81 MG ENTERIC TABLET PO (08:33)
[2022-04-02] MEDS: DABIGATRAN ETEXILATE 150 MG CAPSULE PO ×2 (08:33→20:46)
[2022-04-02] MEDS: AMIODARONE HCL 200 MG TABLET 400 MG PO (08:33)
[2022-04-02] MEDS: ATORVASTATIN 40 MG TABLET PO (08:33)
[2022-04-02] MEDS: FUROSEMIDE INJ 40 MG/4 ML VIAL IV PUSH ×2 (08:34→17:21)
[2022-04-02] MEDS: LOSARTAN POTASSIUM 25 MG TABLET PO (08:34)
[2022-04-02] MEDS: MAGNESIUM OXIDE 400 MG TABLET PO (08:34)
[2022-04-02] MEDS: PANTOPRAZOLE 40 MG TABLET PO ×2 (08:34→20:46)
[2022-04-02] MEDS: METOPROLOL SUCCINATE EXT REL 25 MG TABCR PO (08:34)
[2022-04-02] MEDS: ALBUTEROL SULFATE NEB 2.5 MG/3 ML INH INHALATION ×3 (08:37→20:37)
[2022-04-02] MEDS: DORNASE ALFA INH SOLN 1 MG/ML 2.5 ML AMP 2.5 MG INHALATION (08:38)
--- NOTE | 2022-04-02 08:53 | PM.PNCARD ---
Progress Note: A&P Assessment and Plan (1) Atrial fibrillation with RVR: Code(s): I48.91 - Unspecified atrial fibrillation Status: Acute Assessment and Plan: will reduce amiodarone. He remains in sinus rhythm. Plan 71-year-old man with paroxysmal atrial fibrillation probably in the setting of respiratory insufficiency. He had AFib and required cardioversion amiodarone treatment back in December of this year when this entire sequence of hospitalizations began here at this hospital prior to transferring him over to [place]. He was no longer taking amiodarone and in the setting of hypoxemia/respiratory distress had recurrence of his arrhythmia again. Will reduce his amiodarone down to 200 mg p.o. b.i.d.. Continue anticoagulation Pradaxa Subjective Date/time seen: 04/02/22 08:53 Interval history: 71-year-old man with: Paroxysmal atrial fibrillation primarily in this setting of respiratory difficulty with history of severe pneumonia recently and a very long hospitalization for most of the summer at [place]. Patient had recurrence of atrial fibrillation yesterday in the setting of respiratory failure and hypoxemia once again. He was placed on intravenous amiodarone and did convert to sinus rhythm. Now on oral amiodarone. date of service 04/02/2022: Feels okay. No chest pain or shortness of breath Review of Systems Review of Systems: All systems reviewed & are unremarkable except as noted in HPI and below Constitutional: Constitutional: Reports as per HPI and Reports no additional constitutional complaints Eyes: Eyes: Reports as per HPI and Reports no additional eye complaints ENT: Reports system reviewed and no additional complaints, except as documented and Reports as per HPI Cardiovascular: Cardiovascular: Reports as per HPI and Reports no additional cardiovascular complaints Respiratory: Respiratory: Reports as per HPI and Reports no additional respiratory complaints Gastrointestinal: Gastrointestinal: Reports as per HPI and Reports no additional gastrointestinal complaints Genitourinary: Genitourinary: Reports no additional male genitourinary complaints and Reports as per HPI Musculoskeletal: Musculoskeletal: Reports no additional musculoskeletal complaints and Reports as per HPI Integumentary/Breasts: Skin/Breast: Reports system reviewed and no additional complaints, except as docu and Reports as per HPI Neurologic: Reports system reviewed and no additional complaints, except as documented and Reports as per HPI Psychiatric: Psychiatric: Reports no additional psychiatric complaints and Reports as per HPI Endocrine: Endocrine: Reports no additional endocrine complaints and Reports as per HPI Hematologic/Lymphatic: Hematologic/Lymphatic: Reports no additional hematologic/lymphatic complaints and Reports as per HPI Allergic/Immunologic: Allergic/Immunologic: Reports no additional allergic/immunologic complaints and Reports as per HPI Exam Const: General: comfortable and no acute distress Other: Elderly gentleman seated in the bedside chair no distress of any kind HENMT: Mouth: Yes moist mucous membranes Eyes: Sclera: sclerae normal Neck: Neck: supple and no JVD Resp: Effort & Inspection: normal respiratory effort Other: Scattered rhonchi throughout all lung ram no pulmonary rales no wheezing Cardio: Rate: regular rate Rhythm: regular rhythm GI: Auscultation: normal bowel sounds Skin: General skin exam: normal color Neuro: Other: Alert and oriented x3 Extrem: General: normal to inspection Objective Data Vital Signs Vital Signs: Vital Signs - 24 hr 04/01/22 09:08 04/01/22 09:42 04/01/22 09:43 Temperature Pulse Rate 73 73 Respiratory Rate Blood Pressure Pulse Oximetry Oxygen Delivery High Flow Therapy with Na Oxygen Flow Rate 6 04/01/22 10:05 04/01/22 10:16 04/01/22 12:00 Temperature 36.5 C Pulse Rate 64 65 69 Respiratory Rate 20 20
[2022-04-02 12:23] LABS: Glucose Point of Care 232 mg/dl (65-105)
[2022-04-02] MEDS: INSULIN ASPART (*BKC) 100 UNITS/ML SUB-Q (12:35)
--- NOTE | 2022-04-02 14:27 | PM.IMPN ---
Progress Note: A&P Assessment and Plan (1) Acute and chronic respiratory failure with hypoxia: Code(s): J96.21 - Acute and chronic respiratory failure with hypoxia Status: Acute Assessment and Plan: His symptoms started pretty suddenly early this morning. Chest x-ray shows diffuse pulmonary infiltrates and with his pedal edema and elevated proBNP this may very well reflect pulmonary edema however pneumonia is not excluded. He is currently on 4 L nasal cannula with a stable SpO2. Was placed on BiPAP on admission. Now tapered off. Continue to treat for possible pneumonia with ceftriaxone and azithromycin. COVID swab is negative. No indication for steroids. He has recent history of ARDS requiring tracheostomy. Pulmonary embolism is unlikely as he is been on dabigatran 150 mg b.i.d.. Started on IV diuresis with 40 mg of Lasix IV b.i.d.. Recheck chest x-ray 04/01/2022 with worsening diffuse disease consistent with pulmonary edema versus pneumonia. Along with cardiomegaly. Add Pulmozyme nebs.-5 L 03/31. Venous Doppler negative for DVT. BNP improving Continue to monitor Chest x-ray improving 04/02/2022. Will stop BiPAP at night Oxygen evaluation in a.m. (2) Pulmonary infiltrates: Code(s): R91.8 - Other nonspecific abnormal finding of lung field Status: Acute Assessment and Plan: Differential diagnosis includes pulmonary edema versus pneumonia. He is currently being treated for both as detailed above. WBC count continues to improve on ceftriaxone and azithromycin. (3) Heart failure with reduced ejection fraction: Code(s): I50.20 - Unspecified systolic (congestive) heart failure Status: Acute Assessment and Plan: EF was as low as 30% but had improved to 55 to 60% on repeat echocardiogram at the end of December 2021. He is a bit edematous in the lower limbs and given elevated BNP and pulmonary infiltrates, he is being cautiously diuresed. Recheck chest x-ray reviewed with BNP improving Continue diuresis remains negative (4) Elevated troponin: Code(s): R77.8 - Other specified abnormalities of plasma proteins Status: Acute Assessment and Plan: Troponin is modestly elevated but has remained flat thus far. He is not currently having any chest pain however did have some chest tightness this morning (possibly related to onset of shortness of breath) thus will continue to trend to peak and consult Cardiology. EKG was reviewed and shows no acute ST segment changes. Again, pulmonary embolism is felt to be less likely. (5) Hypomagnesemia: Code(s): E83.42 - Hypomagnesemia Status: Acute Assessment and Plan: Magnesium will be replaced and monitored. (6) Paroxysmal atrial fibrillation: Code(s): I48.0 - Paroxysmal atrial fibrillation Status: Chronic Assessment and Plan: If was in sinus tachycardia on arrival now the to atrial fibrillation Already on anticoagulation with dabigatran 150 mg p.o. b.i.d.. Started on beta-ankti. Eventually cardiology started him on amiodarone drip. Back to sinus rhythm now On oral amiodarone per Cardiology Continue on Pradaxa (7) Chronic anticoagulation: Code(s): Z79.01 - intermediate manager (current) use of anticoagulants Status: Acute Assessment and Plan: Continue dabigatran. (8) Hypertension: Qualifiers: Hypertension type: primary hypertension Qualified Code(s): I10 - Essential (primary) hypertension Code(s): I10 - Essential (primary) hypertension Status: Acute Assessment and Plan: Blood pressures have been running in the 140-150s systolic. Continue antihypertensives and monitor closely. (9) Type 2 diabetes mellitus: Code(s): E11.9 - Type 2 diabetes mellitus without complications Status: Acute Assessment and Plan: Initiate sliding scale insulin, Accu-Cheks, and hypoglycemic protocol. A1c at 5.7 (10) Normocytic anemia
[2022-04-02 17:17] LABS: Glucose Point of Care 123 mg/dl (65-105)
[2022-04-02 19:52] LABS: Glucose Point of Care 290 mg/dl (65-105)
[2022-04-02 20:08] LABS: Pneumococcal Antigen Urine Not Detected (Not Detected)
[2022-04-02] MEDS: AMIODARONE HCL 200 MG TABLET PO (20:46)
[2022-04-03] VITALS (23 sets, daily range): BP systolic 116–122; BP diastolic 44–48; PULSE 58–83; RESP 16–20; TEMP 36.1–36.4; O2SAT 83–99
[2022-04-03] MEDS: ALBUTEROL SULFATE NEB 2.5 MG/3 ML INH INHALATION ×3 (03:11→14:52)
[2022-04-03 05:18] LABS: Basophils Absolute Auto 0.1 K/mm3 (0.0-0.1); Basophils Percent Auto 0.5 % (0.2-1.2); Eosinophils Absolute Auto 0.4 K/mm3 (0-0.3); Eosinophils Percent Auto 3.7 % (0-4.4); Hematocrit 27.9 % (42.0-52.0); Hemoglobin 8.6 g/dL (14.0-18.0); Immature Granulocyte Absolute 0.04 K/mm3 (0.00-0.031); Immature Granulocyte Percent A 0.4 % (0-0.5); Lymphocytes Percent Auto 11.8 % (18.3-44.2); Mean Corpuscular HGB Conc 30.8 g/dl (32-36); Mean Corpuscular Hemoglobin 27.1 pg (26-34); Mean Platelet Volume 11.3 fl (7.4-10.4); Monocytes Absolute Auto 1.1 K/mm3 (0.1-0.6); Monocytes Percent Auto 9.6 % (2.6-8.5); Neutrophils Absolute Auto 8.2 K/mm3 (1.3-6.7); Platelet Count Result 271 k/mm3 (150-375); Red Blood Count 3.17 M/mm3 (4.6-6.20)
[2022-04-03 05:22] LABS: Sodium 134 mmol/L (137-145)
[2022-04-03 05:25] LABS: Alanine Aminotransferase 15 U/L (6-50); Albumin Level 3.2 g/dL (3.5-5.1); Alkaline Phosphatase 54 U/L (38-126); Anion Gap 7 mmol/L (8-16); Aspartate Amino Transferase 23 U/L (17-59); Bilirubin,Total 0.2 mg/dL (0.2-1.3); Blood Urea Nitrogen 29 mg/dL (9-20); Calcium 8.5 mg/dL (8.4-10.2); Carbon Dioxide 38 mmol/L (22-30); Chloride 89 mmol/L (98-107); Estimated CRCL calculation 47 ml/min; Estimated Glomerular Filt Rate 59; Glucose 142 mg/dL (65-110); Magnesium 1.8 mg/dL (1.6-2.3); Potassium 3.5 mmol/L (3.4-5.0)
[2022-04-03] MEDS: LEVOTHYROXINE SODIUM 112 MCG TABLET PO (05:34)
[2022-04-03] MEDS: LEVOTHYROXINE SODIUM 25 MCG TABLET PO (05:34)
[2022-04-03] MEDS: DORNASE ALFA INH SOLN 1 MG/ML 2.5 ML AMP 2.5 MG INHALATION (08:32)
[2022-04-03 08:37] LABS: Glucose Point of Care 166 mg/dl (65-105)
--- NOTE | 2022-04-03 08:43 | HOMEO2EVAL ---
Evaluation was performed at [facility] Home Oxygen Evaluation RC: Home Oxygen (O2) Evaluation Start: 04/02/22 14:26 Freq: ONCE Status: Active Protocol: RPE Activity Type Activity Date Activity User E-sign Co-sign Detail Recorded Client Recorded Date Recorded By Document 04/03/22 08:20 KRM [email or web address] 04/03/22 08:43 KRM Document 04/03/22 08:22 KRM [email or web address] 04/03/22 08:43 KRM Document 04/03/22 08:24 KRM [email or web address] 04/03/22 08:43 KRM Document 04/03/22 08:26 KRM [email or web address] 04/03/22 08:43 KRM Document 04/03/22 08:28 KRM [email or web address] 04/03/22 08:43 KRM Document 04/03/22 08:30 KRM [email or web address] 04/03/22 08:43 KRM 04/03/22 04/03/22 04/03/22 08:20 08:22 08:24 Home O2 Evaluation Test Phase Resting Resting Resting Oxygen Delivery Room Air Nasal Cannula Nasal Cannula Oxygen Flow Rate (L/min) 1 2 Pulse Oximetry (90-100 %) 83 L 85 L 93 Pulse Rate (60-100 beats/min) 73 68 63 Activity Tolerance Ambulation Distance (feet) Ambulation Distance (meters) Home Oxygen Evaluation Comments Treatment Charges 04/03/22 04/03/22 04/03/22 08:26 08:28 08:30 Home O2 Evaluation Test Phase Exercise Exercise Exercise Oxygen Delivery Nasal Cannula Nasal Cannula Nasal Cannula Oxygen Flow Rate (L/min) 2 3 4 Pulse Oximetry (90-100 %) 85 L 86 L 88 L Pulse Rate (60-100 beats/min) 80 80 80 Activity Tolerance Fair Fair Fair Ambulation Distance (feet) 25 Ambulation Distance (meters) 7.61 Home Oxygen Evaluation Comments 2lpm at rest, 4lpm with activity Treatment Charges O2 Evaluation - Inpatient
--- NOTE | 2022-04-03 08:43 | PCRCNOTE ---
Home o2 evaluation completed. No changes from current home settings of 2lpm at rest and 4lpm with activity. Pt. is already set up with o2 at home. Instructed Pt. to have family bring tank from home upon discharge.
--- NOTE | 2022-04-03 08:54 | PM.PNCARD ---
Progress Note: A&P Assessment and Plan (1) Atrial fibrillation with RVR: Code(s): I48.91 - Unspecified atrial fibrillation Status: Acute Assessment and Plan: He remains in sinus rhythm. KCL 40 mEq p.o. x1 (2) Acute heart failure with preserved ejection fraction (HFpEF): Code(s): I50.31 - Acute diastolic (congestive) heart failure Status: Acute Assessment and Plan: Will reduce his furosemide down to 20 mg IV q.12 hours. Plan 71-year-old man with paroxysmal atrial fibrillation probably in the setting of respiratory insufficiency. He had AFib and required cardioversion amiodarone treatment back in December of this year when this entire sequence of hospitalizations began here at this hospital prior to transferring him over to [place]. He was no longer taking amiodarone and in the setting of hypoxemia/respiratory distress had recurrence of his arrhythmia again. Continue amiodarone at 200 mg p.o. b.i.d.. Continue anticoagulation Pradaxa Subjective Date/time seen: 04/03/22 08:54 Interval history: 71-year-old man with: Paroxysmal atrial fibrillation primarily in this setting of respiratory difficulty with history of severe pneumonia recently and a very long hospitalization for most of the summer at [place]. Patient had recurrence of atrial fibrillation yesterday in the setting of respiratory failure and hypoxemia once again. He was placed on intravenous amiodarone and did convert to sinus rhythm. Now on oral amiodarone. date of service 04/02/2022: Feels okay. No chest pain or shortness of breath Date of service 04/03/2022: Continues to feel better. No chest pain, shortness of breath Review of Systems Review of Systems: All systems reviewed & are unremarkable except as noted in HPI and below Constitutional: Constitutional: Reports as per HPI and Reports no additional constitutional complaints Eyes: Eyes: Reports as per HPI and Reports no additional eye complaints ENT: Reports system reviewed and no additional complaints, except as documented and Reports as per HPI Cardiovascular: Cardiovascular: Reports as per HPI and Reports no additional cardiovascular complaints Respiratory: Respiratory: Reports as per HPI and Reports no additional respiratory complaints Gastrointestinal: Gastrointestinal: Reports as per HPI and Reports no additional gastrointestinal complaints Genitourinary: Genitourinary: Reports no additional male genitourinary complaints and Reports as per HPI Musculoskeletal: Musculoskeletal: Reports no additional musculoskeletal complaints and Reports as per HPI Integumentary/Breasts: Skin/Breast: Reports system reviewed and no additional complaints, except as docu and Reports as per HPI Neurologic: Reports system reviewed and no additional complaints, except as documented and Reports as per HPI Psychiatric: Psychiatric: Reports no additional psychiatric complaints and Reports as per HPI Endocrine: Endocrine: Reports no additional endocrine complaints and Reports as per HPI Hematologic/Lymphatic: Hematologic/Lymphatic: Reports no additional hematologic/lymphatic complaints and Reports as per HPI Allergic/Immunologic: Allergic/Immunologic: Reports no additional allergic/immunologic complaints and Reports as per HPI Exam Const: General: comfortable and no acute distress Other: Elderly gentleman seated in the bedside chair no distress of any kind HENMT: Mouth: Yes moist mucous membranes Eyes: Sclera: sclerae normal Neck: Neck: supple and no JVD Resp: Effort & Inspection: normal respiratory effort Other: Scattered rhonchi throughout all lung ram no pulmonary rales no wheezing Cardio: Rate: regular rate Rhythm: regular rhythm GI: Auscultation: normal bowel sounds Skin: General skin exam: normal color Neuro: Other: Alert and oriented x3 Extrem: General: normal to inspection Objective Data Vital Signs Vital Signs: Vital Signs - 24 hr 04/02/22
[2022-04-03] MEDS: ASPIRIN 81 MG ENTERIC TABLET PO (09:08)
[2022-04-03] MEDS: FUROSEMIDE INJ 40 MG/4 ML VIAL 20 MG IV PUSH (09:08)
[2022-04-03] MEDS: PANTOPRAZOLE 40 MG TABLET PO (09:08)
[2022-04-03] MEDS: ATORVASTATIN 40 MG TABLET PO (09:08)
[2022-04-03] MEDS: DABIGATRAN ETEXILATE 150 MG CAPSULE PO (09:08)
[2022-04-03] MEDS: METOPROLOL SUCCINATE EXT REL 25 MG TABCR PO (09:09)
[2022-04-03] MEDS: LOSARTAN POTASSIUM 25 MG TABLET PO (09:10)
[2022-04-03] MEDS: MAGNESIUM OXIDE 400 MG TABLET PO (09:10)
[2022-04-03] MEDS: AMIODARONE HCL 200 MG TABLET PO (09:10)
[2022-04-03] MEDS: POTASSIUM CHLORIDE 20 MEQ TABLET 40 MEQ PO (09:52)
--- NOTE | 2022-04-03 11:51 | PM.DS ---
DS: Admitting Diagnosis Discharge Date 04/03/2022 Admitting Diagnosis Shortness of breath DS: Discharge Diagnosis Discharge Diagnosis (1) Acute and chronic respiratory failure with hypoxia: Code(s): J96.21 - Acute and chronic respiratory failure with hypoxia Status: Acute (2) Pulmonary infiltrates: Code(s): R91.8 - Other nonspecific abnormal finding of lung field Status: Acute (3) Heart failure with reduced ejection fraction: Code(s): I50.20 - Unspecified systolic (congestive) heart failure Status: Acute (4) Elevated troponin: Code(s): R77.8 - Other specified abnormalities of plasma proteins Status: Acute (5) Hypomagnesemia: Code(s): E83.42 - Hypomagnesemia Status: Acute (6) Paroxysmal atrial fibrillation: Code(s): I48.0 - Paroxysmal atrial fibrillation Status: Chronic (7) Chronic anticoagulation: Code(s): Z79.01 - senior living (current) use of anticoagulants Status: Acute (8) Hypertension: Qualifiers: Hypertension type: primary hypertension Qualified Code(s): I10 - Essential (primary) hypertension Code(s): I10 - Essential (primary) hypertension Status: Acute (9) Type 2 diabetes mellitus: Code(s): E11.9 - Type 2 diabetes mellitus without complications Status: Acute (10) Normocytic anemia: Code(s): D64.9 - Anemia, unspecified Status: Acute DS: Summary Hospital Course Hospital Course: # Acute and chronic respiratory failure with hypoxia: Patient's symptoms started pretty suddenly early this morning. Chest x-ray shows diffuse pulmonary infiltrates and with his pedal edema and elevated proBNP. This may very well reflect pulmonary edema however pneumonia is not excluded. He required BiPAP initially on admission and required higher level oxygen to maintain SpO2 more than 90%. His treated for possible pneumonia with ceftriaxone and azithromycin. COVID swab is negative.? No indication for steroids.? He has recent history of ARDS requiring tracheostomy.? Pulmonary embolism is unlikely as he is been on dabigatran 150 mg b.i.d..? He was also Started on IV diuresis with 40 mg of Lasix IV b.i.d..? Recheck chest x-ray 04/01/2022 with worsening diffuse disease consistent with pulmonary edema versus pneumonia.? Along with cardiomegaly.? He was added on bronchodilators Pulmozyme. Venous Doppler negative for DVT.? BNP was monitored and was improving. BiPAP was tapered off. He was ambulated and oxygen evaluation was done. 04/03/2022 he was back on his oxygen usual requirement. Chest x-ray improving 04/02/2022.? # Pulmonary infiltrates: Differential diagnosis includes pulmonary edema versus pneumonia. He is currently being treated for both as detailed above. WBC count continues to improve on ceftriaxone and azithromycin. # Heart failure with reduced ejection fraction: EF was as low as 30% but had improved to 55 to 60% on repeat echocardiogram at the end of December 2021. He is a bit edematous in the lower limbs and given elevated BNP and pulmonary infiltrates, he is being cautiously diuresed. Recheck chest x-ray reviewed with BNP improving Continue diuresis remains negative # Elevated troponin: Troponin is modestly elevated but has remained flat thus far. He is not currently having any chest pain however did have some chest tightness this morning (possibly related to onset of shortness of breath) thus will continue to trend to peak and consult Cardiology. EKG was reviewed and shows no acute ST segment changes. Again, pulmonary embolism is felt to be less likely. # hypo magnesemia: Magnesium Was replaced and monitored. # paroxysmal atrial fibrillation: Patient was in sinus tachycardia on arrival but later went to atrial fibrillation Already on anticoagulation with dabigatran 150 mg p.o. b.i.d.. Started on beta-ankit.? Eventually cardiology started him on amiodarone drip. which was switched to oral amiodar
[2022-04-03 11:57] LABS: Glucose Point of Care 430 mg/dl (65-105)
[2022-04-03 12:50] LABS: Glucose Point of Care 367 mg/dl (65-105)
[2022-04-03] MEDS: INSULIN ASPART (*BKC) 100 UNITS/ML SUB-Q (12:58)
[2022-04-04 17:24] LABS: Legionella pneumophila Ag Ur Not Detected (Not Detected)
== END 2022-04-03 16:15 | disposition home health service (06) | DRG 291 ==
LOC: ANHED 14:00 → ANHIMU 17:21 → ANH2MED 04-01 17:47
PROVIDERS: Physician Assistant; Admitting Provider Family Medicine; Emergency Provider Emergency Medicine; PCP Internal Medicine; Visit Provider Internal Medicine
DX: I50.21 Acute systolic (congestive) heart failure (principal); J96.21 Acute and chronic respiratory failure with hypoxia; J18.9 Pneumonia, unspecified organism; I42.8 Other cardiomyopathies; I11.0 Hypertensive heart disease with heart failure; I25.10 Atherosclerotic heart disease of native coronary artery without angina pectoris; I65.29 Occlusion and stenosis of unspecified carotid artery; I48.0 Paroxysmal atrial fibrillation; D64.9 Anemia, unspecified; E83.42 Hypomagnesemia; E89.0 Postprocedural hypothyroidism; E78.5 Hyperlipidemia, unspecified; E11.9 Type 2 diabetes mellitus without complications; R77.8 Other specified abnormalities of plasma proteins; Z20.822 Contact with and (suspected) exposure to COVID-19; Z79.01 Long term (current) use of anticoagulants; Z86.73 Personal history of transient ischemic attack (TIA), and cerebral infarction without residual deficits; Z87.891 Personal history of nicotine dependence
CPT/HCPCS: 36415; 36600; 71045; 71046; 80053; 80202; 82375; 82607; 82728; 82746; 82805; 82948; 83036; 83050; 83540; 83550; 83605; 83735; 83880; 84145; 84443; 84484; 85025; 85380; 85610; 85730; 86140; 87040; 87449; 87899; 93005; 93970; 94002; 94003; 94618; 94640; 97110; 97116; 97162; 97165; 97530; 97535; 99285; A9270; C9803; J0282; J0456; J0692; J0696; J1815; J1940; J1956; J3370; J3475; J7050; U0003; U0005

== ENCOUNTER 2022-04-12 11:43 | Outpatient (NON) | payer MEDICARE, SELFPAY ==
[2022-04-12 12:26] LABS: Basophils Absolute Auto 0.1 K/mm3 (0.0-0.1); Basophils Percent Auto 0.6 % (0.2-1.2); Eosinophils Absolute Auto 0.2 K/mm3 (0-0.3); Eosinophils Percent Auto 1.6 % (0-4.4); Hematocrit 32.6 % (42.0-52.0); Hemoglobin 9.8 g/dL (14.0-18.0); Immature Granulocyte Absolute 0.08 K/mm3 (0.00-0.031); Immature Granulocyte Percent A 0.7 % (0-0.5); Lymphocytes Absolute Auto 1.46 K/mm3 (0.9-3.2); Lymphocytes Percent Auto 12.7 % (18.3-44.2); Mean Corpuscular HGB Conc 30.1 g/dl (32-36); Mean Corpuscular Volume 89.8 fl (80-100); Mean Platelet Volume 11.4 fl (7.4-10.4); Monocytes Absolute Auto 0.6 K/mm3 (0.1-0.6); Neutrophils Absolute Auto 9.2 K/mm3 (1.3-6.7); Neutrophils Percent Auto 79.4 % (45.5-73.1); Platelet Count Result 406 k/mm3 (150-375); Red Blood Count 3.63 M/mm3 (4.6-6.20); Red Cell Distribution Width 15.2 % (11.5-14.5); White Blood Count 11.5 K/mm3 (4.5-10.0)
[2022-04-12 12:38] LABS: Alanine Aminotransferase 13 U/L (6-50); Albumin Level 3.8 g/dL (3.5-5.1); Alkaline Phosphatase 74 U/L (38-126); Anion Gap 15 mmol/L (8-16); Aspartate Amino Transferase 26 U/L (17-59); Bilirubin,Total 0.1 mg/dL (0.2-1.3); Blood Urea Nitrogen 26 mg/dL (9-20); Calcium 8.8 mg/dL (8.4-10.2); Carbon Dioxide 30 mmol/L (22-30); Chloride 94 mmol/L (98-107); Estimated Glomerular Filt Rate 59; Glucose 230 mg/dL (65-110); Potassium 4.6 mmol/L (3.4-5.0); Sodium 139 mmol/L (137-145)
== END 2022-04-12 11:44 | disposition home or self-care (01) ==
PROVIDERS: PCP Internal Medicine; Visit Provider Internal Medicine
DX: D64.9 Anemia, unspecified (principal); I50.31 Acute diastolic (congestive) heart failure
CPT/HCPCS: 36415; 80053; 85025

== ENCOUNTER 2022-04-15 14:28 | Outpatient (CLI) | payer MEDICARE, SELFPAY ==
--- NOTE | 2022-04-18 13:36 | WPDPFTINT ---
PFT Procedure Performed PFT Procedure Performed Spirometry with Pre/Post Bronchodilator Plethysmography (Lung Vol) Diffusing Cap (DLCO) Flow Vol Loop PFT Interpretation Lung volumes were measured with the body plethysmography. The diminished [id number] lung volumes are indicative of restrictive respiratory disease. Spirometry showed diminished expiratory flow rates and a normal FEV1 to FVC ratio of 80%, also consistent with restrictive respiratory disease. Following administration of a bronchodilator there was no significant increase in expiratory flow rates. Lung diffusion capacity is severely reduced at 25% predicted. The flow-volume loop is unremarkable. Impression: Moderately severe respiratory restrictive disease. Severely reduced lung diffusion capacity.
== END 2022-04-15 14:29 | disposition home or self-care (01) ==
PROVIDERS: PCP Internal Medicine; Visit Provider Internal Medicine Pulmonary Disease
DX: R06.00 Dyspnea, unspecified (principal); R94.2 Abnormal results of pulmonary function studies
CPT/HCPCS: 94060; 94726; 94729

== ENCOUNTER 2022-06-23 14:57 | Emergency (ER) | payer MEDICARE, SELFPAY ==
--- NOTE | ~2022-06-23 | XR_ITS ---
XR shoulder LT min 2V DATE: 06/23/2022 16:18 INDICATION: Worsening chronic left shoulder pain TECHNIQUE: 4 views COMPARISON: 04/03/2022 portable AP chest FINDINGS: There is approximately 1.5 cm inferior subluxation of the humeral head at the glenohumeral joint with widening of the glenohumeral joint space. Normal alignment at the acromioclavicular joint. No fracture is detected. Diffuse osteopenia. IMPRESSION: Inferior subluxation at the left glenohumeral joint Osteopenia Reviewed, dictated and finalized at location B. T PACKER
[2022-06-23 15:26] VITALS: BP 168/69; PULSE 55; RESP 16; TEMP 36.6; O2SAT 96
[2022-06-23 18:45] VITALS: PULSE 55; RESP 16; O2SAT 99
--- NOTE | 2022-06-23 18:59 | ED.EXTPRO ---
HPI - Extremity Problem General Chief complaint: Extremity Problem,Nontraumatic <AVRIL Bautista Last Filed: 06/23/22 22:56> Stated complaint: L SHOULDER PAIN X3D <Jacquie Martinez PA-C - Last Filed: 06/23/22 22:56> Time Seen by Provider: 06/23/22 18:44 <AVRIL Bautista Last Filed: 06/23/22 22:56> History of Present Illness HPI Narrative: Patient is a 71-year-old male with a history of frozen shoulder followed by Dr. Mosquera, here for evaluation of acute on chronic left shoulder pain. 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 Additionally notes intermittent paresthesias lasting several seconds at a time. Range of motion is limited due to pain. Attempted Aleve without relief of his symptoms. He has been experiencing chronic shoulder pain for the past several years that has been attributed to frozen shoulder, he has been to physical therapy with transient improvement. No weakness in the leg, loss of consciousness, head injury, visual changes, confusion or dizziness, chest pain. <AVRIL Bautista Last Filed: 06/23/22 22:56> Related Data Home medications: Home Medications Medication Instructions Recorded Confirmed aspirin 81 mg tablet,delayed 81 mg PO DAILY 03/04/22 06/22/22 release tamsulosin 0.4 mg capsule 0.4 mg PO DAILY 06/22/22 06/22/22 <AVRIL Bautista Last Filed: 06/23/22 22:56> Allergies/Adverse reactions: Allergies Allergy/AdvReac Type Severity Reaction Status Date / Time No Known Allergies Allergy Verified 06/22/22 12:56 <AVRIL Bautista Last Filed: 06/23/22 22:56> Review of Systems Review of Systems: Gen: Denies fevers or chills Eyes: Denies eye pain or visual change ENT: Denies congestion Respiratory: Denies shortness of breath or cough CV: Denies chest pain or palpitations GI: Denies abdominal pain nausea, emesis or diarrhea : denies burning, urgency, frequency or hematuria Musculoskeletal: Reports left shoulder pain. Denies back pain or muscle pain Neuro: Denies numbness, tingling, weakness or focal weakness Skin: Denies rash Except as documented, all other systems reviewed and negative <Jacquie Martinez PA-C - Last Filed: 06/23/22 22:56> [facility] Past Medical History Medical History: Medical History Adult respiratory distress syndrome (12/2021) Carotid artery occlusion Chronic anticoagulation Coronary artery disease According to prior documentation, the patient has nonobstructing coronary disease which was treated medically. Dyslipidemia Heart failure with reduced ejection fraction EF as low as 30 to 35%, improved to 55 to 60% on repeat echocardiogram on 12/30/2021. History of skin cancer Hypertension Hyperthyroidism Status post radioactive iodine ablation. Hypothyroidism Paroxysmal atrial fibrillation Type 2 diabetes mellitus <Jacquie Martinez PA-C - Last Filed: 06/23/22 22:56> Surgical History Surgical History: Surgical History History of arthroscopy of left knee Partial medial meniscectomy. History of cardiac catheterization Nonobstructing disease. History of tracheostomy <Jacquie Martinez PA-C - Last Filed: 06/23/22 22:56> Family History Family History: Family History Sibling Diabetes mellitus Lung cancer Father Diabetes mellitus Mother Acute myocardial infarction Congestive heart failure Dementia Other Hypertension Hypothyroidism <Jacquie Martinez PA-C - Last Filed: 06/23/22 22:56> Social History Social History: Social History (Updated 06/22/22 @ 13:07 by Kiana Winchester CMA) Social History: The patient lives with his in [place]. They have 2 childre
[2022-06-23] MEDS: ACETAMINOPHEN 325 MG TABLET 650 MG PO (19:39)
[2022-06-23 19:59] VITALS: BP 168/67; PULSE 58; RESP 22; O2SAT 98
== END 2022-06-23 19:59 | disposition home or self-care (01) ==
PROVIDERS: Emergency Provider Emergency Medicine; PCP Internal Medicine
DX: S43.032A Inferior subluxation of left humerus, initial encounter (principal); M75.02 Adhesive capsulitis of left shoulder; I65.29 Occlusion and stenosis of unspecified carotid artery; I25.10 Atherosclerotic heart disease of native coronary artery without angina pectoris; E78.5 Hyperlipidemia, unspecified; I50.9 Heart failure, unspecified; I11.0 Hypertensive heart disease with heart failure; I48.0 Paroxysmal atrial fibrillation; E11.9 Type 2 diabetes mellitus without complications; Z85.828 Personal history of other malignant neoplasm of skin; Z87.891 Personal history of nicotine dependence; Z79.84 Long term (current) use of oral hypoglycemic drugs; Z79.82 Long term (current) use of aspirin; M85.812 Other specified disorders of bone density and structure, left shoulder; X50.9XXA Other and unspecified overexertion or strenuous movements or postures, initial encounter
CPT/HCPCS: 73030; 99283; A9270

== ENCOUNTER → 2022-07-13 08:41 | Outpatient (CLI) | payer MEDICARE, SELFPAY ==
--- NOTE | ~2022-07-13 | MR_ITS ---
EXAMINATION: MR shoulder LT wo con DATE: 07/13/2022 09:38 INDICATION: Inferior subluxation of left humerus, initial encounter. Left shoulder pain. TECHNIQUE: Magnetic resonance imaging (MRI) of the left shoulder was performed without intravenous co ntrast. COMPARISON: Left shoulder radiographs 06/23/2022 FINDINGS: Coracoacromial arch: The acromion undersurface is flat in morphology (type I). There is severe acromioclavicular joint ost eoarthritis including inferiorly directed osteophytes. There is severe subacromial/subdeltoid bursiti s of mixed signal intensity. Rotator cuff: There is a full-thickness tear of supraspinatus and infraspinatus tendons measuring 4.8 cm anterior t o posterior by 4.7 cm proximal to distal. Teres minor tendon is normal. There is severe subscapularis tendinopathy with partial-thickness articular sided tear. There is mild fatty atrophy of supraspinat us, infraspinatus, and teres minor muscle bellies. There is increased T2-weighted signal intensity in the supraspinatus, infraspinatus, and subscapularis muscle bellies, consistent with subacute denerva tion and/or strains. Biceps tendon and glenoid labrum: Biceps tendon is in bicipital groove. There is a partial tear of intra-articular biceps tendon. There is tearing of the superior glenoid labrum from 3:00 to 9:00 (SLAP tear). Fluid: There is a large glenohumeral joint effusion of mixed signal intensity. Bones/cartilage: There is shallow partial-thickness cartilage loss of glenoid. There is partial-thickness cartilage lo ss of humeral head, deep medially. IMPRESSION: 1. Massive full-thickness rotator cuff tear. 2. Moderate glenohumeral joint chondrosis. 3. Severe acromioclavicular joint osteoarthritis. 4. Partial tear of proximal biceps tendon. 5. Large glenohumeral joint effusion and severe subacromial/subdeltoid bursitis with mixed signal int ensity, which may be hemarthrosis. Reviewed, dictated and finalized at location E. T HAND IMPRESSION: 1. Massive full-thickness rotator cuff tear. 2. Moderate glenohumeral joint chondrosis. 3. Severe acromioclavicular joint osteoarthritis. 4. Partial tear of proximal biceps tendon. 5. Large glenohumeral joint effusion and severe subacromial/subdeltoid bursitis with mixed signal intensity, which may be hemarthrosis.
== END ==
PROVIDERS: PCP Internal Medicine; Visit Provider Orthopaedic Surgery
DX: S43.032A Inferior subluxation of left humerus, initial encounter (principal); X58.XXXA Exposure to other specified factors, initial encounter; M75.102 Unspecified rotator cuff tear or rupture of left shoulder, not specified as traumatic; M19.012 Primary osteoarthritis, left shoulder
CPT/HCPCS: 73221

== ENCOUNTER → 2022-07-27 09:15 | Outpatient (CLI) | payer MEDICARE, SELFPAY ==
--- NOTE | ~2022-07-27 | CT_ITS ---
EXAMINATION: CT chest high resolution wo nh DATE: 07/27/2022 09:30 INDICATION: History of tobacco use and ARDS TECHNIQUE: Computed tomography (CT) of the chest was performed without intravenous contrast. The dose -length product (DLP) was 300.58 mGy-cm. 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 COMPARISON: 12/29/2021 FINDINGS: There is mild emphysema. There are widespread subpleural reticular and groundglass opacitie s with a mid and lower lung zone predominance. No honeycombing is identified. There is bronchiectasis in the lower lobes. No pleural effusion or pneumothorax. The heart size is normal. There are no path ologically enlarged thoracic lymph nodes. Calcified coronary artery atherosclerosis is noted. Calcifi ed pulmonary nodules and calcified right hilar lymph nodes are consistent with old granulomatous dise ase. Stones are noted in the nondistended gallbladder. IMPRESSION: 1. Chronic interstitial lung disease in a pattern of nonspecific interstitial pneumonia (NSIP) and em physema. Reviewed, dictated and finalized at location F. EMS DEVELOPMENT CONSULTANT IMPRESSION: 1. Chronic interstitial lung disease in a pattern of nonspecific interstitial p neumonia (NSIP) and emphysema.
== END ==
PROVIDERS: PCP Internal Medicine; Visit Provider Internal Medicine Pulmonary Disease
DX: J84.9 Interstitial pulmonary disease, unspecified (principal)
CPT/HCPCS: 71250

== ENCOUNTER 2022-10-27 12:21 | Outpatient (CLI) | payer MEDICARE, SELFPAY ==
[2022-10-27 12:50] VITALS: PULSE 61; O2SAT 96
[2022-10-27 12:55] VITALS: PULSE 77; O2SAT 91
[2022-10-27 13:05] VITALS: PULSE 78; O2SAT 96
--- NOTE | 2022-10-27 13:18 | HOMEO2EVAL ---
Evaluation was performed at [facility] Home Oxygen Evaluation RC: Home Oxygen (O2) Evaluation Start: 10/27/22 13:17 Freq: Status: Active Protocol: RPE Activity Type Activity Date Activity User E-sign Co-sign Detail Recorded Client Recorded Date Recorded By Document 10/27/22 12:50 DJO [id number] 10/27/22 13:18 DJO Document 10/27/22 12:55 [email or web address] [id number] 10/27/22 13:18 DJO Document 10/27/22 13:05 [email or web address] [id number] 10/27/22 13:18 DJO 10/27/22 10/27/22 10/27/22 12:50 12:55 13:05 Home O2 Evaluation [Oxygen] -Test Phase Resting Exercise Resting -Oxygen Delivery Room Air Room Air Room Air [Pulse Oximetry] -Pulse Oximetry (90-100 %) 96 91 96 [Pulse Rate] -Pulse Rate (60-100 beats/min) 61 77 78 [Evaluation] -Activity Tolerance Good [Exercise] -Ambulation Distance (feet) 750 -Ambulation Distance (meters) 228.58 [Charges] -Treatment Charges O2 Evaluation - Outpatient
== END 2022-10-27 12:22 | disposition home or self-care (01) ==
PROVIDERS: PCP Internal Medicine; Visit Provider Internal Medicine Pulmonary Disease
DX: J84.9 Interstitial pulmonary disease, unspecified (principal)
CPT/HCPCS: 94618

== ENCOUNTER 2022-12-28 14:32 | Outpatient (CLI) | payer MEDICARE, SELFPAY ==
--- NOTE | ~2022-12-28 | CT_ITS ---
Clinical Indication: Hemoptysis CT Scan of the Chest with Contrast: Technique: Contiguous sections were acquired throughout the chest after intravenous administration of 100 cc of Omnipaque 350. Dose reduction technique was used on this scan by utilizing automated expos ure control and iterative reconstruction technique. The dose-length product (DLP) was 475.65 mGy-cm. COMPARISON: 07/27/2022 Findings: There is no evidence of any significant mediastinal, hilar or axillary lymphadenopathy. There is no f illing defect in the pulmonary arterial tree to suggest pulmonary embolus. There is no evidence of ao rtic aneurysm. Aberrant right subclavian artery noted. There are atherosclerotic calcifications of th e aorta and coronary arteries. There is no evidence of pleural or pericardial effusion. There is mild diffuse groundglass opacity. There is underlying extensive subpleural reticulation and peripheral interstitial thickening with areas of mild bronchiectasis or honeycomb formation. Images through the upper abdomen reveal small calcified gallstones. Impression: Mild diffuse groundglass pulmonary disease. This could be related to chronic interstitial disease, ve rsus bronchiolitis, other infectious/inflammatory disorders, pulmonary hemorrhage, or minimal pulmona ry edema. Clinical correlation required. Underlying chronic pulmonary interstitial disease is overall similar to prior exam otherwise. Reviewed, dictated and finalized at location . Impression: Mild diffuse groundglass pulmonary disease. This could be related to chronic in terstitial disease, versus bronchiolitis, other infectious/inflammatory disorde rs, pulmonary hemorrhage, or minimal pulmonary edema. Clinical correlation requ ired. Underlying chronic pulmonary interstitial disease is overall similar to prior e xam otherwise.
== END 2022-12-28 14:33 | disposition home or self-care (01) ==
LOC: ANHIMG 14:37
PROVIDERS: PCP Internal Medicine; Visit Provider Physician Assistant
DX: R04.2 Hemoptysis (principal); R91.8 Other nonspecific abnormal finding of lung field
CPT/HCPCS: 71275; Q9967

== ENCOUNTER 2022-12-29 07:52 | Outpatient (CLI) | payer MEDICARE, SELFPAY ==
[2022-12-29 08:26] LABS: Alveolar/Arterial O2 Gradient 82.5 mmHg; Carboxyhemoglobin 0.5 % THb (0-2.0); Fractional Inspired Oxygen 28 %; HCO3 ABG 24.6 mEq/l (22.0-26.0); Oxygen Saturation ABG 91.6 % (95.0-100.0); Oxyhemoglobin 90.3 % THb (90.0-100.0); PCO2 ABG 44.8 mmHg (35.0-45.0); PO2 ABG 64.3 mmHg (80.0-100.0); Reduced Hemoglobin 9.2 %THb (0-5.0); pH ABG 7.358 (7.350-7.450)
[2022-12-29 08:27] LABS: Device NASAL CANNULA; Modified Allen's Test Pass; Site Drawn LEFT RADIAL
== END 2022-12-29 07:53 | disposition home or self-care (01) ==
LOC: ANHPFT 07:53
PROVIDERS: PCP Family Medicine; Visit Provider Physician Assistant
DX: R09.02 Hypoxemia (principal)
CPT/HCPCS: 36600; 82375; 82805; 83050

== ENCOUNTER 2023-03-03 08:23 | Inpatient (IN) | payer MEDICARE, SELFPAY ==
[2023-03-03] VITALS (29 sets, daily range): BP systolic 159–197; BP diastolic 48–77; PULSE 56–92; RESP 20–37; TEMP 36.1–37.2; O2SAT 88–100; BMI 23.8
--- NOTE | 2023-03-03 | ECHO_ITS ---
Patient Info Name: Moise Lutz Age: 72 years : 1950 Gender: Male Ht: 69 in Wt: 160 lbs BSA: 1.88 m2 HR: 71 bpm BP: 197 / 72 mmHg Heart Rhythm: Sinus Rhythm Technical Quality: Fair Exam Date: 03/03/2023 4:25 PM Exam Location: [facility] Pulmonary Patient Status: Inpatient Admit Date: 03/03/2023 Staff Ordering Physician: Jade Alberto NP Glove Maker: Archana Askew RDCS Attending Provider: Karen Calderón DO Referring Physician: Dolly SEBASTIAN; Exam Type: CA echo doppler color flow Study Info Indications - CHF Complete two-dimensional, color flow and Doppler transthoracic echocardiogram is performed. Summary 1. Complete two-dimensional, color flow and Doppler transthoracic echocardiogram is performed. 2. Left ventricular hypertrophy with normal systolic function and grade 2 diastolic noncompliance. 3. Enlarged left atrium. 4. Calcified mitral valve annulus. 5. Sclerotic but not stenotic aortic valve. 6. Compared to echocardiogram from December of 2021 left ventricular systolic function has significantly improved. Left Ventricle Left ventricular chamber dimension is normal. Left ventricular systolic function is normal, estimated at 60-65%. There is moderate concentric increased left ventricular wall thickness. The left ventricular diastolic function is grade II diastolic dysfunction. Right Ventricle Right ventricular chamber dimension is normal. Left Atria Left atrial chamber dimension is moderately enlarged. Right Atria Right atrial chamber dimension is normal. Aortic Valve The aortic valve is trileaflet. There is mild aortic valve sclerosis. There is no aortic valve stenosis. Pulmonic Valve The pulmonic valve is normal. Mitral Valve The mitral valve has normal leaflets. The mitral valve annulus is moderately calcified. Tricuspid Valve The tricuspid valve leaflets are normal. Pericardium/Pleural The pericardium appears normal. Aorta The aortic root size at the sinus of Valsalva is normal. Left Ventricular Outflow Tract Name Value Normal LVOT 2D LVOT Diameter 2.1 cm LVOT Doppler LVOT Peak Gradient 6 mmHg LVOT Mean Gradient 3 mmHg LVOT VTI 25 cm LVOT VTI/AV VTI Ratio 0.5 LVOT Stroke Volume 84 ml LVOT CO 5.5 l/min LVOT CI 2.9 l/min/m2 Pulmonic Valve Name Value Normal RVOT Doppler RVOT Peak Gradient 3 mmHg PV Doppler PV Peak Gradient 7 mmHg Mitral Valve Name Value Normal MV Doppler
--- NOTE | ~2023-03-03 | XR_ITS ---
EXAMINATION: XR chest 1V portable DATE: 03/11/2023 05:30 INDICATION: Respiratory failure TECHNIQUE: frontal view of the chest was obtained. COMPARISON: Chest radiograph dated 03/10/2023 FINDINGS: Endotracheal tube tip 6.6 cm above the wil. Nasogastric tube extends below the left hemidiaphragm with distal tip collimated off the study. Right upper extremity peripherally inserted central venous catheter (PICC) tip at the caudal superior vena cava. Diffuse increased interstitial pattern throughout both lungs with lower lung predominance. No pleural effusion or pneumothorax. The cardiomediastinal silhouette is within normal limits for AP technique. IMPRESSION: 1. No significant change in diffuse bilateral lung disease which could represent pulmonary edema, pne umonia, ARDS or some combination thereof. Reviewed, dictated and finalized at location A. IMPRESSION: 1. No significant change in diffuse bilateral lung disease which could represen t pulmonary edema, pneumonia, ARDS or some combination thereof.
--- NOTE | ~2023-03-03 | XR_ITS ---
Portable chest x-ray Comparison: 03/16/2023 Clinical History: Respiratory failure Findings: Endotracheal tube, NG tube, and right-sided PICC line are in place. Extensive groundglass and interstitial disease is present, probably minimally improved. Cardiomediastinal silhouette is st able. Bones and soft tissues are unremarkable. Impression: Probable minimal improvement in extensive pulmonary disease. Support tubes, as above. Reviewed, dictated and finalized at location . Impression: Probable minimal improvement in extensive pulmonary disease. Support tubes, as above.
--- NOTE | ~2023-03-03 | XR_ITS ---
Portable chest x-ray Comparison: 03/06/2023 Clinical History: Respiratory failure Findings: Endotracheal tube, NG tube, and right-sided PICC line are in satisfactory positions. Diffu se alveolar and interstitial pulmonary disease is unchanged. Cardiomediastinal silhouette is stable. Bones and soft tissues are unremarkable. Impression: Stable diffuse pulmonary disease. Stable support tubes. Reviewed, dictated and finalized at location . Impression: Stable diffuse pulmonary disease. Stable support tubes.
--- NOTE | ~2023-03-03 | XR_ITS ---
Supine portable view of the abdomen Clinical history: NG tube placed Findings: NG tube is in satisfactory position. Bowel gas pattern is nonspecific. No evidence for obst ruction or free air. No abnormal mass lesion or calcification is seen. Osseous structures are intact. Impression: NG tube in satisfactory position. Reviewed, dictated and finalized at location . Impression: NG tube in satisfactory position.
--- NOTE | ~2023-03-03 | XR_ITS ---
EXAMINATION: XR chest 1V portable INDICATION: Respiratory failure TECHNIQUE: Portable AP chest at 0518 hours COMPARISON: 03/18/2023 FINDINGS: Diffuse lung disease persists without significant change. Cardiomegaly is noted. No pleural effusion or pneumothorax. A right upper extremity PICC ends with this tip in the proximal superior v wojciech cava. IMPRESSION: 1. Stable diffuse lung disease, consistent with pulmonary edema and/or pneumonia. 2. Cardiomegaly. Reviewed, dictated and finalized at location A. IMPRESSION: 1. Stable diffuse lung disease, consistent with pulmonary edema and/or pneumoni a. 2. Cardiomegaly.
--- NOTE | ~2023-03-03 | XR_ITS ---
XR chest 1V portable DATE: 03/05/2023 14:04 INDICATION: Reintubation TECHNIQUE: Portable AP chest on 03/05/2023 at 1357 hours COMPARISON: 03/05/2023 portable AP chest at 0517 hours FINDINGS: ET tube in satisfactory position approximately 2.4 cm above wil. NG tube in stomach. Rig ht upper extremity PIC catheter tip overlies the superior vena cava. Diffuse severe bilateral pulmonary infiltrates persist. IMPRESSION: ET tube in satisfactory position; no other sylvian change Reviewed, dictated and finalized at location A.
--- NOTE | ~2023-03-03 | XR_ITS ---
XR_KUBGTUBINS_CR DATE: 03/04/2023 08:56 INDICATION: Orogastric tube insertion TECHNIQUE: Portable AP view on 03/04/2023 at 0849 hours COMPARISON: None FINDINGS: An orogastric tube is present in the stomach, the distal tip in the mid body, the proximal side-port 7 cm distal to the diaphragmatic hiatus. There is gaseous distention of the stomach and sma ll bowel gas distended segments. Severe diffuse bilateral pulmonary infiltrates. IMPRESSION: Orogastric tube in body of stomach Reviewed, dictated and finalized at Location A. Reviewed, dictated and finalized at location A.
--- NOTE | ~2023-03-03 | XR_ITS ---
Portable chest x-ray Comparison: 03/09/2023 Clinical History: Respiratory failure Findings: Endotracheal tube, NG tube, and right-sided PICC line are in place. Stable diffuse pulmona ry disease present. Cardiomediastinal silhouette is stable. Bones and soft tissues are unremarkable. Impression: Stable diffuse pulmonary disease. Support tubes, as above. Reviewed, dictated and finalized at location . Impression: Stable diffuse pulmonary disease. Support tubes, as above.
--- NOTE | ~2023-03-03 | XR_ITS ---
Portable chest x-ray Comparison: 03/11/2023 at 5:10 AM Clinical History: Tube placement Findings: Endotracheal tube, NG tube, and right-sided PICC line are in satisfactory positions. Diffu se hazy and interstitial pulmonary disease again present. Cardiomediastinal silhouette is stable. Henry lavinia and soft tissues are unremarkable. Impression: Stable diffuse pulmonary disease. Support tubes, as above. Reviewed, dictated and finalized at location . Impression: Stable diffuse pulmonary disease. Support tubes, as above.
--- NOTE | ~2023-03-03 | XR_ITS ---
Portable chest x-ray Comparison: 03/05/2023 Clinical History: Respiratory failure Findings: Endotracheal tube, NG tube, and right-sided PICC line are in satisfactory positions. There is diffuse alveolar and interstitial pulmonary disease, unchanged. Cardiomediastinal silhouette is stable. Bones and soft tissues are unremarkable. Impression: Stable diffuse pulmonary disease. Support tubes, as above. Reviewed, dictated and finalized at location . Impression: Stable diffuse pulmonary disease. Support tubes, as above.
--- NOTE | ~2023-03-03 | XR_ITS ---
Portable chest x-ray Comparison: 03/14/2023 Clinical History: Respiratory failure Findings: Endotracheal tube, NG tube, and right-sided PICC line remain in place. Diffuse hazy and in terstitial pulmonary disease again present. Cardiomediastinal silhouette is stable. Bones and soft t issues are unremarkable. Impression: Stable diffuse pulmonary disease. Support tubes, as above. Reviewed, dictated and finalized at location . Impression: Stable diffuse pulmonary disease. Support tubes, as above.
--- NOTE | ~2023-03-03 | XR_ITS ---
Portable chest x-ray Comparison: 03/12/2023 Clinical History: Respiratory failure Findings: Endotracheal tube, NG tube, and right-sided PICC line are in place. Stable diffuse hazy an d interstitial pulmonary disease. Cardiomediastinal silhouette is stable. Bones and soft tissues are unremarkable. Impression: Stable diffuse pulmonary disease. Support tubes, as above. Reviewed, dictated and finalized at location . Impression: Stable diffuse pulmonary disease. Support tubes, as above.
--- NOTE | ~2023-03-03 | XR_ITS ---
Portable chest x-ray Comparison: 03/07/2023 Clinical History: Respiratory failure Findings: Endotracheal tube, NG tube, and right-sided PICC line remain in place. Diffuse hazy and in terstitial pulmonary disease unchanged. Cardiomediastinal silhouette is stable. Bones and soft tissu es are unremarkable. Impression: Stable diffuse pulmonary disease. Stable support tubes. Reviewed, dictated and finalized at location . Impression: Stable diffuse pulmonary disease. Stable support tubes.
--- NOTE | ~2023-03-03 | XR_ITS ---
XR chest 1V portable DATE: 03/05/2023 05:37 INDICATION: Adult respiratory distress syndrome. Respiratory failure. TECHNIQUE: Portable AP chest on 03/05/2023 at 0517 hours COMPARISON: 03/04/2023 portable AP chest at 1303 hours FINDINGS: ET tube is approximately 1 cm above wil; ideal range is 2-5 cm. NG tube in stomach. Right upper extremity PIC catheter tip overlies the superior vena cava. Cardiomegaly. Aortic calcification. Diffuse bilateral pulmonary infiltrates are again noted, with lit tle interval change since 03/04/2023. Osteopenia. IMPRESSION: Persistent diffuse bilateral pulmonary infiltrates consistent with ARDS Cardiomegaly ET tube 1 cm above wil; ideal range is 2-5 cm Reviewed, dictated and finalized at location A.
--- NOTE | ~2023-03-03 | US_ITS ---
EXAMINATION: US abdomen limited DATE: 03/07/2023 17:42 INDICATION: GB thickening TECHNIQUE: Multiple grayscale and Doppler ultrasound images of limited portions of the abdomen were o btained. COMPARISON: None available. FINDINGS: The visualized portions of the pancreas are normal. The liver is enlarged with increased ec hogenicity and normal echotexture. No surface nodularity. Normal hepatopetal flow in the main portal vein. Focal mild wall thickening of the gallbladder near the fundus up to 3 mm, without comet tail ar tifacts. 9 mm hyperechoic focus probably adherent to the gallbladder wall near the gallbladder neck, no definitive shadowing or twinkle artifact. The common bile duct measures 7 mm. Clinical condition p revented assessment for King sign. The right kidney is normal. Visualized portions of the IVC are n ormal. IMPRESSION: No sonographic evidence of cholecystitis. Focal gallbladder wall thickening may represent adenomyomatosis. 9 mm adherent gallstone versus gallbladder polyp. Hepatomegaly. Echogenic liver, most commonly due to steatosis but also can be seen with hepatitis and fibrosis. Reviewed, dictated and finalized at location K. IMPRESSION: No sonographic evidence of cholecystitis. Focal gallbladder wall thickening may represent adenomyomatosis. 9 mm adherent gallstone versus gallbladder polyp. Hepatomegaly. Echogenic liver, most commonly due to steatosis but also can be s een with hepatitis and fibrosis.
--- NOTE | ~2023-03-03 | XR_ITS ---
XR chest ET placement DATE: 03/04/2023 08:56 INDICATION: Intubation TECHNIQUE: Portable AP chest on 03/04/2023 at 0848 hours COMPARISON: 03/03/2023 portable AP chest 04/03/2022 portable AP chest FINDINGS: Interval placement of ET tube, distal tip 2.3 cm above wil in satisfactory position. NG tube in stomach, proximal side-port approximately 7 cm distal to the diaphragmatic hiatus. Severe diffuse bilateral pulmonary alveolar infiltrates suggesting pulmonary edema or ARDS. IMPRESSION: Severe increased diffuse bilateral pulmonary infiltrates suggesting pulmonary edema or AR DS ET tube in satisfactory position NG tube in satisfactory position Reviewed, dictated and finalized at Location A. Reviewed, dictated and finalized at location A. IMPRESSION: Severe increased diffuse bilateral pulmonary infiltrates suggesting pulmonary edema or ARDS ET tube in satisfactory position NG tube in satisfactory position
--- NOTE | ~2023-03-03 | CT_ITS ---
EXAMINATION: CT diagnostic chest wo con DATE: 03/06/2023 14:23 INDICATION: ARDS, pneumonia TECHNIQUE: Computed tomography (CT) of the chest was performed without intravenous contrast. Addition al 3D reconstructions utilizing coronal maximum intensity projection (MIP) were performed. Automated exposure control and iterative reconstruction technique were employed. The dose-length product was 35 3.65 mGy-cm. COMPARISON: 12/28/2022 FINDINGS: Endotracheal tube tip 2.2 cm above the wil. Right upper extremity peripherally inserted central ve nous catheter (PICC) tip at the caudal superior vena cava. Nasogastric tube extends into the stomach at least level of the gastric antrum at the inferior most margin of the [id number]. Small bilateral posterior layering pleural effusions, left greater than right. Mild to moderate emphy sema. Becoming more confluent in bilateral diffuse groundglass opacities and septal line thickening. There are smaller scattered regions of more dense consolidation in the dependent and lower lung predo minance. Cardiomegaly. Atherosclerotic coronary artery calcifications. Aortic valve and mitral annula r calcific location. Thoracic aorta is normal in caliber. Mild likely reactive mediastinal lymphadeno ramiro. Calcified gallstones in dependent aspect of the gallbladder. There is some gallbladder wall th ickening. Mild thoracic spondylosis. IMPRESSION: 1. Interval progression of diffuse bilateral interstitial and airspace opacities which could represen t pulmonary edema, pneumonia, ARDS or some combination thereof. 2. Small bilateral pleural effusions, left greater than right. 3. Cardiomegaly. 4. Likely reactive mediastinal lymphadenopathy. 5. Cholelithiasis with some nonspecific gallbladder wall thickening which could be due to acute wilver cystitis, heart, liver or renal failure or other generalized edema forming states. Correlate for Murp hy and if clinically indicated could consider HIDA scan for further evaluation. Reviewed, dictated and finalized at location B. IMPRESSION: 1. Interval progression of diffuse bilateral interstitial and airspace opacitie s which could represent pulmonary edema, pneumonia, ARDS or some combination th ereof. 2. Small bilateral pleural effusions, left greater than right. 3. Cardiomegaly. 4. Likely reactive mediastinal lymphadenopathy. 5. Cholelithiasis with some nonspecific gallbladder wall thickening which could be due to acute cholecystitis, heart, liver or renal failure or other generali zed edema forming states. Correlate for King and if clinically indicated coul d consider HIDA scan for further evaluation.
--- NOTE | ~2023-03-03 | XR_ITS ---
EXAMINATION: XR chest 1V portable DATE: 03/12/2023 06:41 INDICATION: Respiratory failure TECHNIQUE: frontal view of the chest was obtained. COMPARISON: Chest radiograph dated 03/11/2023 FINDINGS: Endotracheal tube tip 2.8 cm above the wil. Nasogastric tube with proximal side-port in the body t he stomach and distal tip near the gastric outlet. Right upper extremity peripherally inserted centra l venous catheter (PICC) tip at the cephalad superior vena cava. Cardiomegaly. Slight interval decrease in the diffuse interstitial pattern consistent with decreasing pulmonary edema. No pleural effusion or pneumothorax. IMPRESSION: 1. Likely congestive heart failure with cardiomegaly and slight interval improvement in diffuse pulmo nary edema. 2. Nasogastric tube tip near the gastric outlet. Could consider withdrawal by 5 cm. Reviewed, dictated and finalized at location A. IMPRESSION: 1. Likely congestive heart failure with cardiomegaly and slight interval improv ement in diffuse pulmonary edema. 2. Nasogastric tube tip near the gastric outlet. Could consider withdrawal by 5 cm.
--- NOTE | ~2023-03-03 | XR_ITS ---
Portable chest x-ray Comparison: 03/13/2023 Clinical History: Respiratory failure Findings: Endotracheal tube, NG tube, and right-sided PICC line remain in place. Diffuse hazy and in terstitial pulmonary disease again present. Cardiomediastinal silhouette is stable. Bones and soft t issues are unremarkable. Impression: Stable diffuse pulmonary disease. Support tubes, as above. Reviewed, dictated and finalized at location . Impression: Stable diffuse pulmonary disease. Support tubes, as above.
--- NOTE | ~2023-03-03 | XR_ITS ---
EXAMINATION: XR chest 1V portable INDICATION: Respiratory failure TECHNIQUE: Portable AP chest at 0540 hours COMPARISON: 03/17/2023 FINDINGS: The endotracheal and nasogastric tubes have been removed. Cardiomegaly is noted. Diffuse jayme ng disease persists with slight interval improvement. A right upper chart PICC ends with its tip in t he proximal superior vena cava. No pleural effusion or pneumothorax. IMPRESSION: 1. Diffuse lung disease with slight improvement, consistent with pulmonary edema and/or pneumonia. 2. Stable cardiomegaly. 3. Endotracheal and nasogastric tube removal. Reviewed, dictated and finalized at location A. IMPRESSION: 1. Diffuse lung disease with slight improvement, consistent with pulmonary neva a and/or pneumonia. 2. Stable cardiomegaly. 3. Endotracheal and nasogastric tube removal.
--- NOTE | ~2023-03-03 | XR_ITS ---
XR chest PICC line DATE: 03/04/2023 13:10 INDICATION: PICC line placement TECHNIQUE: Portable AP chest on 03/04/2023 at 1303 hours COMPARISON: 03/04/2023 portable AP chest at 0848 hours FINDINGS: There is interval placement of right upper extremity PIC catheter, the tip situated near th e superior cavoatrial junction. The endotracheal tube is situated 1.3 cm above the wil; ideal position is 2-5 cm. NG tube in stomach. Diffuse severe bilateral pulmonary infiltrates and cardiomegaly are again noted. IMPRESSION: Right upper extremity PIC catheter tip near superior cavoatrial junction ET tube at 1.3 cm above wil; ideal range is 2 5 cm NG tube in stomach Reviewed, dictated and finalized at Location A. Reviewed, dictated and finalized at location A. IMPRESSION: Right upper extremity PIC catheter tip near superior cavoatrial tim ction ET tube at 1.3 cm above iwl; ideal range is 2 5 cm NG tube in stomach
--- NOTE | ~2023-03-03 | XR_ITS ---
Portable chest x-ray Comparison: 03/08/2023 Clinical History: Respiratory failure Findings: Endotracheal tube, NG tube, and right-sided PICC line remain in place. Diffuse hazy pulmon christi disease is unchanged. Cardiomediastinal silhouette is stable. Bones and soft tissues are unremar kable. Impression: Stable diffuse pulmonary disease. Stable support tubes. Reviewed, dictated and finalized at [facility]. Impression: Stable diffuse pulmonary disease. Stable support tubes.
--- NOTE | ~2023-03-03 | XR_ITS ---
Portable chest x-ray Comparison: 03/26/2022 Clinical History: Dyspnea Findings: There is diffuse hazy and interstitial pulmonary disease. No pleural effusion or pneumotho rax. Cardiomediastinal silhouette is stable. Bones and soft tissues are unremarkable. Impression: Diffuse hazy and interstitial pulmonary disease. Findings probably represent a combination of pulmona ry edema and chronic interstitial disease. Reviewed, dictated and finalized at location . Impression: Diffuse hazy and interstitial pulmonary disease. Findings probably represent a combination of pulmonary edema and chronic interstitial disease.
--- NOTE | 2023-03-03 08:31 | ECG_ITS ---
Measurements Intervals [facility] Rate: 82 P: -13 ND: 154 QRS: 6 QRSD: 121 T: 66 QT: 390 QTc: 458 Interpretive Statements SINUS RHYTHM LEFT BUNDLE BRANCH BLOCK BASELINE WANDER- I, AVL ABNORMAL ECG COMPARED TO ECG 03/31/2022 08:53:41 SINUS RHYTHM NOW PRESENT LEFT BUNDLE BRANCH BLOCK Electronically Signed On 03-03-2023 11:34:09 CDT by Nicko Trivedi D.O.
--- NOTE | 2023-03-03 08:33 | ED.SOB ---
HPI - SOB/Dyspnea General Chief Complaint: Shortness of Breath/Dyspnea Stated Complaint: SOB Time Seen by Provider: 03/03/23 08:31 History of Present Illness HPI Narrative: This is a 72-year-old male, with past history ARDS on 2 L of O2 at home, hypothyroidism, A-fib on Xarelto, presents emergency department for 3 days of progressive shortness of breath. The patient was brought in by EMS, reports on arrival, the patient was satting 84% on 4 L of home O2. He was increased to 5 L with an initial saturations in the low 80s with improvement to 90%. No other medications were given in route. The patient states he has also had mild diffuse chest pressure and cough productive of green sputum without blood. He denies loss of consciousness. Related Data Home Medications Medication Instructions Recorded Confirmed aspirin 81 mg tablet,delayed 81 mg PO DAILY 03/04/22 03/03/23 release tamsulosin 0.4 mg capsule 0.4 mg PO DAILY 06/22/22 03/03/23 rivaroxaban 20 mg tablet (Xarelto) 20 mg PO DAILY 12/23/22 03/03/23 amiodarone 200 mg tablet (Pacerone) 200 mg PO DAILY 03/03/23 03/03/23 furosemide 40 mg tablet (Lasix) 40 mg PO DAILY PRN Edema 03/03/23 03/03/23 levothyroxine 137 mcg tablet 137 mcg PO HS 03/03/23 03/03/23 (Synthroid) Allergies Allergy/AdvReac Type Severity Reaction Status Date / Time poison dominique extract Allergy Itching Verified 02/10/23 10:40 Review of Systems Review of Systems: CONSTITUTIONAL: Denies fever, chills, or sweats. EYES: Denies visual changes, redness, or discharge. ENT: Denies rhinorrhea, congestion, sore throat, or otalgia. CARDIOVASCULAR: Chest pressure denies palpitations, or edema. RESPIRATORY: Dyspnea and cough productive of sputum without blood GASTROINTESTINAL: Denies abdominal pain, nausea, vomiting, or diarrhea. GENITOURINARY: Denies dysuria or hematuria. SKIN: Denies rash or itching. MUSCULOSKELETAL: Denies back pain, joint pain, or myalgia. NEUROLOGIC: Denies headache, numbness, dizziness, or weakness. PSYCHIATRIC: Denies anxiety or depression. [facility] Past Medical History Medical History (Updated 03/03/23 @ 15:31 by Jade Alberto NP) Adult respiratory distress syndrome (12/2021) Anemia BPH (benign prostatic hyperplasia) Carotid artery occlusion Chronic anticoagulation CKD stage G3b/A3, GFR 30-44 and albumin creatinine ratio >300 mg/g Coronary artery disease According to prior documentation, the patient has nonobstructing coronary disease which was treated medically. Dyslipidemia Heart failure with reduced ejection fraction EF as low as 30 to 35%, improved to 55 to 60% on repeat echocardiogram on 12/30/2021. History of skin cancer Hypertension Hyperthyroidism Status post radioactive iodine ablation. Hypogonadism Hypothyroidism ILD (interstitial lung disease) Left rotator cuff tear Paroxysmal atrial fibrillation Pneumonia TIA (transient ischemic attack) Type 2 diabetes mellitus Surgical History Surgical History History of arthroscopy of left knee Partial medial meniscectomy. History of cardiac catheterization Nonobstructing disease. History of tracheostomy Family History Family History (Updated 03/03/23 @ 16:13 by Cyndee Alamo RN) Sibling Diabetes mellitus Lung cancer Hypothyroidism Father Diabetes mellitus Mother Acute myocardial infarction Congestive heart failure Dementia Social History Social History Social History: The patient lives with his in [place]. They have 2 children. He smoked a pack of cigarettes a day and quit in 2007. No alcohol or illicit substance abuse. He designates his , Marycarmen Lutz, as his surrogate decision maker and he wishes to be a full code. Smoking packs per day: 1 Smoking cigarettes per day: 20.0 Years smoked: 33 Smoking pack-years: 33.00 Smoking status: Former smoker Tobacco type:
[2023-03-03 08:57] LABS: Basophils Absolute Auto 0.1 K/mm3 (0.0-0.1); Basophils Percent Auto 0.5 % (0.2-1.2); Eosinophils Absolute Auto 0.2 K/mm3 (0-0.3); Eosinophils Percent Auto 1.2 % (0-4.4); Hematocrit 32.8 % (42.0-52.0); Hemoglobin 9.7 g/dL (14.0-18.0); Immature Granulocyte Absolute 0.07 K/mm3 (0.00-0.031); Immature Granulocyte Percent A 0.5 % (0-0.5); Lymphocytes Absolute Auto 1.07 K/mm3 (0.9-3.2); Mean Corpuscular HGB Conc 29.6 g/dl (32-36); Mean Corpuscular Hemoglobin 25.3 pg (26-34); Mean Corpuscular Volume 85.4 fl (80-100); Mean Platelet Volume 12.6 fl (7.4-10.4); Monocytes Percent Auto 6.8 % (2.6-8.5); Neutrophils Absolute Auto 12.8 K/mm3 (1.3-6.7); Platelet Count Result 289 k/mm3 (150-375); Red Blood Count 3.84 M/mm3 (4.6-6.20); Red Cell Distribution Width 16.3 % (11.5-14.5); White Blood Count 15.2 K/mm3 (4.5-10.0)
[2023-03-03 09:03] LABS: Alanine Aminotransferase 17 U/L (6-50); Albumin Level 4.1 g/dL (3.5-5.1); Alkaline Phosphatase 71 U/L (38-126); Anion Gap 10 mmol/L (8-16); Aspartate Amino Transferase 25 U/L (17-59); Bilirubin,Total 0.7 mg/dL (0.2-1.3); Blood Urea Nitrogen 25 mg/dL (9-20); Calcium 9.1 mg/dL (8.4-10.2); Carbon Dioxide 26 mmol/L (22-30); Chloride 102 mmol/L (98-107); Estimated CRCL calculation 42 ml/min; Estimated Glomerular Filt Rate 50; Glucose 177 mg/dL (65-110); INR 1.1; Magnesium 1.6 mg/dL (1.6-2.3); Potassium 4.6 mmol/L (3.4-5.0); Prothrombin Time 14.3 Seconds (11.1-14.7); Sodium 138 mmol/L (137-145)
[2023-03-03] MEDS: ALBUTEROL SULFATE NEB 2.5 MG/3 ML INH INHALATION (09:04)
[2023-03-03] MEDS: IPRATROPIUM BR 0.02% INH SOLN 0.5 MG/2.5 ML VIAL INHALATION ×2 (09:04→20:15)
[2023-03-03 09:13] LABS: NT Pro B Type Natriuretic Pept 2410 pg/mL (19.9-100); Troponin I 0.017 ng/mL (0.000-0.034)
[2023-03-03 09:17] LABS: Alveolar/Arterial O2 Gradient 231.5 mmHg; Base Excess ABG -0.9 mEq/l (+/-2.0); Fractional Inspired Oxygen 40 %; HCO3 ABG 23.2 mEq/l (22.0-26.0); Oxygen Content ABG 11.3 %vol (16.0-22.0); PCO2 ABG 36.2 mmHg (35.0-45.0); PO2 FiO2 Ratio Arterial Blood 1.03 %; Total Hemoglobin 10.4 g/dL (12.0-18.0); pH ABG 7.424 (7.350-7.450)
[2023-03-03 09:19] LABS: Anisocytosis 2+ (NORMAL); Hypochromasia 1+ (NORMAL); Microcytosis 1+ (NORMAL); Platelet Estimate Adequate (Adequate); Schistocytes None Seen (NORMAL)
[2023-03-03 09:29] LABS: Oxygen Saturation ABG 78.2 % (95.0-100.0); PO2 ABG 41.2 mmHg (80.0-100.0)
[2023-03-03 09:30] LABS: Device NASAL CANNULA; Oxyhemoglobin 77.5 % THb (90.0-100.0); Site Drawn LEFT BRACHIAL
[2023-03-03 09:30] LABS: Influenza A QL RT-PCR Negative (Negative); Influenza B QL RT-PCR Negative (Negative); SARS-CoV-2 RNA PCR Negative (Negative)
[2023-03-03] MEDS: AZITHROMYCIN 500 MG/NS 250 ML 500 MG/250 ML BAG 250 MG IVPB (12:30)
--- NOTE | 2023-03-03 12:43 | PM.IMHP ---
H&P: HPI History of Present Illness Date/Time: 03/03/23 12:43 Chief Complaint: Shortness of breath Narrative: This is a 72-year-old male patient has chronic hypoxia and is chronically on oxygen at home anywhere from 2-4 L. the patient has a history of AFib and is on Xarelto. The patient has been getting progressive the more short of breath over the last 3 days. The patient was only setting 84% on 4 L of O2 today. He was on a is to 5 L today his initial saturations were in the low 80s but improved up to 90% when he was placed on 5 L. he denies any fever chills. His white count is 15.2. H&H is 9.7 and 32.8. PH was normal PO2 was low at 41.2. BUN 25 creatinine 1.4. BNP 2410. Chest x-ray was read asDiffuse hazy and interstitial pulmonary disease. Findings probably represent a combination of pulmonary edema and chronic interstitial disease. The patient was placed on a BiPAP 16/8 with a rate of for and oxygen bleed in a 40%. The patient is talking in full sentences on the BiPAP and stated he feels much better. The patient was given nebulizer treatment Decadron Rocephin and azithromycin. The patient is being admitted to inpatient status on 03/03/2023. Review of Systems Review of Systems: All systems reviewed & are unremarkable except as noted in HPI and below Constitutional: Constitutional: Reports as per HPI and Reports no additional constitutional complaints Eyes: Eyes: Reports as per HPI and Reports no additional eye complaints ENT: Reports system reviewed and no additional complaints, except as documented and Reports Normal hearing present Cardiovascular: Cardiovascular: Reports no additional cardiovascular complaints Respiratory: Respiratory: Reports no additional respiratory complaints and Reports no additional respiratory complaints Gastrointestinal: Gastrointestinal: Reports as per HPI and Reports no additional gastrointestinal complaints Musculoskeletal: Musculoskeletal: Reports no additional musculoskeletal complaints Integumentary/Breasts: Skin/Breast: Reports system reviewed and no additional complaints, except as docu and Reports as per HPI Neurologic: Reports system reviewed and no additional complaints, except as documented, Reports as per HPI and Reports Normal hearing present Psychiatric: Psychiatric: Reports no additional psychiatric complaints and Reports as per HPI Endocrine: Endocrine: Reports no additional endocrine complaints Hematologic/Lymphatic: Hematologic/Lymphatic: Reports no additional hematologic/lymphatic complaints Allergic/Immunologic: Allergic/Immunologic: Reports no additional allergic/immunologic complaints [facility] Past Medical History Medical History (Updated 03/03/23 @ 15:31 by Jade Alberto NP) Adult respiratory distress syndrome (12/2021) Anemia BPH (benign prostatic hyperplasia) Carotid artery occlusion Chronic anticoagulation CKD stage G3b/A3, GFR 30-44 and albumin creatinine ratio >300 mg/g Coronary artery disease According to prior documentation, the patient has nonobstructing coronary disease which was treated medically. Dyslipidemia Heart failure with reduced ejection fraction EF as low as 30 to 35%, improved to 55 to 60% on repeat echocardiogram on 12/30/2021. History of skin cancer Hypertension Hyperthyroidism Status post radioactive iodine ablation. Hypogonadism Hypothyroidism ILD (interstitial lung disease) Left rotator cuff tear Paroxysmal atrial fibrillation Pneumonia TIA (transient ischemic attack) Type 2 diabetes mellitus Surgical History Surgical History History of arthroscopy of left knee Partial medial meniscectomy. History of cardiac catheterization Nonobstructing disease. History of tracheostomy Family History Family History Sibling Diabetes mellitus Lung cancer Father Diabetes mellitus Mother Acute myocardial infarction Conge
[2023-03-03 15:08] LABS: Troponin I 0.012 ng/mL (0.000-0.034)
[2023-03-03 15:28] LABS: Troponin I 0.013 ng/mL (0.000-0.034)
[2023-03-03] MEDS: hydrALAZINE HCL 20 MG/ML VIAL 10 MG IV PUSH (15:34)
--- NOTE | 2023-03-03 15:58 | ADMGEN ---
This patient, Moise Lutz, was admitted to IMU Room 213-01 on 03/03/23 at 1500. Patient/family oriented to hospital policies and general routines including ID bracelet, bed and alarms, visiting hours, pain management, procedures, bathroom and other care routines, personal items, smoking policy, room service/diet, and visiting hours. Information on how to activate the Rapid Response Team has been discussed. Patient/Family are encouraged to report perceived risks to care and to ask questions if they do not understand what they are told or what they should do.
[2023-03-03 16:59] LABS: Glucose Point of Care 170 mg/dl (65-105)
[2023-03-03] MEDS: DEXAMETHASONE SOD PHOS INJ 4 MG/ML VIAL IV PUSH ×2 (17:26→23:24)
[2023-03-03] MEDS: RIVAROXABAN 20 MG TABLET PO (18:20)
[2023-03-03] MEDS: LEVALBUTEROL NEB 1.25 MG/3 ML INHALATION (20:15)
[2023-03-03 20:23] LABS: Glucose Point of Care 176 mg/dl (65-105)
[2023-03-03] MEDS: INSULIN GLARGINE (*BKC) 100 UNITS/ML 11 UNITS SUB-Q (21:35)
[2023-03-04] VITALS (50 sets, daily range): BP systolic 71–194; BP diastolic 41–97; PULSE 43–110; RESP 16–42; TEMP 36.4–37.1; O2SAT 85–100
[2023-03-04] MEDS: LEVALBUTEROL NEB 1.25 MG/3 ML INHALATION ×5 (02:39→20:33)
[2023-03-04] MEDS: IPRATROPIUM BR 0.02% INH SOLN 0.5 MG/2.5 ML VIAL INHALATION ×4 (02:39→20:34)
[2023-03-04] MEDS: LORazepam INJ (*CRX) 2 MG/ML VIAL 1 MG IV PUSH (04:19)
[2023-03-04 05:02] LABS: Basophils Percent Auto 0.1 % (0.2-1.2); Hematocrit 32.1 % (42.0-52.0); Hemoglobin 9.5 g/dL (14.0-18.0); Immature Granulocyte Absolute 0.15 K/mm3 (0.00-0.031); Immature Granulocyte Percent A 0.8 % (0-0.5); Lymphocytes Absolute Auto 0.47 K/mm3 (0.9-3.2); Lymphocytes Percent Auto 2.5 % (18.3-44.2); Mean Corpuscular HGB Conc 29.6 g/dl (32-36); Mean Corpuscular Volume 84.5 fl (80-100); Mean Platelet Volume 11.9 fl (7.4-10.4); Monocytes Percent Auto 5.2 % (2.6-8.5); Neutrophils Absolute Auto 17.1 K/mm3 (1.3-6.7); Neutrophils Percent Auto 91.4 % (45.5-73.1); Platelet Count Result 309 k/mm3 (150-375); Red Cell Distribution Width 15.9 % (11.5-14.5); White Blood Count 18.7 K/mm3 (4.5-10.0)
[2023-03-04 05:14] LABS: Anion Gap 10 mmol/L (8-16); Blood Urea Nitrogen 26 mg/dL (9-20); Calcium 9.2 mg/dL (8.4-10.2); Carbon Dioxide 27 mmol/L (22-30); Chloride 101 mmol/L (98-107); Estimated CRCL calculation 45 ml/min; Estimated Glomerular Filt Rate 54; Glucose 199 mg/dL (65-110); Potassium 4.6 mmol/L (3.4-5.0); Sodium 138 mmol/L (137-145)
[2023-03-04] MEDS: LEVOTHYROXINE SODIUM 25 MCG TABLET PO (06:46)
[2023-03-04] MEDS: DEXAMETHASONE SOD PHOS INJ 4 MG/ML VIAL IV PUSH ×2 (06:46→13:00)
[2023-03-04] MEDS: LEVOTHYROXINE SODIUM 112 MCG TABLET PO (06:47)
[2023-03-04 07:57] LABS: Alveolar/Arterial O2 Gradient 593.1 mmHg; Base Excess ABG -0.4 mEq/l (+/-2.0); Fractional Inspired Oxygen 100 %; HCO3 ABG 26.8 mEq/l (22.0-26.0); Methemoglobin ABG 0.3 %THb (0-1.5); Oxygen Content ABG 13.5 %vol (16.0-22.0); Oxygen Saturation ABG 89.3 % (95.0-100.0); Oxyhemoglobin 88.7 % THb (90.0-100.0); PCO2 ABG 56.7 mmHg (35.0-45.0); PO2 ABG 63.2 mmHg (80.0-100.0); PO2 FiO2 Ratio Arterial Blood 0.63 %; Total Hemoglobin 10.8 g/dL (12.0-18.0)
[2023-03-04 08:01] LABS: Device NON-INVASIVE VENT; Modified Allen's Test Pass; Non-Invasive Expiratory Pressure 8 CMH2O; Non-Invasive Inspiratory Pressure 16 CMH2O; Non-Invasive Vent Rate 4 /MIN; Site Drawn RIGHT RADIAL; pH ABG 7.292 (7.350-7.450)
[2023-03-04] MEDS: FUROSEMIDE INJ 100 MG/10 ML VIAL 80 MG IV PUSH (08:06)
[2023-03-04] MEDS: ONDANSETRON INJ 4 MG/2 ML VIAL IV PUSH (08:07)
[2023-03-04] MEDS: ETOMIDATE 20 MG/10 ML AMPUL IV PUSH (08:32)
[2023-03-04] MEDS: ROCURONIUM BROMIDE 50 MG/5 ML VIAL IV PUSH (08:32)
--- NOTE | 2023-03-04 08:36 | PC.NURSE ---
This patient, Moise Lutz, was transferred to ICU 5 on 03/04/23 at 0815. Personal belongings sent with patient. Report given to JAXON Urena. Appropriate documentation sent with patient.
[2023-03-04] MEDS: PROPOFOL IV EMULSION 100 ML 2.19 MG IV CONT (08:42)
--- NOTE | 2023-03-04 08:43 | PC.NURSE ---
0800- this nurse entered room and patient found with tachypnea and shortness of breath at rest. BIPAP intact with FiO2 at 100%. Patient reports complaints of nausea. Hospitalist made aware. Orders provided with medications administered. See eMAR. Crushing Foreman notified and assessed patient. Orders given to this nurse to transfer patient to ICU. Patient transferred. certified dental assistant made aware. Family notified.
--- NOTE | 2023-03-04 09:10 | PC.NURSE ---
Patient brought over from IMU department at 0830. Patient transferred by bed with Bipap in place to ICU 5. Bedside report given by JAXON Vines. This RN to resume patient care.
[2023-03-04 09:28] LABS: Glucose Point of Care 240 mg/dl (65-105)
--- NOTE | 2023-03-04 09:32 | WPDCNINT ---
Assessment and Plan Assessment and plan (1) Acute on chronic respiratory failure with hypoxia and hypercapnia: Code(s): J96.21 - Acute and chronic respiratory failure with hypoxia; J96.22 - Acute and chronic respiratory failure with hypercapnia Status: Acute Assessment and Plan: Patient presented with worsening shortness of breath with green colored productive sputum 3 days, was initially admitted to intermediate Unit, respiratory distress worsened and patient was in impending respiratory failure, discussed with patient at length regarding intubation which he is agreeable as he has been intubated in December 2021 for ARDS status post tracheostomy and decannulation. -03/04: Intubated -intubation was uneventful but patient had elevated mean airway pressures on CMV mode, peep of 5. Switched him to pressure control ventilation peep of 5, 100% FiO2 -ARDS physiology, will maintain low tidal volume strategy at this time -continue bronchodilators -sedated with propofol and fentanyl infusion, maintain RASS of -2 -who will obtain chest CT scan once patient is more stable today or tomorrow (2) Pneumonia: Code(s): J18.9 - Pneumonia, unspecified organism Status: Acute Assessment and Plan: CXR: Severe increased diffuse bilateral pulmonary infiltrates suggesting pulmonary edema or ARDS. ET tube in satisfactory position. NG tube in satisfactory position?. -antibiotics were switched to vancomycin, cefepime (03/04) and azithromycin (03/03) -03/03: Sputum cultures obtained and pending -03/03: Blood cultures obtained and pending -03/04: MRSA screen pending (3) Hypertension: Qualifiers: Hypertension type: primary hypertension Qualified Code(s): I10 - Essential (primary) hypertension Code(s): I10 - Essential (primary) hypertension Status: Acute Assessment and Plan: Patient is hypertensive, PRN hydralazine (4) REGINALD (acute kidney injury): Code(s): N17.9 - Acute kidney failure, unspecified Status: Acute Assessment and Plan: Patient has history of chronic kidney disease, of 0.8-1.00. -on admission his creatinine was 1.4 -received Lasix 80 mg IV x1 in IMU with adequate urine output -will continue to monitor renal function electrolytes (5) Paroxysmal atrial fibrillation: Code(s): I48.0 - Paroxysmal atrial fibrillation Status: Chronic Assessment and Plan: History of paroxysmal atrial fibrillation on Xarelto at home -currently in sinus rhythm, rate controlled -continue Xarelto (6) Type 2 diabetes mellitus: Code(s): E11.9 - Type 2 diabetes mellitus without complications Status: Acute Assessment and Plan: History of type 2 diabetes, has been hyperglycemic, started on high-dose sliding scale insulin and continue Accu-Cheks -hold Lantus for now since NPO Plan DVT prophylaxis: Xarelto Stress ulcer prophylaxis: Protonix Nutrition: NPO for now Code Status: Full code Critical Care Time Spent: 51 minutes 03/04: Discussed with Isa, patient's and updated her with patient's condition and plan of care. She is aware that patient was in impending respiratory failure for which he got placed on mechanical ventilation. I discussed with her that he will be sedated updated her with the radiology and lab reports. I answered all questions Due to a high probability of clinically significant, life threatening deterioration, the patient required my highest level of preparedness to intervene emergently and I personally spent this critical care time directly and personally managing the patient. This critical care time included obtaining a history; examining the patient; pulse oximetry; ordering and review of studies; arranging urgent treatment with development of a management plan; evaluation of patient's response to treatment; frequent reassessment; and discussions with other providers. It was exclusive of separately billable procedures and treating
--- NOTE | 2023-03-04 09:32 | PC.NURSE ---
03/04/23 0740-Isa Miom (Spouse) called and made aware of Pt's worsened condition and the possible need for intubation. All questions answered and Pt's day nurse, Jasmyn Lopes updated with Pt's condition.
[2023-03-04 09:47] LABS: Triglycerides 74 mg/dL (<150)
[2023-03-04 10:23] LABS: Alveolar/Arterial O2 Gradient 585.7 mmHg; Carboxyhemoglobin 0.2 % THb (0-2.0); Fractional Inspired Oxygen 100 %; HCO3 ABG 25.9 mEq/l (22.0-26.0); Methemoglobin ABG 0.2 %THb (0-1.5); Oxygen Content ABG 14.6 %vol (16.0-22.0); Oxygen Saturation ABG 95.2 % (95.0-100.0); Oxyhemoglobin 93.8 % THb (90.0-100.0); PCO2 ABG 47.7 mmHg (35.0-45.0); PO2 ABG 79.6 mmHg (80.0-100.0); Reduced Hemoglobin 5.8 %THb (0-5.0); pH ABG 7.353 (7.350-7.450)
[2023-03-04 10:26] LABS: Site Drawn RIGHT RADIAL
[2023-03-04 10:27] LABS: Device VENTILATOR; Modified Allen's Test Pass
[2023-03-04 10:28] LABS: Arterial Blood Gas PEEP 5 cmH2O; Arterial Blood Gas Vent Mode PRESSURE CONTROL; Arterial Blood Gas Ventilator rate 22 /MIN; Peak Inspiratory Pressure 36 cmH2O
[2023-03-04 10:29] LABS: Appearance Urine Clear (Clear); Bacteria Urine None Seen /hpf; Bilirubin Urine Negative (Negative); Blood Urine Negative (Negative); Color Urine Yellow (Yellow); Glucose Urine UA 3+ mg/dL (Negative); Hyaline Casts Urine Present /lpf; Ketones Urine Trace mg/dL (Negative); Leukocyte Esterase Ur Negative LEU/UL (Negative); Nitrate Urine Negative (Negative); Protein Urine 1+ mg/dL (Negative); RBC Urine 0-2 /hpf (0-2); Specific Grav Ur 1.019 (1.001-1.035); Squamous Epithelial Cell Urine None seen /hpf (Few); Urobilinogen Urine 0.2 mg/dL (<2.0); WBC Urine 0-5 /hpf
[2023-03-04] MEDS: FENTANYL 2,500MCG/NS250ML(*CRX 2,500 MCG/250 ML BAG IV CONT (10:31)
[2023-03-04] MEDS: MIDAZOLAM HCL (*CRX) 2 MG/2 ML VIAL 4 MG IV PUSH (10:31)
[2023-03-04 10:32] LABS: Add Urine Microscopic? YES
[2023-03-04 10:37] LABS: Hemoglobin A1C 6.2 % (<5.7)
[2023-03-04] MEDS: CEFEPIME 2 GM/NS 50 ML 2 GM/50 ML BAG IVPB ×2 (11:04→20:55)
[2023-03-04] MEDS: AZITHROMYCIN 500 MG/NS 250 ML 500 MG/250 ML BAG 250 MG IVPB (11:04)
[2023-03-04] MEDS: TAMSULOSIN HCL 0.4 MG CAPSULE PO (11:04)
[2023-03-04] MEDS: PANTOPRAZOLE SODIUM IV 40 MG VIAL IV PUSH (11:04)
[2023-03-04] MEDS: MINERAL OIL/WHITE PETROLATUM OINTMENT 1 APPLIC EACH EYE ×2 (11:04→20:58)
[2023-03-04] MEDS: ASPIRIN 81 MG ENTERIC TABLET PO (11:05)
[2023-03-04] MEDS: ATORVASTATIN 40 MG TABLET PO (11:05)
[2023-03-04] MEDS: AMIODARONE HCL 200 MG TABLET PO (11:05)
[2023-03-04] MEDS: SODIUM CHLORIDE 0.9% IV 1,000 ML 999 ML IV CONT (11:05)
[2023-03-04] MEDS: EPINEPHrine INJ 1 MG/10 ML SYRINGE IV PUSH (11:07)
--- NOTE | 2023-03-04 11:17 | PM.IMPN ---
Progress Note: A&P Assessment and Plan (1) Acute on chronic respiratory failure with hypoxia and hypercapnia: Code(s): J96.21 - Acute and chronic respiratory failure with hypoxia; J96.22 - Acute and chronic respiratory failure with hypercapnia Status: Acute Assessment and Plan: Patient presented with worsening shortness of breath with green colored productive sputum 3 days, was initially admitted to intermediate Unit, respiratory distress worsened and patient was in impending respiratory failure, discussed with patient at length regarding intubation which he is agreeable as he has been intubated in December 2021 for ARDS status post tracheostomy and decannulation. -03/04: Intubated -intubation was uneventful but patient had elevated mean airway pressures on CMV mode, peep of 5. Switched him to pressure control ventilation peep of 5, 100% FiO2 -ARDS physiology, will maintain low tidal volume strategy at this time -continue bronchodilators (2) Hypertension: Qualifiers: Hypertension type: primary hypertension Qualified Code(s): I10 - Essential (primary) hypertension Code(s): I10 - Essential (primary) hypertension Status: Acute (3) REGINALD (acute kidney injury): Code(s): N17.9 - Acute kidney failure, unspecified Status: Acute (4) BPH (benign prostatic hyperplasia): Code(s): N40.0 - Benign prostatic hyperplasia without lower urinary tract symptoms Status: Acute (5) Paroxysmal atrial fibrillation: Code(s): I48.0 - Paroxysmal atrial fibrillation Status: Chronic (6) Type 2 diabetes mellitus: Code(s): E11.9 - Type 2 diabetes mellitus without complications Status: Acute (7) Pneumonia: Code(s): J18.9 - Pneumonia, unspecified organism Status: Acute Subjective Date/time seen: 03/04/23 11:17 Interval history: Intubated Exam Narrative: General: Pleasant patient with severe respiratory distress HEENT:? Pupils equal and reactive, sclera is clear, ETT in place Neck:? Supple Respiratory:? Coarse breath sounds bilaterally, decreased at bases, no wheezing, adequate air entry Cardiac:? S1-S2 is normal, sinus tachycardia Abdomen:? Soft, nontender, nondistended, normoactive bowel sounds Extremities:? No edema, left lower extremity ammonia prominence noted Neuro:? Prior to intubation patient patient was awake, following commands and answering to questions.. Post intubation patient is sedated with propofol Skin:? Warm and dry Psych:? Anxious Objective Data Vital Signs Vital Signs: Vital Signs - 24 hr 03/03/23 12:26 03/03/23 12:28 03/03/23 12:02 Temperature Pulse Rate 60 60 56 L Respiratory Rate 31 H 23 H Blood Pressure 176/62 H Pulse Oximetry 100 98 98 Oxygen Delivery BiPAP BiPAP Fraction of Inspired Oxygen 40 03/03/23 13:10 03/03/23 13:50 03/03/23 14:25 Temperature Pulse Rate 57 L 56 L 60 Respiratory Rate 25 H 30 H 20 Blood Pressure 177/64 H 178/63 H 179/63 H Pulse Oximetry 98 99 98 Oxygen Delivery Fraction of Inspired Oxygen 03/03/23 15:00 03/03/23 15:17 03/03/23 15:18 Temperature 99 F Pulse Rate 70 71 71 Respiratory Rate 36 H 31 H Blood Pressure 197/72 H Pulse Oximetry 98 98 98 Oxygen Delivery BiPAP BiPAP Fraction of Inspired Oxygen 30 03/03/23 16:00 03/03/23 15:00 03/03/23 16:00 Temperature Pulse Rate 75 Respiratory Rate Blood Pressure Pulse Oximetry Oxygen Delivery BiPAP BiPAP Fraction of Inspired Oxygen 30 30 03/03/23 18:00 03/03/23 17:40 03/03/23 15:05 Temperature Pulse Rate 59 L 77 71 Respiratory Rate 24 H Blood Pressure Pulse Oximetry 96 Oxygen Delivery BiPAP Fraction of Inspired Oxygen 03/03/23 20:18 03/03/23 20:20 03/03/23 20:00 Temperature 96.9 F L Pulse Rate 62 62 62 Respiratory Rate 29 H 29 H 37 H Blood Pressure 169/66 H Pulse Oximetry 93 99 Oxygen Delivery BiPAP Fraction of Inspired Oxygen 03/04/23 00
--- NOTE | 2023-03-04 12:15 | PM.CNPUL ---
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 Patient followed in the Pulmonary Clinic and last seen on 12/23/2022. At that time he had worsening oxygenation for 6 days. Worsening dyspnea on exertion. He had some hemoptysis and yellow phlegm. CT of the chest, ABG in overnight oximetry were ordered. ABG on 2 L 7.36/45/64. 12/29/2022: CT scan of the chest with mild diffuse ground-glass opacities with underlying extensive subpleural reticulation and peripheral interstitial thickening with areas of mild bronchiectasis or honeycomb formation 01/04/23 DC amiodarone and I recommended to be evaluated at [facility] to be evaluated by Pulmonary for concerns of worsening hypoxia and interstitial lung disease. I have a discharge summary from [facility] from 01/04/2023 through 01/07/2023.? In the emergency department he was found to have a creatinine of 2.87, BNP 442, white blood cell count 10.? CT scan of the chest and abdomen with comparison to 01/27/2022 demonstrated no PE, no focal consolidations or infiltrates, stable peripheral and basilar predominant reticulations in traction bronchiectasis representing fibrosis related to prior lung injury in the setting of viral pneumonia.? Respiratory viral pathogen panel was negative.? The note says pulmonary was called id consulted and recommended ABG in 6 minutes walk.? ABG largely unremarkable, 6 minutes walk test 750 ft the patient was discharged on no oxygen at rest, 4 L with activity and 2 L overnight.? His metoprolol was discontinued.? The feeling that his acute on chronic hypoxemic respiratory failure was likely progression of his previously known lung disease.? Xarelto and amiodarone restarted on discharge.? Creatinine was 1.88 on discharge. Currently the patient will presents with worsening hypoxemic respiratory failure and developed hypoxemic and hypercarbic respiratory failure and is now intubated. He has a elevated BNP. Etiology of patient's hypoxemic and hypercarbic respiratory failure includes: Pneumonia, fluid overload, amiodarone toxicity, interstitial lung disease exacerbation. Plan: Blood cultures and sputum cultures sent. Sputum for extended respiratory pathogen panel ordered. COVID influenza RT PCR studies negative. Urine Legionella, urine pneumococcal, urine histo antigen and mycoplasma IgG and IgM pending. Agree with vancomycin, cefepime and would discontinue azithromycin and start Levaquin. Agree with discontinuation of amiodarone. I would discontinue systemic steroids and monitor the patient over the next 48 hours while receiving broad spectrum antibiotics. Ventilator management per livestock breeder. Discussed with Dr. Oscar, will follow with you. History of Present Illness History of Present Illness Consult date: 03/04/23 Chief complaint: ARDS/Hypoxia Narrative: 03/02/2023: This is a new pulmonary consult for hypoxic respiratory failure requiring mechanical ventilation. 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 Patient followed in the Pulmonary Clinic and last seen on 12/23/2022. At that time he had worsening oxygenation for 6 days. Worsening dyspnea on exertion. He had some hemoptysis and yellow phlegm. CT of the chest, ABG in overnight oximetry were ordered. ABG on 2 L 7.36/45/64. 12/29/2022: CT scan of the chest with mild diffuse ground-glass opacities with underlying extensi
[2023-03-04 13:21] LABS: Glucose Point of Care 252 mg/dl (65-105)
[2023-03-04] MEDS: INSULIN ASPART (*BKC) 100 UNITS/ML SUB-Q ×2 (13:23→17:59)
[2023-03-04] MEDS: CENTRAL LINE FLUSH 10 ML IV PUSH ×2 (13:25→20:57)
[2023-03-04] MEDS: levoFLOXacin 750 MG/D5W 150 ML 750 MG/150 ML BAG 100 MG IVPB (14:14)
[2023-03-04] MEDS: NOREPINEPHRINE 8 MG/D5W 250 ML 8 MG/250 ML BAG 9.38 MG IV CONT (14:15)
--- NOTE | 2023-03-04 14:58 | WPDPROCEDUR ---
Procedures Intubation Intubation Date: 03/04/23 Intubation Time: 09:21 A pre-procedural Time-Out was completed immediately before starting the procedure and confirmed: Patient Identification, Site, Procedure, Patient Position and the Availability of Requisite Equipment: Yes Sedative: etomidate Paralytic: rocuronium Laryngoscope: fiber optic video scope Assist device used: fiber optic device ET tube size: 8 Tube secured depth (cm): 24 Tube secured location: lips Tube placement confirmation: visualized tube passing through cords, equal breath sounds bilaterally, no breath sounds over epigastrium and confirmation by capnometry Patient tolerated procedure: well Intubation complications: none
[2023-03-04] MEDS: RIVAROXABAN 20 MG TABLET PO (18:00)
[2023-03-04] MEDS: PROPOFOL IV EMULSION 100 ML 6.57 MG IV CONT (18:00)
[2023-03-04 18:11] LABS: Glucose Point of Care 246 mg/dl (65-105)
[2023-03-04 20:48] LABS: Base Excess ABG 1.6 mEq/l (+/-2.0); Carboxyhemoglobin 0.2 % THb (0-2.0); Fractional Inspired Oxygen 70 %; HCO3 ABG 24.9 mEq/l (22.0-26.0); Methemoglobin ABG 0.4 %THb (0-1.5); Oxygen Content ABG 11.9 %vol (16.0-22.0); Oxygen Saturation ABG 96.6 % (95.0-100.0); Oxyhemoglobin 94.5 % THb (90.0-100.0); PCO2 ABG 33.6 mmHg (35.0-45.0); PO2 FiO2 Ratio Arterial Blood 1.13 %; Reduced Hemoglobin 4.9 %THb (0-5.0); Total Hemoglobin 8.9 g/dL (12.0-18.0); pH ABG 7.487 (7.350-7.450)
[2023-03-04 20:51] LABS: Arterial Blood Gas Ventilator rate 22 /MIN; Device VENTILATOR; Modified Allen's Test Pass; Site Drawn LEFT RADIAL
[2023-03-04 20:52] LABS: Arterial Blood Gas PEEP 5 cmH2O; Arterial Blood Gas Vent Mode PRESSURE CONTROL; Peak Inspiratory Pressure 36 cmH2O
[2023-03-05] VITALS (55 sets, daily range): BP systolic 93–146; BP diastolic 39–61; PULSE 40–74; RESP 22–28; TEMP 36.4–37.6; O2SAT 92–100
[2023-03-05 00:12] LABS: Glucose Point of Care 145 mg/dl (65-105)
[2023-03-05] MEDS: IPRATROPIUM BR 0.02% INH SOLN 0.5 MG/2.5 ML VIAL INHALATION ×4 (02:19→20:15)
[2023-03-05] MEDS: LEVALBUTEROL NEB 1.25 MG/3 ML INHALATION ×4 (02:19→20:15)
[2023-03-05] MEDS: PROPOFOL IV EMULSION 100 ML 13.14 MG IV CONT (04:18)
[2023-03-05] MEDS: CENTRAL LINE FLUSH 10 ML IV PUSH ×3 (04:19→20:28)
[2023-03-05 05:08] LABS: Alveolar/Arterial O2 Gradient 322.6 mmHg; Base Excess ABG 1.3 mEq/l (+/-2.0); Carboxyhemoglobin 0.3 % THb (0-2.0); Fractional Inspired Oxygen 60 %; HCO3 ABG 24.1 mEq/l (22.0-26.0); Methemoglobin ABG 0.3 %THb (0-1.5); Oxygen Saturation ABG 95.8 % (95.0-100.0); Oxyhemoglobin 93.2 % THb (90.0-100.0); PO2 ABG 71.1 mmHg (80.0-100.0); PO2 FiO2 Ratio Arterial Blood 1.18 %; Reduced Hemoglobin 6.2 %THb (0-5.0); Total Hemoglobin 8.3 g/dL (12.0-18.0)
[2023-03-05 05:19] LABS: Modified Allen's Test Pass; Site Drawn LEFT RADIAL; pH ABG 7.509 (7.350-7.450)
[2023-03-05 05:20] LABS: Arterial Blood Gas PEEP 5 cmH2O; Arterial Blood Gas Vent Mode PRESSURE CONTROL; Arterial Blood Gas Ventilator rate 22 /MIN; Device VENTILATOR; Peak Inspiratory Pressure 36 cmH2O
[2023-03-05] MEDS: LEVOTHYROXINE SODIUM 25 MCG TABLET PO (05:37)
[2023-03-05] MEDS: LEVOTHYROXINE SODIUM 112 MCG TABLET PO (05:37)
[2023-03-05 05:43] LABS: Basophils Percent Auto 0.1 % (0.2-1.2); Hematocrit 24.2 % (42.0-52.0); Hemoglobin 7.5 g/dL (14.0-18.0); Immature Granulocyte Percent A 0.7 % (0-0.5); Lymphocytes Absolute Auto 0.47 K/mm3 (0.9-3.2); Lymphocytes Percent Auto 3.3 % (18.3-44.2); Mean Corpuscular Hemoglobin 25.8 pg (26-34); Mean Corpuscular Volume 83.2 fl (80-100); Mean Platelet Volume 11.5 fl (7.4-10.4); Monocytes Absolute Auto 0.9 K/mm3 (0.1-0.6); Monocytes Percent Auto 6.6 % (2.6-8.5); Neutrophils Absolute Auto 12.8 K/mm3 (1.3-6.7); Neutrophils Percent Auto 89.3 % (45.5-73.1); Platelet Count Result 230 k/mm3 (150-375); Red Blood Count 2.91 M/mm3 (4.6-6.20); Red Cell Distribution Width 15.9 % (11.5-14.5); White Blood Count 14.4 K/mm3 (4.5-10.0)
[2023-03-05 05:53] LABS: Lactic Acid Reflex 1.3 mmol/L (0.7-2.0)
[2023-03-05 05:55] LABS: Alanine Aminotransferase 17 U/L (6-50); Albumin Level 3.2 g/dL (3.5-5.1); Alkaline Phosphatase 56 U/L (38-126); Anion Gap 9 mmol/L (8-16); Aspartate Amino Transferase 25 U/L (17-59); Bilirubin,Total 0.6 mg/dL (0.2-1.3); Blood Urea Nitrogen 35 mg/dL (9-20); Calcium 8.5 mg/dL (8.4-10.2); Carbon Dioxide 26 mmol/L (22-30); Chloride 103 mmol/L (98-107); Estimated CRCL calculation 35 ml/min; Estimated Glomerular Filt Rate 40; Glucose 136 mg/dL (65-110); Magnesium 1.5 mg/dL (1.6-2.3); Phosphorus 3.5 mg/dL (2.5-4.5); Sodium 138 mmol/L (137-145)
[2023-03-05 06:23] LABS: Burr Cells 1+ (NORMAL); Hypochromasia 1+ (NORMAL); Platelet Estimate Adequate (Adequate); Schistocytes None Seen (NORMAL)
[2023-03-05] MEDS: MAGNESIUM SULF 2 GM/WATER 50ML 2 GM/50 ML BAG IVPB (09:00)
[2023-03-05] MEDS: MIDAZOLAM 100MG/NS 100ML(*CRX) 100 MG/100 ML BAG IV CONT (09:18)
[2023-03-05] MEDS: ATORVASTATIN 40 MG TABLET PO (09:27)
[2023-03-05] MEDS: CEFEPIME 2 GM/NS 50 ML 2 GM/50 ML BAG IVPB ×2 (09:27→20:28)
[2023-03-05] MEDS: ASPIRIN 81 MG ENTERIC TABLET PO (09:27)
[2023-03-05] MEDS: PANTOPRAZOLE SODIUM IV 40 MG VIAL IV PUSH (09:28)
[2023-03-05] MEDS: MINERAL OIL/WHITE PETROLATUM OINTMENT 1 APPLIC EACH EYE ×2 (09:28→20:28)
[2023-03-05] MEDS: VANCOMYCIN 1,250 MG/NS 250 ML 1,250 MG/250 ML BAG 166.67 MG IVPB (11:19)
--- NOTE | 2023-03-05 11:26 | WPDINTPN ---
Progress Note: A&P Assessment and Plan (1) Acute on chronic respiratory failure with hypoxia and hypercapnia: Code(s): J96.21 - Acute and chronic respiratory failure with hypoxia; J96.22 - Acute and chronic respiratory failure with hypercapnia Status: Acute Assessment and Plan: Patient presented with worsening shortness of breath with green colored productive sputum 3 days, was initially admitted to intermediate Unit, respiratory distress worsened and patient was in impending respiratory failure, discussed with patient at length regarding intubation which he is agreeable as he has been intubated in December 2021 for ARDS status post tracheostomy and decannulation. -03/04: Intubated -chest x-ray this morning: ?Severe increased diffuse bilateral pulmonary infiltrates suggesting pulmonary edema or ARDS. ET tube in satisfactory position. NG tube in satisfactory position? -ARDS physiology, will maintain low tidal volume strategy at this time -post intubation he was on pressure control ventilation secondary to elevated airway pressures, have switched to CMV mode of ventilation on 03/05, low tidal volume strategy, peep of 5, 60% FiO2 -continue bronchodilators -thick ETT secretions will add Pulmozyme -ICU analgosedation fentanyl and Versed infusions, maintain RASS of -2 -daily sedation vacation (2) Pneumonia: Code(s): J18.9 - Pneumonia, unspecified organism Status: Acute Assessment and Plan: -continue vancomycin, cefepime (03/04) and azithromycin (03/03) -03/03: Sputum cultures growth of normal oropharyngeal judy -03/03: Blood cultures , preliminary results with no growth 09/08 bottles -03/04: MRSA screen pending (3) Hypertension: Qualifiers: Hypertension type: primary hypertension Qualified Code(s): I10 - Essential (primary) hypertension Code(s): I10 - Essential (primary) hypertension Status: Acute Assessment and Plan: Patient is hypertensive, PRN hydralazine (4) REGINALD (acute kidney injury): Code(s): N17.9 - Acute kidney failure, unspecified Status: Acute Assessment and Plan: Patient has history of chronic kidney disease, of 0.8-1.00. -on admission his creatinine was 1.4 -03/04 received Lasix 80 mg IV x1 in IMU with adequate urine output -creatinine trending up to 1.7 this morning, the urine output has been adequate -will continue to monitor renal function electrolytes (5) Paroxysmal atrial fibrillation: Code(s): I48.0 - Paroxysmal atrial fibrillation Status: Chronic Assessment and Plan: History of paroxysmal atrial fibrillation on Xarelto at home -currently in sinus rhythm, rate controlled -continue Xarelto (6) Type 2 diabetes mellitus: Code(s): E11.9 - Type 2 diabetes mellitus without complications Status: Acute Assessment and Plan: History of type 2 diabetes, has been hyperglycemic, started on high-dose sliding scale insulin and continue Accu-Cheks -hold Lantus for now since NPO Plan DVT prophylaxis: Xarelto Stress ulcer prophylaxis: Protonix Nutrition: Will start trickle tube feeds Code Status: Full code Critical Care Time Spent: 36 minutes 03/05: Discussed with Isa, patient's and updated her with patient's condition and plan of care. I updated her with radiology and lab report. She is aware that he will be sedated more. I answered all questions Due to a high probability of clinically significant, life threatening deterioration, the patient required my highest level of preparedness to intervene emergently and I personally spent this critical care time directly and personally managing the patient. This critical care time included obtaining a history; examining the patient; pulse oximetry; ordering and review of studies; arranging urgent treatment with development of a management plan; evaluation of patient's response to treatment; frequent reassessment; and discussions with other providers. It was e
--- NOTE | 2023-03-05 11:40 | PM.IMPN ---
Progress Note: A&P Assessment and Plan (1) Acute on chronic respiratory failure with hypoxia and hypercapnia: Code(s): J96.21 - Acute and chronic respiratory failure with hypoxia; J96.22 - Acute and chronic respiratory failure with hypercapnia Status: Acute Assessment and Plan: Patient presented with worsening shortness of breath with green colored productive sputum 3 days, was initially admitted to intermediate Unit, respiratory distress worsened and patient was in impending respiratory failure, discussed with patient at length regarding intubation which he is agreeable as he has been intubated in December 2021 for ARDS status post tracheostomy and decannulation. -03/04: Intubated -chest x-ray this morning: ?Severe increased diffuse bilateral pulmonary infiltrates suggesting pulmonary edema or ARDS. ET tube in satisfactory position. NG tube in satisfactory position? -ARDS physiology, will maintain low tidal volume strategy at this time -post intubation he was on pressure control ventilation secondary to elevated airway pressures, have switched to CMV mode of ventilation on 03/05, low tidal volume strategy, peep of 5, 60% FiO2 -continue bronchodilators -thick ETT secretions will add Pulmozyme -sedated with Versed and fentanyl fentanyl infusion, maintain RASS of -2 - (2) Pneumonia: Code(s): J18.9 - Pneumonia, unspecified organism Status: Acute Assessment and Plan: -antibiotics were switched to vancomycin, cefepime (03/04) and azithromycin (03/03) -03/03: Sputum cultures growth of normal oropharyngeal judy -03/03: Blood cultures , preliminary results with no growth 09/08 bottles -03/04: MRSA screen pending (3) Hypertension: Qualifiers: Hypertension type: primary hypertension Qualified Code(s): I10 - Essential (primary) hypertension Code(s): I10 - Essential (primary) hypertension Status: Acute Assessment and Plan: Patient is hypertensive, PRN hydralazine (4) REGINALD (acute kidney injury): Code(s): N17.9 - Acute kidney failure, unspecified Status: Acute Assessment and Plan: Patient has history of chronic kidney disease, of 0.8-1.00. -on admission his creatinine was 1.4 -03/04 received Lasix 80 mg IV x1 in IMU with adequate urine output -creatinine trending up to 1.7 this morning, the urine output has been adequate -will continue to monitor renal function electrolytes (5) Paroxysmal atrial fibrillation: Code(s): I48.0 - Paroxysmal atrial fibrillation Status: Chronic Assessment and Plan: History of paroxysmal atrial fibrillation on Xarelto at home -currently in sinus rhythm, rate controlled -continue Xarelto (6) Type 2 diabetes mellitus: Code(s): E11.9 - Type 2 diabetes mellitus without complications Status: Acute Assessment and Plan: History of type 2 diabetes, has been hyperglycemic, started on high-dose sliding scale insulin and continue Accu-Cheks -hold Lantus for now since NPO Plan DVT prophylaxis: Xarelto Stress ulcer prophylaxis: Protonix Nutrition: NPO for now Code Status: Full code Critical Care Time Spent: 51 minutes 03/04: Discussed with Isa, patient's and updated her with patient's condition and plan of care. She is aware that patient was in impending respiratory failure for which he got placed on mechanical ventilation. I discussed with her that he will be sedated updated her with the radiology and lab reports. I answered all questions Due to a high probability of clinically significant, life threatening deterioration, the patient required my highest level of preparedness to intervene emergently and I personally spent this critical care time directly and personally managing the patient. This critical care time included obtaining a history; examining the patient; pulse oximetry; ordering and review of studies; arranging urgent treatment with development of a management plan; evaluation of pa
[2023-03-05] MEDS: FENTANYL 2,500MCG/NS250ML(*CRX 2,500 MCG/250 ML BAG 20 MCG IV CONT (13:36)
[2023-03-05] MEDS: DORNASE ALFA INH SOLN 1 MG/ML 2.5 ML AMP 2.5 MG INHALATION ×2 (13:38→20:15)
[2023-03-05] MEDS: ROCURONIUM BROMIDE 50 MG/5 ML VIAL IV PUSH (13:42)
--- NOTE | 2023-03-05 13:49 | PM.PNPUL ---
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 Patient followed in the Pulmonary Clinic and last seen on 12/23/2022. At that time he had worsening oxygenation for 6 days. Worsening dyspnea on exertion. He had some hemoptysis and yellow phlegm. CT of the chest, ABG in overnight oximetry were ordered. ABG on 2 L 7.36/45/64. 12/29/2022: CT scan of the chest with mild diffuse ground-glass opacities with underlying extensive subpleural reticulation and peripheral interstitial thickening with areas of mild bronchiectasis or honeycomb formation 01/04/23 DC amiodarone and I recommended to be evaluated at [facility] to be evaluated by Pulmonary for concerns of worsening hypoxia and interstitial lung disease. I have a discharge summary from [facility] from 01/04/2023 through 01/07/2023.? In the emergency department he was found to have a creatinine of 2.87, BNP 442, white blood cell count 10.? CT scan of the chest and abdomen with comparison to 01/27/2022 demonstrated no PE, no focal consolidations or infiltrates, stable peripheral and basilar predominant reticulations in traction bronchiectasis representing fibrosis related to prior lung injury in the setting of viral pneumonia.? Respiratory viral pathogen panel was negative.? The note says pulmonary was called id consulted and recommended ABG in 6 minutes walk.? ABG largely unremarkable, 6 minutes walk test 750 ft the patient was discharged on no oxygen at rest, 4 L with activity and 2 L overnight.? His metoprolol was discontinued.? The feeling that his acute on chronic hypoxemic respiratory failure was likely progression of his previously known lung disease.? Xarelto and amiodarone restarted on discharge.? Creatinine was 1.88 on discharge. Currently the patient will presents with worsening hypoxemic respiratory failure and developed hypoxemic and hypercarbic respiratory failure and is now intubated. He has a elevated BNP. Etiology of patient's hypoxemic and hypercarbic respiratory failure includes: Pneumonia, fluid overload, amiodarone toxicity, interstitial lung disease exacerbation. Plan: Blood cultures and sputum cultures sent. Sputum for extended respiratory pathogen panel ordered. COVID influenza RT PCR studies negative. Urine Legionella, urine pneumococcal, urine histo antigen and mycoplasma IgG and IgM pending. Agree with vancomycin, cefepime and would discontinue azithromycin and start Levaquin. Agree with discontinuation of amiodarone. I would discontinue systemic steroids and monitor the patient over the next 48 hours while receiving broad spectrum antibiotics. Ventilator management per subassembly supervisor. 03/05 Patient is intubated and sedated with versed and fentanyl.? CMV rate of 22, breathing 29, tidal volume 450, 70% FiO2, peep of 5, peak pressure 29 with minute ventilation of 9.0. Afebrile. white blood cell count is 14.4, creatinine is 1.7. ABG on previous pressure control ventilation was 7.. Sputum Gram stain with no white blood cells, rare epithelial cells, rare mixed judy. Pulmozyme was added for thick secretions. Cumulative diuresis 1.4 L ?? Plan: Continue vancomycin, cefepime and Levaquin, day 2. Oxygenation improved with no change in chest x-ray. Infection serologies and tests pending. Discussed with Dr. Oscar, will follow with you. Subjective Date/time seen: 03/05/23 13:49 Interval history: 03/02/2023:? This is a new pulmonary consult for hypoxic respiratory failure requiring mechanical ventilation. 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
--- NOTE | 2023-03-05 13:58 | WPDPROCEDUR ---
Procedures Intubation Intubation Date: 03/05/23 Intubation Time: 13:52 Sedative: none Paralytic: rocuronium Laryngoscope: fiber optic video scope Assist device used: Bougie ET tube size: 8 Tube secured depth (cm): 24 Tube secured location: lips Tube placement confirmation: visualized tube passing through cords, equal breath sounds bilaterally, no breath sounds over epigastrium and confirmation by capnometry Patient tolerated procedure: well Intubation complications: none Additional comments: Patient was already intubated, had a cuff leak, was not getting his tidal volumes, the cuff had to be failed repeatedly with air. Decided to switch the ETT over a tube exchanger/bougie. Patient was already sedated on fentanyl and Versed infusion, patient given a small dose of rocuronium, ETT was exchanged over a bougie, I also used the glide scope to visualize the tube passing through the vocal cords into the trachea. Bilateral breath sounds post intubation, good color change on capnometry. Chest x-ray has been ordered confirm placement. Patient tolerated the procedure well. He was connected to the ventilator on previous settings
[2023-03-05] MEDS: SODIUM CHLORIDE 0.9% IV 1,000 ML 100 ML IV CONT (15:21)
[2023-03-05] MEDS: ALBUMIN HUMAN 25% 25 GM/100 ML 100 ML IVPB ×3 (15:32→23:48)
[2023-03-05 16:05] LABS: Glucose Point of Care 124 mg/dl (65-105)
[2023-03-05] MEDS: RIVAROXABAN 20 MG TABLET PO (16:12)
[2023-03-05 18:42] LABS: Glucose Point of Care 135 mg/dl (65-105)
[2023-03-05 23:52] LABS: Glucose Point of Care 135 mg/dl (65-105)
[2023-03-06] VITALS (52 sets, daily range): BP systolic 110–145; BP diastolic 49–72; PULSE 43–112; RESP 15–26; TEMP 36.7–37.6; O2SAT 89–100; BMI 21.5
[2023-03-06] MEDS: MIDAZOLAM 100MG/NS 100ML(*CRX) 100 MG/100 ML BAG IV CONT (00:57)
[2023-03-06] MEDS: IPRATROPIUM BR 0.02% INH SOLN 0.5 MG/2.5 ML VIAL INHALATION ×4 (01:47→20:11)
[2023-03-06] MEDS: LEVALBUTEROL NEB 1.25 MG/3 ML INHALATION ×4 (01:47→20:11)
[2023-03-06] MEDS: LEVOTHYROXINE SODIUM 112 MCG TABLET PO (05:07)
[2023-03-06] MEDS: ALBUMIN HUMAN 25% 25 GM/100 ML 100 ML IVPB (05:07)
[2023-03-06] MEDS: LEVOTHYROXINE SODIUM 25 MCG TABLET PO (05:07)
[2023-03-06] MEDS: CENTRAL LINE FLUSH 10 ML IV PUSH ×3 (05:16→20:32)
[2023-03-06 05:42] LABS: Alveolar/Arterial O2 Gradient 197.4 mmHg; Base Excess ABG -3.7 mEq/l (+/-2.0); Carboxyhemoglobin 0.3 % THb (0-2.0); Fractional Inspired Oxygen 45 %; HCO3 ABG 22.1 mEq/l (22.0-26.0); Methemoglobin ABG 0.5 %THb (0-1.5); Oxygen Content ABG 10.4 %vol (16.0-22.0); Oxygen Saturation ABG 93.9 % (95.0-100.0); Oxyhemoglobin 91.4 % THb (90.0-100.0); PCO2 ABG 43.3 mmHg (35.0-45.0); PO2 ABG 74.2 mmHg (80.0-100.0); PO2 FiO2 Ratio Arterial Blood 1.65 %; Reduced Hemoglobin 7.8 %THb (0-5.0); pH ABG 7.325 (7.350-7.450)
[2023-03-06 05:43] LABS: Arterial Blood Gas PEEP 8 cmH2O; Arterial Blood Gas Tidal Volume 400 ml; Arterial Blood Gas Vent Mode CMV; Arterial Blood Gas Ventilator rate 22 /MIN; Device VENTILATOR; Modified Allen's Test Unable to perform; Site Drawn LEFT RADIAL
[2023-03-06 05:48] LABS: Basophils Percent Auto 0.1 % (0.2-1.2); Eosinophils Absolute Auto 0.2 K/mm3 (0-0.3); Eosinophils Percent Auto 1.7 % (0-4.4); Immature Granulocyte Absolute 0.04 K/mm3 (0.00-0.031); Immature Granulocyte Percent A 0.4 % (0-0.5); Lymphocytes Absolute Auto 0.51 K/mm3 (0.9-3.2); Lymphocytes Percent Auto 5.5 % (18.3-44.2); Mean Corpuscular Hemoglobin 25.1 pg (26-34); Mean Corpuscular Volume 86.4 fl (80-100); Mean Platelet Volume 11.1 fl (7.4-10.4); Monocytes Absolute Auto 0.5 K/mm3 (0.1-0.6); Monocytes Percent Auto 5.4 % (2.6-8.5); Neutrophils Percent Auto 86.9 % (45.5-73.1); Platelet Count Result 171 k/mm3 (150-375); Red Blood Count 2.43 M/mm3 (4.6-6.20); Red Cell Distribution Width 16.1 % (11.5-14.5); White Blood Count 9.2 K/mm3 (4.5-10.0)
[2023-03-06 05:56] LABS: Alanine Aminotransferase 14 U/L (6-50); Albumin Level 3.8 g/dL (3.5-5.1); Alkaline Phosphatase 41 U/L (38-126); Anion Gap 8 mmol/L (8-16); Aspartate Amino Transferase 19 U/L (17-59); Bilirubin,Total 0.5 mg/dL (0.2-1.3); Blood Urea Nitrogen 42 mg/dL (9-20); Calcium 8.5 mg/dL (8.4-10.2); Carbon Dioxide 26 mmol/L (22-30); Chloride 107 mmol/L (98-107); Estimated CRCL calculation 28 ml/min; Estimated Glomerular Filt Rate 33; Glucose 129 mg/dL (65-110); Magnesium 2.4 mg/dL (1.6-2.3); Phosphorus 4.2 mg/dL (2.5-4.5); Potassium 3.9 mmol/L (3.4-5.0); Sodium 141 mmol/L (137-145); Triglycerides 135 mg/dL (<150)
[2023-03-06 06:27] LABS: Hemoglobin 6.1 g/dL (14.0-18.0)
[2023-03-06 06:28] LABS: Anisocytosis 1+ (NORMAL); Hypochromasia 1+ (NORMAL); Platelet Estimate Adequate (Adequate); Poikilocytosis 1+ (NORMAL)
[2023-03-06 06:29] LABS: Schistocytes None Seen (NORMAL)
[2023-03-06] MEDS: DORNASE ALFA INH SOLN 1 MG/ML 2.5 ML AMP 2.5 MG INHALATION ×2 (07:15→20:11)
--- NOTE | 2023-03-06 07:57 | PC.NURSE ---
Spoke with blood bank at [phone]. Leukocyte reduced RBC's not ready. Blood bank to call when blood is ready.
[2023-03-06] MEDS: SODIUM CHLORIDE 0.9% IV 250 ML 30 ML IV CONT (08:44)
[2023-03-06] MEDS: ATORVASTATIN 40 MG TABLET PO (08:50)
[2023-03-06] MEDS: ASPIRIN 81 MG ENTERIC TABLET PO (08:50)
[2023-03-06] MEDS: PANTOPRAZOLE SODIUM IV 40 MG VIAL IV PUSH ×2 (08:51→20:32)
[2023-03-06] MEDS: CEFEPIME 2 GM/NS 50 ML 2 GM/50 ML BAG IVPB ×2 (08:53→20:32)
[2023-03-06] MEDS: MINERAL OIL/WHITE PETROLATUM OINTMENT 1 APPLIC EACH EYE ×2 (08:53→20:32)
--- NOTE | 2023-03-06 11:06 | WPDINTPN ---
Progress Note: A&P Assessment and Plan (1) Acute on chronic respiratory failure with hypoxia and hypercapnia: Code(s): J96.21 - Acute and chronic respiratory failure with hypoxia; J96.22 - Acute and chronic respiratory failure with hypercapnia Status: Acute Assessment and Plan: Patient presented with worsening shortness of breath with green colored productive sputum 3 days, was initially admitted to intermediate Unit, respiratory distress worsened and patient was in impending respiratory failure, discussed with patient at length regarding intubation which he is agreeable as he has been intubated in December 2021 for ARDS status post tracheostomy and decannulation. -03/04: Intubated -chest x-ray this morning: ?Severe increased diffuse bilateral pulmonary infiltrates suggesting pulmonary edema or ARDS. ET tube in satisfactory position. NG tube in satisfactory position? -ARDS physiology, will maintain low tidal volume strategy at this time -currently in CMV mode of ventilation peep of 8, 45 % FiO2 -continue bronchodilators -thick ETT secretions and on Pulmozyme -ICU analgosedation fentanyl and Versed infusions, maintain RASS of -2 -daily sedation vacation -continue antibiotics as below -hold Lasix as patient has increasing creatinine -check CT scan of chest (2) Pneumonia: Code(s): J18.9 - Pneumonia, unspecified organism Status: Acute Assessment and Plan: -continue vancomycin and Levaquin -DC cefepime (03/04), azithromycin (03/03) was DC earlier -03/03: Sputum cultures growth of normal oropharyngeal judy -03/03: Blood cultures , preliminary results with no growth 09/08 bottles -03/04: MRSA screen positive (3) Hypertension: Qualifiers: Hypertension type: primary hypertension Qualified Code(s): I10 - Essential (primary) hypertension Code(s): I10 - Essential (primary) hypertension Status: Acute Assessment and Plan: PRN hydralazine (4) REGINALD (acute kidney injury): Code(s): N17.9 - Acute kidney failure, unspecified Status: Acute Assessment and Plan: Patient has history of chronic kidney disease, of 0.8-1.00. -on admission his creatinine was 1.4 -03/04 received Lasix 80 mg IV x1 in IMU with adequate urine output -creatinine increased to 2.0 this morning, the urine output has been on the lower side -will continue to monitor renal function electrolytes -maintain mean arterial pressure with vasopressor fluid -hold diuretics (5) Paroxysmal atrial fibrillation: Code(s): I48.0 - Paroxysmal atrial fibrillation Status: Chronic Assessment and Plan: History of paroxysmal atrial fibrillation on Xarelto at home -currently in sinus rhythm, rate controlled Xarelto held due to drop in hemoglobin (6) Type 2 diabetes mellitus: Code(s): E11.9 - Type 2 diabetes mellitus without complications Status: Acute Assessment and Plan: History of type 2 diabetes continue sliding scale insulin and Resume Lantus advance tube feeds Plan DVT prophylaxis: Xarelto on hold S CD Stress ulcer prophylaxis: Protonix Nutrition: Advance tube feeds Code Status: Full code Discussed with Dr. Olmos from Pulmonary. I updated patient's at bedside with patient's current status and current treatment plan. I Answered all her questions Critical Care Time Spent: 32 minutes Due to a high probability of clinically significant, life threatening deterioration, the patient required my highest level of preparedness to intervene emergently and I personally spent this critical care time directly and personally managing the patient. This critical care time included obtaining a history; examining the patient; pulse oximetry; ordering and review of studies; arranging urgent treatment with development of a management plan; evaluation of patient's response to treatment; frequent reassessment; and discussions with other providers. It was exclusive of separately billable pr
--- NOTE | 2023-03-06 11:41 | PM.PNPUL ---
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 Patient followed in the Pulmonary Clinic and last seen on 12/23/2022. At that time he had worsening oxygenation for 6 days. Worsening dyspnea on exertion. He had some hemoptysis and yellow phlegm. CT of the chest, ABG in overnight oximetry were ordered. ABG on 2 L 7.36/45/64. 12/29/2022: CT scan of the chest with mild diffuse ground-glass opacities with underlying extensive subpleural reticulation and peripheral interstitial thickening with areas of mild bronchiectasis or honeycomb formation 01/04/23 DC amiodarone and I recommended to be evaluated at [facility] to be evaluated by Pulmonary for concerns of worsening hypoxia and interstitial lung disease. I have a discharge summary from [facility] from 01/04/2023 through 01/07/2023.? In the emergency department he was found to have a creatinine of 2.87, BNP 442, white blood cell count 10.? CT scan of the chest and abdomen with comparison to 01/27/2022 demonstrated no PE, no focal consolidations or infiltrates, stable peripheral and basilar predominant reticulations in traction bronchiectasis representing fibrosis related to prior lung injury in the setting of viral pneumonia.? Respiratory viral pathogen panel was negative.? The note says pulmonary was called id consulted and recommended ABG in 6 minutes walk.? ABG largely unremarkable, 6 minutes walk test 750 ft the patient was discharged on no oxygen at rest, 4 L with activity and 2 L overnight.? His metoprolol was discontinued.? The feeling that his acute on chronic hypoxemic respiratory failure was likely progression of his previously known lung disease.? Xarelto and amiodarone restarted on discharge.? Creatinine was 1.88 on discharge. Currently the patient will presents with worsening hypoxemic respiratory failure and developed hypoxemic and hypercarbic respiratory failure and is now intubated. He has a elevated BNP. Etiology of patient's hypoxemic and hypercarbic respiratory failure includes: Pneumonia, fluid overload, amiodarone toxicity, interstitial lung disease exacerbation. Plan: Blood cultures and sputum cultures sent. Sputum for extended respiratory pathogen panel ordered. COVID influenza RT PCR studies negative. Urine Legionella, urine pneumococcal, urine histo antigen and mycoplasma IgG and IgM pending. Agree with vancomycin, cefepime and would discontinue azithromycin and start Levaquin. Agree with discontinuation of amiodarone. I would discontinue systemic steroids and monitor the patient over the next 48 hours while receiving broad spectrum antibiotics. Ventilator management per optical goods drill operator. 03/05 Patient is intubated and sedated with versed and fentanyl.? CMV rate of 22, breathing 29, tidal volume 450, 70% FiO2, peep of 5, peak pressure 29 with minute ventilation of 9.0. Afebrile. white blood cell count is 14.4, creatinine is 1.7. ABG on previous pressure control ventilation was 7.. Sputum Gram stain with no white blood cells, rare epithelial cells, rare mixed judy. Pulmozyme was added for thick secretions. Cumulative diuresis 1.4 L ?? Plan: Continue vancomycin, cefepime and Levaquin, day 2. Oxygenation improved with no change in chest x-ray. Infection serologies and tests pending. 03/06: I spoke with the and obtained more history today. After the patient was discharged from [facility] on 01/07/2023 the patient did well. Most days he was off oxygen and when he checked his pulse ox was 88-92%. Patient was wearing 3 L nasal cannula at night. The patient could walk for 2 hours while shoppin
--- NOTE | 2023-03-06 12:25 | PC.NURSE ---
Paperwork faxed at [phone] to obtain medical records from [facility]. Telephone consent received by Isa Lutz (spouse) and verified by 2 RN's.
[2023-03-06 12:29] LABS: Glucose Point of Care 127 mg/dl (65-105)
[2023-03-06 12:29] LABS: Vancomycin Trough 15.4 ug/mL (10.0-20.0)
[2023-03-06] MEDS: levoFLOXacin 750 MG/D5W 150 ML 750 MG/150 ML BAG 100 MG IVPB (13:51)
[2023-03-06] MEDS: VANCOMYCIN 1,250 MG/NS 250 ML 1,250 MG/250 ML BAG 166.67 MG IVPB (13:51)
[2023-03-06 14:08] LABS: Hematocrit 25.2 % (42.0-52.0); Hemoglobin 7.6 g/dL (14.0-18.0); Mean Corpuscular HGB Conc 30.2 g/dl (32-36); Mean Corpuscular Volume 86.3 fl (80-100); Mean Platelet Volume 11.1 fl (7.4-10.4); Platelet Count Result 169 k/mm3 (150-375); Red Blood Count 2.92 M/mm3 (4.6-6.20); Red Cell Distribution Width 15.4 % (11.5-14.5); White Blood Count 9.5 K/mm3 (4.5-10.0)
[2023-03-06 15:13] LABS: Procalcitonin 0.5 ng/mL
[2023-03-06 18:12] LABS: Glucose Point of Care 137 mg/dl (65-105)
[2023-03-06 19:52] LABS: Hemoglobin 7.5 g/dL (14.0-18.0); Mean Corpuscular Volume 86.8 fl (80-100); Mean Platelet Volume 11.3 fl (7.4-10.4); Platelet Count Result 181 k/mm3 (150-375); Red Blood Count 2.88 M/mm3 (4.6-6.20); Red Cell Distribution Width 15.8 % (11.5-14.5); White Blood Count 10.4 K/mm3 (4.5-10.0)
[2023-03-06] MEDS: FENTANYL 2,500MCG/NS250ML(*CRX 2,500 MCG/250 ML BAG 7.5 MCG IV CONT (20:28)
[2023-03-06] MEDS: MIDAZOLAM 100MG/NS 100ML(*CRX) 100 MG/100 ML BAG 6 MG IV CONT (20:29)
[2023-03-06 22:54] LABS: Glucose Point of Care 127 mg/dl (65-105)
[2023-03-06] MEDS: INSULIN GLARGINE (*BKC) 100 UNITS/ML 11 UNITS SUB-Q (22:54)
[2023-03-07] VITALS (38 sets, daily range): BP systolic 96–132; BP diastolic 46–83; PULSE 46–66; RESP 14–124; TEMP 36.6–37.4; O2SAT 92–100
[2023-03-07] MEDS: IPRATROPIUM BR 0.02% INH SOLN 0.5 MG/2.5 ML VIAL INHALATION ×4 (01:36→20:15)
[2023-03-07] MEDS: LEVALBUTEROL NEB 1.25 MG/3 ML INHALATION ×4 (01:36→20:15)
[2023-03-07] MEDS: CENTRAL LINE FLUSH 10 ML IV PUSH ×3 (05:34→20:16)
[2023-03-07] MEDS: LEVOTHYROXINE SODIUM 112 MCG TABLET PO (05:34)
[2023-03-07] MEDS: LEVOTHYROXINE SODIUM 25 MCG TABLET PO (05:34)
[2023-03-07 05:35] LABS: Alveolar/Arterial O2 Gradient 274.9 mmHg; Carboxyhemoglobin 0.3 % THb (0-2.0); Fractional Inspired Oxygen 55 %; HCO3 ABG 23.9 mEq/l (22.0-26.0); Methemoglobin ABG 0.3 %THb (0-1.5); Modified Allen's Test Pass; Oxygen Content ABG 11.8 %vol (16.0-22.0); Oxygen Saturation ABG 91.6 % (95.0-100.0); Oxyhemoglobin 90.8 % THb (90.0-100.0); PCO2 ABG 46.2 mmHg (35.0-45.0); PO2 ABG 65.9 mmHg (80.0-100.0); Reduced Hemoglobin 8.6 %THb (0-5.0); Site Drawn RIGHT RADIAL; Total Hemoglobin 9.2 g/dL (12.0-18.0); pH ABG 7.332 (7.350-7.450)
[2023-03-07 05:36] LABS: Arterial Blood Gas PEEP 8 cmH2O; Arterial Blood Gas Tidal Volume 400 ml; Arterial Blood Gas Vent Mode CMV; Arterial Blood Gas Ventilator rate 22 /MIN; Device VENTILATOR
[2023-03-07 05:49] LABS: Basophils Percent Auto 0.3 % (0.2-1.2); Eosinophils Absolute Auto 0.4 K/mm3 (0-0.3); Eosinophils Percent Auto 3.6 % (0-4.4); Hematocrit 27.3 % (42.0-52.0); Hemoglobin 8.1 g/dL (14.0-18.0); Immature Granulocyte Absolute 0.05 K/mm3 (0.00-0.031); Immature Granulocyte Percent A 0.4 % (0-0.5); Lymphocytes Absolute Auto 0.44 K/mm3 (0.9-3.2); Lymphocytes Percent Auto 3.8 % (18.3-44.2); Mean Corpuscular HGB Conc 29.7 g/dl (32-36); Mean Corpuscular Volume 87.5 fl (80-100); Mean Platelet Volume 11.9 fl (7.4-10.4); Monocytes Absolute Auto 0.7 K/mm3 (0.1-0.6); Monocytes Percent Auto 5.8 % (2.6-8.5); Neutrophils Percent Auto 86.1 % (45.5-73.1); Platelet Count Result 192 k/mm3 (150-375); Red Blood Count 3.12 M/mm3 (4.6-6.20); Red Cell Distribution Width 15.9 % (11.5-14.5); White Blood Count 11.7 K/mm3 (4.5-10.0)
[2023-03-07 05:58] LABS: Alanine Aminotransferase 14 U/L (6-50); Albumin Level 3.4 g/dL (3.5-5.1); Alkaline Phosphatase 46 U/L (38-126); Anion Gap 3 mmol/L (8-16); Aspartate Amino Transferase 15 U/L (17-59); Bilirubin,Total 0.6 mg/dL (0.2-1.3); Blood Urea Nitrogen 42 mg/dL (9-20); Calcium 8.3 mg/dL (8.4-10.2); Carbon Dioxide 28 mmol/L (22-30); Chloride 109 mmol/L (98-107); Estimated CRCL calculation 33 ml/min; Estimated Glomerular Filt Rate 37; Glucose 136 mg/dL (65-110); Magnesium 2.5 mg/dL (1.6-2.3); Phosphorus 3.5 mg/dL (2.5-4.5); Potassium 4.1 mmol/L (3.4-5.0); Sodium 140 mmol/L (137-145)
[2023-03-07 06:48] LABS: Anisocytosis 1+ (NORMAL); Hypochromasia 1+ (NORMAL); Platelet Estimate Adequate (Adequate); Schistocytes Rare (NORMAL)
[2023-03-07] MEDS: DORNASE ALFA INH SOLN 1 MG/ML 2.5 ML AMP 2.5 MG INHALATION (08:06)
[2023-03-07] MEDS: ASPIRIN 81 MG ENTERIC TABLET PO (08:44)
[2023-03-07] MEDS: ATORVASTATIN 40 MG TABLET PO (08:44)
[2023-03-07] MEDS: PANTOPRAZOLE SODIUM IV 40 MG VIAL IV PUSH ×2 (08:45→20:21)
[2023-03-07] MEDS: FUROSEMIDE INJ 40 MG/4 ML VIAL IV PUSH ×2 (08:45→16:51)
[2023-03-07] MEDS: MINERAL OIL/WHITE PETROLATUM OINTMENT 1 APPLIC EACH EYE ×2 (08:45→20:16)
--- NOTE | 2023-03-07 09:28 | P.PNPL_ITS ---
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 Patient followed in the Pulmonary Clinic and last seen on 12/23/2022. At that time he had worsening oxygenation for 6 days. Worsening dyspnea on exertion. He had some hemoptysis and yellow phlegm. CT of the chest, ABG in overnight oximetry were ordered. ABG on 2 L 7.36/45/64. 12/29/2022: CT scan of the chest with mild diffuse ground-glass opacities with underlying extensive subpleural reticulation and peripheral interstitial thickening with areas of mild bronchiectasis or honeycomb formation 01/04/23 DC amiodarone and I recommended to be evaluated at [facility] to be evaluated by Pulmonary for concerns of worsening hypoxia and interstitial lung disease. I have a discharge summary from [facility] from 01/04/2023 through 01/07/2023.? In the emergency department he was found to have a creatinine of 2.87, BNP 442, white blood cell count 10.? CT scan of the chest and abdomen with comparison to 01/27/2022 demonstrated no PE, no focal consolidations or infiltrates, stable peripheral and basilar predominant reticulations in traction bronchiectasis representing fibrosis related to prior lung injury in the setting of viral pneumonia.? Respiratory viral pathogen panel was negative.? The note says pulmonary was called id consulted and recommended ABG in 6 minutes walk.? ABG largely unremarkable, 6 minutes walk test 750 ft the patient was discharged on no oxygen at rest, 4 L with activity and 2 L overnight.? His metoprolol was discontinued.? The feeling that his acute on chronic hypoxemic respiratory failure was likely progression of his previously known lung disease.? Xarelto and amiodarone restarted on discharge.? Creatinine was 1.88 on discharge. Currently the patient will presents with worsening hypoxemic respiratory failure and developed hypoxemic and hypercarbic respiratory failure and is now intubated. He has a elevated BNP. Etiology of patient's hypoxemic and hypercarbic respiratory failure includes: Pneumonia, fluid overload, amiodarone toxicity, interstitial lung disease exacerbation. Plan: Blood cultures and sputum cultures sent. Sputum for extended respiratory pathogen panel ordered. COVID influenza RT PCR studies negative. Urine Legionella, urine pneumococcal, urine histo antigen and mycoplasma IgG and IgM pending. Agree with vancomycin, cefepime and would discontinue azithromycin and start Levaquin. Agree with discontinuation of amiodarone. I would discontinue systemic steroids and monitor the patient over the next 48 hours while receiving broad spectrum antibiotics. Ventilator management per digital account manager. 03/05 Patient is intubated and sedated with versed and fentanyl.? CMV rate of 22, breathing 29, tidal volume 450, 70% FiO2, peep of 5, peak pressure 29 with minute ventilation of 9.0. Afebrile. white blood cell count is 14.4, creatinine is 1.7. ABG on previous pressure control ventilation was 7.. Sputum Gram stain with no white blood cells, rare epithelial ce lls, rare mixed judy. Pulmozyme was added for thick secretions. Cumulative diuresis 1.4 L ?? Plan: Continue vancomycin, cefepime and Levaquin, day 2. Oxygenation improved with no change in chest x-ray. Infection serologies and tests pending. 03/06: I spoke with the and obtained more history today. After the patient was discharged
--- NOTE | 2023-03-07 11:07 | WPDINTPN ---
Progress Note: A&P Assessment and Plan (1) Acute on chronic respiratory failure with hypoxia and hypercapnia: Code(s): J96.21 - Acute and chronic respiratory failure with hypoxia; J96.22 - Acute and chronic respiratory failure with hypercapnia Status: Acute Assessment and Plan: Patient presented with worsening shortness of breath with green colored productive sputum 3 days, was initially admitted to intermediate Unit, respiratory distress worsened and patient was in impending respiratory failure, discussed with patient at length regarding intubation which he is agreeable as he has been intubated in December 2021 for ARDS status post tracheostomy and decannulation. -03/04: Intubated - 03/06 -CT chest 1. Interval progression of diffuse bilateral interstitial and airspace opacities which could represent pulmonary edema, pneumonia, ARDS or some combination thereof. 2. Small bilateral pleural effusions, left greater than right. 3. Cardiomegaly. -chest x-ray this morning reviewed At this time patient has multiple possible etiologies including worsening of his interstitial lung disease, pneumonia, congestive heart failure versus condition of above 3. Patient was also on anticoagulation which raise the possibility of alveolar hemorrhage but patient had minimal blood tinged secretion. Anticoagulation is on hold. Patient also on amiodarone as an outpatient which is also on hold -ARDS physiology, will maintain low tidal volume strategy at this time -currently in CMV mode of ventilation currently on 55% % FiO2. Decrease PEEP to 10 -ICU analgosedation fentanyl and Versed infusions, maintain RASS of -2 -daily sedation vacation -MRSA screen is positive but cultures are negative. Continue vancomycin and Levaquin at this time -resume Lasix -extended viral panel is pending Urine Histoplasma antigen is pending Urine Legionella and urine pneumococcal antigen are pending Negative influenza and coronavirus PCR May need bronchoscopy. Discussed with pulmonary (2) Pneumonia: Code(s): J18.9 - Pneumonia, unspecified organism Status: Acute Assessment and Plan: -continue vancomycin and Levaquin -DC cefepime (03/04), azithromycin (03/03) was DC earlier -03/03: Sputum cultures growth of normal oropharyngeal judy -03/03: Blood cultures , preliminary results with no growth 2/2 bottles -03/04: MRSA screen positive (3) Hypertension: Qualifiers: Hypertension type: primary hypertension Qualified Code(s): I10 - Essential (primary) hypertension Code(s): I10 - Essential (primary) hypertension Status: Acute Assessment and Plan: PRN hydralazine (4) REGINALD (acute kidney injury): Code(s): N17.9 - Acute kidney failure, unspecified Status: Acute Assessment and Plan: Patient has history of chronic kidney disease, of 0.8-1.00. -on admission his creatinine was 1.4 -03/04 received Lasix 80 mg IV x1 in IMU with adequate urine output -03/06 creatinine increased to 2.0 this morning, the urine output has been on the lower side. Diuretics were held - 03/07 creatinine 1.8. Resume Lasix -continue to monitor renal function electrolytes -maintain mean arterial pressure with vasopressor (5) Paroxysmal atrial fibrillation: Code(s): I48.0 - Paroxysmal atrial fibrillation Status: Chronic Assessment and Plan: History of paroxysmal atrial fibrillation on Xarelto at home -currently in sinus rhythm, rate controlled Xarelto on hold at this time (6) Type 2 diabetes mellitus: Code(s): E11.9 - Type 2 diabetes mellitus without complications Status: Acute Assessment and Plan: History of type 2 diabetes continue sliding scale insulin and Continue lantus advance tube feeds (7) Cholelithiasis: Code(s): K80.20 - Calculus of gallbladder without cholecystitis without obstruction Status: Acute Assessment and Plan: CT scan showed cholelithiasis with some nonspecif
--- NOTE | 2023-03-07 11:23 | PCFNICU ---
ICU Rounding Note: Pt current nutrition is NPO. Last recorded weight is 71.8 kg. Bowel Motility:+BM reported 03/06 Labs Reviewed:Glu 143, ,Alb 2.2,Na 135, Hct 29.0,Hgb 8.5 Meds Noted:Eliquis, Protonix, Lyrica Skin: unstageable pressure ulcer-sacral Additional Notes: Patient is NPO for debridement today. Patient has been tolerating [facility] diet with diet supplement of Kiko BID and Glucerna shakes BID. Agree with diet orders. Following daily in ICU rounds and reassessing every 7 days.
--- NOTE | 2023-03-07 11:32 | PCFNICU ---
ICU Rounding Note: Pt current nutrition is Vital AF 1.2 at 50 ml/hr Last recorded weight is 71.8 kg. Bowel Motility:+BM reported 03/02 plans for Miralax today. Labs Reviewed:Glu 136, GFR 37, BUN 42, Alb 3.4 Meds Noted:Lasix, Versed, Fentanyl, Synthroid. Skin: WNL Additional Notes: Patient remains on mechanical vent. Spoke with nursing today, tube feedings are on hold for US of gallbladder. Tube feedings recommendations when restarting are for Vital AF 1.2 at 50 ml/hr with Protein Modular of Prosource once daily. Flush 30 ml q 4 hours. Agree with diet orders. Following daily in ICU rounds. Reassess Monday and Monday per policy.
[2023-03-07 12:19] LABS: Glucose Point of Care 127 mg/dl (65-105)
[2023-03-07] MEDS: MIDAZOLAM 100MG/NS 100ML(*CRX) 100 MG/100 ML BAG IV CONT (13:06)
[2023-03-07] MEDS: polyethylene glycoL 3350 17 GM POWD.PACK PO (13:07)
[2023-03-07] MEDS: VANCOMYCIN 1,250 MG/NS 250 ML 1,250 MG/250 ML BAG 167 MG IVPB (13:07)
[2023-03-07 17:06] LABS: Glucose Point of Care 109 mg/dl (65-105)
[2023-03-07 19:51] LABS: Anion Gap 2 mmol/L (8-16); Blood Urea Nitrogen 48 mg/dL (9-20); Calcium 8.5 mg/dL (8.4-10.2); Carbon Dioxide 28 mmol/L (22-30); Chloride 108 mmol/L (98-107); Estimated CRCL calculation 35 ml/min; Estimated Glomerular Filt Rate 40; Glucose 113 mg/dL (65-110); Potassium 4.1 mmol/L (3.4-5.0); Sodium 138 mmol/L (137-145)
[2023-03-07] MEDS: INSULIN GLARGINE (*BKC) 100 UNITS/ML 11 UNITS SUB-Q (20:16)
[2023-03-07 23:38] LABS: Glucose Point of Care 148 mg/dl (65-105)
[2023-03-08] VITALS (40 sets, daily range): BP systolic 104–154; BP diastolic 46–59; PULSE 48–62; RESP 22–28; TEMP 36.7–37; O2SAT 93–99
[2023-03-08] MEDS: IPRATROPIUM BR 0.02% INH SOLN 0.5 MG/2.5 ML VIAL INHALATION ×2 (02:25→08:21)
[2023-03-08] MEDS: LEVALBUTEROL NEB 1.25 MG/3 ML INHALATION ×2 (02:25→08:21)
[2023-03-08] MEDS: LEVOTHYROXINE SODIUM 25 MCG TABLET PO (04:30)
[2023-03-08] MEDS: CENTRAL LINE FLUSH 10 ML IV PUSH ×3 (04:30→20:55)
[2023-03-08] MEDS: LEVOTHYROXINE SODIUM 112 MCG TABLET PO (04:30)
[2023-03-08 04:32] LABS: Basophils Percent Auto 0.2 % (0.2-1.2); Eosinophils Absolute Auto 0.5 K/mm3 (0-0.3); Eosinophils Percent Auto 4.3 % (0-4.4); Hematocrit 26.7 % (42.0-52.0); Immature Granulocyte Absolute 0.06 K/mm3 (0.00-0.031); Immature Granulocyte Percent A 0.6 % (0-0.5); Lymphocytes Absolute Auto 0.57 K/mm3 (0.9-3.2); Lymphocytes Percent Auto 5.4 % (18.3-44.2); Mean Corpuscular Hemoglobin 26.1 pg (26-34); Mean Platelet Volume 11.7 fl (7.4-10.4); Monocytes Absolute Auto 0.6 K/mm3 (0.1-0.6); Neutrophils Absolute Auto 8.8 K/mm3 (1.3-6.7); Neutrophils Percent Auto 83.5 % (45.5-73.1); Platelet Count Result 203 k/mm3 (150-375); Red Blood Count 3.07 M/mm3 (4.6-6.20); Red Cell Distribution Width 16.3 % (11.5-14.5); White Blood Count 10.5 K/mm3 (4.5-10.0)
[2023-03-08 04:47] LABS: Alanine Aminotransferase 14 U/L (6-50); Albumin Level 3.3 g/dL (3.5-5.1); Alkaline Phosphatase 48 U/L (38-126); Anion Gap 6 mmol/L (8-16); Aspartate Amino Transferase 17 U/L (17-59); Bilirubin,Total 0.4 mg/dL (0.2-1.3); Blood Urea Nitrogen 49 mg/dL (9-20); Calcium 8.4 mg/dL (8.4-10.2); Carbon Dioxide 28 mmol/L (22-30); Chloride 108 mmol/L (98-107); Estimated CRCL calculation 33 ml/min; Estimated Glomerular Filt Rate 37; Glucose 154 mg/dL (65-110); Magnesium 2.4 mg/dL (1.6-2.3); Phosphorus 3.4 mg/dL (2.5-4.5); Potassium 3.9 mmol/L (3.4-5.0); Sodium 142 mmol/L (137-145); Triglycerides 114 mg/dL (<150)
[2023-03-08 04:56] LABS: NT Pro B Type Natriuretic Pept 1330 pg/mL (19.9-100)
[2023-03-08 05:13] LABS: Alveolar/Arterial O2 Gradient 123.7 mmHg; Base Excess ABG -0.4 mEq/l (+/-2.0); Carboxyhemoglobin 0.3 % THb (0-2.0); Fractional Inspired Oxygen 35 %; HCO3 ABG 25.1 mEq/l (22.0-26.0); Methemoglobin ABG 0.3 %THb (0-1.5); Oxygen Content ABG 13.9 %vol (16.0-22.0); Oxygen Saturation ABG 94.5 % (95.0-100.0); Oxyhemoglobin 92.9 % THb (90.0-100.0); PCO2 ABG 44.5 mmHg (35.0-45.0); PO2 ABG 74.1 mmHg (80.0-100.0); PO2 FiO2 Ratio Arterial Blood 2.12 %; Reduced Hemoglobin 6.5 %THb (0-5.0); Total Hemoglobin 10.6 g/dL (12.0-18.0); pH ABG 7.369 (7.350-7.450)
[2023-03-08 05:14] LABS: Modified Allen's Test Pass; Site Drawn LEFT RADIAL
[2023-03-08 05:15] LABS: Device VENTILATOR
[2023-03-08 05:16] LABS: Arterial Blood Gas PEEP 10 cmH2O; Arterial Blood Gas Tidal Volume 400 ml; Arterial Blood Gas Vent Mode CMV; Arterial Blood Gas Ventilator rate 24 /MIN
[2023-03-08 05:21] LABS: Legionella pneumophila Ag Ur Not Detected (Not Detected)
[2023-03-08] MEDS: PANTOPRAZOLE SODIUM IV 40 MG VIAL IV PUSH ×2 (08:39→20:55)
[2023-03-08] MEDS: polyethylene glycoL 3350 17 GM POWD.PACK PO (08:39)
[2023-03-08] MEDS: ASPIRIN 81 MG ENTERIC TABLET PO (08:39)
[2023-03-08] MEDS: FUROSEMIDE INJ 40 MG/4 ML VIAL IV PUSH ×2 (08:39→16:22)
[2023-03-08] MEDS: ATORVASTATIN 40 MG TABLET PO (08:39)
[2023-03-08] MEDS: MINERAL OIL/WHITE PETROLATUM OINTMENT 1 APPLIC EACH EYE ×2 (08:40→20:55)
--- NOTE | 2023-03-08 09:25 | WPDINTPN ---
Progress Note: A&P Assessment and Plan (1) Acute on chronic respiratory failure with hypoxia and hypercapnia: Code(s): J96.21 - Acute and chronic respiratory failure with hypoxia; J96.22 - Acute and chronic respiratory failure with hypercapnia Status: Acute Assessment and Plan: Patient presented with worsening shortness of breath with green colored productive sputum 3 days, was initially admitted to intermediate Unit, respiratory distress worsened and patient was in impending respiratory failure, discussed with patient at length regarding intubation which he is agreeable as he has been intubated in December 2021 for ARDS status post tracheostomy and decannulation. -03/04: Intubated - 03/06 -CT chest 1. Interval progression of diffuse bilateral interstitial and airspace opacities which could represent pulmonary edema, pneumonia, ARDS or some combination thereof. 2. Small bilateral pleural effusions, left greater than right. 3. Cardiomegaly. -chest x-ray this morning reviewed At this time patient has multiple possible etiologies including worsening of his interstitial lung disease, pneumonia, congestive heart failure versus combination of above 3. Patient was also on anticoagulation which raise the possibility of alveolar hemorrhage but patient had minimal blood tinged secretion. Anticoagulation is on hold and suction at this time does not look blood tinged. His hemoglobin is also stable. Patient also on amiodarone as an outpatient which is also on hold -ARDS physiology, will maintain low tidal volume strategy at this time -currently in CMV mode of ventilation. Improved oxygen requirement with diuresis over last 24 hours currently on 35% % FiO2 peep 10. Decrease PEEP to 8 - Continue Lasix -ICU analgosedation fentanyl and Versed infusions, maintain RASS of -2. -daily sedation vacation -MRSA screen is positive but cultures are negative. Continue vancomycin and Levaquin at this time -resume Lasix -extended viral panel is pending Urine Histoplasma antigen is pending Urine Legionella was negative and urine pneumococcal antigen are pending Negative influenza and coronavirus PCR Discussed with pulmonary (2) Pneumonia: Code(s): J18.9 - Pneumonia, unspecified organism Status: Acute Assessment and Plan: -continue vancomycin and Levaquin -DC cefepime (03/04), azithromycin (03/03) was DC earlier -03/03: Sputum cultures growth of normal oropharyngeal judy -03/03: Blood cultures , preliminary results with no growth 2/2 bottles -03/04: MRSA screen positive (3) Hypertension: Qualifiers: Hypertension type: primary hypertension Qualified Code(s): I10 - Essential (primary) hypertension Code(s): I10 - Essential (primary) hypertension Status: Acute Assessment and Plan: PRN hydralazine (4) REGINALD (acute kidney injury): Code(s): N17.9 - Acute kidney failure, unspecified Status: Acute Assessment and Plan: Patient has history of chronic kidney disease, of 0.8-1.00. -on admission his creatinine was 1.4 -03/04 received Lasix 80 mg IV x1 in IMU with adequate urine output -03/06 creatinine increased to 2.0 this morning, the urine output has been on the lower side. Diuretics were held - 03/07 03/08 creatinine 1.8. Continue lasix -continue to monitor renal function electrolytes -maintain mean arterial pressure with vasopressor (5) Paroxysmal atrial fibrillation: Code(s): I48.0 - Paroxysmal atrial fibrillation Status: Chronic Assessment and Plan: History of paroxysmal atrial fibrillation on Xarelto at home -currently in sinus rhythm, rate controlled Xarelto on hold at this time (6) Type 2 diabetes mellitus: Code(s): E11.9 - Type 2 diabetes mellitus without complications Status: Acute Assessment and Plan: History of type 2 diabetes continue sliding scale insulin Continue lantus Continue tube feeds (7) Cholelithiasis: Code(s): K80.20 -
--- NOTE | 2023-03-08 09:37 | PM.PNPUL ---
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 Patient followed in the Pulmonary Clinic and last seen on 12/23/2022. At that time he had worsening oxygenation for 6 days. Worsening dyspnea on exertion. He had some hemoptysis and yellow phlegm. CT of the chest, ABG in overnight oximetry were ordered. ABG on 2 L 7.36/45/64. 12/29/2022: CT scan of the chest with mild diffuse ground-glass opacities with underlying extensive subpleural reticulation and peripheral interstitial thickening with areas of mild bronchiectasis or honeycomb formation 01/04/23 DC amiodarone and I recommended to be evaluated at [facility] to be evaluated by Pulmonary for concerns of worsening hypoxia and interstitial lung disease. I have a discharge summary from [facility] from 01/04/2023 through 01/07/2023.? In the emergency department he was found to have a creatinine of 2.87, BNP 442, white blood cell count 10.? CT scan of the chest and abdomen with comparison to 01/27/2022 demonstrated no PE, no focal consolidations or infiltrates, stable peripheral and basilar predominant reticulations in traction bronchiectasis representing fibrosis related to prior lung injury in the setting of viral pneumonia.? Respiratory viral pathogen panel was negative.? The note says pulmonary was called id consulted and recommended ABG in 6 minutes walk.? ABG largely unremarkable, 6 minutes walk test 750 ft the patient was discharged on no oxygen at rest, 4 L with activity and 2 L overnight.? His metoprolol was discontinued.? The feeling that his acute on chronic hypoxemic respiratory failure was likely progression of his previously known lung disease.? Xarelto and amiodarone restarted on discharge.? Creatinine was 1.88 on discharge. Currently the patient will presents with worsening hypoxemic respiratory failure and developed hypoxemic and hypercarbic respiratory failure and is now intubated. He has a elevated BNP. Etiology of patient's hypoxemic and hypercarbic respiratory failure includes: Pneumonia, fluid overload, amiodarone toxicity, interstitial lung disease exacerbation. Plan: Blood cultures and sputum cultures sent. Sputum for extended respiratory pathogen panel ordered. COVID influenza RT PCR studies negative. Urine Legionella, urine pneumococcal, urine histo antigen and mycoplasma IgG and IgM pending. Agree with vancomycin, cefepime and would discontinue azithromycin and start Levaquin. Agree with discontinuation of amiodarone. I would discontinue systemic steroids and monitor the patient over the next 48 hours while receiving broad spectrum antibiotics. Ventilator management per field services director. 03/05 Patient is intubated and sedated with versed and fentanyl.? CMV rate of 22, breathing 29, tidal volume 450, 70% FiO2, peep of 5, peak pressure 29 with minute ventilation of 9.0. Afebrile. white blood cell count is 14.4, creatinine is 1.7. ABG on previous pressure control ventilation was 7.. Sputum Gram stain with no white blood cells, rare epithelial cells, rare mixed judy. Pulmozyme was added for thick secretions. Cumulative diuresis 1.4 L ?? Plan: Continue vancomycin, cefepime and Levaquin, day 2. Oxygenation improved with no change in chest x-ray. Infection serologies and tests pending. 03/06: I spoke with the and obtained more history today. After the patient was discharged from [facility] on 01/07/2023 the patient did well. Most days he was off oxygen and when he checked his pulse ox was 88-92%. Patient was wearing 3 L nasal cannula at night. The patient could walk for 2 hours while shoppin
--- NOTE | 2023-03-08 11:09 | PCFNICU ---
ICU Rounding Note: Pt current nutrition is Vital AF 1.2 at 50 ml/hr with Prosource daily. Last recorded weight is 74.6 kg. Bowel Motility:No BM reported. Labs Reviewed:Glu 154, BUN 49,GFR 37, Alb 3.3,Hct 26.7,Hgb 8.0 Meds Noted:Versed, Fentanyl, Miralax, Protonix Skin: WNL Additional Notes: Patient remains on mechanical vent and tube feedings of Vital AF 1.2 at 50 ml/hr and tolerating per nursing. Prosource once daily providing an additional 80 kcals and 20 gms protein. Flush 30 ml q 4 hours. Agree with diet orders. Following daily in ICU rounds and reassess Monday and Monday per policy.
[2023-03-08 11:47] LABS: Glucose Point of Care 160 mg/dl (65-105)
[2023-03-08] MEDS: VANCOMYCIN 1,250 MG/NS 250 ML 1,250 MG/250 ML BAG 166.67 MG IVPB (13:05)
[2023-03-08] MEDS: levoFLOXacin 750 MG/D5W 150 ML 750 MG/150 ML BAG 100 MG IVPB (13:06)
[2023-03-08 13:52] LABS: Mycoplasma IgM Antibody Titer 5 U/mL (<770)
[2023-03-08] MEDS: MIDAZOLAM 100MG/NS 100ML(*CRX) 100 MG/100 ML BAG IV CONT (15:19)
[2023-03-08 15:38] LABS: Pneumococcal Antigen Urine Not Detected (Not Detected)
[2023-03-08 17:47] LABS: Glucose Point of Care 139 mg/dl (65-105)
[2023-03-08] MEDS: INSULIN GLARGINE (*BKC) 100 UNITS/ML 11 UNITS SUB-Q (20:54)
[2023-03-09] VITALS (28 sets, daily range): BP systolic 107–161; BP diastolic 48–58; PULSE 46–64; RESP 17–27; TEMP 36.6–37.1; O2SAT 90–100
[2023-03-09 00:09] LABS: Glucose Point of Care 199 mg/dl (65-105)
[2023-03-09] MEDS: CENTRAL LINE FLUSH 10 ML IV PUSH ×3 (04:05→20:06)
[2023-03-09 05:14] LABS: Alveolar/Arterial O2 Gradient 211.1 mmHg; Base Excess ABG 2.9 mEq/l (+/-2.0); Carboxyhemoglobin 0.3 % THb (0-2.0); Fractional Inspired Oxygen 45 %; HCO3 ABG 28.2 mEq/l (22.0-26.0); Methemoglobin ABG 0.4 %THb (0-1.5); Oxygen Content ABG 13.1 %vol (16.0-22.0); Oxygen Saturation ABG 89.4 % (95.0-100.0); PCO2 ABG 46.5 mmHg (35.0-45.0); PO2 ABG 56.9 mmHg (80.0-100.0); PO2 FiO2 Ratio Arterial Blood 1.26 %; Reduced Hemoglobin 11.8 %THb (0-5.0); Total Hemoglobin 10.6 g/dL (12.0-18.0); pH ABG 7.401 (7.350-7.450)
[2023-03-09 05:16] LABS: Device VENTILATOR; Modified Allen's Test Pass; Site Drawn RIGHT RADIAL
[2023-03-09 05:17] LABS: Oxyhemoglobin 87.5 % THb (90.0-100.0)
[2023-03-09 05:18] LABS: Arterial Blood Gas PEEP 5 cmH2O; Arterial Blood Gas Tidal Volume 400 ml; Arterial Blood Gas Vent Mode CMV; Arterial Blood Gas Ventilator rate 24 /MIN
[2023-03-09 06:26] LABS: Basophils Percent Auto 0.3 % (0.2-1.2); Eosinophils Absolute Auto 0.5 K/mm3 (0-0.3); Eosinophils Percent Auto 3.5 % (0-4.4); Immature Granulocyte Percent A 0.8 % (0-0.5); Lymphocytes Absolute Auto 0.69 K/mm3 (0.9-3.2); Lymphocytes Percent Auto 5.3 % (18.3-44.2); Mean Corpuscular Hemoglobin 25.8 pg (26-34); Mean Platelet Volume 11.6 fl (7.4-10.4); Monocytes Absolute Auto 0.8 K/mm3 (0.1-0.6); Monocytes Percent Auto 6.1 % (2.6-8.5); Platelet Count Result 237 k/mm3 (150-375); Red Blood Count 3.49 M/mm3 (4.6-6.20); Red Cell Distribution Width 16.3 % (11.5-14.5)
[2023-03-09 06:37] LABS: Alanine Aminotransferase 16 U/L (6-50); Albumin Level 3.6 g/dL (3.5-5.1); Alkaline Phosphatase 59 U/L (38-126); Anion Gap 6 mmol/L (8-16); Aspartate Amino Transferase 20 U/L (17-59); Bilirubin,Total 0.4 mg/dL (0.2-1.3); Blood Urea Nitrogen 61 mg/dL (9-20); Calcium 8.6 mg/dL (8.4-10.2); Carbon Dioxide 33 mmol/L (22-30); Chloride 106 mmol/L (98-107); Estimated CRCL calculation 42 ml/min; Estimated Glomerular Filt Rate 50; Glucose 161 mg/dL (65-110); Magnesium 2.2 mg/dL (1.6-2.3); Phosphorus 3.2 mg/dL (2.5-4.5); Potassium 3.9 mmol/L (3.4-5.0); Sodium 145 mmol/L (137-145)
[2023-03-09] MEDS: LEVOTHYROXINE SODIUM 112 MCG TABLET PO (06:41)
[2023-03-09] MEDS: LEVOTHYROXINE SODIUM 25 MCG TABLET PO (06:41)
[2023-03-09] MEDS: FENTANYL 2,500MCG/NS250ML(*CRX 2,500 MCG/250 ML BAG IV CONT (06:42)
[2023-03-09] MEDS: ASPIRIN 81 MG ENTERIC TABLET PO (08:23)
[2023-03-09] MEDS: ATORVASTATIN 40 MG TABLET PO (08:23)
[2023-03-09] MEDS: FUROSEMIDE INJ 40 MG/4 ML VIAL IV PUSH (08:23)
[2023-03-09] MEDS: ENOXAPARIN 40 MG/0.4 ML SYRINGE SUB-Q (08:24)
[2023-03-09] MEDS: MINERAL OIL/WHITE PETROLATUM OINTMENT 1 APPLIC EACH EYE ×2 (08:25→20:06)
[2023-03-09] MEDS: polyethylene glycoL 3350 17 GM POWD.PACK PO (08:25)
[2023-03-09] MEDS: PANTOPRAZOLE SODIUM IV 40 MG VIAL IV PUSH ×2 (08:25→21:23)
--- NOTE | 2023-03-09 08:53 | WPDINTPN ---
Progress Note: A&P Assessment and Plan (1) Acute on chronic respiratory failure with hypoxia and hypercapnia: Code(s): J96.21 - Acute and chronic respiratory failure with hypoxia; J96.22 - Acute and chronic respiratory failure with hypercapnia Status: Acute Assessment and Plan: Patient presented with worsening shortness of breath with green colored productive sputum 3 days, was initially admitted to intermediate Unit, respiratory distress worsened and patient was in impending respiratory failure, discussed with patient at length regarding intubation which he is agreeable as he has been intubated in December 2021 for ARDS status post tracheostomy and decannulation. -03/04: Intubated - 03/06 -CT chest 1. Interval progression of diffuse bilateral interstitial and airspace opacities which could represent pulmonary edema, pneumonia, ARDS or some combination thereof. 2. Small bilateral pleural effusions, left greater than right. 3. Cardiomegaly. -chest x-ray this morning reviewed At this time patient has multiple possible etiologies including worsening of his interstitial lung disease, pneumonia, congestive heart failure versus combination of above 3. Patient was also on anticoagulation which raise the possibility of alveolar hemorrhage but patient had minimal blood tinged secretion. Anticoagulation is on hold and suction at this time does not look blood tinged. His hemoglobin is also stable. Patient also on amiodarone as an outpatient which is also on hold -ARDS physiology, will maintain low tidal volume strategy at this time -currently in CMV mode of ventilation. 8/2 peep was weaned down to 5 from 10. 8/3 overnight increased oxygen requirement with FiO2 at 55%. Peep increased to 8. FiO2 weaned to 50%. Continue to wean FiO2. - Continue Lasix -ICU analgosedation fentanyl and Versed infusions, maintain RASS of -2. -daily sedation vacation -MRSA screen is positive but cultures are negative. Continue vancomycin and Levaquin at this time -extended viral panel is pending Urine Histoplasma antigen is pending Urine Legionella and urine pneumococcal antigen are negative Negative influenza and coronavirus PCR (2) Pneumonia: Code(s): J18.9 - Pneumonia, unspecified organism Status: Acute Assessment and Plan: -continue vancomycin and Levaquin -DC cefepime (03/04), azithromycin (03/03) was DC earlier -03/03: Sputum cultures growth of normal oropharyngeal judy -03/03: Blood cultures , preliminary results with no growth 2/2 bottles -03/04: MRSA screen positive (3) Hypertension: Qualifiers: Hypertension type: primary hypertension Qualified Code(s): I10 - Essential (primary) hypertension Code(s): I10 - Essential (primary) hypertension Status: Acute Assessment and Plan: PRN hydralazine (4) REGINALD (acute kidney injury): Code(s): N17.9 - Acute kidney failure, unspecified Status: Acute Assessment and Plan: Patient has history of chronic kidney disease, of 0.8-1.00. -on admission his creatinine was 1.4 -03/04 received Lasix 80 mg IV x1 in IMU with adequate urine output -03/06 creatinine increased to 2.0 this morning, the urine output has been on the lower side. Diuretics were held - 03/07 03/08 creatinine 1.8. Continue lasix - 03/09 creatinine improved to 1.4. Continue diuretics -continue to monitor renal function electrolytes -maintain mean arterial pressure with vasopressor (5) Paroxysmal atrial fibrillation: Code(s): I48.0 - Paroxysmal atrial fibrillation Status: Chronic Assessment and Plan: History of paroxysmal atrial fibrillation on Xarelto at home -currently in sinus rhythm, rate controlled Xarelto on hold at this time (6) Type 2 diabetes mellitus: Code(s): E11.9 - Type 2 diabetes mellitus without complications Status: Acute Assessment and Plan: History of type 2 diabetes continue sliding scale insulin Continue lantus Continue
[2023-03-09] MEDS: BISACODYL 10 MG SUPPOSITORY RECTAL (11:09)
[2023-03-09 11:12] LABS: Glucose Point of Care 178 mg/dl (65-105)
--- NOTE | 2023-03-09 11:51 | PCFNICU ---
ICU Rounding Note: Pt current nutrition is Vital AF 1.2 at 50 ml/hr. Last recorded weight is 73.2 kg. Bowel Motility:No BM-reported Dulcolax Suppository,Colace and Miralax ordered. Labs Reviewed:Glu 161, Cr 1.4,GFR 50, BUN 61 Meds Noted:Colace, Miralax, Dulcolax Suppository,Lasix,Vancomycin,Fentanyl,Versed. Skin:WNL Additional Notes: Patient remains on mechanical vent and tube feedings of Vital AF 1.2. at 50 ml/hr with 1 Prosource daily. Tube feedings are being tolerated. Flush 30 ml q 4 hours Agree with diet orders. Monitor daily in ICU rounds. Reassess Monday and Monday per policy.
[2023-03-09] MEDS: MIDAZOLAM 100MG/NS 100ML(*CRX) 100 MG/100 ML BAG IV CONT (15:18)
[2023-03-09 16:37] LABS: Glucose Point of Care 170 mg/dl (65-105)
[2023-03-09] MEDS: VANCOMYCIN 1,000 MG/NS 250 ML 1,000 MG/250 ML BAG 250 MG IVPB (21:23)
[2023-03-09] MEDS: INSULIN GLARGINE (*BKC) 100 UNITS/ML 11 UNITS SUB-Q (21:23)
[2023-03-10] VITALS (34 sets, daily range): BP systolic 101–190; BP diastolic 46–67; PULSE 46–78; RESP 17–26; TEMP 36.6–38.3; O2SAT 90–100
[2023-03-10 00:47] LABS: Glucose Point of Care 184 mg/dl (65-105)
[2023-03-10 04:40] LABS: Alveolar/Arterial O2 Gradient 136.6 mmHg; Base Excess ABG 1.2 mEq/l (+/-2.0); Carboxyhemoglobin 0.2 % THb (0-2.0); Fractional Inspired Oxygen 45 %; HCO3 ABG 26.1 mEq/l (22.0-26.0); Methemoglobin ABG 0.3 %THb (0-1.5); Oxygen Content ABG 13.9 %vol (16.0-22.0); Oxygen Saturation ABG 98.7 % (95.0-100.0); Oxyhemoglobin 97.1 % THb (90.0-100.0); PCO2 ABG 42.9 mmHg (35.0-45.0); PO2 ABG 135.5 mmHg (80.0-100.0); PO2 FiO2 Ratio Arterial Blood 3.01 %; Reduced Hemoglobin 2.4 %THb (0-5.0); pH ABG 7.402 (7.350-7.450)
[2023-03-10 04:41] LABS: Arterial Blood Gas Ventilator rate 24 /MIN; Device VENTILATOR; Modified Allen's Test Pass; Site Drawn LEFT RADIAL
[2023-03-10 04:42] LABS: Arterial Blood Gas PEEP 8 cmH2O; Arterial Blood Gas Tidal Volume 400 ml; Arterial Blood Gas Vent Mode CMV
[2023-03-10 06:02] LABS: Hematocrit 29.7 % (42.0-52.0); Hemoglobin 8.8 g/dL (14.0-18.0); Mean Corpuscular HGB Conc 29.6 g/dl (32-36); Mean Corpuscular Volume 87.6 fl (80-100); Mean Platelet Volume 11.7 fl (7.4-10.4); Platelet Count Result 236 k/mm3 (150-375); Red Blood Count 3.39 M/mm3 (4.6-6.20); Red Cell Distribution Width 16.8 % (11.5-14.5)
[2023-03-10] MEDS: LEVOTHYROXINE SODIUM 25 MCG TABLET PO (06:08)
[2023-03-10] MEDS: LEVOTHYROXINE SODIUM 112 MCG TABLET PO (06:08)
[2023-03-10] MEDS: CENTRAL LINE FLUSH 10 ML IV PUSH ×3 (06:08→21:46)
[2023-03-10 06:14] LABS: Alanine Aminotransferase 19 U/L (6-50); Albumin Level 3.4 g/dL (3.5-5.1); Alkaline Phosphatase 61 U/L (38-126); Anion Gap 6 mmol/L (8-16); Aspartate Amino Transferase 21 U/L (17-59); Bilirubin,Total 0.3 mg/dL (0.2-1.3); Blood Urea Nitrogen 70 mg/dL (9-20); Calcium 8.6 mg/dL (8.4-10.2); Carbon Dioxide 31 mmol/L (22-30); Chloride 110 mmol/L (98-107); Estimated CRCL calculation 39 ml/min; Estimated Glomerular Filt Rate 46; Glucose 179 mg/dL (65-110); Magnesium 2.5 mg/dL (1.6-2.3); Sodium 147 mmol/L (137-145); Triglycerides 86 mg/dL (<150)
[2023-03-10] MEDS: FUROSEMIDE INJ 40 MG/4 ML VIAL IV PUSH ×2 (08:29→16:49)
[2023-03-10] MEDS: ASPIRIN 81 MG ENTERIC TABLET PO (08:29)
[2023-03-10] MEDS: PANTOPRAZOLE SODIUM IV 40 MG VIAL IV PUSH ×2 (08:30→21:45)
[2023-03-10] MEDS: ATORVASTATIN 40 MG TABLET PO (08:30)
[2023-03-10] MEDS: DOCUSATE SODIUM LIQ 100 MG/10 ML UDC PO ×2 (08:30→21:47)
[2023-03-10] MEDS: ENOXAPARIN 40 MG/0.4 ML SYRINGE SUB-Q (08:30)
[2023-03-10] MEDS: BISACODYL 10 MG SUPPOSITORY RECTAL (08:30)
[2023-03-10] MEDS: MINERAL OIL/WHITE PETROLATUM OINTMENT 1 APPLIC EACH EYE ×2 (08:31→21:47)
[2023-03-10] MEDS: polyethylene glycoL 3350 17 GM POWD.PACK PO (08:32)
--- NOTE | 2023-03-10 09:40 | WPDINTPN ---
Progress Note: A&P Assessment and Plan (1) Acute on chronic respiratory failure with hypoxia and hypercapnia: Code(s): J96.21 - Acute and chronic respiratory failure with hypoxia; J96.22 - Acute and chronic respiratory failure with hypercapnia Status: Acute Assessment and Plan: Patient presented with worsening shortness of breath with green colored productive sputum 3 days, was initially admitted to intermediate Unit, respiratory distress worsened and patient was in impending respiratory failure, discussed with patient at length regarding intubation which he is agreeable as he has been intubated in December 2021 for ARDS status post tracheostomy and decannulation. -03/04: Intubated - 03/06 -CT chest 1. Interval progression of diffuse bilateral interstitial and airspace opacities which could represent pulmonary edema, pneumonia, ARDS or some combination thereof. 2. Small bilateral pleural effusions, left greater than right. 3. Cardiomegaly. -chest x-ray this morning reviewed At this time patient has multiple possible etiologies including worsening of his interstitial lung disease, pneumonia, congestive heart failure versus combination of above 3. Patient was also on anticoagulation which raise the possibility of alveolar hemorrhage but patient had minimal blood tinged secretion. Anticoagulation is on hold and suction at this time does not look blood tinged. His hemoglobin is also stable. Patient also on amiodarone as an outpatient which is also on hold -ARDS physiology, will maintain low tidal volume strategy at this time -currently in CMV mode of ventilation. 8/2 peep was weaned down to 5 from 10. 8/3 overnight increased oxygen requirement with FiO2 at 55%. Peep increased to 8. FiO2 weaned to 50%. Continue to wean FiO2. 8/4 FiO2 requirement improved and patient is a 35%. Will decrease PEEP to 5 this morning the patient hold her saturations. Will also perform sedation holiday and evaluate for weaning trial - Continue Lasix -ICU analgosedation fentanyl and Versed infusions, maintain RASS of -2. -daily sedation vacation -MRSA screen is positive but cultures are negative. Continue vancomycin and Levaquin at this time -extended viral panel is pending Urine Histoplasma antigen is negative Urine Legionella and urine pneumococcal antigen are negative Negative influenza and coronavirus PCR (2) Pneumonia: Code(s): J18.9 - Pneumonia, unspecified organism Status: Acute Assessment and Plan: -continue vancomycin and Levaquin -DC cefepime (03/04), azithromycin (03/03) was DC earlier -03/03: Sputum cultures growth of normal oropharyngeal judy -03/03: Blood cultures , preliminary results with no growth 09/08 bottles -03/04: MRSA screen positive (3) Hypertension: Qualifiers: Hypertension type: primary hypertension Qualified Code(s): I10 - Essential (primary) hypertension Code(s): I10 - Essential (primary) hypertension Status: Acute Assessment and Plan: PRN hydralazine (4) REGINALD (acute kidney injury): Code(s): N17.9 - Acute kidney failure, unspecified Status: Acute Assessment and Plan: Patient has history of chronic kidney disease, of 0.8-1.00. -on admission his creatinine was 1.4 -03/04 received Lasix 80 mg IV x1 in IMU with adequate urine output -03/06 creatinine increased to 2.0 this morning, the urine output has been on the lower side. Diuretics were held - 03/10 creatinine 1.5 Continue diuretics -continue to monitor renal function electrolytes -maintain mean arterial pressure with vasopressor (5) Paroxysmal atrial fibrillation: Code(s): I48.0 - Paroxysmal atrial fibrillation Status: Chronic Assessment and Plan: History of paroxysmal atrial fibrillation on Xarelto at home -currently in sinus rhythm, rate controlled Xarelto on hold at this time (6) Type 2 diabetes mellitus: Code(s): E11.9 - Type 2 diabetes mellitus without complications
--- NOTE | 2023-03-10 11:45 | PCNFU ---
Nutrition Follow-Up Complete: Inadequate energy intake related to mechanical ventilation, as evidenced by need for trophic tube feeding. Goal: Meet estimated protein energy needs patient is progressing towards goal. We will continue current goal. Pt current nutrition is Vital AF 1.2 at 50 ml/hr with Prosource once daily. Last recorded weight is 73.6 kg. Bowel Motility:BNP 2.9, BUN 70,Cr 1.5,Glu 179, Na 147, Alb 3.4,Hgb 8.8,Hct 29.7 Labs Reviewed:Na 147, Hct 29.7,Hgb 8.8,BUN 70, Cr 1.5 Meds Noted:Colace, Miralax, Zofran, Lasix Skin: WNL Additional Notes: Patient remains on mechanical vent. Tube feedings are being tolerated of Vital AF 1.2 at 50 ml/hr and Protein Modular of Prosource once daily. Total nutrition at 1400 kcals/103 gms protein/892 ml water. This is meeting 70% of caloric needs at 30 kcal/kg. 100% protein needs at 1.4-1.6 gm/kg. Monitor daily in ICU rounds. Reassess Monday and Monday per policy
[2023-03-10 12:01] LABS: Glucose Point of Care 162 mg/dl (65-105)
[2023-03-10] MEDS: levoFLOXacin 750 MG/D5W 150 ML 750 MG/150 ML BAG 100 MG IVPB (13:24)
[2023-03-10] MEDS: ONDANSETRON INJ 4 MG/2 ML VIAL IV PUSH (14:30)
[2023-03-10] MEDS: ACETAMINOPHEN 325 MG TABLET 650 MG PO (14:30)
[2023-03-10 16:45] LABS: Glucose Point of Care 208 mg/dl (65-105)
[2023-03-10] MEDS: INSULIN ASPART (*BKC) 100 UNITS/ML SUB-Q (17:08)
[2023-03-10] MEDS: VANCOMYCIN 1,000 MG/NS 250 ML 1,000 MG/250 ML BAG 250 MG IVPB (21:46)
[2023-03-10] MEDS: INSULIN GLARGINE (*BKC) 100 UNITS/ML 11 UNITS SUB-Q (21:47)
[2023-03-10] MEDS: hydrALAZINE HCL 20 MG/ML VIAL 10 MG IV PUSH (21:49)
[2023-03-11] VITALS (49 sets, daily range): BP systolic 99–207; BP diastolic 47–77; PULSE 52–103; RESP 12–33; TEMP 36.7–37.5; O2SAT 86–100
[2023-03-11 01:09] LABS: Glucose Point of Care 176 mg/dl (65-105)
[2023-03-11 04:40] LABS: Hematocrit 30.7 % (42.0-52.0); Hemoglobin 9.1 g/dL (14.0-18.0); Mean Corpuscular HGB Conc 29.6 g/dl (32-36); Mean Corpuscular Hemoglobin 25.6 pg (26-34); Mean Corpuscular Volume 86.5 fl (80-100); Mean Platelet Volume 11.8 fl (7.4-10.4); Platelet Count Result 239 k/mm3 (150-375); Red Blood Count 3.55 M/mm3 (4.6-6.20); Red Cell Distribution Width 16.7 % (11.5-14.5)
[2023-03-11 05:18] LABS: Alanine Aminotransferase 24 U/L (6-50); Albumin Level 3.4 g/dL (3.5-5.1); Alkaline Phosphatase 68 U/L (38-126); Anion Gap 5 mmol/L (8-16); Aspartate Amino Transferase 29 U/L (17-59); Bilirubin,Total 0.3 mg/dL (0.2-1.3); Blood Urea Nitrogen 68 mg/dL (9-20); Calcium 8.6 mg/dL (8.4-10.2); Carbon Dioxide 31 mmol/L (22-30); Chloride 108 mmol/L (98-107); Estimated CRCL calculation 41 ml/min; Estimated Glomerular Filt Rate 50; Glucose 186 mg/dL (65-110); Magnesium 2.5 mg/dL (1.6-2.3); Potassium 3.4 mmol/L (3.4-5.0); Sodium 144 mmol/L (137-145)
[2023-03-11 05:23] LABS: Alveolar/Arterial O2 Gradient 139.3 mmHg; Base Excess ABG 3.5 mEq/l (+/-2.0); Carboxyhemoglobin 0.3 % THb (0-2.0); Fractional Inspired Oxygen 35 %; HCO3 ABG 27.3 mEq/l (22.0-26.0); Methemoglobin ABG 0.2 %THb (0-1.5); Oxygen Content ABG 13.6 %vol (16.0-22.0); Oxyhemoglobin 91.8 % THb (90.0-100.0); PCO2 ABG 38.6 mmHg (35.0-45.0); PO2 ABG 65.4 mmHg (80.0-100.0); PO2 FiO2 Ratio Arterial Blood 1.87 %; Reduced Hemoglobin 7.7 %THb (0-5.0); Total Hemoglobin 10.5 g/dL (12.0-18.0); pH ABG 7.468 (7.350-7.450)
[2023-03-11 05:25] LABS: Arterial Blood Gas PEEP 5 cmH2O; Arterial Blood Gas Tidal Volume 400 ml; Arterial Blood Gas Vent Mode CMV; Arterial Blood Gas Ventilator rate 24 /MIN; Device VENTILATOR; Modified Allen's Test Pass; Site Drawn RIGHT RADIAL
[2023-03-11] MEDS: CENTRAL LINE FLUSH 10 ML IV PUSH ×3 (06:34→20:39)
[2023-03-11] MEDS: LEVOTHYROXINE SODIUM 25 MCG TABLET PO (06:34)
[2023-03-11] MEDS: LEVOTHYROXINE SODIUM 112 MCG TABLET PO (06:34)
[2023-03-11] MEDS: POTASSIUM CHLORIDE 20 MEQ PACKET (FOR LIQUID) 40 MEQ FEED TUBE (08:26)
[2023-03-11] MEDS: ENOXAPARIN 40 MG/0.4 ML SYRINGE SUB-Q (08:26)
[2023-03-11] MEDS: BISACODYL 10 MG SUPPOSITORY RECTAL (08:26)
[2023-03-11] MEDS: ASPIRIN 81 MG ENTERIC TABLET PO (08:26)
[2023-03-11] MEDS: TAMSULOSIN HCL 0.4 MG CAPSULE PO (08:26)
[2023-03-11] MEDS: ATORVASTATIN 40 MG TABLET PO (08:26)
[2023-03-11] MEDS: DOCUSATE SODIUM LIQ 100 MG/10 ML UDC PO (08:27)
[2023-03-11] MEDS: polyethylene glycoL 3350 17 GM POWD.PACK PO (08:27)
[2023-03-11] MEDS: MINERAL OIL/WHITE PETROLATUM OINTMENT 1 APPLIC EACH EYE ×2 (08:27→20:39)
[2023-03-11] MEDS: PANTOPRAZOLE SODIUM IV 40 MG VIAL IV PUSH ×2 (08:27→20:39)
--- NOTE | 2023-03-11 08:36 | WPDINTPN ---
Progress Note: A&P Assessment and Plan (1) Acute on chronic respiratory failure with hypoxia and hypercapnia: Code(s): J96.21 - Acute and chronic respiratory failure with hypoxia; J96.22 - Acute and chronic respiratory failure with hypercapnia Status: Acute Assessment and Plan: Patient presented with worsening shortness of breath with green colored productive sputum 3 days, was initially admitted to intermediate Unit, respiratory distress worsened and patient was in impending respiratory failure, discussed with patient at length regarding intubation which he is agreeable as he has been intubated in December 2021 for ARDS status post tracheostomy and decannulation. -03/04: Intubated - 03/06 -CT chest 1. Interval progression of diffuse bilateral interstitial and airspace opacities which could represent pulmonary edema, pneumonia, ARDS or some combination thereof. 2. Small bilateral pleural effusions, left greater than right. 3. Cardiomegaly. -chest x-ray this morning reviewed At this time patient has multiple possible etiologies including worsening of his interstitial lung disease, pneumonia, congestive heart failure versus combination of above 3. Patient was also on anticoagulation which raise the possibility of alveolar hemorrhage but patient had minimal blood tinged secretion. It resolved after anticoagulation was hold Patient also on amiodarone as an outpatient which is also on hold -ARDS physiology, will maintain low tidal volume strategy at this time -currently in CMV mode of ventilation 35% FiO2 and 5 of PEEP 8/2 peep was weaned down to 5 from 10. 8/3 overnight increased oxygen requirement with FiO2 at 55%. Peep increased to 8. FiO2 weaned to 50%. Continue to wean FiO2. 8/4 FiO2 requirement improved and patient is a 35%. Will decrease PEEP to 5 this morning the patient hold her saturations. Patient placed on sedation holiday and evaluate for weaning trial once he is awake and following commands - Continue Lasix today -MRSA screen is positive but cultures are negative. Completed 7 day course of vancomycin and Levaquin -extended viral panel is still pending Urine Histoplasma antigen is negative Urine Legionella and urine pneumococcal antigen are negative Negative influenza and coronavirus PCR (2) Pneumonia: Code(s): J18.9 - Pneumonia, unspecified organism Status: Acute Assessment and Plan: -continue vancomycin and Levaquin -DC cefepime (03/04), azithromycin (03/03) was DC earlier -03/03: Sputum cultures growth of normal oropharyngeal judy -03/03: Blood cultures , preliminary results with no growth / bottles -03/04: MRSA screen positive (3) Hypertension: Qualifiers: Hypertension type: primary hypertension Qualified Code(s): I10 - Essential (primary) hypertension Code(s): I10 - Essential (primary) hypertension Status: Acute Assessment and Plan: PRN hydralazine (4) REGINALD (acute kidney injury): Code(s): N17.9 - Acute kidney failure, unspecified Status: Acute Assessment and Plan: Patient has history of chronic kidney disease, of 0.8-1.00. -on admission his creatinine was 1.4 -03/04 received Lasix 80 mg IV x1 in IMU with adequate urine output -03/06 creatinine increased to 2.0 this morning, the urine output has been on the lower side. Diuretics were held - 03/11 creatinine 1.4 Continue diuretics -continue to monitor renal function electrolytes -maintain mean arterial pressure with vasopressor (5) Paroxysmal atrial fibrillation: Code(s): I48.0 - Paroxysmal atrial fibrillation Status: Chronic Assessment and Plan: History of paroxysmal atrial fibrillation on Xarelto at home -currently in sinus rhythm, rate controlled Xarelto on hold at this time (6) Type 2 diabetes mellitus: Code(s): E11.9 - Type 2 diabetes mellitus without complications Status: Acute Assessment and Plan: History of type 2 diabetes cont
[2023-03-11] MEDS: FUROSEMIDE INJ 40 MG/4 ML VIAL IV PUSH ×2 (09:08→16:16)
[2023-03-11 10:23] LABS: Alveolar/Arterial O2 Gradient 126.4 mmHg; Base Excess ABG 5.5 mEq/l (+/-2.0); Fractional Inspired Oxygen 35 %; HCO3 ABG 30.5 mEq/l (22.0-26.0); Oxygen Content ABG 14.6 %vol (16.0-22.0); Oxygen Saturation ABG 94.2 % (95.0-100.0); Oxyhemoglobin 92.2 % THb (90.0-100.0); PCO2 ABG 46.6 mmHg (35.0-45.0); PO2 FiO2 Ratio Arterial Blood 1.97 %; Total Hemoglobin 11.2 g/dL (12.0-18.0); pH ABG 7.434 (7.350-7.450)
[2023-03-11 10:24] LABS: Device VENTILATOR; Site Drawn LEFT BRACHIAL
[2023-03-11 10:25] LABS: Arterial Blood Gas Vent Mode SPONTANEOUS
[2023-03-11 10:26] LABS: Arterial Blood Gas PEEP 5 cmH2O; Arterial Blood Gas Pressure Support 5 cmH2O
--- NOTE | 2023-03-11 11:21 | PM.EVENT ---
Event Note Event Note Event Note: 12/09 PSV SBT done for more than 1 hour. RSBI, ABGI and Vitals were acceptable. Pt awake and following commands. Patient was extubated. Post extubation patient desaturated and had increased work of breathing. Patient was placed on BiPAP which allowed improvement in his respiratory status and oxygenation. FiO2 has been weaned down to 40%. Continue BiPAP for now and close monitoring. He may need re-intubation if further deteriorate. Will discuss with patient's . NPO for now.
[2023-03-11 13:06] LABS: Glucose Point of Care 201 mg/dl (65-105)
[2023-03-11] MEDS: dexmedeTOMIDine 400 MCG/100 ML 400 MCG/100 ML BAG IV CONT (14:35)
[2023-03-11] MEDS: KCL 40 MEQ/WATER 100 ML 100 ML 25 ML IVPB (14:35)
[2023-03-11] MEDS: INSULIN ASPART (*BKC) 100 UNITS/ML SUB-Q ×2 (14:36→17:53)
--- NOTE | 2023-03-11 14:38 | PM.IMPN ---
Progress Note: A&P Assessment and Plan (1) Acute on chronic respiratory failure with hypoxia and hypercapnia: Code(s): J96.21 - Acute and chronic respiratory failure with hypoxia; J96.22 - Acute and chronic respiratory failure with hypercapnia Status: Acute Assessment and Plan: Patient presented with worsening shortness of breath with green colored productive sputum 3 days. he was initially admitted to IMU but respiratory distress worsened with impending respiratory failure and was intubated 03/04 - 03/06 CT chest showing interval progression of diffuse bilateral interstitial and airspace opacities and small bilateral pleural effusions. Patient did have minimal blood-tinged secretions but this has resolved since anticoagulation was held. Amiodarone can cause pulmonary disease; amiodarone on hold. Diamond Sorter feels patient has ARDS physiology so will maintain low tidal volume strategy at this time MRSA screen is positive but sputum and blood cultures are negative. Completed 7 day course of vancomycin and Levaquin Urine Histoplasma antigen is negative; Urine Legionella and urine pneumococcal antigen are negative; Negative influenza and coronavirus PCR Extended viral panel is still pending; check RSV Patient extubated today and on BiPAP; may need re-intubation and assembler knife is aware. (2) Pneumonia: Code(s): J18.9 - Pneumonia, unspecified organism Status: Acute Assessment and Plan: Sputum cultures and Blood cultures negative. MRSA screen positive He completed 7 days of IV abx. (3) Hypertension: Qualifiers: Hypertension type: primary hypertension Qualified Code(s): I10 - Essential (primary) hypertension Code(s): I10 - Essential (primary) hypertension Status: Acute Assessment and Plan: Patient's blood pressure was reviewed on 03/11 Blood pressure was reasonably well controlled but higher since extubation Will continue to monitor. PRN hydralazine available (4) REGINALD (acute kidney injury): Code(s): N17.9 - Acute kidney failure, unspecified Status: Acute Assessment and Plan: Patient has history of chronic kidney disease with baseline Cr of 0.8-1.20. -on admission his creatinine was 1.4 -03/04 received Lasix 80 mg IV x1 in IMU with adequate urine output -03/06 creatinine increased to 2.0, the urine output has been on the lower side. Diuretics were held - 03/11 creatinine 1.4 -Continue diuretics -continue to monitor renal function and electrolytes (5) Paroxysmal atrial fibrillation: Code(s): I48.0 - Paroxysmal atrial fibrillation Status: Chronic Assessment and Plan: History of paroxysmal atrial fibrillation on Xarelto at home -currently in sinus rhythm, rate controlled. Amio on hold Xarelto on hold (6) Type 2 diabetes mellitus: Code(s): E11.9 - Type 2 diabetes mellitus without complications Status: Acute Assessment and Plan: The patient's blood glucose was reviewed on 03/11 Glucose remains elevated at times Continue AccuCheks covering with sliding scale. Hypoglycemia protocol available as needed. Continue to monitor (7) Cholelithiasis: Code(s): K80.20 - Calculus of gallbladder without cholecystitis without obstruction Status: Acute Assessment and Plan: CT scan showed cholelithiasis with some nonspecific gallbladder wall thickening. Ultrasound was negative for any findings suggestive of cholecystitis. HIDA scan would be inaccurate as patient is on opioid infusion. Normal bilirubin and alkaline phosphatase Follow (8) Electrolyte abnormality: Code(s): E87.8 - Other disorders of electrolyte and fluid balance, not elsewhere classified Status: Acute Assessment and Plan: Monitor electrolytes and replace as needed Plan DVT prophylaxis: SCD, Lovenox Stress ulcer prophylaxis: Protonix Nutrition: NPO on bipap Code Status: Full code Subjec
[2023-03-11 15:07] LABS: Adenovirus DNA Not Detected (Not Detected); Chlamydophila pneumoniae Not Detected (Not Detected); Coronavirus 229E Not Detected (Not Detected); Coronavirus HKU1 Not Detected (Not Detected); Coronavirus NL63 Not Detected (Not Detected); Coronavirus OC43 Not Detected (Not Detected); Human Metapneumovirus Detected (Not Detected); Human Parainfluenza Virus 1 Not Detected (Not Detected); Human Parainfluenza Virus 2 Not Detected (Not Detected); Human Parainfluenza Virus 3 Not Detected (Not Detected); Human Parainfluenza Virus 4 Not Detected (Not Detected); Human RSV B Not Detected (Not Detected); Influenza A Not Detected (Not Detected); Influenza B Not Detected (Not Detected); Mycoplasma pneumoniae Not Detected (Not Detected); Rhinovirus/Enterovirus Not Detected (Not Detected)
[2023-03-11] MEDS: hydrALAZINE HCL 20 MG/ML VIAL 10 MG IV PUSH ×2 (15:46→19:37)
[2023-03-11] MEDS: methylPREDNISolone SOD SUCC 40 MG VIAL IV PUSH ×2 (16:16→23:50)
[2023-03-11] MEDS: racEPINEPHrine 2.25% NEBU SOLN 0.5 ML VIAL.NEB INHALATION (16:19)
[2023-03-11 17:57] LABS: Glucose Point of Care 250 mg/dl (65-105)
[2023-03-11] MEDS: ETOMIDATE 20 MG/10 ML AMPUL IV PUSH (20:02)
[2023-03-11] MEDS: SUCCINYLCHOLINE CHLORIDE 20 MG/ML 10 ML VIAL 100 MG IV PUSH (20:03)
[2023-03-11] MEDS: ETOMIDATE 40 MG/20 ML VIAL 20 MG IV PUSH (20:10)
[2023-03-11] MEDS: MIDAZOLAM 100MG/NS 100ML(*CRX) 100 MG/100 ML BAG IV CONT (20:15)
[2023-03-11] MEDS: FENTANYL 2,500MCG/NS250ML(*CRX 2,500 MCG/250 ML BAG IV CONT (20:15)
--- NOTE | 2023-03-11 20:24 | P.PCNBED_ITS ---
Procedures Intubation Intubation Date: 03/11/23 Intubation Time: 20:25 A pre-procedural Time-Out was completed immediately before starting the procedure and confirmed: Patient Identification, Site, Procedure, Patient Position and the Availability of Requisite Equipment: Yes Sedative: etomidate Mg given: 20 Paralytic: succinylcholine Mg given: 100 Laryngoscope: fiber optic video scope ET tube size: 8 Tube secured depth (cm): 24 Tube secured location: lips Tube placement confirmation: visualized tube passing through cords, equal breath sounds bilaterally, no breath sounds over epigastrium and confirmation by capnometry Patient tolerated procedure: well Additional comments: The patient remained on BiPAP with 100% FiO2 for pre oxygenation prior to intubation. Oxygen saturations remained at 100% throughout the process. The patient had a moderate amount of edema just proximal to the vocal cords in at the vocal cords. ET tube still passed easily. Patient did receive an additional 20 mg of etomidate post intubation. Sedation started with fentanyl and Versed per production boring machine operator orders. Vent settings per production boring machine operator orders.
[2023-03-11] MEDS: INSULIN GLARGINE (*BKC) 100 UNITS/ML 11 UNITS SUB-Q (20:40)
[2023-03-11 22:14] LABS: Alveolar/Arterial O2 Gradient 145.2 mmHg; Base Excess ABG 7.1 mEq/l (+/-2.0); Carboxyhemoglobin 0.4 % THb (0-2.0); Fractional Inspired Oxygen 60 %; HCO3 ABG 33.1 mEq/l (22.0-26.0); Methemoglobin ABG 0.3 %THb (0-1.5); Oxygen Content ABG 15.1 %vol (16.0-22.0); Oxygen Saturation ABG 99.5 % (95.0-100.0); PCO2 ABG 54.1 mmHg (35.0-45.0); PO2 ABG 223.1 mmHg (80.0-100.0); PO2 FiO2 Ratio Arterial Blood 3.72 %; Reduced Hemoglobin 1.3 %THb (0-5.0); Total Hemoglobin 10.6 g/dL (12.0-18.0); pH ABG 7.404 (7.350-7.450)
[2023-03-11 22:15] LABS: Modified Allen's Test Pass; Site Drawn RIGHT RADIAL
[2023-03-11 22:16] LABS: Arterial Blood Gas PEEP 8 cmH2O; Arterial Blood Gas Tidal Volume 500 ml; Arterial Blood Gas Vent Mode CMV; Arterial Blood Gas Ventilator rate 12 /MIN; Device VENTILATOR
[2023-03-11] MEDS: ALTEPLASE 2 MG VIAL (CATHFLO) IV PUSH ×2 (23:48→23:49)
[2023-03-11 23:59] LABS: Glucose Point of Care 196 mg/dl (65-105)
[2023-03-12] VITALS (30 sets, daily range): BP systolic 94–171; BP diastolic 48–69; PULSE 48–86; RESP 11–25; TEMP 36.3–37.5; O2SAT 87–100
[2023-03-12 04:48] LABS: Hematocrit 30.6 % (42.0-52.0); Hemoglobin 8.9 g/dL (14.0-18.0); Mean Corpuscular HGB Conc 29.1 g/dl (32-36); Mean Corpuscular Hemoglobin 25.6 pg (26-34); Mean Corpuscular Volume 88.2 fl (80-100); Mean Platelet Volume 11.2 fl (7.4-10.4); Platelet Count Result 253 k/mm3 (150-375); Red Blood Count 3.47 M/mm3 (4.6-6.20); Red Cell Distribution Width 16.9 % (11.5-14.5); White Blood Count 10.6 K/mm3 (4.5-10.0)
[2023-03-12] MEDS: LEVOTHYROXINE SODIUM 25 MCG TABLET PO (04:50)
[2023-03-12] MEDS: LEVOTHYROXINE SODIUM 112 MCG TABLET PO (04:50)
[2023-03-12] MEDS: CENTRAL LINE FLUSH 10 ML IV PUSH ×3 (04:51→20:53)
[2023-03-12 04:54] LABS: Alveolar/Arterial O2 Gradient 119.1 mmHg; Base Excess ABG 5.8 mEq/l (+/-2.0); Carboxyhemoglobin 0.3 % THb (0-2.0); Fractional Inspired Oxygen 40 %; HCO3 ABG 31.4 mEq/l (22.0-26.0); Methemoglobin ABG 0.2 %THb (0-1.5); Oxygen Saturation ABG 97.9 % (95.0-100.0); Oxyhemoglobin 96.7 % THb (90.0-100.0); PO2 ABG 107.5 mmHg (80.0-100.0); PO2 FiO2 Ratio Arterial Blood 2.69 %; Reduced Hemoglobin 2.8 %THb (0-5.0); Total Hemoglobin 10.2 g/dL (12.0-18.0); pH ABG 7.407 (7.350-7.450)
[2023-03-12 04:55] LABS: Device VENTILATOR; Modified Allen's Test Pass; Site Drawn LEFT RADIAL
[2023-03-12 04:56] LABS: Chloride 110 mmol/L (98-107)
[2023-03-12 04:56] LABS: Arterial Blood Gas PEEP 8 cmH2O; Arterial Blood Gas Tidal Volume 500 ml; Arterial Blood Gas Vent Mode CMV; Arterial Blood Gas Ventilator rate 12 /MIN
[2023-03-12 05:00] LABS: Alanine Aminotransferase 28 U/L (6-50); Albumin Level 3.7 g/dL (3.5-5.1); Alkaline Phosphatase 63 U/L (38-126); Anion Gap 3 mmol/L (8-16); Aspartate Amino Transferase 39 U/L (17-59); Bilirubin,Total 0.4 mg/dL (0.2-1.3); Blood Urea Nitrogen 83 mg/dL (9-20); Calcium 9.1 mg/dL (8.4-10.2); Carbon Dioxide 37 mmol/L (22-30); Estimated CRCL calculation 29 ml/min; Estimated Glomerular Filt Rate 33; Glucose 186 mg/dL (65-110); Magnesium 2.8 mg/dL (1.6-2.3); Potassium 5.1 mmol/L (3.4-5.0); Sodium 150 mmol/L (137-145); Triglycerides 76 mg/dL (<150)
[2023-03-12] MEDS: SODIUM CHLORIDE 0.45% 1,000 ML 100 ML IV CONT (08:10)
[2023-03-12] MEDS: PANTOPRAZOLE SODIUM IV 40 MG VIAL IV PUSH ×2 (08:10→20:52)
[2023-03-12] MEDS: ENOXAPARIN 40 MG/0.4 ML SYRINGE SUB-Q (08:10)
[2023-03-12] MEDS: TAMSULOSIN HCL 0.4 MG CAPSULE PO (08:11)
[2023-03-12] MEDS: ASPIRIN 81 MG ENTERIC TABLET PO (08:11)
[2023-03-12] MEDS: DOCUSATE SODIUM LIQ 100 MG/10 ML UDC PO ×2 (08:11→20:53)
[2023-03-12] MEDS: MINERAL OIL/WHITE PETROLATUM OINTMENT 1 APPLIC EACH EYE ×2 (08:11→20:53)
[2023-03-12] MEDS: ATORVASTATIN 40 MG TABLET PO (08:11)
[2023-03-12] MEDS: methylPREDNISolone SOD SUCC 40 MG VIAL IV PUSH ×2 (08:37→20:52)
--- NOTE | 2023-03-12 09:17 | WPDINTPN ---
Progress Note: A&P Assessment and Plan (1) Acute on chronic respiratory failure with hypoxia and hypercapnia: Code(s): J96.21 - Acute and chronic respiratory failure with hypoxia; J96.22 - Acute and chronic respiratory failure with hypercapnia Status: Acute Assessment and Plan: Patient presented with worsening shortness of breath with green colored productive sputum 3 days, was initially admitted to intermediate Unit, respiratory distress worsened and patient was in impending respiratory failure, discussed with patient at length regarding intubation which he is agreeable as he has been intubated in December 2021 for ARDS status post tracheostomy and decannulation. -03/04: Intubated - 03/06 -CT chest 1. Interval progression of diffuse bilateral interstitial and airspace opacities which could represent pulmonary edema, pneumonia, ARDS or some combination thereof. 2. Small bilateral pleural effusions, left greater than right. 3. Cardiomegaly. Patient has multiple possible etiologies including worsening of his interstitial lung disease, pneumonia, congestive heart failure versus combination of above 3. Patient was also on anticoagulation which raise the possibility of alveolar hemorrhage but patient had minimal blood tinged secretion. It resolved after anticoagulation was held. Patient also on amiodarone as an outpatient which is also on hold Intubated on 03/04, tube exchange on 03/05, patient failed trials for few days but eventually extubated on 03/11 03/11 Immediately after extubation patient initially desaturated but recovered with supplemental oxygen. He had increased work of breathing and was placed on BiPAP. At that time patient had no stridor. Later in the evening, I was called by nurse the patient had developed wheezing and stridor. Patient was given racemic epi inhalation and IV Solu-Medrol which did not lead to any improvement. With time patient's respiratory status became worse with increased tachypnea and work of breathing. I requested overnight physician to reintubate the patient and patient was reintubated without any complication. During intubation airway edema was seen by the physician. Vent settings reviewed. Increase rate to 22 and decrease tidal volume to 400. Continue PEEP of 8 at this time FiO2 is 30% Hold diuretics due to worsening renal function and improvement in chest x-ray Chest x-ray reviewed -MRSA screen is positive but cultures are negative. Patient has already completed 7 day course of vancomycin and Levaquin Extended viral panel came back positive for human metapneumovirus for which the treatment is supportive Urine Histoplasma antigen is negative Urine Legionella and urine pneumococcal antigen are negative Negative influenza and coronavirus PCR Patient may tracheostomy if unable to be weaned. I have discussed this with patient's who is agreeable to proceed with tracheostomy if needed as patient has had tracheostomy which was decannulated in the past. (2) Pneumonia: Code(s): J18.9 - Pneumonia, unspecified organism Status: Acute Assessment and Plan: -continue vancomycin and Levaquin -DC cefepime (03/04), azithromycin (03/03) was DC earlier -03/03: Sputum cultures growth of normal oropharyngeal judy -03/03: Blood cultures , preliminary results with no growth 09/08 bottles -03/04: MRSA screen positive (3) Hypertension: Qualifiers: Hypertension type: primary hypertension Qualified Code(s): I10 - Essential (primary) hypertension Code(s): I10 - Essential (primary) hypertension Status: Acute Assessment and Plan: Patient was hypertensive yesterday after extubation and required pRN hydralazine Now he is intubated and sedated and blood pressure is in controlled range (4) REGINALD (acute kidney injury): Code(s): N17.9 - Acute kidney failure, unspecified Status: Acute Assessment and Plan: Patient has history of chronic kidney disease, of 0.
[2023-03-12] MEDS: SODIUM ZIRCONIUM CYCLOSILICATE 10 GM POWD.PACK FEED TUBE ×2 (11:00→17:39)
[2023-03-12] MEDS: INSULIN ASPART (*BKC) 100 UNITS/ML SUB-Q ×2 (12:02→17:39)
[2023-03-12 12:27] LABS: Glucose Point of Care 268 mg/dl (65-105)
[2023-03-12 13:19] LABS: Glucose Point of Care 259 mg/dl (65-105)
[2023-03-12] MEDS: FENTANYL 2,500MCG/NS250ML(*CRX 2,500 MCG/250 ML BAG 12.5 MCG IV CONT (14:57)
[2023-03-12 18:01] LABS: Glucose Point of Care 272 mg/dl (65-105)
[2023-03-12 18:46] LABS: Anion Gap 8 mmol/L (8-16); Blood Urea Nitrogen 99 mg/dL (9-20); Calcium 8.9 mg/dL (8.4-10.2); Carbon Dioxide 31 mmol/L (22-30); Chloride 108 mmol/L (98-107); Estimated CRCL calculation 30 ml/min; Estimated Glomerular Filt Rate 35; Glucose 265 mg/dL (65-110); Potassium 3.9 mmol/L (3.4-5.0); Sodium 147 mmol/L (137-145)
[2023-03-12] MEDS: INSULIN GLARGINE (*BKC) 100 UNITS/ML 11 UNITS SUB-Q (20:53)
[2023-03-12 22:19] LABS: Vancomycin Trough 12.6 ug/mL (10.0-20.0)
[2023-03-13] VITALS (37 sets, daily range): BP systolic 108–167; BP diastolic 46–90; PULSE 47–80; RESP 10–23; TEMP 36.4–37.2; O2SAT 94–100
[2023-03-13] MEDS: INSULIN ASPART (*BKC) 100 UNITS/ML SUB-Q ×4 (00:38→18:38)
[2023-03-13 05:00] LABS: Alveolar/Arterial O2 Gradient 118.7 mmHg; Base Excess ABG 2.5 mEq/l (+/-2.0); Carboxyhemoglobin 0.2 % THb (0-2.0); Fractional Inspired Oxygen 35 %; HCO3 ABG 27.4 mEq/l (22.0-26.0); Methemoglobin ABG 0.3 %THb (0-1.5); Oxygen Content ABG 12.9 %vol (16.0-22.0); Oxygen Saturation ABG 95.8 % (95.0-100.0); Oxyhemoglobin 93.7 % THb (90.0-100.0); PCO2 ABG 44.3 mmHg (35.0-45.0); PO2 ABG 79.4 mmHg (80.0-100.0); PO2 FiO2 Ratio Arterial Blood 2.27 %; Reduced Hemoglobin 5.8 %THb (0-5.0); Total Hemoglobin 9.7 g/dL (12.0-18.0)
[2023-03-13 05:04] LABS: Device VENTILATOR; Modified Allen's Test Pass; Site Drawn RIGHT RADIAL
[2023-03-13 05:05] LABS: Arterial Blood Gas PEEP 8 cmH2O; Arterial Blood Gas Tidal Volume 400 ml; Arterial Blood Gas Vent Mode CMV; Arterial Blood Gas Ventilator rate 22 /MIN
[2023-03-13] MEDS: LEVOTHYROXINE SODIUM 25 MCG TABLET PO (05:17)
[2023-03-13] MEDS: CENTRAL LINE FLUSH 10 ML IV PUSH ×3 (05:17→20:05)
[2023-03-13] MEDS: LEVOTHYROXINE SODIUM 112 MCG TABLET PO (05:18)
[2023-03-13 05:24] LABS: Glucose Point of Care 242 mg/dl (65-105)
[2023-03-13 05:32] LABS: Hematocrit 28.9 % (42.0-52.0); Hemoglobin 8.5 g/dL (14.0-18.0); Mean Corpuscular HGB Conc 29.4 g/dl (32-36); Mean Corpuscular Hemoglobin 25.4 pg (26-34); Mean Corpuscular Volume 86.5 fl (80-100); Mean Platelet Volume 11.2 fl (7.4-10.4); Platelet Count Result 241 k/mm3 (150-375); Red Blood Count 3.34 M/mm3 (4.6-6.20); Red Cell Distribution Width 16.8 % (11.5-14.5); White Blood Count 13.6 K/mm3 (4.5-10.0)
[2023-03-13 05:38] LABS: Potassium 3.9 mmol/L (3.4-5.0)
[2023-03-13 05:42] LABS: Alanine Aminotransferase 28 U/L (6-50); Albumin Level 3.3 g/dL (3.5-5.1); Alkaline Phosphatase 65 U/L (38-126); Anion Gap 5 mmol/L (8-16); Aspartate Amino Transferase 30 U/L (17-59); Bilirubin,Total 0.4 mg/dL (0.2-1.3); Blood Urea Nitrogen 97 mg/dL (9-20); Calcium 8.7 mg/dL (8.4-10.2); Carbon Dioxide 30 mmol/L (22-30); Chloride 110 mmol/L (98-107); Estimated CRCL calculation 34 ml/min; Estimated Glomerular Filt Rate 40; Glucose 268 mg/dL (65-110); Magnesium 2.9 mg/dL (1.6-2.3); Sodium 145 mmol/L (137-145)
[2023-03-13] MEDS: FENTANYL 2,500MCG/NS250ML(*CRX 2,500 MCG/250 ML BAG 12.5 MCG IV CONT (07:32)
--- NOTE | 2023-03-13 08:12 | WPDINTPN ---
Progress Note: A&P Assessment and Plan (1) Acute on chronic respiratory failure with hypoxia and hypercapnia: Code(s): J96.21 - Acute and chronic respiratory failure with hypoxia; J96.22 - Acute and chronic respiratory failure with hypercapnia Status: Acute Assessment and Plan: Patient presented with worsening shortness of breath with green colored productive sputum 3 days, was initially admitted to intermediate Unit, respiratory distress worsened and patient was in impending respiratory failure, discussed with patient at length regarding intubation which he is agreeable as he has been intubated in December 2021 for ARDS status post tracheostomy and decannulation. -03/04: Intubated - 03/06 -CT chest 1. Interval progression of diffuse bilateral interstitial and airspace opacities which could represent pulmonary edema, pneumonia, ARDS or some combination thereof. 2. Small bilateral pleural effusions, left greater than right. 3. Cardiomegaly. Patient has multiple possible etiologies including worsening of his interstitial lung disease, pneumonia, congestive heart failure versus combination of above 3. Patient was also on anticoagulation which raise the possibility of alveolar hemorrhage but patient had minimal blood tinged secretion. It resolved after anticoagulation was held. Patient also on amiodarone as an outpatient which is also on hold Intubated on 03/04, tube exchange on 03/05, patient failed trials for few days but eventually extubated on 03/11 03/11 Immediately after extubation patient initially desaturated but recovered with supplemental oxygen. He had increased work of breathing and was placed on BiPAP. At that time patient had no stridor. Later in the evening, I was called by nurse the patient had developed wheezing and stridor. Patient was given racemic epi inhalation and IV Solu-Medrol which did not lead to any improvement. With time patient's respiratory status became worse with increased tachypnea and work of breathing. I requested overnight physician to reintubate the patient and patient was reintubated without any complication. During intubation airway edema was seen by the physician. Vent settings and ABG reviewed. Continue rate to 22 tidal volume to 400. Continue PEEP of 8 at this time FiO2 is 30% I switch patient to patient's support this morning patient went into apnea ventilation. Will perform prolonged sedation holiday and evaluate for pressure support trial Hold diuretics due to worsening renal function and improvement in chest x-ray Chest x-ray reviewed -MRSA screen is positive but cultures are negative. Patient has already completed 7 day course of vancomycin and Levaquin Extended viral panel came back positive for human metapneumovirus for which the treatment is supportive Urine Histoplasma antigen is negative Urine Legionella and urine pneumococcal antigen are negative Negative influenza and coronavirus PCR Patient may tracheostomy if unable to be weaned. I have discussed this with patient's who is agreeable to proceed with tracheostomy if needed as patient has had tracheostomy which was decannulated in the past. (2) Pneumonia: Code(s): J18.9 - Pneumonia, unspecified organism Status: Acute Assessment and Plan: -continue vancomycin and Levaquin -DC cefepime (03/04), azithromycin (03/03) was DC earlier -03/03: Sputum cultures growth of normal oropharyngeal judy -03/03: Blood cultures , preliminary results with no growth / bottles -03/04: MRSA screen positive (3) Hypertension: Qualifiers: Hypertension type: primary hypertension Qualified Code(s): I10 - Essential (primary) hypertension Code(s): I10 - Essential (primary) hypertension Status: Acute Assessment and Plan: Patient was hypertensive yesterday after extubation and required pRN hydralazine Now he is intubated and sedated and blood pressure is in controlled range (4) REGINALD (acute kidney injury)
[2023-03-13] MEDS: INSULIN GLARGINE (*BKC) 100 UNITS/ML 10 UNITS SUB-Q (08:13)
[2023-03-13] MEDS: ASPIRIN 81 MG ENTERIC TABLET PO (08:14)
[2023-03-13] MEDS: PANTOPRAZOLE SODIUM IV 40 MG VIAL IV PUSH ×2 (08:14→20:05)
[2023-03-13] MEDS: ATORVASTATIN 40 MG TABLET PO (08:14)
[2023-03-13] MEDS: ENOXAPARIN 40 MG/0.4 ML SYRINGE SUB-Q (08:14)
[2023-03-13] MEDS: TAMSULOSIN HCL 0.4 MG CAPSULE PO (08:15)
[2023-03-13] MEDS: MINERAL OIL/WHITE PETROLATUM OINTMENT 1 APPLIC EACH EYE ×2 (08:15→20:04)
--- NOTE | 2023-03-13 10:30 | PCFNICU ---
ICU Rounding Note: Pt current nutrition is Vital AF 1.2. Nutrition recommendation: discontinue Prosource and increased rate to 65 ml/hr. Last recorded weight is 66.8 kg. Bowel Motility:+Bm reported 03/13 Labs Reviewed:Glu 268,GFR 40, K 3.3,Cr 1.7,Alb 3.3 Meds Noted:Colace, Miralax, Fentanyl, Versed, NovoLog Skin: WNL Additional Notes: Patient extubated on 03/10 and reintubated same day. Tube feeding are being tolerated at this time. Spoke with transmitter supervisor about increasing tube feeding rate to 65 ml/hr and discontinuing Protein Modular. MD agreed with order change. Nutrition provided 1716/107 gms protein/1160 ml water. Meeting 100% kcal and protein needs. Flush 30 ml q 4 hours. Plans for spontaneous breathing trial today. Following daily in ICU rounds. Reassess Monday and Monday per policy.
[2023-03-13 12:04] LABS: Glucose Point of Care 209 mg/dl (65-105)
[2023-03-13 18:08] LABS: Glucose Point of Care 221 mg/dl (65-105)
[2023-03-13] MEDS: MIDAZOLAM 100MG/NS 100ML(*CRX) 100 MG/100 ML BAG IV CONT (18:37)
[2023-03-13] MEDS: INSULIN GLARGINE (*BKC) 100 UNITS/ML 20 UNITS SUB-Q (20:03)
[2023-03-13 20:07] LABS: Glucose Point of Care 214 mg/dl (65-105)
[2023-03-14] VITALS (43 sets, daily range): BP systolic 98–143; BP diastolic 40–86; PULSE 45–81; RESP 10–24; TEMP 36.3–37.1; O2SAT 95–100
[2023-03-14 00:28] LABS: Glucose Point of Care 189 mg/dl (65-105)
[2023-03-14] MEDS: FENTANYL 2,500MCG/NS250ML(*CRX 2,500 MCG/250 ML BAG 15 MCG IV CONT (02:08)
[2023-03-14 05:15] LABS: Glucose Point of Care 226 mg/dl (65-105)
[2023-03-14 05:42] LABS: Alveolar/Arterial O2 Gradient 75.6 mmHg; Base Excess ABG 7.1 mEq/l (+/-2.0); Carboxyhemoglobin 0.3 % THb (0-2.0); Fractional Inspired Oxygen 30 %; HCO3 ABG 32.5 mEq/l (22.0-26.0); Methemoglobin ABG 0.3 %THb (0-1.5); Oxygen Content ABG 14.6 %vol (16.0-22.0); Oxygen Saturation ABG 95.8 % (95.0-100.0); Oxyhemoglobin 93.8 % THb (90.0-100.0); PCO2 ABG 50.3 mmHg (35.0-45.0); PO2 ABG 79.2 mmHg (80.0-100.0); PO2 FiO2 Ratio Arterial Blood 2.64 %; Reduced Hemoglobin 5.6 %THb (0-5.0); pH ABG 7.428 (7.350-7.450)
[2023-03-14 05:43] LABS: Device VENTILATOR; Modified Allen's Test Pass; Site Drawn RIGHT RADIAL
[2023-03-14 05:44] LABS: Arterial Blood Gas PEEP 8 cmH2O; Arterial Blood Gas Vent Mode CMV; Arterial Blood Gas Ventilator rate 22 /MIN
[2023-03-14 05:45] LABS: Arterial Blood Gas Tidal Volume 400 ml
[2023-03-14] MEDS: INSULIN ASPART (*BKC) 100 UNITS/ML SUB-Q ×3 (06:12→18:27)
[2023-03-14] MEDS: LEVOTHYROXINE SODIUM 25 MCG TABLET PO (06:14)
[2023-03-14] MEDS: LEVOTHYROXINE SODIUM 112 MCG TABLET PO (06:14)
[2023-03-14] MEDS: CENTRAL LINE FLUSH 10 ML IV PUSH ×3 (06:24→22:55)
[2023-03-14 06:37] LABS: Hematocrit 30.9 % (42.0-52.0); Hemoglobin 8.9 g/dL (14.0-18.0); Mean Corpuscular HGB Conc 28.8 g/dl (32-36); Mean Corpuscular Hemoglobin 25.4 pg (26-34); Mean Platelet Volume 11.5 fl (7.4-10.4); Platelet Count Result 238 k/mm3 (150-375); Red Blood Count 3.51 M/mm3 (4.6-6.20); Red Cell Distribution Width 16.9 % (11.5-14.5); White Blood Count 12.7 K/mm3 (4.5-10.0)
[2023-03-14 06:52] LABS: Alanine Aminotransferase 30 U/L (6-50); Albumin Level 3.4 g/dL (3.5-5.1); Alkaline Phosphatase 78 U/L (38-126); Anion Gap 6 mmol/L (8-16); Aspartate Amino Transferase 28 U/L (17-59); Bilirubin,Total 0.5 mg/dL (0.2-1.3); Blood Urea Nitrogen 84 mg/dL (9-20); Calcium 8.5 mg/dL (8.4-10.2); Carbon Dioxide 34 mmol/L (22-30); Chloride 113 mmol/L (98-107); Estimated CRCL calculation 40 ml/min; Estimated Glomerular Filt Rate 50; Glucose 214 mg/dL (65-110); Magnesium 3.1 mg/dL (1.6-2.3); Potassium 3.8 mmol/L (3.4-5.0); Sodium 153 mmol/L (137-145); Triglycerides 98 mg/dL (<150)
--- NOTE | 2023-03-14 08:06 | WPDINTPN ---
Progress Note: A&P Assessment and Plan (1) Acute on chronic respiratory failure with hypoxia and hypercapnia: Code(s): J96.21 - Acute and chronic respiratory failure with hypoxia; J96.22 - Acute and chronic respiratory failure with hypercapnia Status: Acute Assessment and Plan: 03/03:Patient presented with worsening shortness of breath with green colored productive sputum 3 days, was initially admitted to intermediate Unit, respiratory distress worsened and patient was in impending respiratory failure, discussed with patient at length regarding intubation which he is agreeable as he has been intubated in December 2021 for ARDS status post tracheostomy and decannulation. -03/04: Intubated, 03/05: ETT exchanged over bougie due to cuff leak - 03/06 -CT chest 1. Interval progression of diffuse bilateral interstitial and airspace opacities which could represent pulmonary edema, pneumonia, ARDS or some combination thereof. 2. Small bilateral pleural effusions, left greater than right. 3. Cardiomegaly. -patient failed trials for few days but eventually extubated on 03/11 -03/11 Immediately after extubation patient initially desaturated but recovered with supplemental oxygen. He had increased work of breathing and was placed on BiPAP. At that time patient had no stridor. Later that evening, pt developed wheezing and stridor. Was given racemic epi inhalation and IV Solu-Medrol which did not lead to any improvement. With time patient's respiratory status became worse with increased tachypnea and work of breathing. 03/11: Patient was really intubated without any complications. During intubation airway edema was seen by the physician, patient was given a short dose of steroids -currently on CMV mode of ventilation, PEEP of 8 at this time FiO2 is 30% -have asked the bedside RN to give a sedation vacation, once patient is more awake I will place him on a breathing trial. -Hold diuretics due to worsening renal function and improvement in chest x-ray Chest x-ray and ABGs reviewed -MRSA screen is positive but cultures are negative. Patient has already completed 7 day course of vancomycin and Levaquin -Extended viral panel came back positive for human metapneumovirus for which the treatment is supportive -Urine Histoplasma antigen is negative -Urine Legionella and urine pneumococcal antigen are negative -Negative influenza and coronavirus PCR Patient may require tracheostomy if unable to be weaned. This has been discussed with patient's who is agreeable to proceed with tracheostomy if needed as patient has had tracheostomy which was decannulated in the past. (2) Pneumonia: Code(s): J18.9 - Pneumonia, unspecified organism Status: Acute Assessment and Plan: -status post vancomycin and Levaquin -03/03: Sputum cultures growth of normal oropharyngeal judy -03/03: Blood cultures , preliminary results with no growth 09/08 bottles -03/04: MRSA screen positive (3) Hypertension: Qualifiers: Hypertension type: primary hypertension Qualified Code(s): I10 - Essential (primary) hypertension Code(s): I10 - Essential (primary) hypertension Status: Acute Assessment and Plan: Patient was hypertensive after extubation and required pRN hydralazine Now he is intubated and sedated and blood pressure is in controlled range (4) REGINALD (acute kidney injury): Code(s): N17.9 - Acute kidney failure, unspecified Status: Acute Assessment and Plan: Patient has history of chronic kidney disease, of 0.8-1.00. -on admission his creatinine was 1.4 -03/04 received Lasix 80 mg IV x1 in IMU with adequate urine output -03/06 creatinine increased to 2.0 this morning, the urine output has been on the lower side. Diuretics were held - 03/11 creatinine 1.4 Continue diuretics - 03/12 creatinine increased to 2.0. Hold diuretics. Will give cautious amount of IV fluids -03/13 creatinine improved 1.7. -creatin
[2023-03-14] MEDS: INSULIN GLARGINE (*BKC) 100 UNITS/ML SUB-Q (08:19)
[2023-03-14] MEDS: ASPIRIN 81 MG ENTERIC TABLET PO (08:20)
[2023-03-14] MEDS: TAMSULOSIN HCL 0.4 MG CAPSULE PO (08:20)
[2023-03-14] MEDS: MINERAL OIL/WHITE PETROLATUM OINTMENT 1 APPLIC EACH EYE ×2 (08:20→20:13)
[2023-03-14] MEDS: ATORVASTATIN 40 MG TABLET PO (08:20)
[2023-03-14] MEDS: ENOXAPARIN 40 MG/0.4 ML SYRINGE SUB-Q (08:20)
[2023-03-14] MEDS: PANTOPRAZOLE SODIUM IV 40 MG VIAL IV PUSH ×2 (08:20→20:13)
--- NOTE | 2023-03-14 10:58 | PCFNICU ---
ICU Rounding Note: Pt current nutrition is Vital AF 1.2 at 65 ml/hr. Last recorded weight is 67.6 kg. Bowel Motility:+Bm reported 03/14 Labs Reviewed:Glu 214, BUN 84, ,Cr 1.4,GFR 50,Na 153 Meds Noted:Levaquin, Fentanyl, Versed, Lasix, Novolog Skin: WNL Additional Notes: Patient remains on mechanical vent and tube feedings of Vital AF 1.2 at 65 ml/hr and tolerating. Flush increased to 150 ml q 4 hours due to elevated Na 153. Plans to add Banatrol Plus BID for loose stools. Agree with diet orders. Monitor daily in ICU rounds. Reassess Monday and Monday per policy.
--- NOTE | 2023-03-14 11:58 | P.PNIM_ITS ---
Progress Note: A&P Assessment and Plan (1) Acute on chronic respiratory failure with hypoxia and hypercapnia: Code(s): J96.21 - Acute and chronic respiratory failure with hypoxia; J96.22 - Acute and chronic respiratory failure with hypercapnia Status: Acute Assessment and Plan: 03/03:Patient presented with worsening shortness of breath with green colored productive sputum 3 days, was initially admitted to intermediate Unit, respiratory distress worsened and patient was in impending respiratory failure, discussed with patient at length regarding intubation which he is agreeable as he has been intubated in December 2021 for ARDS status post tracheostomy and decannulation. -03/04: Intubated, 03/05: ETT exchanged over bougie due to cuff leak - 03/06 -CT chest 1. Interval progression of diffuse bilateral interstitial and airspace opacities which could represent pulmonary edema, pneumonia, ARDS or some combination thereof. 2. Small bilateral pleural effusions, left greater than right. 3. Cardiomegaly. -patient failed trials for few days but eventually extubated on 03/11 -03/11 Immediately after extubation patient initially desaturated but recovered with supplemental oxygen. He had increased work of breathing and was placed on BiPAP. At that time patient had no stridor. Later that evening, pt developed wheezing and stridor. Was given racemic epi inhalation and IV Solu-Medrol which did not lead to any improvement. With time patient's respiratory status became worse with increased tachypnea and work of breathing. 03/11: Patient was really intubated without any complications. During intubation airway edema was seen by the physician, patient was given a short dose of steroids -currently on CMV mode of ventilation, PEEP of 8 at this time FiO2 is 30% -have asked the bedside RN to give a sedation vacation, once patient is more awake I will place him on a breathing trial. -Hold diuretics due to worsening renal function and improvement in chest x-ray Chest x-ray and ABGs reviewed -MRSA screen is positive but cultures are negative. Patient has already completed 7 day course of vancomycin and Levaquin -Extended viral panel came back positive for human metapneumovirus for which the treatment is supportive -Urine Histoplasma antigen is negative -Urine Legionella and urine pneumococcal antigen are negative -Negative influenza and coronavirus PCR Patient may require tracheostomy if unable to be weaned. This has been discussed with patient's who is agreeable to proceed with tracheostomy if needed as patient has had tracheostomy which was decannulated in the past. (2) Pneumonia: Code(s): J18.9 - Pneumonia, unspecified organism Status: Acute Assessment and Plan: -status post vancomycin and Levaquin -03/03: Sputum cultures growth of normal oropharyngeal judy -03/03: Blood cultures , preliminary results with no growth 09/08 bottles -03/04: MRSA screen positive (3) Hypertension: Qualifiers: Hypertension type: primary hypertension Qualified Code(s): I10 - Essential (primary) hypertension Code(s): I10 - Essential (primary) hypertension Status: Acute Assessment and Plan: Patient was hypertensive after extubation and required pRN hydralazine Now he is intubated and sedated and blood pressure is in controlled range (4) REGINALD (acute kidney injury): Code(s): N17.9 - Acute kidney failure, unspecified Status: Acute Assessment and Plan: Patient has history of chronic kidney disease, of 0.8-1.00. -on admission his creatinine was 1.4 -03/04 received Lasix 80 mg IV x1 in IM
[2023-03-14 12:01] LABS: Glucose Point of Care 209 mg/dl (65-105)
[2023-03-14 17:50] LABS: Glucose Point of Care 213 mg/dl (65-105)
[2023-03-14] MEDS: INSULIN GLARGINE (*BKC) 100 UNITS/ML 25 UNITS SUB-Q (20:13)
[2023-03-14 20:25] LABS: Glucose Point of Care 188 mg/dl (65-105)
[2023-03-15] VITALS (38 sets, daily range): BP systolic 107–155; BP diastolic 41–87; PULSE 41–70; RESP 17–30; TEMP 36.1–37.2; O2SAT 95–100
[2023-03-15 00:32] LABS: Glucose Point of Care 221 mg/dl (65-105)
[2023-03-15] MEDS: FENTANYL 2,500MCG/NS250ML(*CRX 2,500 MCG/250 ML BAG IV CONT (05:14)
[2023-03-15] MEDS: MIDAZOLAM 100MG/NS 100ML(*CRX) 100 MG/100 ML BAG IV CONT (05:50)
[2023-03-15 05:54] LABS: Hematocrit 28.3 % (42.0-52.0); Hemoglobin 8.4 g/dL (14.0-18.0); Mean Corpuscular HGB Conc 29.7 g/dl (32-36); Mean Corpuscular Hemoglobin 25.6 pg (26-34); Mean Corpuscular Volume 86.3 fl (80-100); Mean Platelet Volume 11.8 fl (7.4-10.4); Platelet Count Result 224 k/mm3 (150-375); Red Blood Count 3.28 M/mm3 (4.6-6.20); Red Cell Distribution Width 17.2 % (11.5-14.5); White Blood Count 13.1 K/mm3 (4.5-10.0)
[2023-03-15 06:06] LABS: Estimated CRCL calculation 38 ml/min; Estimated Glomerular Filt Rate 54
[2023-03-15] MEDS: LEVOTHYROXINE SODIUM 112 MCG TABLET PO (06:16)
[2023-03-15] MEDS: LEVOTHYROXINE SODIUM 25 MCG TABLET PO (06:16)
[2023-03-15] MEDS: CENTRAL LINE FLUSH 10 ML IV PUSH ×3 (06:16→20:24)
[2023-03-15 06:23] LABS: Alanine Aminotransferase 26 U/L (6-50); Alkaline Phosphatase 62 U/L (38-126); Anion Gap 5 mmol/L (8-16); Aspartate Amino Transferase 25 U/L (17-59); Bilirubin,Total 0.4 mg/dL (0.2-1.3); Blood Urea Nitrogen 72 mg/dL (9-20); Calcium 7.9 mg/dL (8.4-10.2); Carbon Dioxide 32 mmol/L (22-30); Chloride 114 mmol/L (98-107); Estimated CRCL calculation 36 ml/min; Estimated Glomerular Filt Rate 50; Glucose 187 mg/dL (65-110); Magnesium 3.1 mg/dL (1.6-2.3); Phosphorus 3.4 mg/dL (2.5-4.5); Sodium 151 mmol/L (137-145)
[2023-03-15] MEDS: PANTOPRAZOLE SODIUM IV 40 MG VIAL IV PUSH ×2 (08:08→20:23)
[2023-03-15] MEDS: ATORVASTATIN 40 MG TABLET PO (08:08)
[2023-03-15] MEDS: TAMSULOSIN HCL 0.4 MG CAPSULE PO (08:08)
[2023-03-15] MEDS: ENOXAPARIN 40 MG/0.4 ML SYRINGE SUB-Q (08:08)
[2023-03-15] MEDS: ASPIRIN 81 MG ENTERIC TABLET PO (08:08)
[2023-03-15] MEDS: MINERAL OIL/WHITE PETROLATUM OINTMENT 1 APPLIC EACH EYE ×2 (08:08→20:24)
--- NOTE | 2023-03-15 10:22 | PCFNICU ---
Addendum entered by Jie Peterson, RD, LDN 03/15/23 10:38: Bowel Motility: Banatrol Plus TF BID added for loose stools yesterday-improving. Original Note: ICU Rounding Note: Pt current nutrition is Vital AF 1.2 at 65 ml/hr. Last recorded weight is 60.4 kg. Bowel Motility:+BM reported 03/14 Labs Reviewed:Mg 3.1, GFR 50, BUN 72, Glu 187, Na 151 Meds Noted:Lantus, Precedex Skin: WNL Additional Notes: Patient remains on mechanical vent and tube feedings of Vital AF 1.2 at 65 ml/hr and tolerating per nursing. Plans to change sedation from Versed and Fentanyl to Precedex. Flush 150 ml q 4 hours, Na is 151 down from 153. Agree with diet orders. Monitor daily in ICU rounds. Reassess Monday and Monday per policy.
[2023-03-15] MEDS: dexmedeTOMIDine 400 MCG/100 ML 400 MCG/100 ML BAG IV CONT (10:42)
[2023-03-15 13:46] LABS: Glucose Point of Care 225 mg/dl (65-105)
[2023-03-15] MEDS: INSULIN ASPART (*BKC) 100 UNITS/ML SUB-Q (13:53)
[2023-03-15 17:27] LABS: Glucose Point of Care 164 mg/dl (65-105)
[2023-03-15] MEDS: MIDAZOLAM HCL (*CRX) 2 MG/2 ML VIAL IV PUSH ×2 (19:15→22:02)
[2023-03-15] MEDS: INSULIN GLARGINE (*BKC) 100 UNITS/ML 25 UNITS SUB-Q (20:24)
[2023-03-15 20:28] LABS: Glucose Point of Care 201 mg/dl (65-105)
[2023-03-16] VITALS (38 sets, daily range): BP systolic 92–163; BP diastolic 42–79; PULSE 39–128; RESP 22–30; TEMP 36.8–37.1; O2SAT 94–100
[2023-03-16] MEDS: dexmedeTOMIDine 400 MCG/100 ML 400 MCG/100 ML BAG 7.55 MCG IV CONT (00:13)
[2023-03-16] MEDS: INSULIN ASPART (*BKC) 100 UNITS/ML SUB-Q ×2 (01:08→17:11)
[2023-03-16 01:09] LABS: Glucose Point of Care 251 mg/dl (65-105)
[2023-03-16] MEDS: LEVOTHYROXINE SODIUM 112 MCG TABLET PO (04:53)
[2023-03-16] MEDS: CENTRAL LINE FLUSH 10 ML IV PUSH ×3 (04:53→20:20)
[2023-03-16] MEDS: LEVOTHYROXINE SODIUM 25 MCG TABLET PO (04:53)
[2023-03-16 04:59] LABS: Alveolar/Arterial O2 Gradient 81.7 mmHg; Base Excess ABG 4.1 mEq/l (+/-2.0); Carboxyhemoglobin 0.3 % THb (0-2.0); Fractional Inspired Oxygen 30 %; HCO3 ABG 28.4 mEq/l (22.0-26.0); Methemoglobin ABG 0.4 %THb (0-1.5); Oxygen Content ABG 11.7 %vol (16.0-22.0); Oxygen Saturation ABG 96.7 % (95.0-100.0); Oxyhemoglobin 94.6 % THb (90.0-100.0); PCO2 ABG 41.3 mmHg (35.0-45.0); PO2 ABG 83.7 mmHg (80.0-100.0); PO2 FiO2 Ratio Arterial Blood 2.79 %; Reduced Hemoglobin 4.7 %THb (0-5.0); Total Hemoglobin 8.7 g/dL (12.0-18.0); pH ABG 7.455 (7.350-7.450)
[2023-03-16 05:00] LABS: Hematocrit 26.5 % (42.0-52.0); Hemoglobin 7.8 g/dL (14.0-18.0); Mean Corpuscular HGB Conc 29.4 g/dl (32-36); Mean Corpuscular Hemoglobin 25.9 pg (26-34); Mean Platelet Volume 11.7 fl (7.4-10.4); Platelet Count Result 195 k/mm3 (150-375); Red Blood Count 3.01 M/mm3 (4.6-6.20); Red Cell Distribution Width 17.2 % (11.5-14.5); White Blood Count 17.6 K/mm3 (4.5-10.0)
[2023-03-16 05:01] LABS: Arterial Blood Gas Vent Mode CMV; Arterial Blood Gas Ventilator rate 22 /MIN; Device VENTILATOR; Modified Allen's Test Pass; Site Drawn LEFT RADIAL
[2023-03-16 05:02] LABS: Arterial Blood Gas PEEP 8 cmH2O; Arterial Blood Gas Tidal Volume 400 ml
[2023-03-16 05:13] LABS: Anion Gap 4 mmol/L (8-16); Blood Urea Nitrogen 56 mg/dL (9-20); Carbon Dioxide 33 mmol/L (22-30); Chloride 115 mmol/L (98-107); Estimated CRCL calculation 48 ml/min; Estimated Glomerular Filt Rate 59; Glucose 149 mg/dL (65-110); Magnesium 3.1 mg/dL (1.6-2.3); Phosphorus 3.2 mg/dL (2.5-4.5); Potassium 3.8 mmol/L (3.4-5.0); Sodium 152 mmol/L (137-145)
--- NOTE | 2023-03-16 07:37 | WPDINTPN ---
Progress Note: A&P Assessment and Plan (1) Acute on chronic respiratory failure with hypoxia and hypercapnia: Code(s): J96.21 - Acute and chronic respiratory failure with hypoxia; J96.22 - Acute and chronic respiratory failure with hypercapnia Status: Acute Assessment and Plan: 03/03:Patient presented with worsening shortness of breath with green colored productive sputum 3 days, was initially admitted to intermediate Unit, respiratory distress worsened and patient was in impending respiratory failure, discussed with patient at length regarding intubation which he is agreeable as he has been intubated in December 2021 for ARDS status post tracheostomy and decannulation. -03/04: Intubated, 03/05: ETT exchanged over bougie due to cuff leak - 03/06 -CT chest 1. Interval progression of diffuse bilateral interstitial and airspace opacities which could represent pulmonary edema, pneumonia, ARDS or some combination thereof. 2. Small bilateral pleural effusions, left greater than right. 3. Cardiomegaly. -patient failed trials for few days but eventually extubated on 03/11 -03/11 Immediately after extubation patient initially desaturated but recovered with supplemental oxygen. He had increased work of breathing and was placed on BiPAP. At that time patient had no stridor. Later that evening, pt developed wheezing and stridor. Was given racemic epi inhalation and IV Solu-Medrol which did not lead to any improvement. With time patient's respiratory status became worse with increased tachypnea and work of breathing. 03/11: Patient was really intubated without any complications. During intubation airway edema was seen by the physician, patient was given a short dose of steroids -currently on CMV mode of ventilation, PEEP of 8 at this time FiO2 is 30% -Chest x-ray and ABGs reviewed -off all sedation, placed patient on pressure support ventilation 10 were 5, will try spontaneous breathing trial and evaluate for extubation -Hold diuretics due to worsening renal function and improvement in chest x-ray -MRSA screen is positive but cultures are negative. Patient has already completed 7 day course of vancomycin and Levaquin -Extended viral panel came back positive for human metapneumovirus for which the treatment is supportive -Urine Histoplasma antigen is negative -Urine Legionella and urine pneumococcal antigen are negative -Negative influenza and coronavirus PCR Patient may require tracheostomy if unable to be weaned. This has been discussed with patient's who is agreeable to proceed with tracheostomy if needed as patient has had tracheostomy which was decannulated in the past. (2) Pneumonia: Code(s): J18.9 - Pneumonia, unspecified organism Status: Acute Assessment and Plan: -status post vancomycin and Levaquin -03/03: Sputum cultures growth of normal oropharyngeal judy -03/03: Blood cultures , preliminary results with no growth 09/08 bottles -03/04: MRSA screen positive (3) Hypertension: Qualifiers: Hypertension type: primary hypertension Qualified Code(s): I10 - Essential (primary) hypertension Code(s): I10 - Essential (primary) hypertension Status: Acute Assessment and Plan: Patient remains intubated, not on any sedation, blood pressures are slightly higher, patient has p.r.n. hydralazine with parameters (4) REGINALD (acute kidney injury): Code(s): N17.9 - Acute kidney failure, unspecified Status: Acute Assessment and Plan: Patient has history of chronic kidney disease, of 0.8-1.00. -on admission his creatinine was 1.4 -03/04 received Lasix 80 mg IV x1 in IMU with adequate urine output -03/06 creatinine increased to 2.0 this morning, the urine output has been on the lower side. Diuretics were held - 03/11 creatinine 1.4 Continue diuretics - 03/12 creatinine increased to 2.0. Hold diuretics. Will give cautious amount of IV fluids -03/13 creatinine improved 1.7.
[2023-03-16] MEDS: ASPIRIN 81 MG ENTERIC TABLET PO (09:00)
[2023-03-16] MEDS: MINERAL OIL/WHITE PETROLATUM OINTMENT 1 APPLIC EACH EYE ×2 (09:00→20:20)
[2023-03-16] MEDS: ATORVASTATIN 40 MG TABLET PO (09:00)
[2023-03-16] MEDS: ENOXAPARIN 40 MG/0.4 ML SYRINGE SUB-Q (09:00)
[2023-03-16] MEDS: PANTOPRAZOLE SODIUM IV 40 MG VIAL IV PUSH ×2 (09:00→20:20)
[2023-03-16] MEDS: TAMSULOSIN HCL 0.4 MG CAPSULE PO (09:00)
--- NOTE | 2023-03-16 10:46 | PCFNICU ---
ICU Rounding Note: Pt current nutrition is Vital AF 1.2 at 65 ml/hr Last recorded weight is 69.7 kg. Bowel Motility:+BM reported 03/14 Labs Reviewed:Mg 1.3, BUN 56, Na 152, Hct 26.5,Hgb 7.8 Meds Noted:Precedex, Synthroid Skin: WNL Additional Notes: Patient remains on mechanical vent. Tube feedings currently on hold for possible breathing trial. ENT consult for possible Trach. Banatrol Plus TF BID for stool bulking. Agree with diet orders. Monitor daily in ICU rounds. Reassess Monday and Monday per policy.
--- NOTE | 2023-03-16 11:48 | P.PNIM_ITS ---
Progress Note: A&P Assessment and Plan (1) Acute on chronic respiratory failure with hypoxia and hypercapnia: Code(s): J96.21 - Acute and chronic respiratory failure with hypoxia; J96.22 - Acute and chronic respiratory failure with hypercapnia Status: Acute Assessment and Plan: 03/03:Patient presented with worsening shortness of breath with green colored productive sputum 3 days, was initially admitted to intermediate Unit, respiratory distress worsened and patient was in impending respiratory failure, discussed with patient at length regarding intubation which he is agreeable as he has been intubated in December 2021 for ARDS status post tracheostomy and decannulation. -03/04: Intubated, 03/05: ETT exchanged over bougie due to cuff leak - 03/06 -CT chest 1. Interval progression of diffuse bilateral interstitial and airspace opacities which could represent pulmonary edema, pneumonia, ARDS or some combination thereof. 2. Small bilateral pleural effusions, left greater than right. 3. Cardiomegaly. -patient failed trials for few days but eventually extubated on 03/11 -03/11 Immediately after extubation patient initially desaturated but recovered with supplemental oxygen. He had increased work of breathing and was placed on BiPAP. At that time patient had no stridor. Later that evening, pt developed wheezing and stridor. Was given racemic epi inhalation and IV Solu-Medrol which did not lead to any improvement. With time patient's respiratory status became worse with increased tachypnea and work of breathing. 03/11: Patient was really intubated without any complications. During intubation airway edema was seen by the physician, patient was given a short dose of steroids -currently on CMV mode of ventilation, PEEP of 8 at this time FiO2 is 30% -Chest x-ray and ABGs reviewed -off all sedation, placed patient on pressure support ventilation 10 were 5, will try spontaneous breathing trial and evaluate for extubation -Hold diuretics due to worsening renal function and improvement in chest x-ray -MRSA screen is positive but cultures are negative. Patient has already completed 7 day course of vancomycin and Levaquin -Extended viral panel came back positive for human metapneumovirus for which the treatment is supportive -Urine Histoplasma antigen is negative -Urine Legionella and urine pneumococcal antigen are negative -Negative influenza and coronavirus PCR Patient may require tracheostomy if unable to be weaned. This has been discussed with patient's who is agreeable to proceed with tracheostomy if needed as patient has had tracheostomy which was decannulated in the past. (2) Pneumonia: Code(s): J18.9 - Pneumonia, unspecified organism Status: Acute Assessment and Plan: -status post vancomycin and Levaquin -03/03: Sputum cultures growth of normal oropharyngeal judy -03/03: Blood cultures , preliminary results with no growth 09/08 bottles -03/04: MRSA screen positive (3) Hypertension: Qualifiers: Hypertension type: primary hypertension Qualified Code(s): I10 - Essential (primary) hypertension Code(s): I10 - Essential (primary) hypertension Status: Acute Assessment and Plan: Patient remains intubated, not on any sedation, blood pressures are slightly higher, patient has p.r.n. hydralazine with parameters (4) REGINALD (acute kidney injury): Code(s): N17.9 - Acute kidney failure, unspecified Status: Acute Assessment and Plan: Patient has history of chronic kidney disease, of 0.8-1.00. -on admission his creatinine was 1.4 -03/04 received Lasix
[2023-03-16] MEDS: METOPROLOL TARTRATE INJ 5 MG/5 ML VIAL IV PUSH (11:57)
[2023-03-16 12:01] LABS: Glucose Point of Care 169 mg/dl (65-105)
--- NOTE | 2023-03-16 15:07 | WPDGICN ---
Assessment and Plan Assessment and plan (1) Acute on chronic respiratory failure with hypoxia and hypercapnia: Code(s): J96.21 - Acute and chronic respiratory failure with hypoxia; J96.22 - Acute and chronic respiratory failure with hypercapnia Status: Acute Assessment and Plan: unable to extubate on antibiotics for pneumonia he also will require trach (2) Dysphagia: Code(s): R13.10 - Dysphagia, unspecified Status: Acute Assessment and Plan: as effect of prolonged intubation egd with peg tomorrow (3) Pneumonia: Code(s): J18.9 - Pneumonia, unspecified organism Status: Acute Assessment and Plan: on treatment (4) Chronic left-sided CHF (congestive heart failure): Code(s): I50.1 - Left ventricular failure, unspecified Status: Acute (5) Chronic anticoagulation: Code(s): Z79.01 - FPC (current) use of anticoagulants Status: Acute Assessment and Plan: xarelto on hold (6) Acute on chronic renal failure: Code(s): N17.9 - Acute kidney failure, unspecified; N18.9 - Chronic kidney disease, unspecified Status: Acute Assessment and Plan: improving GI Consult Note Consult date/time: 03/16/23 15:07 Reason for consult: pneumonia, respiratory failure HPI: Moise Lutz is a 72 year old male with significant past medical history of ARDS on 12/19/2021 on 2 L home O2,CKD, carotid artery occlusion, paroxysmal atrial fibrillation? on Xarelto, hypothyroidism, interstitial lung disease, type 2 diabetes heart failure with reduced ejection fraction presented the ED on 03/03/2023 with complains of increasing shortness of breath with productive cough with green sputum x3 days. He developed worsening respiratory failure and intubated, briefly extubated but had to be reintubated. He also had pneumonia, norma and has been getting tube feeding by OGT. I am called to place PEG (family is agreeable after discussing with dock clerk). Review of Systems Review of Systems: ROS unobtainable: Yes unobtainable due to endotracheal tube and unobtainable due to mental status PMFSH Past Medical History Medical History (Updated 03/16/23 @ 15:12 by Collins Sanchez MD) Acute on chronic renal failure Adult respiratory distress syndrome (12/2021) Anemia BPH (benign prostatic hyperplasia) Carotid artery occlusion Chronic anticoagulation CKD stage G3b/A3, GFR 30-44 and albumin creatinine ratio >300 mg/g Coronary artery disease According to prior documentation, the patient has nonobstructing coronary disease which was treated medically. Dyslipidemia Dysphagia Heart failure with reduced ejection fraction EF as low as 30 to 35%, improved to 55 to 60% on repeat echocardiogram on 12/30/2021. History of skin cancer Hypertension Hyperthyroidism Status post radioactive iodine ablation. Hypogonadism Hypothyroidism ILD (interstitial lung disease) Left rotator cuff tear Paroxysmal atrial fibrillation Pneumonia TIA (transient ischemic attack) Type 2 diabetes mellitus Surgical History Surgical History History of arthroscopy of left knee Partial medial meniscectomy. History of cardiac catheterization Nonobstructing disease. History of tracheostomy Family History Family History (Updated 03/03/23 @ 16:13 by Cyndee Alamo RN) Sibling Diabetes mellitus Lung cancer Hypothyroidism Father Diabetes mellitus Mother Acute myocardial infarction Congestive heart failure Dementia Social History Social History Social History: The patient lives with his in [place]. They have 2 children. He smoked a pack of cigarettes a day and quit in 2007. No alcohol or illicit substance abuse. He designates his , Marycarmen Lutz, as his surrogate decision maker and he wishes to be a full code. Smoking packs per day: 1 Smo
[2023-03-16 17:11] LABS: Glucose Point of Care 242 mg/dl (65-105)
[2023-03-16] MEDS: dexmedeTOMIDine 400 MCG/100 ML 400 MCG/100 ML BAG 9.06 MCG IV CONT (17:19)
--- NOTE | 2023-03-16 17:53 | WPDCN ---
Assessment and Plan Assessment and plan (1) Acute on chronic respiratory failure with hypoxia and hypercapnia: Code(s): J96.21 - Acute and chronic respiratory failure with hypoxia; J96.22 - Acute and chronic respiratory failure with hypercapnia Status: Acute Assessment and Plan: Plan OR for tracheostomy. I am available any day next week after 5:00 p.m. and all day Monday and Monday. Schedule when OR permits. HPI Data of Consult Date/Time: 03/16/23 17:54 Requesting Physician: Karen Calderón DO Primary Care Provider: Dallin Maldonado MD Consult Narrative Reason for consult: Tracheostomy Narrative: Moise Lutz is a 72 year old male with respiratory failure Review of Systems Review of Systems: ROS unobtainable: Yes unobtainable due to endotracheal tube PMFSH Past Medical History Medical History (Updated 03/16/23 @ 15:12 by Collins Sanchez MD) Acute on chronic renal failure Adult respiratory distress syndrome (12/2021) Anemia BPH (benign prostatic hyperplasia) Carotid artery occlusion Chronic anticoagulation CKD stage G3b/A3, GFR 30-44 and albumin creatinine ratio >300 mg/g Coronary artery disease According to prior documentation, the patient has nonobstructing coronary disease which was treated medically. Dyslipidemia Dysphagia Heart failure with reduced ejection fraction EF as low as 30 to 35%, improved to 55 to 60% on repeat echocardiogram on 12/30/2021. History of skin cancer Hypertension Hyperthyroidism Status post radioactive iodine ablation. Hypogonadism Hypothyroidism ILD (interstitial lung disease) Left rotator cuff tear Paroxysmal atrial fibrillation Pneumonia TIA (transient ischemic attack) Type 2 diabetes mellitus Surgical History Surgical History History of arthroscopy of left knee Partial medial meniscectomy. History of cardiac catheterization Nonobstructing disease. History of tracheostomy Family History Family History (Updated 03/03/23 @ 16:13 by Cyndee Alamo RN) Sibling Diabetes mellitus Lung cancer Hypothyroidism Father Diabetes mellitus Mother Acute myocardial infarction Congestive heart failure Dementia Social History Social History Social History: The patient lives with his in [place]. They have 2 children. He smoked a pack of cigarettes a day and quit in 2007. No alcohol or illicit substance abuse. He designates his , Marycarmen Lutz, as his surrogate decision maker and he wishes to be a full code. Smoking packs per day: 1 Smoking cigarettes per day: 20.0 Years smoked: 33 Smoking pack-years: 33.00 Smoking status: Former smoker Tobacco type: cigarettes Alcohol intake: former Substance use: former Substance use type: does not use Lack of Transportation: No Lack of Food: Never True Current Housing: I Have Housing Concerned About Future Housing: No Difficulty Paying Gas/Electric Bills: No Difficulty Paying for Meds: No Currently Unemployed: No Education: High School Diploma/GED Difficulty w/ Childcare or Family Care: No Living arrangements: with family Occupation/Education: retired Spiritual care concerns: No Meds Home Medications and Allergies Home Medications Medication Instructions Recorded Confirmed Type atorvastatin 40 mg tablet 40 mg PO DAILY #90 tabs 10/30/20 03/03/23 Rx aspirin 81 mg tablet,delayed 81 mg PO DAILY 03/04/22 03/03/23 History release tamsulosin 0.4 mg capsule 0.4 mg PO DAILY 06/22/22 03/03/23 History safety needles 22 gauge x 1 (BD #100 ea 10/31/22 03/03/23 Rx Eclipse Luer-Ling) syringe with needle 3 mL 23 x 1 #100 ea 11/10/22 03/03/23 Rx (BD Luer-Ling Syringe) rivaroxaban 20 mg tablet (Xarelto) 20 mg PO DAILY 12/23/22 03/03/23 History metformin 500 mg tablet 1,000 mg PO BID #400 tabs 12/26/22 03/03/23 Rx t
[2023-03-16] MEDS: INSULIN GLARGINE (*BKC) 100 UNITS/ML 25 UNITS SUB-Q (20:20)
--- NOTE | 2023-03-16 20:32 | ECG_ITS ---
Measurements Intervals [place] Rate: 43 P: 40 HI: 167 QRS: 11 QRSD: 109 T: 51 QT: 474 QTc: 402 Interpretive Statements SINUS BRADYCARDIA NONSPECIFIC T-WAVE ABNORMALITY COMPARED TO ECG 03/03/2023 08:27:29 SINUS BRADYCARDIA NOW PRESENT Electronically Signed On 03-17-2023 8:54:44 CDT by Margret Salvador M.D.
[2023-03-16] MEDS: MIDAZOLAM HCL (*CRX) 2 MG/2 ML VIAL IV PUSH (21:34)
[2023-03-16 22:53] LABS: Glucose Point of Care 217 mg/dl (65-105)
[2023-03-16 23:52] LABS: Glucose Point of Care 240 mg/dl (65-105)
[2023-03-17] VITALS (47 sets, daily range): BP systolic 101–197; BP diastolic 45–127; PULSE 41–98; RESP 14–34; TEMP 36.6–37.8; O2SAT 96–100
[2023-03-17] MEDS: MIDAZOLAM HCL (*CRX) 2 MG/2 ML VIAL IV PUSH ×2 (00:42→02:21)
[2023-03-17 04:35] LABS: Alveolar/Arterial O2 Gradient 72.4 mmHg; Base Excess ABG 5.8 mEq/l (+/-2.0); Carboxyhemoglobin 0.3 % THb (0-2.0); Fractional Inspired Oxygen 30 %; HCO3 ABG 29.7 mEq/l (22.0-26.0); Methemoglobin ABG 0.4 %THb (0-1.5); Oxygen Content ABG 14.7 %vol (16.0-22.0); Oxygen Saturation ABG 97.6 % (95.0-100.0); Oxyhemoglobin 95.8 % THb (90.0-100.0); PCO2 ABG 40.6 mmHg (35.0-45.0); PO2 ABG 93.8 mmHg (80.0-100.0); PO2 FiO2 Ratio Arterial Blood 3.13 %; Reduced Hemoglobin 3.5 %THb (0-5.0); Total Hemoglobin 10.8 g/dL (12.0-18.0); pH ABG 7.482 (7.350-7.450)
[2023-03-17 04:36] LABS: Device VENTILATOR; Modified Allen's Test Pass; Site Drawn LEFT RADIAL
[2023-03-17 04:37] LABS: Arterial Blood Gas PEEP 8 cmH2O; Arterial Blood Gas Tidal Volume 400 ml; Arterial Blood Gas Vent Mode CMV; Arterial Blood Gas Ventilator rate 22 /MIN
[2023-03-17] MEDS: CENTRAL LINE FLUSH 10 ML IV PUSH ×3 (05:30→20:43)
[2023-03-17] MEDS: LEVOTHYROXINE SODIUM 112 MCG TABLET PO (05:30)
[2023-03-17] MEDS: LEVOTHYROXINE SODIUM 25 MCG TABLET PO (05:30)
[2023-03-17 05:53] LABS: Potassium 3.8 mmol/L (3.4-5.0)
[2023-03-17 06:08] LABS: Anion Gap -1 mmol/L (8-16); Blood Urea Nitrogen 53 mg/dL (9-20); Calcium 7.8 mg/dL (8.4-10.2); Carbon Dioxide 33 mmol/L (22-30); Chloride 114 mmol/L (98-107); Estimated CRCL calculation 46 ml/min; Estimated Glomerular Filt Rate 59; Glucose 147 mg/dL (65-110); Hematocrit 27.4 % (42.0-52.0); Hemoglobin 7.9 g/dL (14.0-18.0); Mean Corpuscular HGB Conc 28.8 g/dl (32-36); Mean Corpuscular Hemoglobin 25.3 pg (26-34); Mean Corpuscular Volume 87.8 fl (80-100); Mean Platelet Volume 12.7 fl (7.4-10.4); Phosphorus 3.4 mg/dL (2.5-4.5); Platelet Count Result 232 k/mm3 (150-375); Red Blood Count 3.12 M/mm3 (4.6-6.20); Red Cell Distribution Width 17.1 % (11.5-14.5); Sodium 146 mmol/L (137-145); White Blood Count 20.9 K/mm3 (4.5-10.0)
[2023-03-17] MEDS: TAMSULOSIN HCL 0.4 MG CAPSULE PO (08:02)
[2023-03-17] MEDS: ATORVASTATIN 40 MG TABLET PO (08:02)
[2023-03-17] MEDS: ASPIRIN 81 MG ENTERIC TABLET PO (08:02)
[2023-03-17] MEDS: MINERAL OIL/WHITE PETROLATUM OINTMENT 1 APPLIC EACH EYE (08:03)
[2023-03-17] MEDS: PANTOPRAZOLE SODIUM IV 40 MG VIAL IV PUSH ×2 (08:03→20:43)
--- NOTE | 2023-03-17 08:06 | WPDINTPN ---
Progress Note: A&P Assessment and Plan (1) Acute on chronic respiratory failure with hypoxia and hypercapnia: Code(s): J96.21 - Acute and chronic respiratory failure with hypoxia; J96.22 - Acute and chronic respiratory failure with hypercapnia Status: Acute Assessment and Plan: 03/03:Patient presented with worsening shortness of breath with green colored productive sputum 3 days, was initially admitted to intermediate Unit, respiratory distress worsened and patient was in impending respiratory failure, discussed with patient at length regarding intubation which he is agreeable as he has been intubated in December 2021 for ARDS status post tracheostomy and decannulation. -03/04: Intubated, 03/05: ETT exchanged over bougie due to cuff leak - 03/06 -CT chest 1. Interval progression of diffuse bilateral interstitial and airspace opacities which could represent pulmonary edema, pneumonia, ARDS or some combination thereof. 2. Small bilateral pleural effusions, left greater than right. 3. Cardiomegaly. -patient failed trials for few days but eventually extubated on 03/11 -03/11 Immediately after extubation patient initially desaturated but recovered with supplemental oxygen. He had increased work of breathing and was placed on BiPAP. At that time patient had no stridor. Later that evening, pt developed wheezing and stridor. Was given racemic epi inhalation and IV Solu-Medrol which did not lead to any improvement. With time patient's respiratory status became worse with increased tachypnea and work of breathing. 03/11: Patient was really intubated without any complications. During intubation airway edema was seen by the physician, patient was given a short dose of steroids -03/15: Patient was placed on pressure support ventilation 05/14, pulse tachypneic, tachycardic and was placed back on per CMV mode of ventilation, patient was started on Precedex infusion -03/16: Patient was placed on PSV 10/5, tolerated well, once PSV was changed to 8/5, patient went into AFib RVR, was tachypneic, hypoxic and had to be placed back on CMV mode of ventilation -03/17: Patient was placed on PSV 10/5, went into apnea mode. Patient was tried again but was not getting adequate minute ventilation was placed on ASV. Will try pressure support ventilation once he is more awake -Chest x-ray and ABGs reviewed -currently on Precedex infusion -holding diuretics as patient's renal function had worsened, -MRSA screen is positive but cultures are negative. Patient has already completed 7 day course of vancomycin and Levaquin -Extended viral panel came back positive for human metapneumovirus for which the treatment is supportive -Urine Histoplasma antigen is negative -Urine Legionella and urine pneumococcal antigen are negative -Negative influenza and coronavirus PCR Patient may require tracheostomy if unable to be weaned. This has been discussed with patient's who is agreeable to proceed with tracheostomy if needed as patient has had tracheostomy which was decannulated in the past. (2) Pneumonia: Code(s): J18.9 - Pneumonia, unspecified organism Status: Acute Assessment and Plan: -status post vancomycin and Levaquin -03/03: Sputum cultures growth of normal oropharyngeal judy -03/03: Blood cultures , preliminary results with no growth / bottles -03/04: MRSA screen positive 03/16: Increasing WBC count, increased ETT secretions -03/16: Sputum cultures have been obtained and pending (3) Hypertension: Qualifiers: Hypertension type: primary hypertension Qualified Code(s): I10 - Essential (primary) hypertension Code(s): I10 - Essential (primary) hypertension Status: Acute Assessment and Plan: Patient remains intubated, on Precedex infusion -blood pressures have been stable (4) REGINALD (acute kidney injury): Code(s): N17.9 - Acute kidney failure, unspecified Status: Acute Asses
--- NOTE | 2023-03-17 11:27 | PCNFU ---
Nutrition Follow-Up Complete: Inadequate energy intake related to mechanical ventilation, as evidenced by need for trophic tube feeding. Goal: Meet estimated protein energy needs Patient is meeting current goal. Will continue goal. Pt current nutrition is Vital AF 1.2 at 65 ml/hr. Last recorded weight is 68 kg. Bowel Motility: Last reported BM 03/14-Banatrol Plus TF BID for stool bulking. Labs Reviewed: Glu 147, Mg 3.0,Na 146, Hgb 7.9,Hct 27.4 Meds Noted:Precedex,Lantus, Protonix Skin:WNL Additional Notes: Patient remains on mechanical ventilation. Plans to restart tube feedings of Vital AF 1.2 at 65 ml/hr. No plans for PEG or Trach at this time. Tube feedings providing 1716 kcals/107 gms protein/1160 ml water. Flush 150 ml q 4hours. Tube feeding meeting 100% kcal needs at 25 kcal/kg and 1.4-1.6 gm/kg protein. Agree with diet orders. Monitor daily in ICU rounds. Reassess Monday and Monday per policy
[2023-03-17 12:25] LABS: Glucose Point of Care 112 mg/dl (65-105)
[2023-03-17] MEDS: ENOXAPARIN 40 MG/0.4 ML SYRINGE SUB-Q (12:32)
[2023-03-17] MEDS: dexmedeTOMIDine 400 MCG/100 ML 400 MCG/100 ML BAG IV CONT (12:34)
--- NOTE | 2023-03-17 14:01 | WPDGIPROGNO ---
Progress Note: A&P Assessment and Plan (1) Acute on chronic respiratory failure with hypoxia and hypercapnia: Code(s): J96.21 - Acute and chronic respiratory failure with hypoxia; J96.22 - Acute and chronic respiratory failure with hypercapnia Status: Acute Assessment and Plan: intubated more secretions peg placement probably early next week, in the meantime he can continue with feeding by ogt (2) Dysphagia: Code(s): R13.10 - Dysphagia, unspecified Status: Acute (3) Leukocytosis: Code(s): D72.829 - Elevated white blood cell count, unspecified Status: Acute Assessment and Plan: on abx by primary team (4) Pneumonia: Code(s): J18.9 - Pneumonia, unspecified organism Status: Acute Assessment and Plan: on treatment Subjective Date/time seen: 03/17/23 14:01 Interval history: still intubated noted increasing wbc and decided to postpone peg placement Review of Systems Review of Systems: All systems reviewed & are unremarkable except as noted in HPI and below Exam Narrative: General: Intubated HEENT:? Pupils equal and reactive, sclera is clear, ETT in place Neck:? Supple Respiratory:? Coarse breath sounds bilaterally, decreased at bases Cardiac:? S1-S2 is normal, sinus rhythm Abdomen:? Soft, nontender, nondistended, normoactive bowel sounds Extremities:? No edema, Neuro:? Patient is currently intubated, not on any sedation, opens his eyes, follows simple commands in all extremities and nods to questions Skin:? Warm and dry Psych:? Unable to assess at this time Objective Data Vital Signs Vital Signs: Vital Signs - 24 hr 03/16/23 14:46 03/16/23 16:00 03/16/23 16:00 Temperature Pulse Rate 110 H Respiratory Rate 24 H Blood Pressure Pulse Oximetry 97 Oxygen Delivery Mechanical Ventilation Fraction of Inspired Oxygen 30 30 03/16/23 16:09 03/16/23 16:00 03/16/23 17:19 Temperature 98.2 F Pulse Rate 111 H 108 H 100 Respiratory Rate 22 H 24 H Blood Pressure 146/63 H Pulse Oximetry 99 99 Oxygen Delivery Mechanical Ventilation Fraction of Inspired Oxygen 30 03/16/23 16:00 03/16/23 18:00 03/16/23 18:00 Temperature Pulse Rate 115 H 92 92 Respiratory Rate 24 H Blood Pressure 103/58 L Pulse Oximetry 99 Oxygen Delivery Fraction of Inspired Oxygen 03/16/23 19:27 03/16/23 20:25 03/16/23 20:00 Temperature Pulse Rate 83 93 80 Respiratory Rate 24 H 23 H Blood Pressure 95/49 L Pulse Oximetry 100 100 Oxygen Delivery Mechanical Ventilation Fraction of Inspired Oxygen 30 03/16/23 20:33 03/16/23 20:40 03/16/23 20:00 Temperature Pulse Rate 40 L 40 L Respiratory Rate 24 H 26 H Blood Pressure Pulse Oximetry 100 Oxygen Delivery Mechanical Ventilation Fraction of Inspired Oxygen 30 30 03/16/23 21:34 03/16/23 20:00 03/16/23 20:30 Temperature 98.7 F Pulse Rate 55 L 86 39 L Respiratory Rate 30 H 22 H 22 H Blood Pressure 92/50 L 98/45 L Pulse Oximetry 98 100 Oxygen Delivery Fraction of Inspired Oxygen 03/16/23 21:00 03/16/23 20:00 03/16/23 22:00 Temperature Pulse Rate 46 L 91 53 L Respiratory Rate 23 H Blood Pressure 113/52 L Pulse Oximetry 100 Oxygen Delivery Fraction of Inspired Oxygen 03/16/23 22:00 03/16/23 23:18 03/16/23 23:35 Temperature Pulse Rate 53 L 49 L 53 L Respiratory Rate 24 H 25 H Blood Pressure 119/51 L Pulse Oximetry 100 100 100 Oxygen Delivery Mechanical Ventilation Mechanical Ventilation Fraction of Inspired Oxygen 30 30 03/16/23 23:37 03/16/23 23:38 03/17/23 00:00 Temperature 97.9 F Pulse Rate 55 L 52 L Respiratory Rate 25 H 23 H Blood Pressure 133/49 L Pulse Oximetry 100 Oxygen Delivery Fraction of Inspired Oxygen 30 03/17/23 00:00 03/17/23 00:42 03/17/23 02:00 Temperature Pulse Rate 56 L 65 46 L Respiratory Rate 34 H Blood Pressure Pulse Oximetry
--- NOTE | 2023-03-17 14:02 | PM.IMPN ---
Progress Note: A&P Assessment and Plan (1) Acute on chronic respiratory failure with hypoxia and hypercapnia: Code(s): J96.21 - Acute and chronic respiratory failure with hypoxia; J96.22 - Acute and chronic respiratory failure with hypercapnia Status: Acute Assessment and Plan: Patient may require tracheostomy if unable to be weaned. This has been discussed with patient's who is agreeable to proceed with tracheostomy if needed as patient has had tracheostomy which was decannulated in the past. (2) Pneumonia: Code(s): J18.9 - Pneumonia, unspecified organism Status: Acute Assessment and Plan: -status post vancomycin and Levaquin (3) Hypertension: Qualifiers: Hypertension type: primary hypertension Qualified Code(s): I10 - Essential (primary) hypertension Code(s): I10 - Essential (primary) hypertension Status: Acute Assessment and Plan: Patient remains intubated, on Precedex infusion -blood pressures have been stable (4) REGINALD (acute kidney injury): Code(s): N17.9 - Acute kidney failure, unspecified Status: Acute Assessment and Plan: -creatinine trending down, patient continues to have adequate urine output -continue to monitor renal function electrolytes (5) Paroxysmal atrial fibrillation: Code(s): I48.0 - Paroxysmal atrial fibrillation Status: Chronic Assessment and Plan: History of paroxysmal atrial fibrillation on Xarelto at home -currently fluctuating between sinus bradycardia to normal sinus rhythm Xarelto on hold at this time (6) Type 2 diabetes mellitus: Code(s): E11.9 - Type 2 diabetes mellitus without complications Status: Acute Assessment and Plan: History of type 2 diabetes continue sliding scale insulin Continue Lantus Continue tube feeds (7) Cholelithiasis: Code(s): K80.20 - Calculus of gallbladder without cholecystitis without obstruction Status: Acute Assessment and Plan: CT scan showed cholelithiasis with some nonspecific gallbladder wall thickening. ultrasound was negative for any findings suggestive of cholecystitis.. HIDA scan would be inaccurate as patient is on opioid infusion. Normal bilirubin and alkaline phosphatase (8) Electrolyte abnormality: Code(s): E87.8 - Other disorders of electrolyte and fluid balance, not elsewhere classified Status: Acute Assessment and Plan: Hypernatremia and hyperchloremia: Continue free water flushes at 150 mL mL q.4 hours Subjective Date/time seen: 03/17/23 14:02 Interval history: intubated Exam Narrative: General: Intubated HEENT:? Pupils equal and reactive, sclera is clear, ETT in place, dry flaky skin on the scalp and face (which according to the is normal for him and he uses some cream given by the railroad crossing protection maintainer at home) Neck:? Supple Respiratory:? Coarse breath sounds bilaterally, decreased at bases, no wheezing, adequate air entry Cardiac:? S1-S2 is normal, sinus bradycardia Abdomen:? Soft, nontender, nondistended, normoactive bowel sounds Extremities:? No edema, Neuro:? Patient is currently intubated, on Precedex infusion, opens his eyes, follows simple commands in all extremities and nods to questions Skin:? Warm and dry Psych:? Unable to assess at this time Objective Data Vital Signs Vital Signs: Vital Signs - 24 hr 03/16/23 14:46 03/16/23 16:00 03/16/23 16:00 Temperature Pulse Rate 110 H Respiratory Rate 24 H Blood Pressure Pulse Oximetry 97 Oxygen Delivery Mechanical Ventilation Fraction of Inspired Oxygen 30 30 03/16/23 16:09 03/16/23 16:00 03/16/23 17:19 Temperature 98.2 F Pulse Rate 111 H 108 H 100 Respiratory Rate 22 H 24 H Blood Pressure 146/63 H Pulse Oximetry 99 99 Oxygen Delivery Mechanical Ventilation Fraction of Inspired Oxygen 30 03/16/23 16:00 03/16/23 18:00 03/16/23 18:00 Temperatu
[2023-03-17 16:31] LABS: Glucose Point of Care 132 mg/dl (65-105)
[2023-03-17] MEDS: racEPINEPHrine 2.25% NEBU SOLN 0.5 ML VIAL.NEB INHALATION (17:17)
[2023-03-17 19:37] LABS: Glucose Point of Care 149 mg/dl (65-105)
[2023-03-17] MEDS: hydrALAZINE HCL 20 MG/ML VIAL 10 MG IV PUSH (21:09)
[2023-03-17 23:23] LABS: Glucose Point of Care 199 mg/dl (65-105)
[2023-03-17] MEDS: DEXAMETHASONE SOD PHOS INJ 4 MG/ML VIAL IV PUSH (23:26)
[2023-03-18] VITALS (22 sets, daily range): BP systolic 131–168; BP diastolic 50–80; PULSE 63–100; RESP 18–27; TEMP 36.4–37.3; O2SAT 92–100
[2023-03-18 04:57] LABS: Hemoglobin 9.2 g/dL (14.0-18.0); Mean Corpuscular HGB Conc 28.8 g/dl (32-36); Mean Corpuscular Hemoglobin 25.3 pg (26-34); Mean Corpuscular Volume 88.2 fl (80-100); Mean Platelet Volume 12.1 fl (7.4-10.4); Platelet Count Result 293 k/mm3 (150-375); Red Blood Count 3.63 M/mm3 (4.6-6.20); Red Cell Distribution Width 17.2 % (11.5-14.5); White Blood Count 21.1 K/mm3 (4.5-10.0)
[2023-03-18 05:05] LABS: Anion Gap 6 mmol/L (8-16); Blood Urea Nitrogen 49 mg/dL (9-20); Calcium 8.7 mg/dL (8.4-10.2); Carbon Dioxide 30 mmol/L (22-30); Chloride 114 mmol/L (98-107); Estimated CRCL calculation 45 ml/min; Estimated Glomerular Filt Rate 59; Glucose 192 mg/dL (65-110); Magnesium 2.9 mg/dL (1.6-2.3); Phosphorus 4.6 mg/dL (2.5-4.5); Potassium 4.5 mmol/L (3.4-5.0); Sodium 150 mmol/L (137-145)
[2023-03-18] MEDS: CENTRAL LINE FLUSH 10 ML IV PUSH ×3 (05:07→20:37)
[2023-03-18] MEDS: DEXAMETHASONE SOD PHOS INJ 4 MG/ML VIAL IV PUSH ×3 (05:07→17:14)
[2023-03-18] MEDS: hydrALAZINE HCL 20 MG/ML VIAL 10 MG IV PUSH ×3 (05:07→23:05)
[2023-03-18 05:26] LABS: Alveolar/Arterial O2 Gradient 71.5 mmHg; Base Excess ABG 0.7 mEq/l (+/-2.0); Carboxyhemoglobin 0.3 % THb (0-2.0); Fractional Inspired Oxygen 30 %; HCO3 ABG 25.2 mEq/l (22.0-26.0); Methemoglobin ABG 0.3 %THb (0-1.5); Oxygen Content ABG 15.1 %vol (16.0-22.0); Oxygen Saturation ABG 97.4 % (95.0-100.0); PCO2 ABG 39.6 mmHg (35.0-45.0); PO2 ABG 95.9 mmHg (80.0-100.0); Reduced Hemoglobin 3.4 %THb (0-5.0); Total Hemoglobin 11.1 g/dL (12.0-18.0); pH ABG 7.421 (7.350-7.450)
[2023-03-18 05:42] LABS: Device NON-INVASIVE VENT; Modified Allen's Test Pass; Non-Invasive Expiratory Pressure 6 CMH2O; Non-Invasive Inspiratory Pressure 12 CMH2O; Non-Invasive Vent Rate 20 /MIN; Site Drawn LEFT RADIAL
--- NOTE | 2023-03-18 08:09 | WPDINTPN ---
Progress Note: A&P Assessment and Plan (1) Acute on chronic respiratory failure with hypoxia and hypercapnia: Code(s): J96.21 - Acute and chronic respiratory failure with hypoxia; J96.22 - Acute and chronic respiratory failure with hypercapnia Status: Acute Assessment and Plan: 03/03:Patient presented with worsening shortness of breath with green colored productive sputum 3 days, was initially admitted to intermediate Unit, respiratory distress worsened and patient was in impending respiratory failure, discussed with patient at length regarding intubation which he is agreeable as he has been intubated in December 2021 for ARDS status post tracheostomy and decannulation. -03/04: Intubated, 03/05: ETT exchanged over bougie due to cuff leak - 03/06 -CT chest 1. Interval progression of diffuse bilateral interstitial and airspace opacities which could represent pulmonary edema, pneumonia, ARDS or some combination thereof. 2. Small bilateral pleural effusions, left greater than right. 3. Cardiomegaly. -patient failed trials for few days but eventually extubated on 03/11 -03/11 Immediately after extubation patient initially desaturated but recovered with supplemental oxygen. He had increased work of breathing and was placed on BiPAP. At that time patient had no stridor. Later that evening, pt developed wheezing and stridor. Was given racemic epi inhalation and IV Solu-Medrol which did not lead to any improvement. With time patient's respiratory status became worse with increased tachypnea and work of breathing. 03/11: Patient was really intubated without any complications. During intubation airway edema was seen by the physician, patient was given a short dose of steroids -03/15: Patient was placed on pressure support ventilation 05/14, pulse tachypneic, tachycardic and was placed back on per CMV mode of ventilation, patient was started on Precedex infusion -03/16: Patient was placed on PSV 10/5, tolerated well, once PSV was changed to 8/5, patient went into AFib RVR, was tachypneic, hypoxic and had to be placed back on CMV mode of ventilation -03/17: Patient was placed on PSV 10/5, went into apnea mode. Patient was tried again but was not getting adequate minute ventilation was placed on ASV. Later he was placed on PSV 8/5, 30% FiO2. Patient self-extubated -05/18: remains on BiPAP 07/12 at 30% FiO2 with adequate O2 sats. Will place patient on high-flow therapy with Airvo or Vapotherm -Chest x-ray and ABGs reviewed -currently on Precedex infusion - -holding diuretics, initially due to renal dysfunction, with no patient remains in negative fluid balance. -MRSA screen is positive but cultures are negative. Patient has already completed 7 day course of vancomycin and Levaquin -Extended viral panel came back positive for human metapneumovirus for which the treatment is supportive -Urine Histoplasma antigen is negative -Urine Legionella and urine pneumococcal antigen are negative -Negative influenza and coronavirus PCR Patient may require tracheostomy if unable to be weaned. This has been discussed with patient's who is agreeable to proceed with tracheostomy if needed as patient has had tracheostomy which was decannulated in the past. (2) Pneumonia: Code(s): J18.9 - Pneumonia, unspecified organism Status: Acute Assessment and Plan: -status post vancomycin and Levaquin -03/03: Sputum cultures growth of normal oropharyngeal judy -03/03: Blood cultures , preliminary results with no growth 09/08 bottles -03/04: MRSA screen positive -03/16: Increasing WBC count, increased ETT secretions -03/16: Sputum cultures growing Staph aureus -03/18 sputum cultures resulted today will start vancomycin (3) Hypertension: Qualifiers: Hypertension type: primary hypertension Qualified Code(s): I10 - Essential (primary) hypertension Code(s): I10 - Essential (primary) hypertension Status: Acute
[2023-03-18] MEDS: ENOXAPARIN 40 MG/0.4 ML SYRINGE SUB-Q (08:11)
[2023-03-18] MEDS: PANTOPRAZOLE SODIUM IV 40 MG VIAL IV PUSH ×2 (08:11→20:39)
[2023-03-18 11:03] LABS: Add Urine Microscopic? YES; Appearance Urine Cloudy (Clear); Bacteria Urine 1+ /hpf; Bilirubin Urine Negative (Negative); Blood Urine Negative (Negative); Color Urine Yellow (Yellow); Glucose Urine UA 3+ mg/dL (Negative); Ketones Urine 1+ mg/dL (Negative); Leukocyte Esterase Ur Negative LEU/UL (NEGATIVE); Need Manual Microscopic Reviewed; Nitrate Urine Negative (Negative); Protein Urine 1+ mg/dL (Negative); RBC Urine 0-2 /hpf (0-2); Specific Grav Ur 1.021 (1.001-1.035); Squamous Epithelial Cell Urine Moderate /hpf (Few); Urobilinogen Urine 0.2 mg/dL (<2.0); WBC Urine 0-5 /hpf (0-3)
[2023-03-18 11:05] LABS: Glucose Point of Care 244 mg/dl (65-105)
[2023-03-18] MEDS: INSULIN ASPART (*BKC) 100 UNITS/ML SUB-Q (11:07)
--- NOTE | 2023-03-18 15:36 | WPDGIPROGNO ---
Progress Note: A&P Assessment and Plan (1) Acute on chronic respiratory failure with hypoxia and hypercapnia: Code(s): J96.21 - Acute and chronic respiratory failure with hypoxia; J96.22 - Acute and chronic respiratory failure with hypercapnia Status: Acute Assessment and Plan: self-extubated holding off on peg placement now that he is not longer intubated probably can try enteral feeding in the meantime still sick (2) Dysphagia: Code(s): R13.10 - Dysphagia, unspecified Status: Acute Assessment and Plan: aspiration precaution just self-extubated (3) Leukocytosis: Code(s): D72.829 - Elevated white blood cell count, unspecified Status: Acute Assessment and Plan: persistent leukocytosis, on abx by primary team (4) Pneumonia: Code(s): J18.9 - Pneumonia, unspecified organism Status: Acute Assessment and Plan: on treatment Subjective Date/time seen: 03/18/23 15:36 Interval history: self-extubated yesterday, requiring oxygen and icu care Review of Systems Review of Systems: All systems reviewed & are unremarkable except as noted in HPI and below Exam Narrative: General: Ill-looking gentleman, in no acute distress HEENT:? Pupils equal and reactive, sclera is clear Neck:? Supple Respiratory:? Coarse breath sounds bilaterally, decreased at bases Cardiac:? S1-S2 is normal, normal sinus rhythm Abdomen:? Soft, nontender, nondistended, normoactive bowel sounds Extremities:? No edema, Neuro:? Precedex infusion, opens his eyes, follows simple commands in all extremities and nods to questions Skin:? Warm and dry Psych:? Unable to assess at this time Objective Data Vital Signs Vital Signs: Vital Signs - 24 hr 03/17/23 16:00 03/17/23 16:00 03/17/23 17:15 Temperature 99.2 F Pulse Rate 65 98 Respiratory Rate 23 H 24 H Blood Pressure 143/58 H Pulse Oximetry 100 Oxygen Delivery Oxygen Flow Rate Fraction of Inspired Oxygen 30 03/17/23 17:26 03/17/23 16:00 03/17/23 17:30 Temperature Pulse Rate 97 63 88 Respiratory Rate 24 H 28 H Blood Pressure 164/57 H Pulse Oximetry 100 100 Oxygen Delivery BiPAP Oxygen Flow Rate Fraction of Inspired Oxygen 03/17/23 16:00 03/17/23 17:58 03/17/23 17:30 Temperature Pulse Rate 64 88 97 Respiratory Rate 23 H 28 H 24 H Blood Pressure Pulse Oximetry 100 100 Oxygen Delivery Mechanical Ventilation BiPAP Oxygen Flow Rate Fraction of Inspired Oxygen 30 30 03/17/23 18:00 03/17/23 16:00 03/17/23 16:01 Temperature Pulse Rate 80 61 60 Respiratory Rate 19 18 Blood Pressure 143/58 H Pulse Oximetry 100 100 Oxygen Delivery Oxygen Flow Rate Fraction of Inspired Oxygen 03/17/23 16:15 03/17/23 16:31 03/17/23 16:45 Temperature Pulse Rate 61 68 76 Respiratory Rate 17 20 18 Blood Pressure Pulse Oximetry 100 100 99 Oxygen Delivery Oxygen Flow Rate Fraction of Inspired Oxygen 03/17/23 17:00 03/17/23 17:01 03/17/23 17:15 Temperature Pulse Rate 81 77 91 Respiratory Rate 21 H 21 H 23 H Blood Pressure 197/127 H Pulse Oximetry 100 96 100 Oxygen Delivery Oxygen Flow Rate Fraction of Inspired Oxygen 03/17/23 17:30 03/17/23 17:31 03/17/23 17:45 Temperature Pulse Rate 95 96 91 Respiratory Rate 26 H 25 H 20 Blood Pressure 164/57 H Pulse Oximetry 100 100 100 Oxygen Delivery Oxygen Flow Rate Fraction of Inspired Oxygen 03/17/23 18:00 03/17/23 18:01 03/17/23 18:15 Temperature Pulse Rate 83 79 80 Respiratory Rate 21 H 18 24 H Blood Pressure 190/75 H Pulse Oximetry 100 100 100 Oxygen Delivery Oxygen Flow Rate Fraction of Inspired Oxygen 03/17/23 18:30 03/17/23 18:31 03/17/23 18:45 Temperature Pulse Rate 75 80 85 Respiratory Rate 21 H 20 15 Blood Pressure 177/78 H Pulse Oximetry 100 100 100 Oxygen Delivery Oxygen Flow Rate Fraction of Inspired Ox
[2023-03-18 17:14] LABS: Glucose Point of Care 189 mg/dl (65-105)
[2023-03-19] VITALS (12 sets, daily range): BP systolic 140–160; BP diastolic 55–94; PULSE 63–91; RESP 16–27; TEMP 36.6–37.4; O2SAT 97–99
[2023-03-19] MEDS: INSULIN ASPART (*BKC) 100 UNITS/ML SUB-Q (00:26)
[2023-03-19 00:30] LABS: Glucose Point of Care 207 mg/dl (65-105)
[2023-03-19] MEDS: hydrALAZINE HCL 20 MG/ML VIAL 10 MG IV PUSH (03:04)
[2023-03-19 04:45] LABS: Alveolar/Arterial O2 Gradient 105.9 mmHg; Base Excess ABG 2.9 mEq/l (+/-2.0); Carboxyhemoglobin 0.3 % THb (0-2.0); Fractional Inspired Oxygen 30 %; HCO3 ABG 26.1 mEq/l (22.0-26.0); Methemoglobin ABG 0.3 %THb (0-1.5); Oxygen Content ABG 14.6 %vol (16.0-22.0); Oxygen Saturation ABG 94.8 % (95.0-100.0); Oxyhemoglobin 92.2 % THb (90.0-100.0); PO2 ABG 66.9 mmHg (80.0-100.0); PO2 FiO2 Ratio Arterial Blood 2.23 %; Reduced Hemoglobin 7.2 %THb (0-5.0); Total Hemoglobin 11.2 g/dL (12.0-18.0)
[2023-03-19 04:49] LABS: Device HIGH FLOW THERAPY; Modified Allen's Test Pass; Site Drawn LEFT RADIAL
[2023-03-19 06:03] LABS: Hematocrit 33.1 % (42.0-52.0); Hemoglobin 9.7 g/dL (14.0-18.0); Mean Corpuscular HGB Conc 29.3 g/dl (32-36); Mean Corpuscular Hemoglobin 25.5 pg (26-34); Mean Corpuscular Volume 86.9 fl (80-100); Mean Platelet Volume 11.8 fl (7.4-10.4); Platelet Count Result 391 k/mm3 (150-375); Red Blood Count 3.81 M/mm3 (4.6-6.20); Red Cell Distribution Width 17.5 % (11.5-14.5); White Blood Count 23.9 K/mm3 (4.5-10.0)
[2023-03-19 06:21] LABS: Anion Gap 6 mmol/L (8-16); Blood Urea Nitrogen 52 mg/dL (9-20); Carbon Dioxide 28 mmol/L (22-30); Chloride 117 mmol/L (98-107); Estimated CRCL calculation 41 ml/min; Estimated Glomerular Filt Rate 54; Glucose 173 mg/dL (65-110); Phosphorus 3.5 mg/dL (2.5-4.5); Sodium 151 mmol/L (137-145)
[2023-03-19] MEDS: LEVOTHYROXINE SODIUM INJ 100 MCG/5 ML VIAL 68.5 MCG IV PUSH (06:40)
[2023-03-19] MEDS: CENTRAL LINE FLUSH 10 ML IV PUSH (06:40)
[2023-03-19] MEDS: PANTOPRAZOLE SODIUM IV 40 MG VIAL IV PUSH (08:27)
[2023-03-19] MEDS: ENOXAPARIN 40 MG/0.4 ML SYRINGE SUB-Q (08:27)
[2023-03-19] MEDS: SODIUM CHLORIDE 0.45% 1,000 ML 50 ML IV CONT (08:38)
[2023-03-19] MEDS: VANCOMYCIN 1,250 MG/NS 250 ML 1,250 MG/250 ML BAG 166.67 MG IVPB (08:53)
--- NOTE | 2023-03-19 09:02 | WPDGIPROGNO ---
Progress Note: A&P Assessment and Plan (1) Acute on chronic respiratory failure with hypoxia and hypercapnia: Code(s): J96.21 - Acute and chronic respiratory failure with hypoxia; J96.22 - Acute and chronic respiratory failure with hypercapnia Status: Acute Assessment and Plan: self-extubated he will have today swallowing evaluation then will make decision on nutrition supplementation (2) Dysphagia: Code(s): R13.10 - Dysphagia, unspecified Status: Acute Assessment and Plan: aspiration precaution just self-extubated (3) Leukocytosis: Code(s): D72.829 - Elevated white blood cell count, unspecified Status: Acute Assessment and Plan: persistent leukocytosis, on abx by primary team (4) Pneumonia: Code(s): J18.9 - Pneumonia, unspecified organism Status: Acute Assessment and Plan: on treatment Subjective Date/time seen: 03/19/23 09:02 Interval history: more awake requiring oxygen family member at bedside Review of Systems Review of Systems: All systems reviewed & are unremarkable except as noted in HPI and below Exam Narrative: General: Ill-looking gentleman, in no acute distress HEENT:? Pupils equal and reactive, sclera is clear Neck:? Supple Respiratory:? Coarse breath sounds bilaterally, decreased at bases Cardiac:? S1-S2 is normal, normal sinus rhythm Abdomen:? Soft, nontender, nondistended, normoactive bowel sounds Extremities:? No edema, Neuro:? awake, follows simple commands in all extremities and nods to questions Skin:? Warm and dry Psych:? anxious Objective Data Vital Signs Vital Signs: Vital Signs - 24 hr 03/18/23 10:06 03/18/23 10:00 03/18/23 10:00 Temperature 97.8 F Pulse Rate 77 84 84 Respiratory Rate 18 21 H Blood Pressure 139/58 L Pulse Oximetry 98 99 Oxygen Delivery High Flow Therapy with Na Oxygen Flow Rate 45 Fraction of Inspired Oxygen 30 03/18/23 11:44 03/18/23 12:00 03/18/23 12:00 Temperature Pulse Rate 69 69 Respiratory Rate 21 H Blood Pressure Pulse Oximetry 97 99 Oxygen Delivery High Flow Therapy with Na High Flow Therapy with Na Oxygen Flow Rate 40 0 Fraction of Inspired Oxygen 30 30 03/18/23 12:00 03/18/23 14:00 03/18/23 14:00 Temperature 97.6 F 98.4 F Pulse Rate 69 83 83 Respiratory Rate 21 H 22 H Blood Pressure 131/55 L 139/56 L Pulse Oximetry 99 97 Oxygen Delivery Oxygen Flow Rate Fraction of Inspired Oxygen 03/18/23 16:00 03/18/23 16:00 03/18/23 16:00 Temperature 98.6 F Pulse Rate 100 100 100 Respiratory Rate 19 19 Blood Pressure 156/57 H Pulse Oximetry 92 99 Oxygen Delivery High Flow Therapy with Na Oxygen Flow Rate 0 Fraction of Inspired Oxygen 30 03/18/23 17:42 03/18/23 18:00 03/18/23 18:00 Temperature 98.8 F Pulse Rate 81 80 80 Respiratory Rate 23 H 23 H Blood Pressure 155/59 H Pulse Oximetry 97 95 Oxygen Delivery High Flow Therapy with Na Oxygen Flow Rate 40 Fraction of Inspired Oxygen 30 03/18/23 20:47 03/18/23 20:00 03/18/23 20:00 Temperature 98.7 F Pulse Rate 73 73 73 Respiratory Rate 22 H 22 H Blood Pressure 157/64 H Pulse Oximetry 98 97 97 Oxygen Delivery High Flow Therapy with Na High Flow Therapy with Na Oxygen Flow Rate 40 40 Fraction of Inspired Oxygen 30 30 03/18/23 20:00 03/18/23 22:00 03/18/23 22:00 Temperature Pulse Rate 74 80 80 Respiratory Rate 22 H Blood Pressure 150/64 H Pulse Oximetry 96 Oxygen Delivery Oxygen Flow Rate Fraction of Inspired Oxygen 03/19/23 00:00 03/19/23 00:00 03/19/23 00:00 Temperature 98.6 F Pulse Rate 91 91 91 Respiratory Rate 20 20 Blood Pressure 152/61 H Pulse Oximetry 98 98 Oxygen Delivery BiPAP Oxygen Flow Rate Fraction of Inspired Oxygen 30 03/18/23 23:20 03/19/23 02:33 03/19/23 02:00 Temperature Pulse Rate 91 90 79 Respiratory Rate 20 27 H Blood Pressure Pul
--- NOTE | 2023-03-19 09:23 | WPDINTPN ---
Progress Note: A&P Assessment and Plan (1) Acute on chronic respiratory failure with hypoxia and hypercapnia: Code(s): J96.21 - Acute and chronic respiratory failure with hypoxia; J96.22 - Acute and chronic respiratory failure with hypercapnia Status: Acute Assessment and Plan: 03/03:Patient presented with worsening shortness of breath with green colored productive sputum 3 days, was initially admitted to intermediate Unit, respiratory distress worsened and patient was in impending respiratory failure, discussed with patient at length regarding intubation which he is agreeable as he has been intubated in December 2021 for ARDS status post tracheostomy and decannulation. -03/04: Intubated, 03/05: ETT exchanged over bougie due to cuff leak - 03/06 -CT chest 1. Interval progression of diffuse bilateral interstitial and airspace opacities which could represent pulmonary edema, pneumonia, ARDS or some combination thereof. 2. Small bilateral pleural effusions, left greater than right. 3. Cardiomegaly. -03/17: Patient was placed on PSV 10/5, went into apnea mode. Patient was tried again but was not getting adequate minute ventilation was placed on ASV. Later he was placed on PSV 8/5, 30% FiO2. Patient self-extubated -remains on high-flow therapy -continue bronchodilators -PT/OT has been ordered, up in chair today -for bedside evaluation -Chest x-ray and ABGs reviewed -currently on Precedex infusion -MRSA screen is positive but cultures are negative. Patient has already completed 7 day course of vancomycin and Levaquin -Extended viral panel came back positive for human metapneumovirus for which the treatment is supportive -Urine Histoplasma antigen is negative -Urine Legionella and urine pneumococcal antigen are negative -Negative influenza and coronavirus PCR (2) Pneumonia: Code(s): J18.9 - Pneumonia, unspecified organism Status: Acute Assessment and Plan: -status post vancomycin and Levaquin -03/03: Sputum cultures growth of normal oropharyngeal judy -03/03: Blood cultures , preliminary results with no growth / bottles -03/04: MRSA screen positive -03/16: Increasing WBC count, increased ETT secretions -03/16: Sputum cultures growing MRSA, Yeast isolated -continue vancomycin (03/18) (3) Hypertension: Qualifiers: Hypertension type: primary hypertension Qualified Code(s): I10 - Essential (primary) hypertension Code(s): I10 - Essential (primary) hypertension Status: Acute Assessment and Plan: P.r.n. hydralazine (4) REGINALD (acute kidney injury): Code(s): N17.9 - Acute kidney failure, unspecified Status: Acute Assessment and Plan: Patient has history of chronic kidney disease, of 0.8-1.00. -on admission his creatinine was 1.4 -03/04 received Lasix 80 mg IV x1 in IMU with adequate urine output -03/06 creatinine increased to 2.0 this morning, the urine output has been on the lower side. Diuretics were held - 03/11 creatinine 1.4 Continue diuretics - 03/12 creatinine increased to 2.0. Hold diuretics. Will give cautious amount of IV fluids -03/13 creatinine improved 1.7. -adequate urine output, creatinine normalized -continue to monitor renal function electrolytes -blood pressures have been stable (5) Paroxysmal atrial fibrillation: Code(s): I48.0 - Paroxysmal atrial fibrillation Status: Chronic Assessment and Plan: History of paroxysmal atrial fibrillation on Xarelto at home -please sinus rhythm Xarelto on hold at this time due to anemia (6) Type 2 diabetes mellitus: Code(s): E11.9 - Type 2 diabetes mellitus without complications Status: Acute Assessment and Plan: History of type 2 diabetes continue sliding scale insulin Holding Lantus since patient is off tube feeds and not eating (7) Cholelithiasis: Code(s): K80.20 - Calculus of gallbladder without cholecystitis without obstruction
--- NOTE | 2023-03-19 10:59 | PM.IMPN ---
Progress Note: A&P Assessment and Plan (1) Acute on chronic respiratory failure with hypoxia and hypercapnia: Code(s): J96.21 - Acute and chronic respiratory failure with hypoxia; J96.22 - Acute and chronic respiratory failure with hypercapnia Status: Acute Assessment and Plan: Extubated (2) Pneumonia: Code(s): J18.9 - Pneumonia, unspecified organism Status: Acute Assessment and Plan: -status post vancomycin and Levaquin -03/16: Sputum cultures growing MRSA, Yeast isolated -continue vancomycin (03/18) (3) Hypertension: Qualifiers: Hypertension type: primary hypertension Qualified Code(s): I10 - Essential (primary) hypertension Code(s): I10 - Essential (primary) hypertension Status: Acute Assessment and Plan: P.r.n. hydralazine (4) REGINALD (acute kidney injury): Code(s): N17.9 - Acute kidney failure, unspecified Status: Acute Assessment and Plan: Creatinine is 1.3. Monitor (5) Paroxysmal atrial fibrillation: Code(s): I48.0 - Paroxysmal atrial fibrillation Status: Chronic Assessment and Plan: History of paroxysmal atrial fibrillation on Xarelto at home -please sinus rhythm Xarelto on hold at this time due to anemia (6) Type 2 diabetes mellitus: Code(s): E11.9 - Type 2 diabetes mellitus without complications Status: Acute Assessment and Plan: History of type 2 diabetes continue sliding scale insulin Holding Lantus since patient is off tube feeds and not eating (7) Cholelithiasis: Code(s): K80.20 - Calculus of gallbladder without cholecystitis without obstruction Status: Acute Assessment and Plan: CT scan showed cholelithiasis with some nonspecific gallbladder wall thickening. ultrasound was negative for any findings suggestive of cholecystitis.. HIDA scan would be inaccurate as patient is on opioid infusion. Normal bilirubin and alkaline phosphatase (8) Electrolyte abnormality: Code(s): E87.8 - Other disorders of electrolyte and fluid balance, not elsewhere classified Status: Acute Assessment and Plan: Continue half-normal saline (9) Anemia: Code(s): D64.9 - Anemia, unspecified Status: Acute Assessment and Plan: Patient developed any on 03/05/2023. Status post 1 unit of packed RBCs on 03/06/2023 -Xarelto was held, -patient has remained anemic but now has anemia started to improve and hemoglobin is stable - Plan DVT prophylaxis: Xarelto on hold, SCDs, continue Lovenox Stress ulcer prophylaxis: Protonix Nutrition: Speech for bedside swallow evaluation Code Status: Full code 03/19: Discussed with Isa, patient's and updated with patient's condition plan of care. I answered all her questions Critical Care Time Spent: 32 minutes Due to a high probability of clinically significant, life threatening deterioration, the patient required my highest level of preparedness to intervene emergently and I personally spent this critical care time directly and personally managing the patient. This critical care time included obtaining a history; examining the patient; pulse oximetry; ordering and review of studies; arranging urgent treatment with development of a management plan; evaluation of patient's response to treatment; frequent reassessment; and discussions with other providers. It was exclusive of separately billable procedures and treating other patients and teaching time. Please see Assessment and Plan section and the rest of the note for further information on patient assessment and treatment This dictation may have been done utilizing a voice recognition system. Attempts have been made to correct errors. However, there may be uncorrected grammatical, spelling, and recognitions errors present. Subjective Date/time seen: 03/19/23 10:59 Interval history: Alert, on Vapotherm. Respiratory status improved. Asking
--- NOTE | 2023-03-19 11:19 | PC.NURSE ---
This patient, Moise Lutz, was received from ICU 5 on 03/19/23 at 1108. Patient/family oriented to unit policies and routines
--- NOTE | 2023-03-19 11:31 | PC.NURSE ---
This patient, Moise Lutz, was transferred to [facility] via bed with on 03/19/23 at 1100. Personal belongings sent with patient. Report given to JAXON Dodson. Appropriate documentation sent with patient.
[2023-03-19 12:09] LABS: Glucose Point of Care 156 mg/dl (65-105)
[2023-03-19] MEDS: WATER FOR IRRIGATION, STERILE 1,000 ML BOTTLE 1000 ML (12:44)
--- NOTE | 2023-03-19 14:19 | REHSTMBS ---
Assessment and note entered by Anay Thapa, CLIENT MANAGER Modified Barium Swallow Evaluation ST Clinical Summary Bedside swallowing evaluation completed. Patient was positioned at side of bed by physical therapy, who were present during swallowing evaluation and assisting with positioning. A complete oral peripheral examination could not be completed due to patient's difficulty with following directions at this time. Cursory examination of oral mechanism reveals dry oral mucosa with structures within functional limits, no assymetry observed. Trials of water by spoon and chilled applesauce by spoon were given. Oral transit was delayed and coughing and throat clearing were noted following each bolus. Bedside swallowing evaluation was stopped due to aspiration concerns. Modified barium swallow study (MBSS) is recommended. Continued NPO status is recommended at this time until MBSS is completed. Thank you for the referral of this patient.
[2023-03-19 16:11] LABS: Glucose Point of Care 177 mg/dl (65-105)
--- NOTE | 2023-03-19 16:44 | PC.NURSE ---
Patient monitor showed V-fib at 1528. JAXON English and I assessed patient in room and noticed agonal breathing and no pulse. Code blue initiated at 1529. See code blue sheet for documentation. Patient at [address] Medina. Family aware and at bedside.
--- NOTE | 2023-03-19 17:55 | WPDPROCEDUR ---
Procedures Intubation Intubation Date: 03/19/23 Intubation Time: 15:45 Consent: Intubated emergently during [facility] [place]. Sedative: etomidate Mg given: 20 Paralytic: rocuronium Mg given: 50 Laryngoscope: fiber optic video scope Assist device used: fiber optic device ET tube size: 7.5 Tube secured depth (cm): 24 Tube secured location: lips Tube placement confirmation: visualized tube passing through cords, equal breath sounds bilaterally, no breath sounds over epigastrium and confirmation by capnometry Patient tolerated procedure: well Intubation complications: none Additional comments: Patient initially being bagged on [place] [facility] [place] Attending ED physician, Dr. Medina, present. Patient was intubated during chest compressions without issue. Despite heroic resuscitation efforts the patient did not maintain return of spontaneous circulation and ultimately passed at 15:52.
--- NOTE | 2023-03-19 18:50 | ED.PROCEDURE ---
Procedures Other Procedures Procedure 1: Other Procedure: Code Blue Note Subjective: SARAH SHEPPARD was called overhead to IMU. On arrival, compressions were in process. The patient was being bagged by respiratory therapy. Nursing staff notes V-fib was noted on the monitor and on evaluation, the patient appeared apneic and did not have a pulse. The patient was admitted to the hospital by me for ARDS and respiratory failure. Reportedly the patient had been intubated, extubated and reintubated 3 separate times. He had been transferred from the ICU earlier today after being extubated approximately 48 hours ago. Objective: GENERAL: Well-developed, cachectic, unresponsive HEAD: Normocephalic, atraumatic. EYES: Pupils 3 mm, sluggishly reactive to light ENT: Mucous membranes dry. CHEST: Coarse bilateral breath sounds with rhonchi, with bagging. HEART: Biphasic femoral pulse by Doppler with compressions ABDOMEN: Soft, nondistended EXTREMITIES: No edema. SKIN: Pale NEURO: Unresponsive Course: 15:29 - Sarah sheppard called overhead 15:32 - I arrived at bedside. Compressions ongoing with epinephrine recently administered. Initial rhythm reported as V-fib. 15:37 - Pulse check, V-fib is noted on the monitor. The patient was defibrillated and compressions were resumed. 15:39 - ROSC was briefly obtained, the patient momentarily appeared responsive. Before blood pressure could be taken, however the patient's rhythm degenerated into V-fib with torsades pattern and loss of pulse. Compressions were resumed and the patient was defibrillated. With compressions, the patient demonstrates intermittent facial expressions. 15:45 - The patient was intubated with etomidate and rocuronium by ADEOLA Singh under my direct supervision. 15:46 - Asystole noted on the monitor. Compressions continued. 15:52 - Despite excellent compressions, defibrillation twice, 5 A of epinephrine, amiodarone, calcium, bicarb and magnesium we were unable to obtain ROSC. A final rhythm of asystole was noted on the monitor. Time of was called at 15:52. The patient's family was notified. Dr. Damon was notified. Assessment and plan: Diagnosis: Cardiopulmonary arrest Condition: Time of ? 15:52
--- NOTE | 2023-04-17 11:39 | P.DN_ITS ---
Discharge Summary Date and Time Date of : 03/19/23 Time of : 15:52 Provider Pronounced By: Dr. RITESH Dow Probable Cause of Probable Cause of : vfib arrest Summary Hospital Course: Patient was admitted for respiratory failure secondary to pneumonia. Spent some time in the ICU on the ventilator. Patient was subsequently extubated and transferred out to floor. Had been doing okay and progressing then all the sudden he developed VFib arrest hand ACLS protocol was followed however returned spontaneous circulation was never obtained. 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 Notified of : 03/19/[address] [facility] Notified of : 16:06
== END 2023-03-19 15:52 | disposition expired | DRG 207 ==
LOC: ANHED 11:11 → ANHIMU 12:04 → ANHICU 03-04 08:23 → ANHIMU 03-20 10:30
PROVIDERS: Internal Medicine; Nurse Practitioner; Admitting Provider Student in an Organized Health Care Education/Training Program; Emergency Provider Preventive Medicine Aerospace Medicine; PCP Family Medicine; Visit Provider Chiropractor
DX: J96.21 Acute and chronic respiratory failure with hypoxia (principal); J18.9 Pneumonia, unspecified organism; J15.212 Pneumonia due to Methicillin resistant Staphylococcus aureus; I13.0 Hypertensive heart and chronic kidney disease with heart failure and stage 1 through stage 4 chronic kidney disease, or unspecified chronic kidney disease; N17.9 Acute kidney failure, unspecified; J84.9 Interstitial pulmonary disease, unspecified; I50.32 Chronic diastolic (congestive) heart failure; E87.0 Hyperosmolality and hypernatremia; Z87.891 Personal history of nicotine dependence; I48.0 Paroxysmal atrial fibrillation; Z79.01 Long term (current) use of anticoagulants; E11.22 Type 2 diabetes mellitus with diabetic chronic kidney disease; N18.32 Chronic kidney disease, stage 3b; Z79.84 Long term (current) use of oral hypoglycemic drugs; D64.9 Anemia, unspecified; E78.5 Hyperlipidemia, unspecified; E03.9 Hypothyroidism, unspecified; N40.0 Benign prostatic hyperplasia without lower urinary tract symptoms; M47.814 Spondylosis without myelopathy or radiculopathy, thoracic region; E87.8 Other disorders of electrolyte and fluid balance, not elsewhere classified; K80.20 Calculus of gallbladder without cholecystitis without obstruction; E87.5 Hyperkalemia; Z20.822 Contact with and (suspected) exposure to COVID-19; Z22.322 Carrier or suspected carrier of Methicillin resistant Staphylococcus aureus; I49.01 Ventricular fibrillation
CPT/HCPCS: 31500; 36415; 36430; 36569; 36600; 71045; 71250; 76705; 80048; 80053; 80202; 81001; 82375; 82565; 82805; 82948; 83036; 83050; 83605; 83735; 83880; 84100; 84145; 84478; 84484; 85025; 85027; 85610; 86738; 86850; 86900; 86901; 86923; 87040; 87070; 87081; 87086; 87106; 87147; 87181; 87186; 87205; 87385; 87449; 87633; 87636; 87899; 92610; 92950; 93005; 93306; 94002; 94003; 94640; 94660; 96374; 97162; 97165; 97530; 99285; A9270; C1751; C9113; G0378; J0171; J0282; J0330; J0360; J0456; J0692; J0696; J1100; J1650; J1815; J1940; J1956; J2060; J2250; J2405; J2704; J2920; J2997; J3010; J3370; J3475; J3480; J7030; J7050; P9016; P9047